=== PATIENT | male | born 1950 | race Caucasian/White ===

== ENCOUNTER → 2016-02-15 | Day surgery (SDC) | payer OTHER ==
[2016-02-03 08:20] VITALS: Ht 170.2 cm; Wt 76.8 kg
[~2016-02-15] VITALS: Ht 170.2 cm; Wt 76.8 kg
[~2016-02-15] MED LIST: ALBINS/ INH; ASPI81TA28 PO; ATV/1 PO; AZAT50TA17 PO; CAPS0.022 TOP; FAMO20TA11 PO; HYDR-3714 PO; ITRA100C PO; LIDOCAINE HCL 2% 2 ML VIAL (20MG/ML) ONE; MAGN400T5 PO; MAGN400T6 PO; MIDAZOLAM HCL 1 MG/ML 2ML VIAL ONE; MIRT1TAB27 PO; MYCO1TAB7 PO; ONDA4TAB46 PO; ONDANSETRON INJ 2 MG/ML 2 ML VIAL ONE; PRAV20TA PO; PRED-301 PO; PRED50TA PO; PRLSR20 PO; PROGRAF PO; PROPOFOL IV EMULSION 10 MG/ML 20 ML VIAL IV ONE; PRVC40 PO; SODIUM CHLORIDE 0.9% 500ML 500 ML IV ONE; SULF800T23 PO; TACR1CAP PO; TEMA15CA4 PO; VALA1TAB2 PO
--- NOTE | 2016-02-15 10:52 | Endo History and Physical ---
History & Physical Date of Service: Feb 15, 2016. Chief Complaint: SCREENING FOR COLON C.A. Referring Physician: DR. ESTEBAN DUNHAM History of Present Illness 65 yo CM who presents for screening colonoscopy. Past Medical History Reflux, Other Past Surgical History Hx Cardiac Surgery: Yes (HEART CATH-NO STENTS) Hx Internal Defibrillator: No Hx Pacemaker: No Hx Abdominal Surgery: Yes (APPY) Hx Post-Op Nausea and Vomiting: No Hx Cancer Surgery: No Hx Thoracic Surgery: Yes (BILATERAL LUNG TRANSPLANT 2015) Hx Orthopedic: Yes (LUMBAR DISCECTOMY X 3, CERVICAL DISCECTOMY, RT KNEE ARTHRSCOPY) Hx Urinary Tract Surgery: No Family History None Social History Smoking Status: Former Smoker Hx Substance Use: Yes (SEE MED REC) Hx Alcohol Use: No (QUIT OVER 20 YEARS AGO) Allergies Coded Allergies: Levofloxacin (Verified Allergy, Intermediate, REDNESS/RASH, 02/15/16) Current Medications Reported Home Medications Medications Dose Route/Sig Max Daily Dose Days Date Category Dose Instructions Mirtazapine 7.5 Mg Tab 1 Tab PO HS 02/03/16 Reported [Prograf Liquid] Unknown Strength 0.25 Ml PO QPM 01/20/16 Reported [Prograf Liquid] Unknown Strength 0.5 Ml PO QAM 01/20/16 Reported Pravastatin Sodium (Pravastatin Sod) 40 Mg Tab 40 Mg PO HS 01/18/[address] (Mycophenolate Sodium) 360 Mg Tab 2 Tab PO BID 01/18/16 Reported Sporanox (Itraconazole) 100 Mg Cap 100 Mg PO UNKNOWN PRN 01/18/16 Reported Zofran (Ondansetron HCl) 4 Mg Tab 4 Mg PO Q8 PRN 01/17/16 Reported Restoril (Temazepam) 15 Mg Cap 15 Mg PO HS 12/31/15 Reported Mag-Ox (Magnesium Oxide) 400 Mg Tab 400 Mg PO TID 12/31/15 Reported Prednisone 5 Mg Tab 5 Mg PO QAM 12/31/15 Reported Aspirin Ec (Aspirin) 81 Mg Tab 81 Mg PO QAM 12/31/15 Reported PATIENT CURRENTLY NOT TAKING DUE TO UPCOMING BRONCHOSCOPY Ativan (Lorazepam) 1 Mg Tab 1 Mg PO BID 10/26/14 Reported Prilosec (Omeprazole) 20 Mg Capcr 20 Mg PO BID 03/24/13 Reported Proventil 0.083% 2.5MG/3ML (Albuterol Sulf) 2.5 Mg/3 Ml Nebu 2.5 Mg INH 5XD PRN 03/16/11 Reported Vital Signs Weight (Kilograms): 76.82 Height (Feet): 5 Height (Inches): 7 Date Time Temp Pulse Resp B/P Pulse Ox O2 Delivery O2 Flow Rate FiO2 02/15/16 10:38 36.7 77 16 128/73 99 Room Air Physical Exam General Appearance: WD/WN, no apparent distress Respiratory/Chest: Auscultation: breath sounds normal Cardiovascular: Heart Auscultation: RRR Abdomen: Bowel Sounds: normal Inspection & Palpation: soft, non-distended, no tenderness, guarding & rebound Assessment and Plan Assessment: 65 yo CM who presents for screening colonoscopy. Plan: Proceed with colonoscopy.
--- NOTE | 2016-02-15 11:20 | Discharge Instructions ---
Endoscopy Patient Instructions Date / Procedure(s) Performed Feb 15, 2016. Colonoscopy Allergy Information Coded Allergies: Levofloxacin (Verified Allergy, Intermediate, REDNESS/RASH, 02/15/16) Discharge Date / Findings Feb 15, 2016. Colon polyp Diverticulosis Internal hemorrhoids Medication Instructions Stopped Medication(s): ASPRIN LAST DOSE 2 WEEKS AGO 02/01/16 OK to resume all medications today as prescribed Reported Home Medications Medications Dose Route/Sig Max Daily Dose Days Date Category Dose Instructions Mirtazapine 7.5 Mg Tab 1 Tab PO HS 02/03/16 Reported [Prograf Liquid] Unknown Strength 0.25 Ml PO QPM 01/20/16 Reported [Prograf Liquid] Unknown Strength 0.5 Ml PO QAM 01/20/16 Reported Pravastatin Sodium (Pravastatin Sod) 40 Mg Tab 40 Mg PO HS 01/18/[address] (Mycophenolate Sodium) 360 Mg Tab 2 Tab PO BID 01/18/16 Reported Sporanox (Itraconazole) 100 Mg Cap 100 Mg PO UNKNOWN PRN 01/18/16 Reported Zofran (Ondansetron HCl) 4 Mg Tab 4 Mg PO Q8 PRN 01/17/16 Reported Restoril (Temazepam) 15 Mg Cap 15 Mg PO HS 12/31/15 Reported Mag-Ox (Magnesium Oxide) 400 Mg Tab 400 Mg PO TID 12/31/15 Reported Prednisone 5 Mg Tab 5 Mg PO QAM 12/31/15 Reported Aspirin Ec (Aspirin) 81 Mg Tab 81 Mg PO QAM 12/31/15 Reported PATIENT CURRENTLY NOT TAKING DUE TO UPCOMING BRONCHOSCOPY Ativan (Lorazepam) 1 Mg Tab 1 Mg PO BID 10/26/14 Reported Prilosec (Omeprazole) 20 Mg Capcr 20 Mg PO BID 03/24/13 Reported Proventil 0.083% 2.5MG/3ML (Albuterol Sulf) 2.5 Mg/3 Ml Nebu 2.5 Mg INH 5XD PRN 03/16/11 Reported Provider Instructions Activity Restrictions - No exercising or heavy lifting for 24 hours. - Do not drink alcohol the day of the procedure. - Do not drive a car or operate machinery until the day after the procedure. - Do not make any important decisions or sign important papers in 24 hours after the procedure. Following Day: - Return to full activity which may include returning to work/school. Diet Start your diet with liquids and light foods (jello, soup, juice, toast). Then eat your usual diet if not nauseated. Treatment For Common After Affects For mild abdominal pain, bloating, or excessive gas: - Rest - Eat lightly - Lie on right side Follow-Up Information Follow-up with DR. ESTEBAN DUNHAM as scheduled Anesthesia Information What You Should Know You have had a procedure that required some medicine to reduce anxiety and discomfort. This treatment is called moderate sedation. After receiving the treatment, you may be sleepy, but you will be able to breathe on your own. The effects of the treatment may last for several hours. Follow these instructions along with Activity/Diet recommendations noted above: * Do NOT do anything where dizziness or clumsiness would be dangerous. * Rest quietly at home today, then you can be up and about tomorrow. * Have a responsible person stay with you the rest of today. * You may have had an I.V. today. If so, you may take the dressing off later today. Recommendations Call your doctor if: * Trouble breathing * Continuous vomiting for more than 24 hours * Temperature above 101 degrees * Severe abdominal pain or bloating * Pain not relieved by pain medicine ordered * There is increased drainage or redness from any incision * A large amount of rectal bleeding greater than 2-3 tablespoons. (If you had a polyp/s removed or have hemorrhoids, a small amount of blood - from the rectum is to be expected.) * You have any unanswered questions or concerns. IN THE EVENT OF A SERIOUS EMERGENCY, GO TO THE NEAREST EMERGENCY ROOM Your discharge instructions were prepared by provider Paolo Hernandez. Patient Instructions Signature Page Milan Valiente Patient (or Guardian) Signature/Date: I have read and understand the instructions given to me by my caregivers. Caregiver/RN/Doctor Signature/Date: The above-named patient and/or guardian has received patient instructions on this date. + Original Patient Signature Page (only) stays with chart. Please make copy for patient.
--- NOTE | 2016-02-15 11:22 | GI REPORT ---
Procedure Date: 02/15/2016 10:59 AM Procedure: Colonoscopy Indications: Screening for colorectal malignant neoplasm Medicines: Monitored Anesthesia Care Complications: No immediate complications. Estimated Blood Loss: Estimated blood loss: none. Procedure: Pre-Anesthesia Assessment: - Prior to the procedure, a History and Physical was performed, and patient medications and allergies were reviewed. The patient's tolerance of previous anesthesia was also reviewed. The risks and benefits of the procedure and the sedation options and risks were discussed with the patient. All questions were answered, and informed consent was obtained. Prior Anticoagulants: The patient has taken aspirin, last dose was 14 days prior to procedure. ASA Grade Assessment: III - A patient with severe systemic disease. After reviewing the risks and benefits, the patient was deemed in satisfactory condition to undergo the procedure. After I obtained informed consent, the scope was passed under direct vision. Throughout the procedure, the patient's blood pressure, pulse, and oxygen saturations were monitored continuously. The scope was introduced through the anus and advanced to the terminal ileum. The colonoscopy was performed without difficulty. The patient tolerated the procedure well. The quality of the bowel preparation was good. The terminal ileum, ileocecal valve, appendiceal orifice, and rectum were photographed. Findings: A 5 mm polyp was found in the cecum. The polyp was sessile. The polyp was removed with a hot snare. Resection and retrieval were complete. Scattered small-mouthed diverticula were found in the entire colon. Non-bleeding internal hemorrhoids were found during retroflexion. The hemorrhoids were small. Impression: - One 5 mm polyp in the cecum, removed with a hot snare. Resected and retrieved. - Diverticulosis in the entire examined colon. - Non-bleeding internal hemorrhoids. Recommendation: - Resume previous diet. - Continue present medications. - Repeat colonoscopy for surveillance based on pathology results. - Return to primary care physician as previously scheduled. Paolo Hernandez DO 02/15/2016 11:21:13 AM This report has been signed electronically. Note Initiated On: 02/15/2016 10:59 AM
[2016-02-15 11:55] VITALS: BP 120/66; PULSE 66; O2SAT 99
--- NOTE | 2016-02-15 13:04 | Anesthesiology Progress Note ---
Anesthesia Post Op Note Date & Time Feb 15, 2016 at 13:04 Vital Signs Pain Intensity: 0 Vital Signs Past 12 Hours Date Time Temp Pulse Resp B/P Pulse Ox O2 Delivery O2 Flow Rate FiO2 02/15/16 11:55 66 18 120/66 99 Room Air 02/15/16 11:40 68 16 124/65 99 Room Air 02/15/16 11:23 36.7 69 16 117/62 99 Room Air 02/15/16 10:38 36.7 77 16 128/73 99 Room Air Notes Mental Status: alert / awake / arousable, participated in evaluation Pt Amnestic to Procedure: Yes Nausea / Vomiting: adequately controlled Pain: adequately controlled Airway Patency, RR, SpO2: stable & adequate BP & HR: stable & adequate Hydration State: stable & adequate Anesthetic Complications: no major complications apparent
== END | disposition home or self-care (01) ==
LOC: C.GI 10:21
PROVIDERS: ATTEND Internal Medicine
DX: Z12.11 Encounter for screening for malignant neoplasm of colon (principal); D12.0 Benign neoplasm of cecum; K57.90 Diverticulosis of intestine, part unspecified, without perforation or abscess without bleeding; K64.8 Other hemorrhoids; Z87.891 Personal history of nicotine dependence; Z79.899 Other long term (current) drug therapy; Z94.2 Lung transplant status

== ENCOUNTER → 2016-03-13 | Outpatient (CLI) | payer OTHER ==
[~2016-03-13] MED LIST changes: -HYDR-3714 PO; -LIDOCAINE HCL 2% 2 ML VIAL (20MG/ML) ONE; -MIDAZOLAM HCL 1 MG/ML 2ML VIAL ONE; -ONDANSETRON INJ 2 MG/ML 2 ML VIAL ONE; -PROPOFOL IV EMULSION 10 MG/ML 20 ML VIAL IV ONE; -SODIUM CHLORIDE 0.9% 500ML 500 ML IV ONE
--- NOTE | 2016-03-13 10:31 | DIAGNOSTIC IMAGING REPORT ---
CHEST 2 VIEWS ROUTINE CLINICAL HISTORY: R68.89 Flu-like symptoms3 days cough E X0D E [id number] dyspnea COMPARISON STUDY: 01/17/2016 FINDINGS: Stable unchanging postoperative changes mid mediastinum as well as central pericardiac region. Findings appear to relate to the anterior sternum as well as mediastinal regions. These again are chronic. Slight chronic blunting left base laterally. Lungs otherwise appear clear. IMPRESSION: Chronic and postoperative change. No acute process. Electronically signed by: Emeterio Hall M.D. 03/13/2016 10:30 AM Dictated Date/Time: 03/13/2016 10:29 AM
[2016-03-13 12:36] LABS: INFLUENZA A PCR Neg for Influ A (NEG); INFLUENZA B PCR Neg for Influ B (NEG)
== END | disposition home or self-care (01) ==
LOC: C.RAD1850 10:16
PROVIDERS: ATTEND Family Medicine
DX: R68.89 Other general symptoms and signs (principal); B34.8 Other viral infections of unspecified site; T86.812 Lung transplant infection; X58.XXXA Exposure to other specified factors, initial encounter; Z94.2 Lung transplant status; Z79.899 Other long term (current) drug therapy; E83.42 Hypomagnesemia

== ENCOUNTER → 2016-04-10 | Outpatient (CLI) | payer OTHER ==
[~2016-04-10] MED LIST changes: +ACYC-57 PO; +ATV1 PO; +AZAT50TA22 PO; +CRFL PO; +FAMO1TAB47 PO; +FLUD0.1T10 PO; +GABA1CAP4 PO; +LYR/50 PO; +OMEP20CA9 PO; +ONDA4TAB9 PO; +PRAV40TA2 PO; +PRG5 PO; +TEMA-79 PO
[2016-04-10 09:49] LABS: ALT/SGPT 11 U/L (12-78); BLOOD UREA NITROGEN 22 mg/dl (7-18); BUN/CREATININE RATIO 20.3 (10-20); CALCIUM 8.9 mg/dl (8.5-10.1); CARBON DIOXIDE 26 mmol/L (21-32); CHLORIDE 106 mmol/L (98-107); GLUCOSE 97 mg/dl (70-99); POTASSIUM 4.7 mmol/L (3.5-5.1); SODIUM 142 mmol/L (136-145)
[2016-04-10 09:55] LABS: ALB/GLOB RATIO 1.3 (0.9-2); ALKALINE PHOSPHATASE 52 U/L (45-117); AST/SGOT 14 U/L (15-37); CHOLESTEROL 144 mg/dl (0-200); CHOLESTEROL/HDL RATIO 1.7; HDL CHOLESTEROL 85 mg/dl; LDL CHOLESTEROL CALCULATED 34 mg/dl; PROSTATE SPECIFIC ANTIGEN 0.508 ng/ml (0.000-4.000); TRIGLYCERIDES 124 mg/dl (0-150); VERY LOW DENSITY LIPOPROT CALC 25 mg/dl
== END | disposition home or self-care (01) ==
LOC: C.LAB 07:52
PROVIDERS: ATTEND Internal Medicine
DX: Z12.5 Encounter for screening for malignant neoplasm of prostate (principal); E78.5 Hyperlipidemia, unspecified

== ENCOUNTER 2016-09-23 11:33 | Emergency (ER) | payer OTHER ==
[~2016-09-23] VITALS: Ht 170.2 cm; Wt 78.4 kg
[~2016-09-23 11:33] MED LIST changes: -ACYC-57 PO; -ATV1 PO; -AZAT50TA17 PO; -AZAT50TA22 PO; -CAPS0.022 TOP; -CRFL PO; -FAMO1TAB47 PO; -FAMO20TA11 PO; -FLUD0.1T10 PO; -GABA1CAP4 PO; -LYR/50 PO; -MAGN400T5 PO; -OMEP20CA9 PO; -ONDA4TAB9 PO; -PRAV20TA PO; -PRAV40TA2 PO; -PRED50TA PO; -PRG5 PO; -SULF800T23 PO; -TACR1CAP PO; -TEMA-79 PO; -VALA1TAB2 PO
[2016-09-23 11:36] VITALS: TEMP 36.8; Ht 170.2 cm; Wt 78.4 kg
[2016-09-23] MEDS ORDERED: SODIUM CHLORIDE 0.9% 1000ML 1,000 ML IV STA ×2 (12:01→16:09)
[2016-09-23] MEDS ORDERED: ONDANSETRON INJ 2 MG/ML 2 ML VIAL IV STA ×2 (12:01→15:52)
--- NOTE | 2016-09-23 12:14 | EMERGENCY ROOM VISIT NOTE ---
History Report prepared by Raghav: Jorge Galvin Under the Supervision of: Dr. Carlos Alberto Allen D.O. First contact with patient: 11:58 Chief Complaint: ILLNESS Stated Complaint: CHEST/BACK PAIN HX: DOUBLE LUNG TRANSPLANT History of Present Illness The patient is a 65 year old male who presents to the Emergency Room with complaints of constant right sided chest pain that began 5 days ago. He rates his pain a 9/10 in severity. At this time, he began experiencing this pain. It then began to radiate into his right upper back. Deep breaths exacerbate his chest pain. Two days ago, he went to a doctor in [place] and was given [place]. His pain then began to radiate down his right side. He notes that he had a bilateral lung transplant 2 years ago, and he recently fell half a month ago onto his chest. He is also experiencing a cough. He denies any fevers, chills, abdominal pain, pain/swelling in his legs, or weight loss/gain. He states that he has a broke bone in his neck currently. He has a past medical history of back surgery, neck surgery, knee surgery, and an appendectomy. He still has his gallbladder, never has had a kidney stone, and never had a blood clot. Source of History: patient Onset: 5 days ago Position: chest (right) Symptom Intensity: 9/10 Quality: ache Timing: constant Modifying Factors (Worsening): breathing Associated Symptoms: + cough, + back pain, No fevers, No chills, No abdominal pain Review of Systems See HPI for pertinent positives & negatives. A total of 10 systems reviewed and were otherwise negative. Past Medical & Surgical Medical Problems: (1) COPD (chronic obstructive pulmonary disease) (2) Diffuse interstitial pulmonary fibrosis (3) Dyslipidemia (4) Gastroesophageal reflux disease (5) Tobacco dependence in remission Surgical Problems: (1) H/O arthroscopy of right knee (2) H/O cardiac catheterization (3) History of lumbar surgery (4) Hx of appendectomy (5) S/P cervical spinal fusion Family History FH: diabetes mellitus FH: heart disease Lung disease Social History Smoking Status: Former Smoker Smokeless Tobacco Use: No Alcohol Use: none Drug Use: none Marital Status: Occupation Status: disabled Current/Historical Medications Scheduled Aspirin (Aspirin Ec), 81 MG PO DAILY Azathioprine (Imuran), 50 MG PO DAILY Famotidine (Pepcid), 20 MG PO BID Lorazepam (Ativan), 1 MG PO BID Magnesium Oxide (Mag-Ox), 400 MG PO TID Omeprazole (Prilosec), 20 MG PO BID Pravastatin (Pravachol ), 40 MG PO HS Prednisone (Prednisone), 50 MG PO DAILY Sulfa/Trimethoprim (Bactrim Ds 800MG/160MG), 1 TAB PO 3XWK Tacrolimus (Prograf), 4 MG PO QAM Tacrolimus (Prograf), 3 MG PO QPM Temazepam (Restoril), 15 MG PO HS Valacyclovir Hcl (Valtrex), 1,000 MG PO DAILY Scheduled PRN Ondansetron Hcl (Zofran), 4 MG PO Q8 PRN for Nausea Allergies Coded Allergies: Levofloxacin (Verified Allergy, Intermediate, REDNESS/RASH, 09/23/16) Physical Exam Vital Signs Date Time Temp Pulse Resp B/P (MAP) Pulse Ox O2 Delivery O2 Flow Rate FiO2 09/23/16 17:27 67 18 131/83 100 09/23/16 16:14 65 20 128/82 100 Room Air 09/23/16 14:30 70 10 131/72 95 Room Air 09/23/16 13:57 67 19 122/75 94 Room Air 09/23/16 12:45 71 26 112/73 100 Room Air 09/23/16 12:24 76 09/23/16 11:36 36.8 93 18 151/78 99 Room Air Physical Exam GENERAL: Patient is awake, alert, and in no acute distress. Patient is resting comfortably and showing no signs of anxiety EYES: The conjunctivae are clear. The pupils are round and reactive. EARS, NOSE, MOUTH AND THROAT: The nose is without any evidence of any deformity. Mucous membranes are moist tongue is midline NECK: The neck is nontender and supple. RESPIRATORY: Normal respiratory effort is noted there is no evidence of wheezing rhonchi or rales CARDIOVASCULAR: Regular rate and rhythm noted there no murmurs rubs or gallops normal S1 normal S2 GASTROINTESTINAL: The abdomen is soft. Bowel sounds are present in all quadrants. Abdomen is nontender BACK: No midline tenderness or or step-off noted range of motion in flexion extension as well as rotation no signs of muscle spasm noted MUSCULOSKELETAL/EXTREMITIES: There is no evidence of gross deformity full range of motion is noted in the hips and shoulders SKIN: There are no petechiae, pallor or cyanosis noted. Erythematous vesicular rash under the right lower rib cage consistent with shingles. NEUROLOGIC: Patient is awake alert and oriented x3. Medical Decision & Procedures ER Provider Diagnostic Interpretation: Radiology results as stated below per my review and radiologist interpretation: CHEST ONE VIEW PORTABLE CLINICAL HISTORY: Abdominal pain. COMPARISON STUDY: Chest radiograph March 13, 2016. FINDINGS: Lung volumes are normal. No pneumothorax or pleural effusion is present. Mild elevation of the right hemidiaphragm is unchanged. There are are postoperative findings within the sternum as well as mediastinal surgical clips consistent with bilateral lung transplant. Mild cardiomegaly is unchanged. There is no evidence of pulmonary edema. Linear left lower lung opacity suggests atelectasis or scarring. The appearance of the chest is unchanged. IMPRESSION: No acute cardiopulmonary findings. No change in appearance of the chest. Electronically signed by: Adonis Gudino M.D. 09/23/2016 12:54 PM Dictated Date/Time: 09/23/2016 12:52 PM BILATERAL LOWER EXTREMITY VENOUS DOPPLER CLINICAL HISTORY: Chest pain. Possible pulmonary embolus. COMPARISON STUDY: No previous studies for comparison. TECHNIQUE: Sonography of the deep venous system of the bilateral lower extremities was performed. Compression and augmentation were evaluated. FINDINGS: The bilateral common femoral, superficial femoral and popliteal veins were compressible. Augmentation was normal. Flow was shown within the deep calf vessels. IMPRESSION: No evidence of deep venous thrombus within the bilateral lower extremities. Electronically signed by: Adonis Gudino M.D. 09/23/2016 3:31 PM Dictated Date/Time: 09/23/2016 3:30 PM Laboratory Results 09/23/16 12:10 Red Blood Count 3.93, Mean Corpuscular Volume 85.5, Mean Corpuscular Hemoglobin 27.5, Mean Corpuscular Hemoglobin Concent 32.1, Mean Platelet Volume 9.7, Neutrophils (%) (Auto) 79.2, Lymphocytes (%) (Auto) 11.7, Monocytes (%) (Auto) 7.5, Eosinophils (%) (Auto) 1.0, Basophils (%) (Auto) 0.3, Neutrophils # (Auto) 4.85, Lymphocytes # (Auto) 0.72, Monocytes # (Auto) 0.46, Eosinophils # (Auto) 0.06, Basophils # (Auto) 0.02 09/23/16 12:10 Test 09/23/16 12:10 09/23/16 12:19 09/23/16 14:00 White Blood Count 6.13 K/uL (4.8-10.8) Red Blood Count 3.93 M/uL (4.7-6.1) Hemoglobin 10.8 g/dL (14.0-18.0) Hematocrit 33.6 % (42-52) Mean Corpuscular Volume 85.5 fL (80-100) Mean Corpuscular Hemoglobin 27.5 pg (25-34) Mean Corpuscular Hemoglobin Concent 32.1 g/dl (32-36) Platelet Count 331 K/uL (130-400) Mean Platelet Volume 9.7 fL (7.4-10.4) Neutrophils (%) (Auto) 79.2 % Lymphocytes (%) (Auto) 11.7 % Monocytes (%) (Auto) 7.5 % Eosinophils (%) (Auto) 1.0 % Basophils (%) (Auto) 0.3 % Neutrophils # (Auto) 4.85 K/uL (1.4-6.5) Lymphocytes # (Auto) 0.72 K/uL (1.2-3.4) Monocytes # (Auto) 0.46 K/uL (0.11-0.59) Eosinophils # (Auto) 0.06 K/uL (0-0.5) Basophils # (Auto) 0.02 K/uL (0-0.2) RDW Standard Deviation 51.0 fL (36.4-46.3) RDW Coefficient of Variation 16.1 % (11.5-14.5) Immature Granulocyte % (Auto) 0.3 % Immature Granulocyte # (Auto) 0.02 K/uL (0.00-0.02) Prothrombin Time 10.9 SECONDS (9.0-12.0) Prothromb Time International Ratio 1.0 (0.9-1.1) Activated Partial Thromboplast Time 27.5 SECONDS (21.0-31.0) Partial Thromboplastin Ratio 1.1 Anion Gap 7.0 mmol/L (3-11) Est Creatinine Clear Calc Drug Dose 27.2 ml/min Estimated GFR () 29.1 Estimated GFR (Non- 25.1 BUN/Creatinine Ratio 17.8 (10-20) Calcium Level 8.3 mg/dl (8.5-10.1) Total Bilirubin 0.5 mg/dl (0.2-1) Direct Bilirubin 0.1 mg/dl (0-0.2) Aspartate Amino Transf (AST/SGOT) 11 U/L (15-37) Alanine Aminotransferase (ALT/SGPT) 13 U/L (12-78) Alkaline Phosphatase 59 U/L (45-117) Total Creatine Kinase 101 U/L (39-308) Creatine Kinase MB 2.5 ng/ml (0.5-3.6) Creatine Kinase MB Ratio 2.5 (0-3.0) Troponin I < 0.015 ng/ml (0-0.045) Total Protein 6.9 gm/dl (6.4-8.2) Albumin 3.9 gm/dl (3.4-5.0) Lipase 53 U/L (73-393) Bedside D-Dimer > 450 ng/mlFEU (0-450) Urine Color YELLOW Urine Appearance CLEAR (CLEAR) Urine pH 5.5 (4.5-7.5) Urine Specific [place] 1.016 (1.000-1.030) Urine Protein NEG (NEG) Urine Glucose (UA) NEG (NEG) Urine Ketones NEG (NEG) Urine Occult Blood NEG (NEG) Urine Nitrite NEG (NEG) Urine Bilirubin NEG (NEG) Urine Urobilinogen NEG (NEG) Urine Leukocyte Esterase NEG (NEG) Laboratory results per my review. Medications Administered Medications (Trade) Dose Ordered Sig/Chrystal Route Start Time Stop Time Status Last Admin Dose Admin Sodium Chloride 1,000 ml @ 999 mls/hr Q1H1M STAT IV 09/23/16 12:01 09/23/16 13:01 DC 09/23/16 12:34 999 MLS/HR Ondansetron HCl (Zofran Inj) 4 mg NOW STAT IV 09/23/16 12:01 09/23/16 12:02 DC 09/23/16 12:34 4 MG Morphine Sulfate (MoRPHine SULFATE INJ) 4 mg Q15M PRN IV 09/23/16 12:15 10/07/16 12:14 09/23/16 14:45 4 MG Valacyclovir HCl (Valtrex Tab) 1,000 mg NOW ONCE PO 09/23/16 14:45 09/23/16 14:46 DC 09/23/16 14:44 1,000 MG Ondansetron HCl (Zofran Inj) 4 mg NOW STAT IV 09/23/16 15:52 09/23/16 15:54 DC 09/23/16 16:07 4 MG Sodium Chloride 1,000 ml @ 999 mls/hr Q1H1M STAT IV 09/23/16 16:09 09/23/16 17:09 DC 09/23/16 16:16 999 MLS/HR ECG Indication: chest pain Rate (beats per minute): 78 Rhythm: normal sinus Findings: no ectopy, other (no acute STS) Comparison ECG Date: 17 Jan 2016 Change: no significant change ED Course 1158: The patient was evaluated in room B10. A complete history and physical examination were performed. 1201: Ordered Zofran Inj 4 mg IV, NSS 1,000 ml @ 999 mls/hr IV 1215: Ordered Morphine Sulfate 4 mg IV 1435: The patient just noticed he has a rash. 1445: Ordered Valtrex Tab 1000 mg PO 1552: Ordered Zofran Inj 4 mg IV 1609: Ordered NSS 1,000 ml @ 999 mls/hr IV 1655: I spoke with the recruitment coordinator, Felicia, of [facility] at this time. We discussed the patient's case. They will follow up with the patient this coming week. 1705: Upon reevaluation, the patient is resting. I discussed the results and treatment plan with him. He verbalized agreement of the treatment plan. He was discharged home. Medical Decision Differential diagnosis: Etiologies such as cardiac ischemia, aortic dissection, pulmonary embolism, pneumonia, pneumothorax, musculoskeletal, infections, pericarditis, myocarditis , esophageal rupture, gastrointestinal, as well as others were entertained. The patient is a 65-year-old male who presented to the emergency department for an evaluation of chest pain. The patient states pain was over the right chest wall but also worsened with deep breathing. He did have a mildly elevated d- dimer but his creatinine has slowly been elevating over the last few months. Dopplers lower extremities did not show any DVT. He is not hypoxic or tachycardic. His physical exam appears to be consistent with shingles. I discussed the patient's laboratory radiographic studies with him. He was treated with IV fluids as well as Valtrax in emergency department. I discussed the patient's laboratory and radiographic studies with the transplant team in [facility]. Because of his elevated creatinine they have recommended that he follow- up for a repeat electrolytes and creatinine check this week. He was encouraged to continue all medications as prescribed and drink plenty clear liquids. He was also encouraged to return to the emergency department immediately if symptoms change worsen or the need arises. The patient was given a renal dose adjustment for his Valtrax. Medication Reconcilliation Current Medication List: was personally reviewed by me Blood Pressure Screening Patient's blood pressure: Normal blood pressure Blood pressure disposition: Did not require urgent referral Consults Time Called: 1650 Consulting Physician: Felicia - Retail Experience Specialist of [facility] Returned Call: [phone] We discussed the patient's case. She recommends the patient follow up with them this coming week. Impression Primary Impression: Right-sided chest pain Additional Impression: Shingles Scribe Attestation The scribe's documentation has been prepared under my direction and personally reviewed by me in its entirety. I confirm that the note above accurately reflects all work, treatment, procedures, and medical decision making performed by me. Departure Information Dispostion Home / Self-Care Prescriptions Valacyclovir Hcl (VALTREX) 1 Gm Tab 1000 MG PO DAILY, #7 TAB Prov: Carlos Alberto Allen, DO 09/23/16 Referrals Hima Weldon M.D. (PCP) Forms HOME CARE DOCUMENTATION FORM, IMPORTANT VISIT INFORMATION, WORK / SCHOOL INSTRUCTIONS Patient Instructions My [facility], Shingles Herpes Zoster Additional Instructions Call your family to schedule a follow-up appointment. Continue all medications as prescribed. Drink plenty clear liquids. I would recommend repeat laboratory studies including electrolyte to recheck your creatinine because it was elevated today in the emergency department. Call your translate coordinator to schedule a follow-up appointment as soon as possible. Problem Qualifiers Additional Impression: Shingles Herpes zoster complications: without complications Qualified Codes: B02.9 - Zoster without complications
[2016-09-23] MEDS: MoRPHine SULFATE 4 MG/ML 1 ML CARP\\VIAL IV PRN ×2 (12:34→14:45)
[2016-09-23 12:46] LABS: BASO % 0.3 %; BASO ABS # 0.02 K/uL (0-0.2); COMPLETE YES; HEMATOCRIT 33.6 % (42-52); IG% 0.3 %; LYMPH % 11.7 %; LYMPH ABS # 0.72 K/uL (1.2-3.4); MEAN CELL VOLUME 85.5 fL (80-100); MEAN CORPUSCULAR HEMOGLOBIN 27.5 pg (25-34); MEAN CORPUSCULAR HGB CONC 32.1 g/dl (32-36); MEAN PLATELET VOLUME 9.7 fL (7.4-10.4); MONO % 7.5 %; NEUT % 79.2 %; PLATELET COUNT 331 K/uL (130-400); RED BLOOD COUNT 3.93 M/uL (4.7-6.1); WHITE BLOOD COUNT 6.13 K/uL (4.8-10.8)
[2016-09-23 12:54] LABS: PARTIAL THROMBOPLASTIN RATIO 1.1; PROTHROMBIN TIME (PATIENT) 10.9 SECONDS (9.0-12.0)
--- NOTE | 2016-09-23 12:56 | DIAGNOSTIC IMAGING REPORT ---
CHEST ONE VIEW PORTABLE CLINICAL HISTORY: Abdominal pain. COMPARISON STUDY: Chest radiograph March 13, 2016. FINDINGS: Lung volumes are normal. No pneumothorax or pleural effusion is present. Mild elevation of the right hemidiaphragm is unchanged. There are are postoperative findings within the sternum as well as mediastinal surgical clips consistent with bilateral lung transplant. Mild cardiomegaly is unchanged. There is no evidence of pulmonary edema. Linear left lower lung opacity suggests atelectasis or scarring. The appearance of the chest is unchanged. IMPRESSION: No acute cardiopulmonary findings. No change in appearance of the chest. Electronically signed by: Adonis Gudino M.D. 09/23/2016 12:54 PM Dictated Date/Time: 09/23/2016 12:52 PM
[2016-09-23 13:01] LABS: ALT/SGPT 13 U/L (12-78); BLOOD UREA NITROGEN 46 mg/dl (7-18); BUN/CREATININE RATIO 17.8 (10-20); CALCIUM 8.3 mg/dl (8.5-10.1); CARBON DIOXIDE 23 mmol/L (21-32); CHLORIDE 107 mmol/L (98-107); GLUCOSE 145 mg/dl (70-99); SODIUM 137 mmol/L (136-145)
[2016-09-23 13:08] LABS: ALKALINE PHOSPHATASE 59 U/L (45-117); AST/SGOT 11 U/L (15-37); CKMB/CK RATIO 2.5 (0-3.0)
[2016-09-23] MEDS ORDERED: TEMA15CA4 PO (13:39)
[2016-09-23] MEDS ORDERED: PRLSR20 PO (13:39)
[2016-09-23] MEDS ORDERED: ONDA4TAB46 PO (13:39)
[2016-09-23] MEDS ORDERED: PRAV20TA PO (13:39)
[2016-09-23] MEDS ORDERED: AZAT50TA17 PO (13:39)
[2016-09-23] MEDS ORDERED: TACR1CAP PO ×2 (13:39)
[2016-09-23] MEDS ORDERED: ASPI81TA28 PO (13:39)
[2016-09-23] MEDS ORDERED: PRED50TA PO (13:39)
[2016-09-23] MEDS ORDERED: ATV/1 PO (13:39)
[2016-09-23] MEDS ORDERED: MAGN400T5 PO (13:39)
[2016-09-23] MEDS ORDERED: SULF800T23 PO (13:39)
[2016-09-23] MEDS ORDERED: FAMO20TA11 PO (13:39)
[2016-09-23 14:31] LABS: URINE APPEARANCE CLEAR (CLEAR); URINE BILIRUBIN NEG (NEG); URINE COLOR YELLOW; URINE NITRITE NEG (NEG); URINE PH 5.5 (4.5-7.5); URINE SPECIFIC GRAVITY 1.016 (1.000-1.030); UROBILINOGEN NEG (NEG)
[2016-09-23 14:37] LABS: MANUAL MICROSCOPIC REQUIRED? NO; REVIEW REQ? NO
--- NOTE | 2016-09-23 15:33 | DIAGNOSTIC IMAGING REPORT ---
BILATERAL LOWER EXTREMITY VENOUS DOPPLER CLINICAL HISTORY: Chest pain. Possible pulmonary embolus. COMPARISON STUDY: No previous studies for comparison. TECHNIQUE: Sonography of the deep venous system of the bilateral lower extremities was performed. Compression and augmentation were evaluated. FINDINGS: The bilateral common femoral, superficial femoral and popliteal veins were compressible. Augmentation was normal. Flow was shown within the deep calf vessels. IMPRESSION: No evidence of deep venous thrombus within the bilateral lower extremities. Electronically signed by: Adonis Gudino M.D. 09/23/2016 3:31 PM Dictated Date/Time: 09/23/2016 3:30 PM
[2016-09-23] MEDS ORDERED: VALA1TAB2 PO (17:03)
[2016-09-23 17:27] VITALS: BP 131/83; PULSE 67; O2SAT 100
[2016-10-28] MEDS ORDERED: CAPS0.022 TOP (19:40)
== END 2016-09-23 17:20 | disposition home or self-care (01) ==
LOC: C.EDB 11:36
DX: R07.9 Chest pain, unspecified (principal); B02.9 Zoster without complications; Z94.2 Lung transplant status; J44.9 Chronic obstructive pulmonary disease, unspecified; E78.5 Hyperlipidemia, unspecified; K21.9 Gastro-esophageal reflux disease without esophagitis; Z87.891 Personal history of nicotine dependence; Z83.3 Family history of diabetes mellitus; Z82.49 Family history of ischemic heart disease and other diseases of the circulatory system; Z83.6 Family history of other diseases of the respiratory system; Z79.82 Long term (current) use of aspirin; Z79.52 Long term (current) use of systemic steroids; Z79.899 Other long term (current) drug therapy

== ENCOUNTER 2016-10-10 12:39 | Emergency (ER) | payer OTHER ==
[~2016-10-10] VITALS: Ht 172.7 cm; Wt 80.0 kg
[~2016-10-10 12:39] MED LIST changes: -ALBINS/ INH; +AZAT50TA17 PO; +FAMO20TA11 PO; -ITRA100C PO; +MAGN400T5 PO; -MAGN400T6 PO; -MIRT1TAB27 PO; -MYCO1TAB7 PO; +PRAV20TA PO; -PRED-301 PO; +PRED50TA PO; -PROGRAF PO; -PRVC40 PO; +SULF800T23 PO; +TACR1CAP PO
[2016-10-10 13:12] VITALS: TEMP 37.2; Ht 172.7 cm; Wt 80.0 kg
--- NOTE | 2016-10-10 14:21 | EMERGENCY ROOM VISIT NOTE ---
ED Visit Note First contact with patient: 12:50 Staff note: I have reviewed the Patients chart and have discussed this case with my PA. I generally agree with the ED note and findings.
[2016-10-10 15:00] VITALS: BP 130/80; PULSE 78; O2SAT 99
--- NOTE | 2016-10-10 15:18 | EMERGENCY ROOM VISIT NOTE ---
History First contact with patient: 12:50 Chief Complaint: SKIN PROBLEM Stated Complaint: SHINGLES ON STOMACH AND BACK History of Present Illness The patient is a 65 year old male who presents to the Emergency Room with complaints of a persistent painful rash on his right trunk. The patient reports that he was diagnosed with shingles approximately 2 weeks ago. He has received multiple prescriptions with persistent pain. The patient reports that he has called his family doctor's office without any success, and presents to the emergency department for treatment. He is requesting a topical cream or patch for the pain. The patient rates his discomfort a 9 out of 10. Review of Systems 10 system review was performed and was negative except for pertinent positives and negatives as indicated in history of present illness Past Medical/Surgical History Medical Problems: (1) COPD (chronic obstructive pulmonary disease) (2) Diffuse interstitial pulmonary fibrosis (3) Dyslipidemia (4) Gastroesophageal reflux disease (5) Tobacco dependence in remission Surgical Problems: (1) H/O arthroscopy of right knee (2) H/O cardiac catheterization (3) History of lumbar surgery (4) Hx of appendectomy (5) S/P cervical spinal fusion Family History FH: diabetes mellitus FH: heart disease Lung disease Social History Smoking Status: Former Smoker Alcohol Use: none Drug Use: none Marital Status: Occupation Status: disabled Current/Historical Medications Scheduled Azathioprine (Imuran), 50 MG PO DAILY Famotidine (Pepcid), 20 MG PO BID Lorazepam (Ativan), 1 MG PO BID Magnesium Oxide (Mag-Ox), 400 MG PO TID Omeprazole (Prilosec), 20 MG PO BID Pravastatin (Pravachol ), 40 MG PO HS Prednisone (Prednisone), 50 MG PO DAILY Tacrolimus (Prograf), 4 MG PO QAM Tacrolimus (Prograf), 3 MG PO QPM Temazepam (Restoril), 15 MG PO HS Scheduled PRN Ondansetron Hcl (Zofran), 4 MG PO Q8 PRN for Nausea Allergies Coded Allergies: Levofloxacin (Verified Allergy, Intermediate, REDNESS/RASH, 10/10/16) Physical Exam Vital Signs Date Time Temp Pulse Resp B/P (MAP) Pulse Ox O2 Delivery O2 Flow Rate FiO2 10/10/16 13:12 37.2 87 20 127/92 97 Room Air Physical Exam CONSTITUTIONAL: Healthy and well nourished. Alert and oriented X 3 with positive affect. Patient does not appear in any acute distress on exam. HEENT: Normocephalic, atraumatic. Pupils equal, round and reactive. NECK: Full active range of motion without discomfort. RESPIRATORY: Clear to auscultation bilaterally with no wheezing, crackles, rhonchi or stridor. CARDIOVASCULAR: Regular rate and rhythm with no murmurs, rubs or gallops. GASTROINTESTINAL: Bowel sounds present in all quadrants. Soft and nontender to palpation. MUSCULOSKELETAL: Full range of motion of all joints without discomfort. INTEGUMENTARY: Examination shows evidence for a healed zoster rash on the right midthoracic dermatome. There are no open lesions, crusting or drainage. NEUROLOGIC: No focal neurologic deficits noted. Medical Decision & Procedures ED Course Patient history and physical exam were performed. Nurse's notes were reviewed. Vital signs were reviewed and were normal. The patient is a poor historian, and does not know what medication he is taking. Review of the patient's prescription history shows that he is currently on gabapentin. He has received multiple prescriptions from his PCP over the past 2 weeks, with his wrist recent prescription for oxycodone 5 mg, dispensed #40 with no refills, just filled from the pharmacy 3 days ago. This information was collected from review of the [place] Prescription Drug Monitoring Program. At this point, I elected to contact Dr. Weldon's office. A nurse did review his medical file and does not see were the patient was provided a prescription for OxyIR 5 mg on 10/07/16 since that was actually on a Sunday. She recommends that the patient call the office for an appointment to discuss other treatment options. She also reports that the patient has a prior history of opioid and benzodiazepine misuse. This information was relayed back to the patient. He was encouraged to continue with his current medications until his family doctor can arrange a different pain management regimen. The patient was advised that the emergency department does not provide ongoing pain management, especially when he is currently receiving prescription narcotics from his PCP. The patient voiced understanding of all discharge instructions, was happy with plan of care, and rated his discomfort a 5 out of 10 at the conclusion of my exam. Medical Decision [place] Drug Monitoring Program Search Results: patient reviewed within database, see additional documentation Impression Primary Impression: Herpes zoster Departure Information Dispostion Home / Self-Care Forms HOME CARE DOCUMENTATION FORM, IMPORTANT VISIT INFORMATION Patient Instructions Shingles Herpes Zoster, My [facility] Additional Instructions Follow-up with Dr. Weldon to discuss further treatment options. Continue with your current prescription pain medication and gabapentin. Call Dr. Weldon's office for an appointment. Problem Qualifiers Primary Impression: Herpes zoster Herpes zoster complications: with other complications Qualified Codes: B02.8 - Zoster with other complications
[2016-10-28] MEDS ORDERED: CAPS0.022 TOP (19:40)
== END 2016-10-10 15:18 | disposition home or self-care (01) ==
LOC: C.EDB 12:39
DX: B02.8 Zoster with other complications (principal); J44.9 Chronic obstructive pulmonary disease, unspecified; E78.5 Hyperlipidemia, unspecified; K21.9 Gastro-esophageal reflux disease without esophagitis; Z87.891 Personal history of nicotine dependence; Z98.1 Arthrodesis status; Z83.3 Family history of diabetes mellitus; Z79.899 Other long term (current) drug therapy

== ENCOUNTER → 2016-10-28 | Emergency (ER) | payer OTHER ==
[~2016-10-28] MED LIST changes: -ASPI81TA28 PO; +CAPS0.022 TOP; -SULF800T23 PO
== END ==
LOC: C.EDB 18:18
DX: Z53.29 Procedure and treatment not carried out because of patient's decision for other reasons (principal); R21 Rash and other nonspecific skin eruption

== ENCOUNTER → 2016-10-28 | Emergency (ER) | payer OTHER ==
[2016-10-10 13:12] VITALS: TEMP 37.2; BMI 26.0
[2016-10-10 15:00] VITALS: BP 130/80; PULSE 78; O2SAT 99
[~2016-10-28] MED LIST changes: +CAPSAICIN CR 0.075% 60 GM TUBE EXT STA
--- NOTE | 2016-10-28 16:41 | EMERGENCY ROOM VISIT NOTE ---
History Report prepared by Raghav: Bon Stanley Under the Supervision of: Dr. Bev Hammond D.O. First contact with patient: 16:18 Chief Complaint: RASH Stated Complaint: SHINGLES,SEVERE PAIN History of Present Illness The patient is a 65 year old male who presents to the Emergency Room with complaints of a worsening rash since last night. The patient states that he has shingles, and it started a couple weeks ago, and it has been healing, but has had persistent pain even though last night it got significantly worse. The rash is on his chest and wraps around his right side and back in the area of shingles. The patient states that this is the first time that he has had shingles, and he has been on gabapentin 300 mg 4 times per day. He states that he had chicken pox when he was a child. The patient additionally states that he had a lung transplant almost two years ago, and he is taking transplant medication very regularly. States he has not any issues with rejection and has been doing well since his transplant. Additionally, he states that he has recently taken some pain medication, though it only helped a little bit. He states that he got his flu shot two days ago. Pt denies headache, change in vision, fevers, chest pain, shortness of breath, nausea, vomiting, diarrhea, pain with urination, and melena. Source of History: patient Onset: last night Position: chest, other (right side) Quality: other (rash) Timing: worsening Review of Systems See HPI for pertinent positives & negatives. A total of 10 systems reviewed and were otherwise negative. Past Medical & Surgical Medical Problems: (1) Chest pain (2) TIA (transient ischemic attack) (3) Vertigo Social History Smoking Status: Former Smoker Marital Status: Housing Status: lives with family Occupation Status: retired Current/Historical Medications Scheduled Aspirin (Aspirin Ec), 81 MG PO DAILY Azathioprine (Imuran), 50 MG PO DAILY Capsaicin (Capsaicin), 1 APPLN TOP Q6 Famotidine (Pepcid), 20 MG PO BID Lorazepam (Ativan), 1 MG PO BID Magnesium Oxide (Mg Supplement (Magnesium Oxide), 400 MG PO TID Omeprazole (Prilosec), 20 MG PO BID Pravastatin Sod (Pravastatin Sodium), 40 MG PO HS Prednisone (Prednisone), 5 MG PO DAILY Tacrolimus (Prograf), 3 MG PO QPM Tacrolimus (Prograf), 4 MG PO QAM Temazepam (Restoril), 15 MG PO HS Scheduled PRN Ondansetron Hcl (Zofran), 4 MG PO Q8 PRN for Nausea Allergies Coded Allergies: No Known Allergies (Unverified , 06/29/16) Physical Exam Vital Signs Date Time Temp Pulse Resp B/P (MAP) Pulse Ox O2 Delivery O2 Flow Rate FiO2 10/28/16 19:40 77 15 138/80 96 10/28/16 18:58 76 16 139/83 Room Air 10/28/16 16:13 36.9 87 16 138/81 98 Room Air Physical Exam GENERAL: alert, well appearing, well nourished, no distress, non-toxic EYE EXAM: normal conjunctiva, PERRL and EOM's grossly intact OROPHARYNX: no exudate, no erythema, lips, buccal mucosa, and tongue normal and mucous membranes are moist NECK: supple, no nuchal rigidity, no adenopathy, non-tender LUNGS: Clear to auscultation. Normal chest wall mechanics HEART: no murmurs, S1 normal and S2 normal CHEST: Well healed horizontal scar across the entire chest wall. ABDOMEN: abdomen soft, non-tender, normo-active bowel sounds, no masses, no rebound or guarding. BACK: Back is symmetrical on inspection and there is no deformity, no midline tenderness, no CVA tenderness. SKIN: No active zoster rash. No vesicles. No crusting and no bruising UPPER EXTREMITIES: upper extremities are grossly normal. LOWER EXTREMITIES: No pitting edema. NEURO EXAM: Normal sensorium, cranial nerves II-XII grossly intact, normal speech, no gross weakness of arms, no gross weakness of legs. Gross sensation intact. Medical Decision & Procedures ER Provider Diagnostic Interpretation: Radiology results have been interpreted by the radiologist and reviewed by me. CHEST ONE VIEW PORTABLE HISTORY: right lower chest pain COMPARISON: Chest 06/28/2016. FINDINGS: The heart remains borderline enlarged. No pneumothorax. Interval postoperative changes with sternotomy wires and surgical clips at the hilum. Hazy patchy densities at the left lung base. The right lung is clear. There is blunting of the right lateral costophrenic sulcus. IMPRESSION: 1. Interval postoperative changes. 2. Blunting of the right lateral costophrenic sulcus could be due to the recent postoperative change or a small pleural effusion. 3. Small patchy density left lung base which may represent atelectasis or pneumonia. Electronically signed by: Pierre Dubose M.D. 10/28/2016 6:45 PM Dictated Date/Time: 10/28/2016 6:42 PM Laboratory Results 10/28/16 19:00 Red Blood Count 3.71, Mean Corpuscular Volume 90.6, Mean Corpuscular Hemoglobin 27.2, Mean Corpuscular Hemoglobin Concent 30.1, Mean Platelet Volume 9.6, Neutrophils (%) (Auto) 81.6, Lymphocytes (%) (Auto) 11.9, Monocytes (%) (Auto) 4.9, Eosinophils (%) (Auto) 0.3, Basophils (%) (Auto) 0.3, Neutrophils # (Auto) 4.87, Lymphocytes # (Auto) 0.71, Monocytes # (Auto) 0.29, Eosinophils # (Auto) 0.02, Basophils # (Auto) 0.02 10/28/16 19:00 Test 10/28/16 19:00 10/28/16 19:13 White Blood Count 5.97 K/uL (4.8-10.8) Red Blood Count 3.71 M/uL (4.7-6.1) Hemoglobin 10.1 g/dL (14.0-18.0) Hematocrit 33.6 % (42-52) Mean Corpuscular Volume 90.6 fL (80-100) Mean Corpuscular Hemoglobin 27.2 pg (25-34) Mean Corpuscular Hemoglobin Concent 30.1 g/dl (32-36) Platelet Count 336 K/uL (130-400) Mean Platelet Volume 9.6 fL (7.4-10.4) Neutrophils (%) (Auto) 81.6 % Lymphocytes (%) (Auto) 11.9 % Monocytes (%) (Auto) 4.9 % Eosinophils (%) (Auto) 0.3 % Basophils (%) (Auto) 0.3 % Neutrophils # (Auto) 4.87 K/uL (1.4-6.5) Lymphocytes # (Auto) 0.71 K/uL (1.2-3.4) Monocytes # (Auto) 0.29 K/uL (0.11-0.59) Eosinophils # (Auto) 0.02 K/uL (0-0.5) Basophils # (Auto) 0.02 K/uL (0-0.2) RDW Standard Deviation 57.9 fL (36.4-46.3) RDW Coefficient of Variation 17.4 % (11.5-14.5) Immature Granulocyte % (Auto) 1.0 % Immature Granulocyte # (Auto) 0.06 K/uL (0.00-0.02) Anion Gap 5.0 mmol/L (3-11) Est Creatinine Clear Calc Drug Dose 24.0 ml/min Estimated GFR () 22.7 Estimated GFR (Non- 19.5 BUN/Creatinine Ratio 13.5 (10-20) Calcium Level 8.6 mg/dl (8.5-10.1) Troponin I < 0.015 ng/ml (0-0.045) Bedside Troponin I < 0.030 ng/ml (0-0.045) Laboratory results per my review. Medications Administered Medications (Trade) Dose Ordered Sig/Chrystal Route Start Time Stop Time Status Last Admin Dose Admin Capsaicin (Zostrix Crm) 1 appln NOW STAT EXT 10/28/16 16:35 10/28/16 16:36 DC 10/28/16 17:01 1 APPLN ECG Indication: other (rash) Rate (beats per minute): 70 Rhythm: normal sinus Findings: no acute ischemic change, no ectopy, other (Normal intervals and normal axis) ED Course 8: The patient was evaluated in room B5. A complete history and physical exam was performed. 1635: Capsaicin 1appln EXT 1748: I reevaluated the patient, and he is feeling better 0: Upon reevaluation, the patient is feeling better. I discussed the findings and the treatment plan with the patient. He verbalizes agreement and understanding. He was discharged home. Medical Decision Differential diagnosis: Etiologies such as shingles, contact dermatitis, viral exanthem, urticaria, allergic reaction, Perez-Jhonatan syndrome, toxic epidermal necrolysis, erythema multiforme, cellulitis, scabies, HSV, varicella, zoster, eczema, staph scalded skin syndrome, fungal infection, as well as others were entertained. Patient with residual pain in the area of his prior herpes zoster rash. Rash crusted over and now well-healing, patient along her contagious. Patient had been started on gabapentin by his regular doctor due to persistence of his postherpetic neuralgia. Patient was marked improved here with topical capsaicin cream. Given patient's significant history EKG and chest are performed as a precaution. However given story and patient's description, doubt ACS, chest and failure, PE, dissection, AAA, tamponade, effusion, infiltrate, bacteremia/sepsis. Patient well-appearing here, with stable vital signs. Encouraged close follow-up with family doctor as well as transpired corner as precaution. Discussed symptoms to watch and return for, he verbalized understanding was agreeable with plan. Medication Reconcilliation Current Medication List: was personally reviewed by me Blood Pressure Screening Patient's blood pressure: Elevated blood pressure Blood pressure disposition: Elevated BP felt to be situational Impression Primary Impression: Chest pain Additional Impression: Herpes zoster Scribe Attestation The scribe's documentation has been prepared under my direction and personally reviewed by me in its entirety. I confirm that the note above accurately reflects all work, treatment, procedures, and medical decision making performed by me. Departure Information Dispostion Home / Self-Care Prescriptions Capsaicin (CAPSAICIN) 0.025 % Cre 1 APPLN TOP Q6 for Pain, #1 UNIT Prov: Bev Hammond, DO 10/28/16 Referrals Hakeem Nesbitt M.D. (PCP) Forms HOME CARE DOCUMENTATION FORM, IMPORTANT VISIT INFORMATION, WORK / SCHOOL INSTRUCTIONS Patient Instructions My [facility] Additional Instructions Please continue regular medications as prescribed. Please follow up with your family doctor as well as your marketing production coordinator. You may use the cream as prescribed to the affected area or you have pain from her shingles. If you have any worsening pain, develop fevers, trouble breathing, worsening or abnormal chest pain, vomiting, or you've any other new concerns, please return the emergency room. Problem Qualifiers Primary Impression: Chest pain Chest pain type: unspecified Qualified Codes: R07.9 - Chest pain, unspecified Additional Impression: Herpes zoster Herpes zoster complications: without complications Qualified Codes: B02.9 - Zoster without complications
--- NOTE | 2016-10-28 18:46 | DIAGNOSTIC IMAGING REPORT ---
CHEST ONE VIEW PORTABLE HISTORY: right lower chest pain COMPARISON: Chest 06/28/2016. FINDINGS: The heart remains borderline enlarged. No pneumothorax. Interval postoperative changes with sternotomy wires and surgical clips at the hilum. Hazy patchy densities at the left lung base. The right lung is clear. There is blunting of the right lateral costophrenic sulcus. IMPRESSION: 1. Interval postoperative changes. 2. Blunting of the right lateral costophrenic sulcus could be due to the recent postoperative change or a small pleural effusion. 3. Small patchy density left lung base which may represent atelectasis or pneumonia. Electronically signed by: Pierre Dubose M.D. 10/28/2016 6:45 PM Dictated Date/Time: 10/28/2016 6:42 PM
[2016-10-28 19:17] LABS: BASO % 0.3 %; BASO ABS # 0.02 K/uL (0-0.2); COMPLETE YES; EOS % 0.3 %; HEMATOCRIT 33.6 % (42-52); LYMPH % 11.9 %; LYMPH ABS # 0.71 K/uL (1.2-3.4); MEAN CELL VOLUME 90.6 fL (80-100); MEAN CORPUSCULAR HEMOGLOBIN 27.2 pg (25-34); MEAN CORPUSCULAR HGB CONC 30.1 g/dl (32-36); MEAN PLATELET VOLUME 9.6 fL (7.4-10.4); MONO % 4.9 %; NEUT % 81.6 %; PLATELET COUNT 336 K/uL (130-400); RED BLOOD COUNT 3.71 M/uL (4.7-6.1); WHITE BLOOD COUNT 5.97 K/uL (4.8-10.8)
[2016-10-28 19:45] LABS: BLOOD UREA NITROGEN 43 mg/dl (7-18); BUN/CREATININE RATIO 13.5 (10-20); CALCIUM 8.6 mg/dl (8.5-10.1); CARBON DIOXIDE 26 mmol/L (21-32); CHLORIDE 108 mmol/L (98-107); GLUCOSE 125 mg/dl (70-99); SODIUM 139 mmol/L (136-145)
== END ==
LOC: C.EDB 16:12 → EDUNIT# 16:12 → C.EDB 19:53
DX: R07.9 Chest pain, unspecified (principal); B02.9 Zoster without complications; Z86.73 Personal history of transient ischemic attack (TIA), and cerebral infarction without residual deficits; Z79.82 Long term (current) use of aspirin; Z79.899 Other long term (current) drug therapy; Z87.891 Personal history of nicotine dependence

== ENCOUNTER → 2016-11-01 | Outpatient (CLI) | payer OTHER ==
[~2016-11-01] MED LIST changes: -CAPSAICIN CR 0.075% 60 GM TUBE EXT STA
[2016-11-01 12:25] LABS: BLOOD UREA NITROGEN 37 mg/dl (7-18)
== END | disposition home or self-care (01) ==
LOC: C.LABBFT 09:38
PROVIDERS: ATTEND Nurse Practitioner
DX: B02.29 Other postherpetic nervous system involvement (principal)

== ENCOUNTER 2017-01-07 14:55 | Emergency (ER) | payer OTHER ==
[~2017-01-07] VITALS: Ht 170.2 cm; Wt 83.2 kg
[2017-01-07 15:05] VITALS: TEMP 36.9; Ht 170.2 cm; Wt 83.2 kg
[2017-01-07] MEDS ORDERED: GI COCKTAIL PO STA (15:25)
[2017-01-07] MEDS ORDERED: FAMOTIDINE 20MG/5ML IV PUSH IV STA (15:25)
[2017-01-07] MEDS ORDERED: MoRPHine SULFATE 4 MG/ML 1 ML CARP\\VIAL IV STA (15:25)
[2017-01-07] MEDS ORDERED: LIDOCAINE HCL 2% VISC SOLN 20 ML UDC ONE (15:38)
[2017-01-07] MEDS ORDERED: ALUMINUM/MAGNESIUM SUSP 30 ML UDC ONE (15:39)
[2017-01-07 16:01] LABS: BASO % 0.3 %; BASO ABS # 0.02 K/uL (0-0.2); EOS % 0.5 %; HEMATOCRIT 26.4 % (42-52); IG% 0.5 %; LYMPH ABS # 0.24 K/uL (1.2-3.4); MEAN CELL VOLUME 95.3 fL (80-100); MEAN CORPUSCULAR HEMOGLOBIN 29.6 pg (25-34); MEAN CORPUSCULAR HGB CONC 31.1 g/dl (32-36); MONO % 9.9 %; NEUT % 84.8 %; PLATELET COUNT 340 K/uL (130-400); RED BLOOD COUNT 2.77 M/uL (4.7-6.1); WHITE BLOOD COUNT 6.07 K/uL (4.8-10.8)
[2017-01-07] MEDS ORDERED: MYCO1TAB7 PO (16:06)
[2017-01-07] MEDS ORDERED: FLUD0.1T10 PO (16:06)
[2017-01-07] MEDS ORDERED: AZAT50TA22 PO (16:06)
[2017-01-07] MEDS ORDERED: GABA1CAP4 PO (16:06)
[2017-01-07] MEDS ORDERED: PRG5 PO (16:06)
[2017-01-07] MEDS ORDERED: FAMO1TAB47 PO (16:06)
[2017-01-07] MEDS ORDERED: ATV1 PO (16:06)
[2017-01-07] MEDS ORDERED: PRAV40TA2 PO (16:06)
[2017-01-07] MEDS ORDERED: TEMA-79 PO (16:06)
[2017-01-07] MEDS ORDERED: ACYC-57 PO (16:06)
[2017-01-07] MEDS ORDERED: LYR/50 PO (16:06)
[2017-01-07] MEDS ORDERED: PRED-301 PO (16:11)
[2017-01-07] MEDS ORDERED: SULF800T23 PO (16:11)
[2017-01-07] MEDS ORDERED: ONDA4TAB9 PO (16:11)
[2017-01-07] MEDS ORDERED: OMEP20CA9 PO (16:11)
[2017-01-07 16:15] LABS: ALT/SGPT 12 U/L (12-78); BLOOD UREA NITROGEN 37 mg/dl (7-18); BUN/CREATININE RATIO 18.5 (10-20); CALCIUM 8.3 mg/dl (8.5-10.1); CARBON DIOXIDE 24 mmol/L (21-32); CHLORIDE 107 mmol/L (98-107); CREATININE 1.98 mg/dl (0.60-1.40); GLUCOSE 121 mg/dl (70-99); POTASSIUM 5.2 mmol/L (3.5-5.1); SODIUM 140 mmol/L (136-145)
[2017-01-07 16:20] LABS: ALKALINE PHOSPHATASE 64 U/L (45-117); AST/SGOT 17 U/L (15-37)
[2017-01-07 16:29] LABS: URINE APPEARANCE CLEAR (CLEAR); URINE BILIRUBIN NEG (NEG); URINE COLOR YELLOW; URINE NITRITE NEG (NEG); URINE SPECIFIC GRAVITY 1.021 (1.000-1.030); UROBILINOGEN NEG (NEG)
[2017-01-07 16:30] LABS: COMPLETE YES; OVALOCYTES 1+; SCHISTOCYTES 1+
[2017-01-07 16:46] LABS: MANUAL MICROSCOPIC REQUIRED? NO; REVIEW REQ? NO
--- NOTE | 2017-01-07 16:52 | DIAGNOSTIC IMAGING REPORT ---
TWO VIEW CHEST CLINICAL HISTORY: Generalized abdominal pain. FINDINGS: PA and lateral chest radiographs are compared to study dated 10/28/2016 and correlated with chest CT dated 05/05/2016. The patient is status post midline sternotomy. Numerous surgical clips project on the mediastinum. The heart is enlarged and there is atherosclerotic calcification of the thoracic aorta. The pulmonary vasculature is noncongested. Enlargement of the central pulmonary arteries is unchanged and suggests pulmonary artery hypertension. Chronic interstitial thickening is unchanged. Trace pleural effusions are identified. Trace fluid is seen along the major fissures on the lateral view. There is no pneumothorax. The skeletal structures are osteopenic. Degenerative change is seen throughout the thoracic spine. IMPRESSION: 1. Cardiomegaly without radiographic evidence of congestive failure. 2. Trace pleural effusions are identified. Electronically signed by: Nelson Hsu M.D. 01/07/2017 4:50 PM Dictated Date/Time: 01/07/2017 4:48 PM
--- NOTE | 2017-01-07 17:05 | DIAGNOSTIC IMAGING REPORT ---
ULTRASOUND RIGHT UPPER QUADRANT ABDOMEN CLINICAL HISTORY: Generalized abdominal pain. COMPARISON STUDY: Abdominal CT dated 09/15/2010. Abdominal ultrasound dated 12/31/2015. TECHNIQUE: Real-time, grayscale, and color flow sonography of the right upper quadrant of the abdomen was performed. Images are reviewed in the transverse and longitudinal planes. FINDINGS: Liver: The liver is normal in size and echotexture. There is no intrahepatic biliary ductal dilatation. The main portal vein is patent. Gallbladder: The gallbladder is normal in appearance. No gallstones are identified. There is no gallbladder wall thickening or pericholecystic fluid. A sonographic Myles's sign is reportedly absent. The common bile duct measures up to 0.4 cm in diameter. Pancreas: Visualized portions of the pancreatic head and body are normal in appearance. The splenic vein is patent. Right kidney: Survey images of the right kidney demonstrate normal size and echotexture. There is no hydronephrosis. Ascites: None. IMPRESSION: Unremarkable sonographic assessment of the right upper quadrant. No gallstones are identified. Electronically signed by: Nelson Hsu M.D. 01/07/2017 5:04 PM Dictated Date/Time: 01/07/2017 5:03 PM
--- NOTE | 2017-01-07 17:30 | EMERGENCY ROOM VISIT NOTE ---
History First contact with patient: 15:12 Chief Complaint: ABDOMINAL PAIN Stated Complaint: PAIN UNDER CHEST Nursing Triage Summary: Pt states he's had burning epigastric since he had shingles a month ago. States when he drinks something hot he get pain where the shingles were on right upper abd/lower chest to side. Attempted to do EKG in triage twice. Pt states "it's not heart related, it's related to my shingles. I know it is" History of Present Illness The patient is a 66 year old male who presents to the Emergency Room with complaints of epigastric and right upper quadrant pain for the past month. He reports that he was treated for shingles a month ago and had right-sided flank pain related to this. He states that he had a nerve block done which helped significantly with his shingles pain, however his epigastric burning did not get any better. He states the pain is constant, burning, worse with eating and drinking, especially hot coffee, radiates to his right side, 8/10. He reports associated nausea and occasional vomiting. He does report a history of a stomach ulcer in the past, he takes Pepcid regularly. Patient states he came in today because he wanted to get this pain checked out, he states he had talked to his PCP about it and his PCP felt that this was all related to his shingles, but the patient states "I don't think this is from my shingles, I think it is something else." PMH of bilateral lung transplant two years ago, on Tacrolimus therapy, and reports he has been doing well since his surgery. He denies any headaches, vision changes, chest pain, shortness of breath, back pain , fevers or chills, diarrhea, constipation, blood in his stool, urinary symptoms. Review of Systems A complete 10 point review of systems was reviewed with the patient with pertinent positives and negatives as per history of present illness. All else were negative. Past Medical/Surgical History Medical Problems: (1) COPD (chronic obstructive pulmonary disease) (2) Diffuse interstitial pulmonary fibrosis (3) Dyslipidemia (4) Gastroesophageal reflux disease (5) Tobacco dependence in remission Surgical Problems: (1) Bilateral lung tansplant (2) H/O arthroscopy of right knee (3) H/O cardiac catheterization (4) History of lumbar surgery (5) Hx of appendectomy (6) S/P cervical spinal fusion Family History FH: diabetes mellitus FH: heart disease Lung disease Social History Smoking Status: Former Smoker Alcohol Use: none Drug Use: none Marital Status: Occupation Status: disabled Current/Historical Medications Scheduled Acyclovir (Zovirax), 400 MG PO BID Azathioprine (Azathioprine), 75 MG PO DAILY Famotidine (Famotidine), 20 MG PO BID Fludrocortisone Acetate (Florinef), 0.1 MG PO DAILY Gabapentin (Gabapentin), 300 MG PO BID Lorazepam (Lorazepam), 1 MG PO BID Magnesium Oxide (Mag-Ox), 400 MG PO TID Mycophenolate Sodium (Mycophenolic Acid Dr), 750 MG PO BID Omeprazole (Prilosec), 20 MG PO BID Pravastatin Sodium (Pravastatin Sodium), 40 MG PO HS Prednisone (Prednisone), 5 MG PO DAILY Pregabalin (Lyrica), 50 MG PO TID Sucralfate (Carafate), 10 ML PO QID Sulfa/Trimethoprim (Bactrim Ds 800MG/160MG), 1 TAB PO 3XWK Tacrolimus (Prograf), 2 MG PO Q12 Temazepam (Restoril), 15 MG PO HS Scheduled PRN Ondansetron (Ondansetron HCl), 4 MG PO Q8 PRN for Nausea Allergies Coded Allergies: Levofloxacin (Verified Allergy, Intermediate, REDNESS/RASH, 10/10/16) Physical Exam Vital Signs Date Time Temp Pulse Resp B/P (MAP) Pulse Ox O2 Delivery O2 Flow Rate FiO2 01/07/17 19:17 66 18 153/89 98 01/07/17 16:00 63 01/07/17 15:05 36.9 68 18 144/66 100 Room Air Physical Exam CONSTITUTIONAL: No acute distress. Well appearing and well nourished. Alert and oriented X 4 with normal affect. HEENT: Normocephalic, atraumatic. Pupils equal, round and reactive to light, EOMI. TMs normal. Pharynx normal. NECK: Supple, full active range of motion without discomfort. RESPIRATORY: Clear to auscultation bilaterally with no wheezing, crackles, rhonchi or stridor. Equal expansion bilaterally. CARDIOVASCULAR: Regular rate and rhythm with no murmurs, rubs or gallops. Normal peripheral perfusion. No edema. CHEST WALL: Healing dermatomal rash noted to the right flank, slightly tender to palpation. No erythema or active blistering. GASTROINTESTINAL: Tenderness in the epigastric and right upper quadrant of the abdomen to palpation. No rebound tenderness, no guarding. No palpable masses or hepatosplenomegaly. Soft, nondistended. Bowel sounds present in all quadrants. MUSCULOSKELETAL: Full range of motion of all joints without discomfort. INTEGUMENTARY: No rash or other significant dermatologic conditions noted. NEUROLOGIC: Cranial nerves II-XII grossly intact. No focal neurologic deficits noted. Medical Decision & Procedures ER Provider Diagnostic Interpretation: TWO VIEW CHEST CLINICAL HISTORY: Generalized abdominal pain. FINDINGS: PA and lateral chest radiographs are compared to study dated 10/28/2016 and correlated with chest CT dated 05/05/2016. The patient is status post midline sternotomy. Numerous surgical clips project on the mediastinum. The heart is enlarged and there is atherosclerotic calcification of the thoracic aorta. The pulmonary vasculature is noncongested. Enlargement of the central pulmonary arteries is unchanged and suggests pulmonary artery hypertension. Chronic interstitial thickening is unchanged. Trace pleural effusions are identified. Trace fluid is seen along the major fissures on the lateral view. There is no pneumothorax. The skeletal structures are osteopenic. Degenerative change is seen throughout the thoracic spine. IMPRESSION: 1. Cardiomegaly without radiographic evidence of congestive failure. 2. Trace pleural effusions are identified. ----- ULTRASOUND RIGHT UPPER QUADRANT ABDOMEN CLINICAL HISTORY: Generalized abdominal pain. COMPARISON STUDY: Abdominal CT dated 09/15/2010. Abdominal ultrasound dated 12/31/2015. TECHNIQUE: Real-time, grayscale, and color flow sonography of the right upper quadrant of the abdomen was performed. Images are reviewed in the transverse and longitudinal planes. FINDINGS: Liver: The liver is normal in size and echotexture. There is no intrahepatic biliary ductal dilatation. The main portal vein is patent. Gallbladder: The gallbladder is normal in appearance. No gallstones are identified. There is no gallbladder wall thickening or pericholecystic fluid. A sonographic Myles's sign is reportedly absent. The common bile duct measures up to 0.4 cm in diameter. Pancreas: Visualized portions of the pancreatic head and body are normal in appearance. The splenic vein is patent. Right kidney: Survey images of the right kidney demonstrate normal size and echotexture. There is no hydronephrosis. Ascites: None. IMPRESSION: Unremarkable sonographic assessment of the right upper quadrant. No gallstones are identified. Laboratory Results 01/07/17 15:40 Red Blood Count 2.77, Mean Corpuscular Volume 95.3, Mean Corpuscular Hemoglobin 29.6, Mean Corpuscular Hemoglobin Concent 31.1, Mean Platelet Volume 10.0, Neutrophils (%) (Auto) 84.8, Lymphocytes (%) (Auto) 4.0, Monocytes (%) (Auto) 9.9, Eosinophils (%) (Auto) 0.5, Basophils (%) (Auto) 0.3, Neutrophils # (Auto) 5.15, Lymphocytes # (Auto) 0.24, Monocytes # (Auto) 0.60, Eosinophils # (Auto) 0.03, Basophils # (Auto) 0.02 01/07/17 15:40 Test 01/07/17 15:40 01/07/17 15:55 White Blood Count 6.07 K/uL (4.8-10.8) Red Blood Count 2.77 M/uL (4.7-6.1) Hemoglobin 8.2 g/dL (14.0-18.0) Hematocrit 26.4 % (42-52) Mean Corpuscular Volume 95.3 fL (80-100) Mean Corpuscular Hemoglobin 29.6 pg (25-34) Mean Corpuscular Hemoglobin Concent 31.1 g/dl (32-36) Platelet Count 340 K/uL (130-400) Mean Platelet Volume 10.0 fL (7.4-10.4) Neutrophils (%) (Auto) 84.8 % Lymphocytes (%) (Auto) 4.0 % Monocytes (%) (Auto) 9.9 % Eosinophils (%) (Auto) 0.5 % Basophils (%) (Auto) 0.3 % Neutrophils # (Auto) 5.15 K/uL (1.4-6.5) Lymphocytes # (Auto) 0.24 K/uL (1.2-3.4) Monocytes # (Auto) 0.60 K/uL (0.11-0.59) Eosinophils # (Auto) 0.03 K/uL (0-0.5) Basophils # (Auto) 0.02 K/uL (0-0.2) RDW Standard Deviation 55.2 fL (36.4-46.3) RDW Coefficient of Variation 15.9 % (11.5-14.5) Immature Granulocyte % (Auto) 0.5 % Immature Granulocyte # (Auto) 0.03 K/uL (0.00-0.02) Ovalocytes 1+ Schistocytes 1+ Anion Gap 9.0 mmol/L (3-11) Est Creatinine Clear Calc Drug Dose 38.9 ml/min Estimated GFR () 40.2 Estimated GFR (Non- 34.7 BUN/Creatinine Ratio 18.5 (10-20) Calcium Level 8.3 mg/dl (8.5-10.1) Total Bilirubin 0.3 mg/dl (0.2-1) Direct Bilirubin < 0.1 mg/dl (0-0.2) Aspartate Amino Transf (AST/SGOT) 17 U/L (15-37) Alanine Aminotransferase (ALT/SGPT) 12 U/L (12-78) Alkaline Phosphatase 64 U/L (45-117) Troponin I < 0.015 ng/ml (0-0.045) Total Protein 6.5 gm/dl (6.4-8.2) Albumin 3.4 gm/dl (3.4-5.0) Lipase 43 U/L (73-393) Urine Color YELLOW Urine Appearance CLEAR (CLEAR) Urine pH 5.0 (4.5-7.5) Urine Specific [place] 1.021 (1.000-1.030) Urine Protein NEG (NEG) Urine Glucose (UA) NEG (NEG) Urine Ketones NEG (NEG) Urine Occult Blood NEG (NEG) Urine Nitrite NEG (NEG) Urine Bilirubin NEG (NEG) Urine Urobilinogen NEG (NEG) Urine Leukocyte Esterase NEG (NEG) Medications Administered Medications (Trade) Dose Ordered Sig/Chrystal Route Start Time Stop Time Status Last Admin Dose Admin Morphine Sulfate (MoRPHine SULFATE INJ) 4 mg NOW STAT IV 01/07/17 15:25 01/07/17 15:31 DC 01/07/17 15:48 4 MG Famotidine (Pepcid 20mg Iv Push) 20 mg NOW STAT IV 01/07/17 15:25 01/07/17 15:31 DC 01/07/17 15:48 20 MG Miscellaneous Medication (Gi Cocktail) 24 ml NOW STAT PO 01/07/17 15:25 01/07/17 15:31 DC 01/07/17 15:48 24 ML Lidocaine HCl (Viscous Lidocaine 2% Soln) 20 ml STK-MED ONCE .ROUTE 01/07/17 15:38 01/07/17 15:39 DC 01/07/17 15:48 10 ML Al Hydroxide/Mg Hydroxide (Maalox Susp) 30 ml STK-MED ONCE .ROUTE 01/07/17 15:39 01/07/17 15:40 DC 01/07/17 15:49 30 ML Sucralfate (Carafate Susp) 1 gm NOW STAT PO 01/07/17 18:43 01/07/17 18:44 DC 01/07/17 19:15 1 GM ECG Indication: abdominal pain Rate (beats per minute): 62 Rhythm: normal sinus Findings: no acute ischemic change, no ectopy Change: no significant change (when compared to EKG from 10/28/2016) Medical Decision CC: Patient presenting with complaint of epigastric and right upper quadrant pain Interpretation of Labs: No leukocytosis, anemia which appears to be slightly downtrending on review of previous labs, mild hyperkalemia, no other significant electrolyte abnormalities, chronic renal insufficiency appears unchanged from baseline, normal liver enzymes and lipase. Negative troponin. UA negative. Tacrolimus level pending. Differential Diagnosis: Includes, but not limited to cholecystitis, cholelithiasis, pancreatitis, peptic ulcer disease, gastritis, gastroenteritis, residual neuropathic pain, ACS, among others. Medication Reconciliation: I attest that I have personally reviewed the patient' s current medication list. Vital signs review: I reviewed the patient's vital signs and interpret them as follows: T: Afebrile; BP: Hypertensive; HR: Within normal limits; RR: Within normal limits; Pulse Ox: Within normal limits on room air. Blood pressure screening: The patient was found to have an elevated blood pressure and was referred to their primary doctor for recheck and further treatment. Summary: Patient was evaluated at bedside, history and physical exam performed. Patient is alert and oriented, in no acute distress, resting calmly in the stretcher. He does have some tenderness to palpation of the epigastric and RUQ region. He has a well-healed area on his right flank where his shingles infection was, is shaker tender to palpation along the dermatome. Orders were placed at bedside for labs, UA, chest x-ray, IV morphine for pain, abdominal ultrasound to evaluate for gallbladder disease. Patient's symptoms seem most consistent with gastritis or peptic ulcer disease. IV Pepcid and GI cocktail were also ordered to treat his symptoms. Patient discussed with Dr. Smith, who agrees with my assessment and plan. Labs reviewed as above, anemia noted to be slightly less from previous labs and appears to be downtrending in general over the past several months, though he does appear to be chronically anemic. Digital rectal exam performed, stool is guaiac negative. Chest x-ray is negative for any acute abnormalities. EKG shows normal sinus rhythm with no acute changes. Right upper quadrant ultrasound shows a normal gallbladder. Patient reassessed multiple times throughout ED stay, he reports improved pain, especially after the GI cocktail. He was given a dose of Carafate with additional improvement and provided with Rx for this. He was updated on all results and plan for discharge. He was encouraged to follow closely with his PCP, and also provided with referral information to follow-up with GI for an upper endoscopy. Patient was even strict return precautions should his symptoms worsen come he verbalized understanding. The patient was discharged home in stable condition and ambulatory. Impression Primary Impression: Epigastric pain Departure Information Dispostion Home / Self-Care Condition GOOD Prescriptions Sucralfate (CARAFATE) 1 Gm/10 Ml Jeana 10 ML PO QID for 14 Days, #560 ML Prov: Lydia Fernandez CRNP 01/07/17 Referrals Hima Weldon M.D. (PCP) Isacc Alejandro M.D. Patient Instructions ED Diet [place], ED Epigastric Pain UKO, ED PUD Vs Gastritis, My [facility] Additional Instructions You have been treated in the Emergency Department for your stomach pain. Laboratory results and imaging studies have ruled out any emergent causes for your stomach pain which would warrant admission or surgery. You have been prescribed Carafate to be used before meals and at bedtime to help with your stomach pain. Take as prescribed. Start taking your Pepcid twice a day instead of once a day. For additional pain control, you can use the following [id number] medicines (if >12 yo): - Regular strength (325mg/tab) Tylenol (acetaminophen) 2 tabs every 4-6 hours as needed. Do not exceed 10 tablets in a 24 hour period. Avoid taking more than 3000 mg of Tylenol per day. This includes any other sources of acetaminophen you may take on a regular basis. Avoid all NSAIDs such as ibuprofen, Advil, Aleve, as these may make your stomach pain worse. Avoid acidic foods and drinks, such as citrus, coffee and tea, soda, etc. Drink plenty of water and stay well hydrated. Follow-up with your primary care provider in the next few days for continued management of your pain. You will need to see a tube machine operator to have an upper endoscopy procedure done to evaluate for irritation or ulcers of your stomach lining. Call for an appointment. Return to the emergency department if your abdominal pain becomes worse or changes, if you have fevers or chills, severe nausea or vomiting, vomiting blood or bile, chest pain, shortness of breath, blood in your stool or urine, or any other concerns. Work Instructions Return To Work: 1 day
[2017-01-07] MEDS ORDERED: SUCRALFATE 1 GM/10 ML UDC PO STA (18:43)
[2017-01-07] MEDS ORDERED: CRFL PO (18:46)
[2017-01-07 19:17] VITALS: BP 153/89; PULSE 66; O2SAT 98
[2017-01-10 11:27] LABS: FK506 TACROLIMUS HIGHLY SENS 13.8 MCG/L (5-20)
== END 2017-01-07 19:19 | disposition home or self-care (01) ==
LOC: C.EDB 14:56 → C.EDC 19:19
DX: R10.13 Epigastric pain (principal); J44.9 Chronic obstructive pulmonary disease, unspecified; J84.10 Pulmonary fibrosis, unspecified; E78.5 Hyperlipidemia, unspecified; K21.9 Gastro-esophageal reflux disease without esophagitis; Z94.2 Lung transplant status; Z83.3 Family history of diabetes mellitus; Z82.49 Family history of ischemic heart disease and other diseases of the circulatory system; Z83.6 Family history of other diseases of the respiratory system; Z87.891 Personal history of nicotine dependence; Z79.899 Other long term (current) drug therapy

== ENCOUNTER → 2017-01-26 | Outpatient (CLI) | payer OTHER ==
[~2017-01-26] MED LIST changes: +ACYC-57 PO; -ATV/1 PO; +ATV1 PO; -AZAT50TA17 PO; +AZAT50TA22 PO; -CAPS0.022 TOP; +FAMO1TAB47 PO; -FAMO20TA11 PO; +FLUD0.1T10 PO; +GABA1CAP4 PO; +LYR/50 PO; +MYCO1TAB7 PO; +OMEP20CA9 PO; -ONDA4TAB46 PO; +ONDA4TAB9 PO; -PRAV20TA PO; +PRAV40TA2 PO; +PRED-301 PO; -PRED50TA PO; +PRG5 PO; -PRLSR20 PO; +SINCALIDE INJ 1.7 MCG in SODIUM CHLORIDE 0.9% 100ML 100 ML IV ONE; +SULF800T23 PO; -TACR1CAP PO; +TEMA-79 PO; -TEMA15CA4 PO
--- NOTE | 2017-01-26 12:21 | DIAGNOSTIC IMAGING REPORT ---
NUCLEAR MEDICINE HEPATOBILIARY SCAN WITH GALLBLADDER EJECTION FRACTION CLINICAL HISTORY: Epigastric pain. COMPARISON: Hepatobiliary scan June 08, 2010 and right upper quadrant ultrasound January 07, 2017. TECHNIQUE: 5.6 mCi of technetium 99m Choletec IV was injected at 10:15 AM on January 26, 2017. Immediately following injection, imaging of the abdomen was carried out for 60 minutes in the anterior projection. At this time, 1.7 mcg of Sincalide was injected IV as per protocol. Imaging was performed for an additional 45 minutes to estimate a gallbladder ejection fraction. FINDINGS: Hepatic uptake of radiotracer is prompt and homogeneous. Common bile duct activity is first noted at 15 minutes. Gallbladder activity is first noted at 20 minutes. Small bowel activity is first noted at 25 minutes. Following injection of sincalide, normal gallbladder emptying was noted within ejection fraction estimated at 93%. Normal is greater than 30-35%. IMPRESSION: 1. Normal hepatobiliary scan. No evidence of acute or chronic cholecystitis. 2. Normal gallbladder ejection fraction of 93%. Electronically signed by: Adonis Gudino M.D. 01/26/2017 12:19 PM Dictated Date/Time: 01/26/2017 12:18 PM
== END | disposition home or self-care (01) ==
LOC: C.NUCL 09:37
PROVIDERS: ATTEND Internal Medicine Gastroenterology
DX: R10.13 Epigastric pain (principal)

== ENCOUNTER → 2017-02-12 | Outpatient (CLI) | payer OTHER ==
[~2017-02-12] MED LIST changes: +ALBINS/ INH; +ASPI81TA28 PO; +DOCU-94 PO; +DOXY-300 PO; +GABA-1219 PO; -GABA1CAP4 PO; +ONDA4TAB46 PO; +OSEL75CA12 PO; +OXYC1TAB3 PO; +PANT40TA PO; +POLY335019 PO; +PREG1CAP70 PO; -SINCALIDE INJ 1.7 MCG in SODIUM CHLORIDE 0.9% 100ML 100 ML IV ONE; +TACR1CAP PO; +VGR50 PO
== END | disposition home or self-care (01) ==
LOC: C.LAB 07:44
PROVIDERS: ATTEND Internal Medicine
DX: R63.5 Abnormal weight gain (principal)

== ENCOUNTER → 2017-02-28 | Day surgery (SDC) | payer OTHER ==
[2017-02-19 10:39] VITALS: BMI 29.0
[~2017-02-28] VITALS: Ht 170.2 cm; Wt 86.4 kg
[~2017-02-28] MED LIST changes: -ALBINS/ INH; -DOCU-94 PO; -GABA-1219 PO; +GABA1CAP4 PO; -LYR/50 PO; -MYCO1TAB7 PO; -ONDA4TAB9 PO; -OSEL75CA12 PO; -OXYC1TAB3 PO; -POLY335019 PO; -VGR50 PO
[2017-02-28 14:29] VITALS: Ht 170.2 cm; Wt 86.4 kg
--- NOTE | 2017-02-28 14:35 | Endo History and Physical ---
History & Physical Date of Service: Feb 28, 2017. Chief Complaint: epigastric pain Referring Physician: Dr Weldon History of Present Illness For EGD Past Medical History Reflux, Other Past Surgical History Hx Cardiac Surgery: Yes (HEART CATH, NO STENTS) Hx Internal Defibrillator: No Hx Pacemaker: No Hx Abdominal Surgery: Yes (APPY) Hx of Implantable Prosthesis: No Hx Post-Op Nausea and Vomiting: No Hx Cancer Surgery: No Hx Thoracic Surgery: Yes (LT/RT LUNG TRANSPLANT, MULTIPLE BRONCHOSCOPIES) Hx Orthopedic: Yes (LOWER BACK X2-3; CERVICAL SURGERY (FULL ROM), RT KNEE SCOPE ) Hx Urinary Tract Surgery: No Family History None Social History Smoking Status: Former Smoker Hx Substance Use: No Hx Alcohol Use: Yes (OCCASIONAL/SOCIAL) Allergies Coded Allergies: Levofloxacin (Verified Allergy, Intermediate, REDNESS/RASH, 02/19/17) Adhesives (Verified Allergy, Unknown, SKIN IRRITATION/RASH, 02/19/17) Current Medications Reported Home Medications Medications Dose Route/Sig Max Daily Dose Days Date Category Dose Instructions Zofran (Ondansetron HCl) 4 Mg Tab 4 Mg PO Q6H PRN 02/19/17 Reported Protonix (Pantoprazole Sodium) 40 Mg Tab 40 Mg PO QAM 02/19/17 Reported Lyrica (Pregabalin) 150 Mg Cap 150 Mg PO BID 02/19/17 Reported Aspirin Ec (Aspirin) 81 Mg Tab 81 Mg PO QAM 02/19/17 Reported Prograf (Tacrolimus) 1 Mg Cap 4 Tab PO BID 02/19/17 Reported Prednisone 5 Mg Tab 5 Mg PO QAM 01/07/17 Reported Prilosec (Omeprazole) 20 Mg Cap 20 Mg PO BID 01/07/17 Reported Bactrim Ds 800MG/160MG (Trimethoprim/Sulfamethoxazole) Tab 1 Tab PO 3XWK 01/07/17 Reported TAKE THIS MEDICATION EVERY SUNDAY,SUNDAY AND SUNDAY Famotidine 20 Mg Tab 20 Mg PO BID 01/07/17 Reported Zovirax (Acyclovir) 200 Mg Cap 400 Mg PO BID 01/07/17 Reported Restoril (Temazepam) 15 Mg Cap 15 Mg PO HS 01/07/17 Reported Lorazepam 1 Mg Tab 1 Mg PO BID 01/07/17 Reported Florinef (Fludrocortisone Acetate) 0.1 Mg Tab 0.1 Mg PO QAM 01/07/17 Reported Azathioprine 50 Mg Tab 75 Mg PO QAM 01/07/17 Reported Gabapentin 300 Mg Cap 300 Mg PO QAM 01/07/17 Reported Pravastatin Sodium 40 Mg Tab 40 Mg PO HS 01/07/17 Reported Mag-Ox (Magnesium Oxide) 400 Mg Tab 400 Mg PO TID 09/23/16 Reported Vital Signs Weight (Kilograms): 86.36 Height (Feet): 5 Height (Inches): 7 Date Time Temp Pulse Resp B/P (MAP) Pulse Ox O2 Delivery O2 Flow Rate FiO2 02/28/17 14:27 36.9 81 16 152/86 (108) 98 Room Air Physical Exam General Appearance: WD/WN Respiratory/Chest: Respiratory effort: pertinent finding (S/P bilat lung transplant) Cardiovascular: Heart Auscultation: RRR Abdomen: Inspection & Palpation: soft Assessment and Plan Epigastric pain for EGD
--- NOTE | 2017-02-28 14:53 | Discharge Instructions ---
Endoscopy Patient Instructions Date / Procedure(s) Performed Feb 28, 2017. EGD Allergy Information Coded Allergies: Levofloxacin (Verified Allergy, Intermediate, REDNESS/RASH, 02/19/17) Adhesives (Verified Allergy, Unknown, SKIN IRRITATION/RASH, 02/19/17) Discharge Date / Findings Feb 28, 2017. Antral erosions Medication Instructions Restart Stopped Medication(s): resume meds Reported Home Medications Medications Dose Route/Sig Max Daily Dose Days Date Category Dose Instructions Zofran (Ondansetron HCl) 4 Mg Tab 4 Mg PO Q6H PRN 02/19/17 Reported Protonix (Pantoprazole Sodium) 40 Mg Tab 40 Mg PO QAM 02/19/17 Reported Lyrica (Pregabalin) 150 Mg Cap 150 Mg PO BID 02/19/17 Reported Aspirin Ec (Aspirin) 81 Mg Tab 81 Mg PO QAM 02/19/17 Reported Prograf (Tacrolimus) 1 Mg Cap 4 Tab PO BID 02/19/17 Reported Prednisone 5 Mg Tab 5 Mg PO QAM 01/07/17 Reported Prilosec (Omeprazole) 20 Mg Cap 20 Mg PO BID 01/07/17 Reported Bactrim Ds 800MG/160MG (Trimethoprim/Sulfamethoxazole) Tab 1 Tab PO 3XWK 01/07/17 Reported TAKE THIS MEDICATION EVERY SUNDAY,SUNDAY AND SUNDAY Famotidine 20 Mg Tab 20 Mg PO BID 01/07/17 Reported Zovirax (Acyclovir) 200 Mg Cap 400 Mg PO BID 01/07/17 Reported Restoril (Temazepam) 15 Mg Cap 15 Mg PO HS 01/07/17 Reported Lorazepam 1 Mg Tab 1 Mg PO BID 01/07/17 Reported Florinef (Fludrocortisone Acetate) 0.1 Mg Tab 0.1 Mg PO QAM 01/07/17 Reported Azathioprine 50 Mg Tab 75 Mg PO QAM 01/07/17 Reported Gabapentin 300 Mg Cap 300 Mg PO QAM 01/07/17 Reported Pravastatin Sodium 40 Mg Tab 40 Mg PO HS 01/07/17 Reported Mag-Ox (Magnesium Oxide) 400 Mg Tab 400 Mg PO TID 09/23/16 Reported Provider Instructions Activity Restrictions - No exercising or heavy lifting for 24 hours. - Do not drink alcohol the day of the procedure. - Do not drive a car or operate machinery until the day after the procedure. - Do not make any important decisions or sign important papers in 24 hours after the procedure. Following Day: - Return to full activity which may include returning to work/school. Diet Start your diet with liquids and light foods (jello, soup, juice, toast). Then eat your usual diet if not nauseated. Treatment For Common After Affects For mild abdominal pain, bloating, or excessive gas: - Rest - Eat lightly - Lie on right side Follow-Up Information Follow-up with as scheduled Anesthesia Information What You Should Know You have had a procedure that required some medicine to reduce anxiety and discomfort. This treatment is called moderate sedation. After receiving the treatment, you may be sleepy, but you will be able to breathe on your own. The effects of the treatment may last for several hours. Follow these instructions along with Activity/Diet recommendations noted above: * Do NOT do anything where dizziness or clumsiness would be dangerous. * Rest quietly at home today, then you can be up and about tomorrow. * Have a responsible person stay with you the rest of today. * You may have had an I.V. today. If so, you may take the dressing off later today. Recommendations Call your doctor if: * Trouble breathing * Continuous vomiting for more than 24 hours * Temperature above 101 degrees * Severe abdominal pain or bloating * Pain not relieved by pain medicine ordered * There is increased drainage or redness from any incision * A large amount of rectal bleeding greater than 2-3 tablespoons. (If you had a polyp/s removed or have hemorrhoids, a small amount of blood - from the rectum is to be expected.) * You have any unanswered questions or concerns. IN THE EVENT OF A SERIOUS EMERGENCY, GO TO THE NEAREST EMERGENCY ROOM Your discharge instructions were prepared by provider Thomas Cano. Patient Instructions Signature Page Milan Valiente Patient (or Guardian) Signature/Date: I have read and understand the instructions given to me by my caregivers. Caregiver/RN/Doctor Signature/Date: The above-named patient and/or guardian has received patient instructions on this date. + Original Patient Signature Page (only) stays with chart. Please make copy for patient.
--- NOTE | 2017-02-28 14:56 | GI REPORT ---
Procedure Date: 02/28/2017 2:46 PM Procedure: Upper GI endoscopy Indications: Epigastric abdominal pain Medicines: Propofol total dose 180 mg IV, Lidocaine 40 mg IV Complications: No immediate complications. Estimated Blood Loss: Estimated blood loss: none. Procedure: Pre-Anesthesia Assessment: - Prior to the procedure, a History and Physical was performed, and patient medications, allergies and sensitivities were reviewed. The patient's tolerance of previous anesthesia was reviewed. - The risks and benefits of the procedure and the sedation options and risks were discussed with the patient. All questions were answered and informed consent was obtained. After obtaining informed consent, the endoscope was passed under direct vision. Throughout the procedure, the patient's blood pressure, pulse, and oxygen saturations were monitored continuously. The scope was introduced through the mouth, and advanced to the second part of duodenum. The upper GI endoscopy was accomplished without difficulty. The patient tolerated the procedure well. Findings: The examined esophagus was normal. A few non-bleeding localized erosions were found in the gastric antrum. There were no stigmata of recent bleeding. The examined duodenum was normal. Impression: - Normal esophagus. - Gastric erosions without bleeding. - Normal examined duodenum. - No specimens collected. Recommendation: - Discharge patient to home (ambulatory). - Continue present medications. - Return to primary care physician PRN. Thomas Cano M.D. Thomas Cano MD 02/28/2017 2:55:51 PM This report has been signed electronically. Note Initiated On: 02/28/2017 2:46 PM I attest to the content of the Intraoperative Record and orders documented therein, exceptions below
--- NOTE | 2017-02-28 15:19 | Anesthesiology Progress Note ---
Anesthesia Post Op Note Date & Time Feb 28, 2017 at 15:19 Vital Signs Pain Intensity: 1 Vital Signs Past 12 Hours Date Time Temp Pulse Resp B/P (MAP) Pulse Ox O2 Delivery O2 Flow Rate FiO2 02/28/17 15:15 70 18 125/76 (92) 98 Room Air 02/28/17 14:57 73 16 120/72 (88) 98 Room Air 02/28/17 14:27 36.9 81 16 152/86 (108) 98 Room Air Notes Mental Status: alert / awake / arousable, participated in evaluation Pt Amnestic to Procedure: Yes Nausea / Vomiting: adequately controlled Pain: adequately controlled Airway Patency, RR, SpO2: stable & adequate BP & HR: stable & adequate Hydration State: stable & adequate Anesthetic Complications: no major complications apparent
[2017-02-28 15:29] VITALS: BP 136/84; PULSE 74; O2SAT 98
== END | disposition home or self-care (01) ==
LOC: C.GI 14:04
PROVIDERS: ATTEND Internal Medicine Gastroenterology
DX: R10.13 Epigastric pain (principal); K25.9 Gastric ulcer, unspecified as acute or chronic, without hemorrhage or perforation; Z94.2 Lung transplant status; Z90.89 Acquired absence of other organs; Z87.891 Personal history of nicotine dependence; Z98.890 Other specified postprocedural states; Z79.52 Long term (current) use of systemic steroids; Z79.82 Long term (current) use of aspirin

== ENCOUNTER 2017-03-03 11:42 | Emergency (ER) | payer OTHER ==
[~2017-03-03] VITALS: Ht 170.2 cm; Wt 85.2 kg
[~2017-03-03 11:42] MED LIST changes: -DOXY-300 PO; -PRG5 PO
[2017-03-03 11:50] VITALS: Ht 170.2 cm; Wt 85.2 kg
--- NOTE | 2017-03-03 12:33 | DIAGNOSTIC IMAGING REPORT ---
CHEST ONE VIEW PORTABLE CLINICAL HISTORY: Cough and fever. COMPARISON STUDY: Chest radiograph January 07, 2017. FINDINGS: Note is made of postoperative findings suggestive of bilateral lung transplant are noted. There is no pneumothorax or pleural effusion. The postoperative appearance is unchanged. Cardiomediastinal silhouette is stable. There is no evidence for pulmonary edema. IMPRESSION: Status post bilateral lung transplant. No significant change in appearance of the chest Electronically signed by: Adonis Gudino M.D. 03/03/2017 12:32 PM Dictated Date/Time: 03/03/2017 12:29 PM
[2017-03-03 13:11] LABS: INFLUENZA B ANTIGEN Neg for Influ B (NEG)
[2017-03-03] MEDS ORDERED: OSELTAMIVIR PHOSPHATE 75 MG CAP PO STA (14:03)
[2017-03-03 14:04] VITALS: BP 149/83; PULSE 82; TEMP 37.1; O2SAT 97
[2017-03-03] MEDS ORDERED: OSEL75CA12 PO (14:08)
--- NOTE | 2017-03-03 20:05 | EMERGENCY ROOM VISIT NOTE ---
History Report prepared by Raghav: Jorge Galvin Under the Supervision of: Dr. Aurelio Guo M.D. First contact with patient: 12:05 Chief Complaint: FEVER Stated Complaint: FEVER History of Present Illness The patient is a 66 year old male who presents to the Emergency Room with complaints of a possible fever that began recently. His temperature in triage was 36.7 C. He has a past medical history of a bilateral lung transplant secondary to pulmonary fibrosis. The patient states that he has had a possible flu contact and is concerned because of his past medical history. He denies any recorded fevers, but has felt feverish lately. This morning, the patient had an episode of diarrhea with nausea and has felt mildly wheezy. He has a mild cough. Pt denies LOC, headache, chills, diaphoresis, visual changes, neck pain , chest pain, breathing difficulties, vomiting, abdominal pain, back pain, melena, hematochezia, urinary symptoms, numbness, weakness, lymphadenopathy, rash, or other complaints. He has inhalers at home and has not used them recently. He notes that he was diagnosed with shingles two months ago and is still having associated pains. However, he is being treated at pain management for it. Source of History: patient Onset: recently Position: other (global) Symptom Intensity: 36.7 C Quality: other (Possible fever) Timing: constant Associated Symptoms: + nausea, + diarrhea Note: He has felt wheezy without any considerate breathing difficulty. Review of Systems See HPI for pertinent positives and negatives. A total of ten systems were reviewed and were otherwise negative. Past Medical & Surgical Medical Problems: (1) COPD (chronic obstructive pulmonary disease) (2) Diffuse interstitial pulmonary fibrosis (3) Dyslipidemia (4) Gastroesophageal reflux disease (5) Tobacco dependence in remission Surgical Problems: (1) Bilateral lung tansplant (2) H/O arthroscopy of right knee (3) H/O cardiac catheterization (4) History of lumbar surgery (5) Hx of appendectomy (6) S/P cervical spinal fusion Family History FH: diabetes mellitus FH: heart disease Lung disease Social History Smoking Status: Former Smoker Alcohol Use: none Drug Use: none Marital Status: Occupation Status: disabled Current/Historical Medications Scheduled Acyclovir (Zovirax), 400 MG PO BID Aspirin (Aspirin Ec), 81 MG PO QAM Azathioprine (Azathioprine), 75 MG PO QAM Famotidine (Famotidine), 20 MG PO BID Fludrocortisone Acetate (Florinef), 0.1 MG PO QAM Gabapentin (Gabapentin), 300 MG PO QAM Lorazepam (Lorazepam), 1 MG PO BID Magnesium Oxide (Mag-Ox), 400 MG PO TID Omeprazole (Prilosec), 20 MG PO BID Oseltamivir (Tamiflu), 75 MG PO BID Pantoprazole Sodium (Protonix), 40 MG PO QAM Pravastatin Sodium (Pravastatin Sodium), 40 MG PO HS Prednisone (Prednisone), 5 MG PO QAM Pregabalin (Lyrica), 150 MG PO BID Sulfa/Trimethoprim (Bactrim Ds 800MG/160MG), 1 TAB PO 3XWK Temazepam (Restoril), 15 MG PO HS Scheduled PRN Ondansetron Hcl (Zofran), 4 MG PO Q6H PRN for Nausea Allergies Coded Allergies: Levofloxacin (Verified Allergy, Intermediate, REDNESS/RASH, 03/03/17) Adhesives (Verified Allergy, Unknown, SKIN IRRITATION/RASH, 03/03/17) Physical Exam Vital Signs Date Time Temp Pulse Resp B/P (MAP) Pulse Ox O2 Delivery O2 Flow Rate FiO2 03/03/17 14:04 37.1 82 18 149/83 97 Room Air 03/03/17 11:50 36.7 82 18 159/84 97 Room Air Physical Exam GENERAL: Awake, alert, well-appearing, in no distress HENT: Normocephalic, atraumatic. Oropharynx unremarkable. EYES: Normal conjunctiva. Sclera non-icteric. NECK: Supple. No nuchal rigidity. FROM. No JVD. RESPIRATORY: Coarse breath sounds bilaterally. CARDIAC: Regular rate, normal rhythm. Extremities warm and well perfused. Pulses equal. ABDOMEN: Soft, non-distended. No tenderness to palpation. No rebound or guarding. No masses. RECTAL: Deferred. MUSCULOSKELETAL: Chest examination reveals no tenderness. The back is symmetrical on inspection without obvious abnormality. There is no CVA tenderness to palpation. No joint edema. LOWER EXTREMITIES: Calves are equal size bilaterally and non-tender. No edema. No discoloration. NEURO: Normal sensorium. No sensory or motor deficits noted. SKIN: No rash or jaundice noted. Medical Decision & Procedures ER Provider Diagnostic Interpretation: Radiology results as stated below per my review and radiologist interpretation: CHEST ONE VIEW PORTABLE CLINICAL HISTORY: Cough and fever. COMPARISON STUDY: Chest radiograph January 07, 2017. FINDINGS: Note is made of postoperative findings suggestive of bilateral lung transplant are noted. There is no pneumothorax or pleural effusion. The postoperative appearance is unchanged. Cardiomediastinal silhouette is stable. There is no evidence for pulmonary edema. IMPRESSION: Status post bilateral lung transplant. No significant change in appearance of the chest Electronically signed by: Adonis Gudino M.D. 03/03/2017 12:32 PM Dictated Date/Time: 03/03/2017 12:29 PM Laboratory Results Test 03/03/17 12:20 Influenza Type A Antigen Neg for Influ A (NEG) Influenza Type B Antigen Neg for Influ B (NEG) Laboratory results reviewed by me Medications Administered Medications (Trade) Dose Ordered Sig/Chrystal Route Start Time Stop Time Status Last Admin Dose Admin Oseltamivir Phosphate (Tamiflu Cap) 75 mg NOW STAT PO 03/03/17 14:03 03/03/17 14:04 DC 03/03/17 14:17 75 MG ED Course 1205: The patient was evaluated in room C11B. A complete history and physical exam was performed. 1403: Ordered Tamiflu Cap 75 mg PO 1413: I reevaluated the patient. Discussed results and discharge instructions: He verbalized understanding and agreement. The patient is ready for discharge. Medical Decision Prior records/ancillary studies reviewed. Triage Nursing notes reviewed and agree them. The patient's history was concerning for flulike symptoms and history lung transplant. Differential diagnosis: Etiologies such as viral syndrome, otitis, pharyngitis, pneumonia, influenza, cardiac sources, as well as others were entertained. Physical examination: As above. Clinically the patient looked well. ER treatment provided: Oral Tamiflu On reassessment the patient felt well. Diagnostics interpreted by me: The labs revealed negative rapid flu test. Imaging studies: Chest x-ray as above The patient's rapid flu test was negative however he notes contact with potential influenza. Given his lung transplant status I discussed initiation of Tamiflu. The patient felt comfortable with this. First dose given. He does not have any evidence of pneumonia. I discussed close outpatient follow- up. The patient felt comfortable with this. If he worsens in any way he will be back. By the evaluation outlined above emergent etiologies such as otitis, pharyngitis, pneumonia, meningitis, urinary tract infection, sepsis, bacteremia , cardiac sources, as well as others were deemed relatively unlikely. The the patient was informed about the findings as listed above. All questions were answered and he was pleased with the treatment. Return instructions were outlined and the patient was discharged in stable condition. Outpatient prescription management: Tamiflu Referral: The patient was referred back to his primary care physician for follow-up in 2 to 3 days for a recheck of the current condition. Medication Reconcilliation Current Medication List: was personally reviewed by me Blood Pressure Screening Patient's blood pressure: Elevated blood pressure Blood pressure disposition: Referred to PCP Impression Primary Impression: Influenza-like symptoms Scribe Attestation The scribe's documentation has been prepared under my direction and personally reviewed by me in its entirety. I confirm that the note above accurately reflects all work, treatment, procedures, and medical decision making performed by me. Departure Information Dispostion Home / Self-Care Prescriptions Oseltamivir (Tamiflu) 75 Mg Cap 75 MG PO BID, #9 CAP Prov: Aurelio Guo MD 03/03/17 Referrals Hima Weldon M.D. Forms HOME CARE DOCUMENTATION FORM, IMPORTANT VISIT INFORMATION Patient Instructions My [facility] Additional Instructions Tamiflu 75 mg twice daily for 5 days for the flulike symptoms. Tylenol: Take 1000 mg every 6 hours as needed for pain. Do not take more than 3000 mg in a 24 hour period. Continue current medications. Contact your primary office on Sunday for follow-up. Return to the emergency department for worsening chest congestion, difficulty breathing, chest pain, fever, vomiting, abdominal pain, or as needed.
== END 2017-03-03 14:22 | disposition home or self-care (01) ==
LOC: C.EDB 11:44 → C.EDC 14:22
DX: R50.9 Fever, unspecified (principal); R09.89 Other specified symptoms and signs involving the circulatory and respiratory systems; R11.0 Nausea; R19.7 Diarrhea, unspecified; Z94.2 Lung transplant status; B02.9 Zoster without complications; J44.9 Chronic obstructive pulmonary disease, unspecified; E78.5 Hyperlipidemia, unspecified; K21.9 Gastro-esophageal reflux disease without esophagitis; Z79.82 Long term (current) use of aspirin; Z87.891 Personal history of nicotine dependence; Z83.3 Family history of diabetes mellitus

== ENCOUNTER 2017-03-11 19:19 | Inpatient (IN) | payer OTHER ==
[~2017-03-11] VITALS: Ht 170.2 cm; Wt 81.8 kg
[~2017-03-11 19:19] MED LIST changes: +GABA-1219 PO; -GABA1CAP4 PO; +OSEL75CA12 PO; -TACR1CAP PO
[2017-03-11] MEDS ORDERED: PIPERACILLIN/TAZOBACTAM 4.5 GM/100ML D5W IV STA (19:41)
[2017-03-11] MEDS ORDERED: ALBUT/IPRATROP 3MG/0.5MG NEB 3 ML VIAL INH STA (19:41)
[2017-03-11] MEDS ORDERED: SODIUM CHLORIDE 0.9% 1000ML 500 ML IV ONE (19:41)
[2017-03-11] MEDS ORDERED: ONDANSETRON INJ 2 MG/ML 2 ML VIAL IV STA (19:41)
[2017-03-11] MEDS ORDERED: ACETAMINOPHEN 500 MG TAB PO STA (19:41)
--- NOTE | 2017-03-11 19:56 | EMERGENCY ROOM VISIT NOTE ---
History Report prepared by Raghav: Rosas Landeros Under the Supervision of: Dr. Nelson Servin M.D. First contact with patient: 19:33 Chief Complaint: FLU LIKE SX Stated Complaint: ILLNESS History of Present Illness The patient is a 66 year old male who presents to the Emergency Room with complaints of flu like symptoms that began two days [employer]. He reports that he did have his flu shot this year. The patient spent the last two days in bed as he felt general weakness and dizziness. He has been experiencing spinning sensations, vomiting, and diarrhea. He reports that his illness began with a cough and sore throat. He has a productive cough and reports that he had a double lung transplant in the past; he is on immunosuppressive therapy following his transplant. The patient felt warm a few nights ago, but did not take his temperature. The patient denies any stuffy nose or abdominal pain. He does not have oxygen at home, but he has a nebulizer which he uses everyday. The patient notes that he is currently on antibiotics as a preventative measure. He has a history of Pneumonia, but has never been diagnosed with vertigo. The patient has not experienced any recent trauma. He also reports that he was in the E.R. on March 03 for flu like symptoms as he had been exposed to his sick granddaughter. He notes that he feels worse now than he did during his previous visit. The patient made mention that he has a history of "Mini-Strokes" Source of History: patient Onset: two days ago. Position: other (global) Quality: other (flu-like) Timing: worsening Associated Symptoms: + fevers, + sorethroat, + cough, + vomiting, + diarrhea , + fatigue, + weakness Note: Associated Symptoms: Dizziness, Spinning sensations. Denies: Stuffy nose, Abdominal pain. Review of Systems See HPI for pertinent positives & negatives. A total of 10 systems reviewed and were otherwise negative. Past Medical & Surgical Medical Problems: (1) COPD (chronic obstructive pulmonary disease) (2) Diffuse interstitial pulmonary fibrosis (3) Dyslipidemia (4) Gastroesophageal reflux disease (5) Tobacco dependence in remission Surgical Problems: (1) Bilateral lung tansplant (2) H/O arthroscopy of right knee (3) H/O cardiac catheterization (4) History of lumbar surgery (5) Hx of appendectomy (6) S/P cervical spinal fusion Family History FH: diabetes mellitus FH: heart disease Lung disease Social History Smoking Status: Former Smoker Alcohol Use: none Drug Use: none Marital Status: Occupation Status: disabled Current/Historical Medications Scheduled Aspirin (Aspirin Ec), 81 MG PO QAM Azathioprine (Azathioprine), 75 MG PO QAM Famotidine (Famotidine), 20 MG PO BID Fludrocortisone Acetate (Florinef), 0.1 MG PO QAM Gabapentin (Gabapentin), 300 MG PO QAM Lorazepam (Lorazepam), 1 MG PO BID Magnesium Oxide (Mag-Ox), 400 MG PO TID Oseltamivir (Tamiflu), 75 MG PO BID Pantoprazole Sodium (Protonix), 40 MG PO QAM Pravastatin Sodium (Pravastatin Sodium), 40 MG PO HS Prednisone (Prednisone), 5 MG PO QAM Pregabalin (Lyrica), 150 MG PO BID Sildenafil Citrate (Viagra), 50 MG PO PRN Sulfa/Trimethoprim (Bactrim Ds 800MG/160MG), 1 TAB PO 3XWK Tacrolimus (Prograf), 4 CAP PO QAM Tacrolimus (Prograf), 3 CAP PO QPM Temazepam (Restoril), 15 MG PO HS Scheduled PRN Albuterol Sulf (Proventil 0.083% 2.5MG/3ML), 2.5 MG INH BID PRN for Wheezing Docusate Sodium (Colace), 1 CAP PO BID PRN for Constipation Ondansetron Hcl (Zofran), 4 MG PO Q6H PRN for Nausea Oxycodone Immediate Rel Tab (Roxicodone Ir), 1-2 TAB PO Q6 PRN for Severe Pain Polyethylene Glycol 3350 (Miralax), 17 GM PO DAILY PRN for Constipation Allergies Coded Allergies: Levofloxacin (Verified Allergy, Intermediate, REDNESS/RASH, 03/03/17) Adhesives (Verified Allergy, Unknown, SKIN IRRITATION/RASH, 03/03/17) Physical Exam Vital Signs Date Time Temp Pulse Resp B/P (MAP) Pulse Ox O2 Delivery O2 Flow Rate FiO2 03/11/17 20:35 Room Air 03/11/17 19:31 96 03/11/17 19:28 36.9 96 16 125/83 95 Room Air Physical Exam GENERAL: Patient is in no acute distress. HEENT: No acute trauma, normocephalic atraumatic, mucous membranes moist, no nasal congestion, no scleral icterus. NECK: No stridor, no adenopathy, no meningismus, trachea is midline. LUNGS: Occasional wheezes bilaterally, crackles at the left lower lung, equal breath sounds, moist cough noted, no respiratory distress HEART: Without murmurs gallops or rubs, regular rate and rhythm. ABDOMEN: Soft, nontender, bowel sounds positive, no hernias, no peritonitis. EXTREMITIES: No cyanosis or edema, full range of motion of all the joints without pain or difficulty, no signs for acute trauma. NEUROLOGIC: Oriented x 3, no acute motor or sensory deficits, no focal weakness.No nystagmus, no pronator drift or cerebellar disfunction. SKIN: No rash, no jaundice, no diaphoresis. Medical Decision & Procedures ER Provider Diagnostic Interpretation: Radiology results as stated below per my review and radiologist interpretation: CHEST ONE VIEW PORTABLE CLINICAL HISTORY: 66 years-old Male presenting with Sepsis. TECHNIQUE: Portable upright AP view of the chest was obtained. COMPARISON: 03/03/2017. FINDINGS: Postsurgical changes of clamshell sternotomy and numerous mediastinal surgical clips indicative of prior bilateral lung transplant. Atherosclerosis of aortic arch. Cardiac silhouette top normal in size, unchanged. Left mid to basilar patchy hazy opacities new from prior. No large pleural effusion or pneumothorax. Osseous structures normal. Upper abdomen normal. IMPRESSION: 1. Interval development of left mid and lower lung consolidation consistent with pneumonia. 2. Post surgical changes of bilateral lung transplant. Electronically signed by: Raul Rice M.D. 03/11/2017 7:57 PM Dictated Date/Time: 03/11/2017 7:55 PM HEAD WITHOUT CONTRAST (CT) CLINICAL HISTORY: 66 years-old Male presenting with dizzy, off balance. TECHNIQUE: Multidetector CT imaging of the head was performed without the use of intravenous contrast. IV contrast: None. A dose lowering technique was used consistent with the principles of ALARA (as low as reasonably achievable). COMPARISON: 06/28/2016. CT DOSE (mGy.cm): The estimated cumulative dose is 537.48 mGy.cm. FINDINGS: Assignment Editor topogram: Unremarkable. Ventricles and sulci normal in size. Periventricular and subcortical white matter hypoattenuation, nonspecific but likely indicative of chronic small vessel ischemic change. Bilateral basal ganglia old lacunar infarcts. No mass effect or midline shift. No hemorrhage or acute territorial infarct. No extra-axial fluid collection. Mild mucosal thickening in the ethmoid air cells. Calvarium intact. IMPRESSION: 1. Chronic small vessel ischemic change. No acute intracranial abnormality. Electronically signed by: Raul Rice M.D. 03/11/2017 9:06 PM Dictated Date/Time: 03/11/2017 9:04 PM Laboratory Results 03/11/17 20:00 Red Blood Count 3.47, Mean Corpuscular Volume 91.1, Mean Corpuscular Hemoglobin 28.2, Mean Corpuscular Hemoglobin Concent 31.0, Mean Platelet Volume 10.6 03/11/17 20:00 Test 03/11/17 20:00 03/11/17 20:30 03/11/17 20:39 White Blood Count 8.96 K/uL (4.8-10.8) Red Blood Count 3.47 M/uL (4.7-6.1) Hemoglobin 9.8 g/dL (14.0-18.0) Hematocrit 31.6 % (42-52) Mean Corpuscular Volume 91.1 fL (80-100) Mean Corpuscular Hemoglobin 28.2 pg (25-34) Mean Corpuscular Hemoglobin Concent 31.0 g/dl (32-36) Platelet Count 172 K/uL (130-400) Mean Platelet Volume 10.6 fL (7.4-10.4) RDW Standard Deviation 54.4 fL (36.4-46.3) RDW Coefficient of Variation 16.5 % (11.5-14.5) Prothrombin Time 12.3 SECONDS (9.0-12.0) Prothromb Time International Ratio 1.2 (0.9-1.1) Activated Partial Thromboplast Time 38.8 SECONDS (21.0-31.0) Partial Thromboplastin Ratio 1.5 Anion Gap 10.0 mmol/L (3-11) Est Creatinine Clear Calc Drug Dose 30.2 ml/min Estimated GFR () 29.9 Estimated GFR (Non- 25.8 BUN/Creatinine Ratio 12.8 (10-20) Calcium Level 8.5 mg/dl (8.5-10.1) Magnesium Level 1.9 mg/dl (1.8-2.4) Total Bilirubin 1.2 mg/dl (0.2-1) Aspartate Amino Transf (AST/SGOT) 13 U/L (15-37) Alanine Aminotransferase (ALT/SGPT) 10 U/L (12-78) Alkaline Phosphatase 54 U/L (45-117) Total Protein 6.8 gm/dl (6.4-8.2) Albumin 3.4 gm/dl (3.4-5.0) Globulin 3.4 gm/dl (2.5-4.0) Albumin/Globulin Ratio 1.0 (0.9-2) Bedside Lactic Acid Venous 0.89 mmol/L (0.90-1.70) His lactic acid result was 0.89 Laboratory results reviewed by me. Medications Administered Medications (Trade) Dose Ordered Sig/Chrystal Route Start Time Stop Time Status Last Admin Dose Admin Sodium Chloride 500 ml @ 999 mls/hr Q31M ONCE IV 03/11/17 19:41 03/11/17 20:11 DC 03/11/17 20:36 999 MLS/HR Piperacillin Sod/ Tazobactam Sod (Zosyn Iv) 4.5 gm ONE STAT IV 03/11/17 19:41 03/11/17 19:45 DC 03/11/17 20:36 4.5 GM Albuterol/ Ipratropium (Duoneb) 3 ml NOW STAT INH 03/11/17 19:41 03/11/17 19:45 DC 03/11/17 20:35 3 ML Ondansetron HCl (Zofran Inj) 4 mg NOW STAT IV 03/11/17 19:41 03/11/17 19:45 DC 03/11/17 20:35 4 MG Ibuprofen (Motrin Tab) 600 mg NOW STAT PO 03/11/17 20:47 03/11/17 20:48 DC 03/11/17 20:56 600 MG ECG Indication: SOB/dyspnea Rate (beats per minute): 90 Rhythm: normal sinus Findings: no acute ischemic change, no ectopy ED Course 1933: The patient was evaluated in room C8. A complete history and physical exam was performed 1940: Ordered Zofran Inj 4mg IV, Duoneb 3ml INH, Zosyn IV 4.5 gm IV, and Sodium Chloride 500 ml @ 999 mls/hr IV 2046: Ordered Ibuprofen 600mg PO 2107: I reevaluated the patient. His lactic acid result was 0.89. 2113: I discussed the patient case [facility] will continue evaluating the patient for further treatment. Medical Decision Differential Diagnoses Include: Influenza or flu-like illness, Pneumonia, Immunocompromised, Dehydration, Anemia, Electrolyte Imbalance, Stroke, and Vertigo. There is no leukocytosis. The patient is anemic but this is baseline looking back at previous testing. There is evidence today for some acute renal failure/ dehydration. No hepatitis. Lactic acid level is not elevated making sepsis less likely. No concerning coagulopathy. Blood cultures are pending. Chest x- ray does show a fairly large left-sided pneumonia. No pneumothorax or CHF. Influenza testing by PCR is pending. Brain CT shows no acute bleed or mass effect. On exam, I found no focal neurologic deficits to suggest stroke. The patient received IV saline, IV Zosyn, IV Zofran, a DuoNeb. He was given oral Motrin for a headache. The patient is currently resting comfortably. He does not appear in respiratory distress. Patient requires a hospital stay. He is immunocompromised with a pneumonia. He has acute renal failure/dehydration. I did speak to the patient and case management. The on-call hospitalist was consulted. Medication Reconcilliation Current Medication List: was personally reviewed by me Blood Pressure Screening Patient's blood pressure: Normal blood pressure Consults Time Called: 2110 Consulting Physician[facility] Returned Call: [phone] I discussed the patient case with [facility] will continue evaluating the patient for further treatment. Impression Primary Impression: Pneumonia Additional Impressions: Immunocompromised Acute renal failure Dehydration Scribe Attestation The scribe's documentation has been prepared under my direction and personally reviewed by me in its entirety. I confirm that the note above accurately reflects all work, treatment, procedures, and medical decision making performed by me. Departure Information Dispostion Being Evaluated By Hospitalist Referrals Hima Weldon M.D. (PCP) Patient Instructions My [facility] Problem Qualifiers
[2017-03-11] MEDS ORDERED: DOCU-94 PO (20:28)
[2017-03-11] MEDS ORDERED: VGR50 PO (20:28)
[2017-03-11] MEDS ORDERED: OXYC1TAB3 PO (20:28)
[2017-03-11] MEDS ORDERED: POLY335019 PO (20:28)
[2017-03-11] MEDS ORDERED: ALBINS/ INH (20:28)
[2017-03-11] MEDS ORDERED: TACR1CAP PO ×2 (20:28)
[2017-03-11] MEDS ORDERED: IBUPROFEN 600 MG TAB PO STA (20:47)
[2017-03-11 20:50] LABS: HEMATOCRIT 31.6 % (42-52); HEMOGLOBIN 9.8 g/dL (14.0-18.0); MEAN CELL VOLUME 91.1 fL (80-100); MEAN CORPUSCULAR HEMOGLOBIN 28.2 pg (25-34); MEAN PLATELET VOLUME 10.6 fL (7.4-10.4); PLATELET COUNT 172 K/uL (130-400); RED CELL DISTRIBUTION WIDTH CV 16.5 % (11.5-14.5); RED CELL DISTRIBUTION WIDTH SD 54.4 fL (36.4-46.3); WHITE BLOOD COUNT 8.96 K/uL (4.8-10.8)
[2017-03-11 21:00] LABS: INR 1.2 (0.9-1.1); PTT PATIENT 38.8 SECONDS (21.0-31.0)
[2017-03-11 21:07] LABS: ALBUMIN 3.4 gm/dl (3.4-5.0); CALCIUM 8.5 mg/dl (8.5-10.1); CREATININE 2.53 mg/dl (0.60-1.40); POTASSIUM 4.6 mmol/L (3.5-5.1)
--- NOTE | 2017-03-11 21:07 | DIAGNOSTIC IMAGING REPORT ---
HEAD WITHOUT CONTRAST (CT) CLINICAL HISTORY: 66 years-old Male presenting with dizzy, off balance. TECHNIQUE: Multidetector CT imaging of the head was performed without the use of intravenous contrast. IV contrast: None. A dose lowering technique was used consistent with the principles of ALARA (as low as reasonably achievable). COMPARISON: 06/28/2016. CT DOSE (mGy.cm): The estimated cumulative dose is 537.48 mGy.cm. 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 Ventricles and sulci normal in size. Periventricular and subcortical white matter hypoattenuation, nonspecific but likely indicative of chronic small vessel ischemic change. Bilateral basal ganglia old lacunar infarcts. No mass effect or midline shift. No hemorrhage or acute territorial infarct. No extra-axial fluid collection. Mild mucosal thickening in the ethmoid air cells. Calvarium intact. IMPRESSION: 1. Chronic small vessel ischemic change. No acute intracranial abnormality. Electronically signed by: Raul Rice M.D. 03/11/2017 9:06 PM Dictated Date/Time: 03/11/2017 9:04 PM
[2017-03-11 21:09] LABS: TOTAL PROTEIN 6.8 gm/dl (6.4-8.2)
[2017-03-11 21:28] LABS: INFLUENZA A PCR Neg for Influ A (NEG); INFLUENZA B PCR Neg for Influ B (NEG)
[2017-03-11 21:31] LABS: EOS % 0.1 %; EOS ABS # 0.01 K/uL (0-0.5); IG# 0.13 K/uL (0.00-0.02); LYMPH ABS # 0.45 K/uL (1.2-3.4); MONO % 8.9 %; NEUT % 84.5 %; NEUT ABS # 7.57 K/uL (1.4-6.5)
--- NOTE | 2017-03-11 22:03 | History and Physical ---
History & Physical Date & Time of Service: Mar 11, 2017 at 21:37 Chief Complaint: Illness Primary Care Physician: Hima Weldon M.D. History of Present Illness Source: patient 66 year old male with PMHx of pulmonary fibrosis s/p double lung transplant in 2016, post-herpetic neuralgia, h/o multiple TIAs and HLD presents with a 2 day history of feeling unwell, including frontal headache, dizziness, sore throat, productive cough with brown sputum (but without dyspnea or any new chest pain), nausea, vomiting with secondary abdominal pain, weakness, myalgia, fevers and chills (but temperature not measured at home). Patient has also been having diarrhea for last 2 days - 10-15s episode daily, without blood. He is unable to eat or drink due to vomiting, and ambulation causes lightheadedness. He denies any rash or urinary symptoms. ROS is unremarkable except as noted above. Of note, he was recently see in the ER ~1 week ago, with milder, but similar symptoms. He was sent home on Tamiflu but only completed 6/10 doses. Patient had double lung transplant in 03/23. He is being managed by specialists from [facility]. He is on immunosuppressive therapy for this. He no longer uses O2 at baseline. Patient had shingles 5 months ago for which he is on both gabapentin and pregabalin and oxycodone, and is s/p nerve block Mini strokes x 7, several years ago, but not any anticoagulants. Past Medical/Surgical History Medical Problems: (1) COPD (chronic obstructive pulmonary disease) Status: Chronic (2) Diffuse interstitial pulmonary fibrosis Status: Chronic (3) Dyslipidemia Status: Chronic (4) Gastroesophageal reflux disease Status: Chronic (5) Tobacco dependence in remission Status: Chronic Surgical Problems: (1) H/O arthroscopy of right knee Status: Resolved (2) H/O cardiac catheterization Status: Resolved (3) History of lumbar surgery Status: Resolved (4) Hx of appendectomy Status: Resolved (5) S/P cervical spinal fusion Status: Resolved Family History FH: diabetes mellitus FH: heart disease Lung disease Pulmonary fibrosis - sister and bother x 2, and dad. Mom - DM Social History Smoking Status: Former Smoker (Has not smoked since transplant) Smokeless Tobacco Use: Yes (Chews "smo[place]" daily) Drug Use: none Marital Status: Housing status: lives alone, other Occupational Status: disabled Immunizations History of Influenza Vaccine: Unknown Influenza Vaccine Date: Dec 02, 2009 History of Tetanus Vaccine?: Unknown History of Pneumococcal: Unknown Pneumococcal Date: Aug 02, 2009 History of Hepatitis B Vaccine: Unknown Multi-Drug Resistant Organisms History of MDRO: No Allergies Coded Allergies: Levofloxacin (Verified Allergy, Intermediate, REDNESS/RASH, 03/03/17) Adhesives (Verified Allergy, Unknown, SKIN IRRITATION/RASH, 03/03/17) Home Medications Scheduled Aspirin (Aspirin Ec), 81 MG PO QAM Azathioprine (Azathioprine), 75 MG PO QAM Famotidine (Famotidine), 20 MG PO BID Fludrocortisone Acetate (Florinef), 0.1 MG PO QAM Gabapentin (Gabapentin), 300 MG PO QAM Lorazepam (Lorazepam), 1 MG PO BID Magnesium Oxide (Mag-Ox), 400 MG PO TID Oseltamivir (Tamiflu), 75 MG PO BID Pantoprazole Sodium (Protonix), 40 MG PO QAM Pravastatin Sodium (Pravastatin Sodium), 40 MG PO HS Prednisone (Prednisone), 5 MG PO QAM Pregabalin (Lyrica), 150 MG PO BID Sildenafil Citrate (Viagra), 50 MG PO PRN Sulfa/Trimethoprim (Bactrim Ds 800MG/160MG), 1 TAB PO 3XWK Tacrolimus (Prograf), 4 CAP PO QAM Tacrolimus (Prograf), 3 CAP PO QPM Temazepam (Restoril), 15 MG PO HS Scheduled PRN Albuterol Sulf (Proventil 0.083% 2.5MG/3ML), 2.5 MG INH BID PRN for Wheezing Docusate Sodium (Colace), 1 CAP PO BID PRN for Constipation Ondansetron Hcl (Zofran), 4 MG PO Q6H PRN for Nausea Oxycodone Immediate Rel Tab (Roxicodone Ir), 1-2 TAB PO Q6 PRN for Severe Pain Polyethylene Glycol 3350 (Miralax), 17 GM PO DAILY PRN for Constipation Physical Exam Vital Signs Date Time Temp Pulse Resp B/P (MAP) Pulse Ox O2 Delivery O2 Flow Rate FiO2 03/11/17 20:35 Room Air 03/11/17 19:31 96 03/11/17 19:28 36.9 96 16 125/83 95 Room Air General Appearance: WD/WN, + mild distress (subjective fevers and chills), + pertinent finding (ill-, but not toxic-appearing) Head: normocephalic, atraumatic Eyes: normal inspection ENT: hearing grossly normal, pharynx normal Neck: supple, no adenopathy, no carotid bruits Respiratory/Chest: no respiratory distress, no accessory muscle use, + rales ( diffusely junky sounding, L>R), + rhonchi, + wheezing (scattered), + pertinent finding (Rattling, wet-sounding cough) Cardiovascular: no edema, no murmur, normal peripheral pulses, + tachycardia Abdomen/GI: normal bowel sounds, non tender, soft Back: normal inspection, no CVA tenderness Extremities/Musculoskelatal: no pedal edema, + pertinent finding (Clubbed fingers) Neurologic/Psych: alert, normal mood/affect, oriented x 3 Skin: normal color, warm/dry, no rash Diagnostics Laboratory Results Results Past 24 Hours Test 03/11/17 20:00 03/11/17 20:30 03/11/17 20:39 Range/Units White Blood Count 8.96 4.8-10.8 K/uL Red Blood Count 3.47 4.7-6.1 M/uL Hemoglobin 9.8 14.0-18.0 g/dL Hematocrit 31.6 42-52 % Mean Corpuscular Volume 91.1 80-100 fL Mean Corpuscular Hemoglobin 28.2 25-34 pg Mean Corpuscular Hemoglobin Concent 31.0 32-36 g/dl Platelet Count 172 130-400 K/uL Mean Platelet Volume 10.6 7.4-10.4 fL Neutrophils (%) (Auto) 84.5 % Lymphocytes (%) (Auto) 5.0 % Monocytes (%) (Auto) 8.9 % Eosinophils (%) (Auto) 0.1 % Basophils (%) (Auto) 0.0 % Neutrophils # (Auto) 7.57 1.4-6.5 K/uL Lymphocytes # (Auto) 0.45 1.2-3.4 K/uL Monocytes # (Auto) 0.80 0.11-0.59 K/uL Eosinophils # (Auto) 0.01 0-0.5 K/uL Basophils # (Auto) 0.00 0-0.2 K/uL RDW Standard Deviation 54.4 36.4-46.3 fL RDW Coefficient of Variation 16.5 11.5-14.5 % Immature Granulocyte % (Auto) 1.5 % Immature Granulocyte # (Auto) 0.13 0.00-0.02 K/uL Prothrombin Time 12.3 9.0-12.0 SECONDS Prothromb Time International Ratio 1.2 0.9-1.1 Activated Partial Thromboplast Time 38.8 21.0-31.0 SECONDS Partial Thromboplastin Ratio 1.5 Sodium Level 138 136-145 mmol/L Potassium Level 4.6 3.5-5.1 mmol/L Chloride Level 104 98-107 mmol/L Carbon Dioxide Level 24 21-32 mmol/L Anion Gap 10.0 3-11 mmol/L Blood Urea Nitrogen 33 7-18 mg/dl Creatinine 2.53 0.60-1.40 mg/dl Est Creatinine Clear Calc Drug Dose 30.2 ml/min Estimated GFR () 29.9 Estimated GFR (Non- 25.8 BUN/Creatinine Ratio 12.8 10-20 Random Glucose 114 70-99 mg/dl Calcium Level 8.5 8.5-10.1 mg/dl Magnesium Level 1.9 1.8-2.4 mg/dl Total Bilirubin 1.2 0.2-1 mg/dl Aspartate Amino Transf (AST/SGOT) 13 15-37 U/L Alanine Aminotransferase (ALT/SGPT) 10 12-78 U/L Alkaline Phosphatase 54 45-117 U/L Total Protein 6.8 6.4-8.2 gm/dl Albumin 3.4 3.4-5.0 gm/dl Globulin 3.4 2.5-4.0 gm/dl Albumin/Globulin Ratio 1.0 0.9-2 Influenza Type A (RT-PCR) Neg for Influ A NEG Influenza Type B (RT-PCR) Neg for Influ B NEG Bedside Lactic Acid Venous 0.89 0.90-1.70 mmol/L Microbiology Results 03/11/17 Blood Culture, Received Pending 03/11/17 Blood Culture, Received Pending Diagnostic Radiology HEAD WITHOUT CONTRAST (CT) CLINICAL HISTORY: 66 years-old Male presenting with dizzy, off balance. TECHNIQUE: Multidetector CT imaging of the head was performed without the use of intravenous contrast. IV contrast: None. A dose lowering technique was used consistent with the principles of ALARA (as low as reasonably achievable). COMPARISON: 06/28/2016. CT DOSE (mGy.cm): The estimated cumulative dose is 537.48 mGy.cm. 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 Ventricles and sulci normal in size. Periventricular and subcortical white matter hypoattenuation, nonspecific but likely indicative of chronic small vessel ischemic change. Bilateral basal ganglia old lacunar infarcts. No mass effect or midline shift. No hemorrhage or acute territorial infarct. No extra-axial fluid collection. Mild mucosal thickening in the ethmoid air cells. Calvarium intact. IMPRESSION: 1. Chronic small vessel ischemic change. No acute intracranial abnormality. CHEST ONE VIEW PORTABLE CLINICAL HISTORY: 66 years-old Male presenting with Sepsis. TECHNIQUE: Portable upright AP view of the chest was obtained. COMPARISON: 03/03/2017. FINDINGS: Postsurgical changes of clamshell sternotomy and numerous mediastinal surgical clips indicative of prior bilateral lung transplant. Atherosclerosis of aortic arch. Cardiac silhouette top normal in size, unchanged. Left mid to basilar patchy hazy opacities new from prior. No large pleural effusion or pneumothorax. Osseous structures normal. Upper abdomen normal. IMPRESSION: 1. Interval development of left mid and lower lung consolidation consistent with pneumonia. 2. Post surgical changes of bilateral lung transplant. Impression Assessment and Plan 66 year old male with PMHx of pulmonary fibrosis s/p double lung transplant in 2016, post-herpetic neuralgia, h/o multiple TIAs and HLD admitted for pneumonia and acute kidney injury Pneumonia - CXR: Interval development of left mid and lower lung consolidation consistent with pneumonia. Patient afebrile. Saturating well on RA. Lactic acid negative. - Abx: cefepime and azithromycin. - Held home Bactrim for now. Once creatinine improves, may consider restarting for PCP prophylaxis - MRSA swab ordered, if positive, consider addition of vanc - Tamiflu started, despite negative nasal flu swabs, due to clinical history and examination. Place on droplet precautions. 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 Check CPK, if elevated, consider holding statin. - Renally dose medications. Hold nephrotoxic medications - Attempted to contact [facility] transplant physician/team x 2 without call back re: dose adjustments to tacrolimus/azathioprine Acute gastroenteritis symptoms - vomiting and diarrhea - IVF as above - IV Zofran PRN nausea - Hold Colace and Miralax - C.diff sent given use of chronic abx Chronic immunosuppression post double lung transplant - Continue tacrolimus. Patient unsure if he is still on azathioprine. - Primary team to call and discuss current medication regimen and adjustment of tacrolimus dose with patient's transplant physician (Dr. Ronn Moran) / coordinator (Amaris Zavala) from [facility] - Solu-Medrol 40mg q12h ordered for stress dosing given chronic steroid usage. Florinef continued, prednisone held for now. Anemia - 9.8 on admission. Seems to be baseline - Anemia workup ordered Post-herpetic neuralgia - Continue gabapentin, pregabalin, and oxycodone for pain GERD - Continue pantoprazole and famotidine H/o TIAs - Continue aspirin HLD - Continue pravastatin VTE ppx - SCDs Level of Care Telemetry Advanced Directives Existing Advance Directive: No Existing Living Will: Yes Existing Power of Reconstructive Dentist: No Existing Health Care Proxy: Yes (Brother Monroe) Resuscitation Status FULL RESUSCITATION VTE Prophylaxis VTE Risk Assessment Done? Y/N: Yes Risk Level: Moderate Given or contraindicated: SCD's Note Resident Physician Supervision Note: I was present with PGY2 Dr. Sandra Carerra during the admission history and exam. I discussed the case with the resident and agree with the findings and plan as documented in the note. Any exceptions or clarifications are listed here: none. Complicated 66yo male with prior h/o pulmonary fibrosis s/p b/l lung transplant at [facility] in 2016, on chronic prednisone/prograf/azathioprine - followed by Dr. Moran in [place] - along with chronic pain syndrome due to prior shingles - presenting with 2 days of severe myalgias, arthralgias, fatigue , copious diarrhea (10-15 episodes/day with some mucous), cough, dyspnea, anorexia, subjective fever & chills. He has had a constant headache as well. Couldn't walk well at home due to the extreme fatigue/myalgias. Had a "2 day" illness in February but he made full recovery from such. He reports every day chest discomfort since his lung transplant over the area of his scars. PMH, PSH, allergies, meds, sochx, famhx, ros - reviewed vitals - tachy, BP on low end of normal, RR/o2 sats wnl gen - ill appearing, but nontoxic mouth - MM slightly dry neck - no JVD, no rigidity of meningismus; no tenderness over any sinus w/ palpation heart - tachy, s1, s2, no murmur lungs - diffuse wheezes/rhonchi b/l; focal rales left base abd - soft, NT, no HSM chest - multiple scars present ext - no edema, clubbing of all fingernails Cr 2.5 hb 9.8 lactate wnl EKG - NSR, no ST changes cxr - left sided pneumonia A/P: 1. left-sided pneumonia - at risk for typical pathogens/community-acquired, atypicals, gram-negatives due to immunocompromised state, MRSA 2. acute kidney injury in setting of CKD stage 2-3 3. probable sepsis 2nd to #1 4. s/p b/l lung transplant 2016 - [facility], [place], operated by [facility] - on steroids/azathioprine/ prograf 5. extensive wheezing/bronchitis in setting of #1 6. flu-like symptoms despite flu PCR negative 7. chronic pain syndrome 8. severe diarrhea 9. anemia * agree w/ broad-spectrum antibiotics - cefepime to cover gram negatives; zithromax for atypicals; MRSA swab - if + then add vancomycin cautiously * JENNY likely sepsis-associated/pre-renal - gentle hydration, BMP am * needs some stress dose steroids and this will help #5 -- solumedrol 40mg q12h * despite neg flu testing he has all the signs/symptoms of possible flu - will cover with tamiflu x 5 days; place in droplet isolation * check c. diff toxin - COPIOUS mucous stool at home * contact [facility] transplant team TONIGHT For any other additional recommendations re: his transplant meds and to be sure they are ok with stress dose steroids, etc. Prograf level about 1 month ago was wnl. * u/a with 1+ blood but no RBCs on micro - check CPK, r/o rhabdo from statin or a viral process. Check urine Na and urine Cr due to ARF to be complete. * sputum cx, incentive daron, nebs, mucinex, pulmonary toilet. * iron studies, b12, folate due to #9. Braden Sullivan MD Resident Tracking Resident Involvement: Resident Care Provided Care Provided: Adult Hospital Medicine
[2017-03-11] MEDS ORDERED: ALUMINUM/MAGNESIUM/SIMETH (MAALOX MAX) 30 ML UDC PO PRN (22:15)
[2017-03-11] MEDS ORDERED: ONDANSETRON INJ 2 MG/ML 2 ML VIAL IV PRN (22:15)
[2017-03-11] MEDS ORDERED: ALBUTEROL 0.083% NEBU SOLN 3 ML VIAL INH PRN (22:15)
[2017-03-11] MEDS ORDERED: MAGNESIUM HYDROXIDE SUSP 30 ML UDC PO PRN (22:15)
[2017-03-11] MEDS ORDERED: OXYCODONE HCL IR 5 MG TAB (IMMEDIATE RELEASE) PO PRN (22:15)
[2017-03-11] MEDS ORDERED: NITROGLYCERIN 0.4 MG SL PER TAB CHARGE SL PRN (22:15)
[2017-03-11 23:45] VITALS: BP 118/69; PULSE 104; TEMP 37.3; O2SAT 94; Ht 170.2 cm; Wt 81.8 kg
[2017-03-12] VITALS (11 sets, daily range): BP systolic 122–145; BP diastolic 74–82; PULSE 64–98; TEMP 36.6–36.9; O2SAT 93–97
[2017-03-12] MEDS: SODIUM CHLORIDE 0.9% 1000ML 1,000 ML IV SCH ×3 (00:44→13:14)
[2017-03-12] MEDS ORDERED: CEFEPIME IV 2,000 MG in SYRINGE 7.5 ML IV SCH (02:00)
[2017-03-12] MEDS ORDERED: CEFEPIME CONSULT ACTIVE PRN (02:00)
[2017-03-12] MEDS ORDERED: VANCOMYCIN CONSULT ACTIVE PRN (02:15)
--- NOTE | 2017-03-12 02:19 | Progress Note ---
Progress Note Date of Service Mar 12, 2017. Progress Note Spoke to Dr. Long, transplant physician attending senior information security analyst who made the following recommendations: - Reduce Tacrolimus to 2mg q12h. Check tacrolimus dose this AM - Hold azathioprine (she was not sure if patient is on this medication currently - will need to be confirmed with patient's coordinator tomorrow) - Hold Bactrim for now - Give 1 dose of vanc given immunosuppression and check vanc level tomorrow - Order a respiratory panel, for consideration of need for ribavirin Numbers to call: Coordinator: [phone] or [phone] Med call answering service: [phone] Resident Tracking Resident Involvement: Resident Care Provided Care Provided: Adult Hospital Medicine
[2017-03-12] MEDS: METHYLPREDNISOLONE IV 40 MG in SYRINGE 0 ML IV SCH ×2 (02:22→13:16)
[2017-03-12] MEDS ORDERED: VANCOMYCIN INJ 1,750 MG in SODIUM CHLORIDE 0.9% 500ML 500 ML IV ONE (03:00)
[2017-03-12 07:07] LABS: BASO % 0.2 %; BASO ABS # 0.01 K/uL (0-0.2); EOS % 0.2 %; EOS ABS # 0.01 K/uL (0-0.5); HEMATOCRIT 29.2 % (42-52); HEMOGLOBIN 9.3 g/dL (14.0-18.0); IG# 0.08 K/uL (0.00-0.02); LYMPH % 1.7 %; LYMPH ABS # 0.08 K/uL (1.2-3.4); MEAN CELL VOLUME 90.7 fL (80-100); MEAN CORPUSCULAR HEMOGLOBIN 28.9 pg (25-34); MEAN CORPUSCULAR HGB CONC 31.8 g/dl (32-36); MEAN PLATELET VOLUME 11.1 fL (7.4-10.4); MONO % 3.5 %; MONO ABS # 0.16 K/uL (0.11-0.59); NEUT % 92.7 %; NEUT ABS # 4.25 K/uL (1.4-6.5); PLATELET COUNT 143 K/uL (130-400); RED CELL DISTRIBUTION WIDTH CV 16.7 % (11.5-14.5); RED CELL DISTRIBUTION WIDTH SD 55.5 fL (36.4-46.3); WHITE BLOOD COUNT 4.59 K/uL (4.8-10.8)
[2017-03-12] MEDS: ALBUT/IPRATROP 3MG/0.5MG NEB 3 ML VIAL INH SCH ×4 (07:07→19:42)
[2017-03-12 07:46] LABS: CALCIUM 8.2 mg/dl (8.5-10.1); CREATININE 2.19 mg/dl (0.60-1.40); POTASSIUM 4.4 mmol/L (3.5-5.1)
[2017-03-12 07:53] LABS: PHOSPHORUS 2.5 mg/dl (2.5-4.9)
[2017-03-12] MEDS ORDERED: TACROLIMUS 1 MG CAP PO SCH ×4 (08:00→21:00)
[2017-03-12] MEDS: LORAZEPAM 1 MG TAB PO SCH ×2 (09:00→20:35)
[2017-03-12] MEDS: PREGABALIN 150 MG CAP PO SCH ×2 (09:00→20:34)
[2017-03-12] MEDS: OSELTAMIVIR PHOSPHATE SUSP 30 MG/5 ML UDP PO SCH ×2 (09:00→22:20)
[2017-03-12] MEDS: AZITHROMYCIN 250 MG TAB PO SCH (09:01)
[2017-03-12] MEDS: ACETAMINOPHEN 325 MG TAB PO PRN (09:01)
[2017-03-12] MEDS: MAGNESIUM OXIDE 400 MG TAB PO SCH ×3 (09:01→20:38)
[2017-03-12] MEDS: GABAPENTIN 300 MG CAP PO SCH (09:03)
[2017-03-12] MEDS: FAMOTIDINE 20 MG TAB PO SCH ×2 (09:04→20:34)
[2017-03-12] MEDS: PANTOprazole SOD 40 MG TAB PO SCH (09:05)
[2017-03-12] MEDS: FLUDROCORTISONE ACETATE 0.1 MG TAB PO SCH (09:05)
[2017-03-12] MEDS: GUAIFENESIN 600 MG TABCR PO SCH ×2 (09:05→20:35)
[2017-03-12] MEDS: ASPIRIN 81 MG ECTAB PO SCH (09:05)
--- NOTE | 2017-03-12 09:16 | Pharmacy Progress Note ---
Pharmacy Abx Initial Consult Date of Service Mar 12, 2017. Pharmacy Dosing Scope Date of Consult: 03/12/17 Consultation requested by: Dr. Grady Carrera Pharmacy is consulted to initiate IV Vancomycin + Cefepime therapy, order appropriate labs and adjust drug dose/frequency. Subjective The patient is a 66 year old male admitted on Mar 11, 2017 at 22:29 for generalized weakness, vertigo, nausea, vomiting, diarrhea, as well as productive cough and sore throat. Objective Height (Feet): 5 Height (Inches): 7.00 Weight (Kilograms): 81.800 Vital Signs (Past 12Hrs) Vital Signs Past 12 Hours Date Time Temp Pulse Resp B/P (MAP) Pulse Ox O2 Delivery O2 Flow Rate FiO2 03/12/17 08:16 36.6 82 16 129/80 (96) 96 Room Air 03/12/17 07:07 68 16 97 Room Air 03/12/17 04:00 Room Air 03/12/17 03:37 36.9 73 17 127/75 (92) 97 Room Air 03/11/17 23:45 37.3 104 20 118/69 94 Room Air 03/11/17 22:46 37.3 106 20 109/86 98 03/11/17 22:11 37.3 03/11/17 21:51 37.0 101 22 109/86 98 Room Air Lab Results (24Hrs) Laboratory Tests (24 Hours) Test 03/11/17 20:00 03/12/17 06:34 Total Creatine Kinase 128 U/L (39-308) White Blood Count 4.59 K/uL (4.8-10.8) L Red Blood Count 3.22 M/uL (4.7-6.1) L Hemoglobin 9.3 g/dL (14.0-18.0) L Hematocrit 29.2 % (42-52) L Mean Corpuscular Volume 90.7 fL (80-100) Mean Corpuscular Hemoglobin 28.9 pg (25-34) Mean Corpuscular Hemoglobin Concent 31.8 g/dl (32-36) L Platelet Count 143 K/uL (130-400) Mean Platelet Volume 11.1 fL (7.4-10.4) H Neutrophils (%) (Auto) 92.7 % Lymphocytes (%) (Auto) 1.7 % Monocytes (%) (Auto) 3.5 % Eosinophils (%) (Auto) 0.2 % Basophils (%) (Auto) 0.2 % Neutrophils # (Auto) 4.25 K/uL (1.4-6.5) Lymphocytes # (Auto) 0.08 K/uL (1.2-3.4) L Monocytes # (Auto) 0.16 K/uL (0.11-0.59) Eosinophils # (Auto) 0.01 K/uL (0-0.5) Basophils # (Auto) 0.01 K/uL (0-0.2) Micro Results Date/Time Source Procedure Growth Status 03/11/17 20:30 Blood Blood Culture Pending Received 03/11/17 20:30 Blood Blood Culture Pending Received 03/12/17 05:55 Stool C.difficile Toxin B Gene (PCR) - Final Positive for C. difficile toxin B gene Complete 03/12/17 05:55 Sputum Expectorated Sputum Gram Stain Pending Ordered 03/12/17 05:55 Sputum Expectorated Sputum Sputum Culture Pending Ordered Risk Factors for Resistance * Immunocompromised (chronic steroid therapy, immunomodulators) Assessment & Plan Assessment * 66 year old male admitted with NVD, vertigo, weakness, sore throat and productive cough * Patient has a h/o pulm fibrosis s/p bilateral lung xplant 2015; immunosuppressive tx = tacrolimus, azathioprine + prednisone, chronic SMX-TMP for pneumocystis jirovecci prophylaxis * Patient is C diff toxin B positive * CXR read as "interval development of L mid + lower lung pneumonia" * Blood and sputum cx's ordered; influenza A/B PCR's negative; MRSA nasal swab ordered but not yet collected * Empiric broad spectrum abx therapy ordered: vancomycin + cefepime + azithromycin (PO) + oseltamivir * JENNY on admission, SCr up to 2.53 however appears to be improving w/ hydration , SCr down to 2.19 today (baseline 1.4-1.9?) Plan Vancomycin IV * Loading dose: 1750 mg (21.4 mg/kg) * Maintenance dose: 1250 mg IV (15.3 mg/kg) every 24 hours * Goal trough level for pulmonary infxn : 15 to 20 mcg/mL * Trough level ordered for 03/15/17 w/ 3rd maintenance dose * p'kinetic estimates: Vd 0.7L/kg, half-life ~21 hours, Ernie 0.033 hr-1 Cefepime * max recommended dose for eCrCl 30-60: 2gm IV Q 12 hours Pharmacy will continue to follow and will adjust dose/frequency as necessary. Thank you.
--- NOTE | 2017-03-12 10:03 | Pulmonary Consultation ---
History General Date of Service: Mar 12, 2017. Chief Complaint: flulike symptoms, shortness of breath Stated Complaint: JENNY HPI The patient is a 66 year old male who presents to [facility] with complaints of JENNY. The patient's primary care provider is Hima Weldon M.D.. Mr. Valiente is a pleasant male who had a bilateral lung transplant in 2016 at [facility] in [place]. 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 The patient had a past medical history including tobacco abuse but states he quit smoking in 2016 at the time of his transplant. He is not and lives with his grandson and other immediate family. The other family members do smoke but the patient states that they go outside to smoke. Mr. Valiente was recently treated empirically for influenza due to fevers and body aches. He reports that he took six doses of Tamiflu and stopped. He was holding the additional four doses in case he felt flulike again in the future. He denies any close sick contacts. Chief complaint this admission per the patient was weakness. He said he felt febrile but did not take his temperature at home. He had no rash or lesions. He had loose stool but no diarrhea prior to admission. He had no significant sputum but feels as though he is coughing things up into his throat and swallowing it and states that he cannot expectorated. He denies any hemoptysis. He has no pleuritic pain. He does have a history of herpetic zoster in what appears to be the ninth rib dermatome. There are no open sores or rashes but patient does report postherpetic neuralgia. He is on gabapentin which offers little relief. He also complains of persistent neuralgias along his surgical scar from his lung transplant. The patient denies ethanol abuse, marijuana use, other illicit drug use. He has no history of service. He has no history of incarceration. He has no history of exposure to tuberculosis. He has no history of travel outside the [place] over the last 24 months. The patient reports compliance with prescription medications. He has a pill dispenser which he preloads for morning afternoon and evening doses. He has had no difficulty with obtaining his prescription medications as prescribed Historian: patient Review of Systems A total of 12 systems was reviewed and is negative other than as listed above in the HPI All Other Symptoms All Other Systems: Reviewed and Negative Past Medical History Past Medical History: Medical Problems: (1) JENNY (acute kidney injury) (2) COPD (chronic obstructive pulmonary disease) secondary to prior tobacco abuse (3) Diffuse interstitial pulmonary fibrosis secondary to work in the [employer] (4) Dyslipidemia (5) Gastroesophageal reflux disease (6) Tobacco dependence in remission - quit at the time of his lung transplant (7) herpetic zoster along the right ninth rib dermatome with postherpetic neuralgia (8) chronic immunosuppression from antirejection medications Past Medical History: anxiety, other Past Surgical History: Surgical Problems: (1) Bilateral lung tansplant 2015 [facility] (2) H/O arthroscopy of right knee (3) H/O cardiac catheterization (4) History of lumbar surgery (5) Hx of appendectomy (6) S/P cervical spinal fusion (7) S/P lung transplant Past Surgical History: other Family History FH: diabetes mellitus FH: heart disease Lung disease Parent: COPD, Diabetes, Heart Disease Social History Hx Tobacco Use In Past Year?: No (QUIT 8 YRS AGO, 10 CIGS / DAY - SMOKED FOR 40 YRS) Smoking Status: Former Smoker (Has not smoked since transplant) Alcohol: never, history of alcohol abuse Drug Use: none Marital status: Housing status: lives with family (Lives with grandson who is a smoker), other Occupational Status: disabled, other (previously worked in [employer] at > [address] ft depth) Immunizations History of Influenza Vaccine: Unknown Influenza Vaccine Date: Dec 02, 2009 History of Tetanus Vaccine?: Unknown History of Pneumococcal: Unknown Pneumococcal Date: Aug 02, 2009 History of Hepatitis B Vaccine: Unknown History of MDRO History of MDRO: No Allergies Coded Allergies: Levofloxacin (Verified Allergy, Intermediate, REDNESS/RASH, 03/03/17) Adhesives (Verified Allergy, Unknown, SKIN IRRITATION/RASH, 03/03/17) Current Medications Reported Home Medications Medications Dose Route/Sig Max Daily Dose Days Date Category Dose Instructions Viagra (Sildenafil Citrate) 50 Mg Tab 50 Mg PO PRN 03/11/17 Reported Prograf (Tacrolimus) 1 Mg Cap 3 Cap PO QPM 03/11/17 Reported Prograf (Tacrolimus) 1 Mg Cap 4 Cap PO QAM 03/11/17 Reported Miralax (Polyethylene Glycol 3350) 1 Pow Pow 17 Gm PO DAILY PRN 03/11/17 Reported Roxicodone Ir (Oxycodone HCl) 5 Mg Tab 1-2 Tab PO Q6 PRN 03/11/17 Reported Colace (Docusate Sodium) 100 Mg Cap 1 Cap PO BID PRN 30 03/11/17 Reported Proventil 0.083% 2.5MG/3ML (Albuterol Sulf) 2.5 Mg/3 Ml Nebu 2.5 Mg INH BID PRN 03/11/17 Reported Tamiflu (Oseltamivir Phosphate) 75 Mg Cap 75 Mg PO BID 03/03/17 Rx Zofran (Ondansetron HCl) 4 Mg Tab 4 Mg PO Q6H PRN 02/19/17 Reported Protonix (Pantoprazole Sodium) 40 Mg Tab 40 Mg PO QAM 02/19/17 Reported Lyrica (Pregabalin) 150 Mg Cap 150 Mg PO BID 02/19/17 Reported Aspirin Ec (Aspirin) 81 Mg Tab 81 Mg PO QAM 02/19/17 Reported Prednisone 5 Mg Tab 5 Mg PO QAM 01/07/17 Reported Bactrim Ds 800MG/160MG (Trimethoprim/Sulfamethoxazole) Tab 1 Tab PO 3XWK 01/07/17 Reported TAKE THIS MEDICATION EVERY SUNDAY,SUNDAY AND SUNDAY Famotidine 20 Mg Tab 20 Mg PO BID 01/07/17 Reported Restoril (Temazepam) 15 Mg Cap 15 Mg PO HS 01/07/17 Reported Lorazepam 1 Mg Tab 1 Mg PO BID 01/07/17 Reported Florinef (Fludrocortisone Acetate) 0.1 Mg Tab 0.1 Mg PO QAM 01/07/17 Reported Azathioprine 50 Mg Tab 75 Mg PO QAM 01/07/17 Reported Gabapentin 300 Mg Cap 300 Mg PO QAM 01/07/17 Reported Pravastatin Sodium 40 Mg Tab 40 Mg PO HS 01/07/17 Reported Mag-Ox (Magnesium Oxide) 400 Mg Tab 400 Mg PO TID 09/23/16 Reported Physical Physical Exam Vital Signs: Date Time Temp Pulse Resp B/P (MAP) Pulse Ox O2 Delivery O2 Flow Rate FiO2 03/12/17 08:16 36.6 82 16 129/80 (96) 96 Room Air 03/12/17 07:07 68 16 97 Room Air 03/12/17 04:00 Room Air 03/12/17 03:37 36.9 73 17 127/75 (92) 97 Room Air 03/11/17 23:45 37.3 104 20 118/69 94 Room Air 03/11/17 22:46 37.3 106 20 109/86 98 03/11/17 22:11 37.3 03/11/17 21:51 37.0 101 22 109/86 98 Room Air 03/11/17 20:35 Room Air 03/11/17 19:31 96 03/11/17 19:28 36.9 96 16 125/83 95 Room Air Weight in Kilograms: 81.8 GENERAL : No acute distress. Pleasant EYES: No icterus, gaze conjugate. PERRL NOSE: No evidence of epistaxis. Oxygenating well on room air MOUTH: No lesions or candidiasis. Upper and lower dentures in place NECK: Supple. No stridor LUNGS: No wheezes or rhonchi. Rales at the left base. Slight decrease in breath sounds at the right base HEART: Regular, rate controlled ABDOMEN: Soft, NT, ND, BS Present EXTREMITIES: No LE edema, pedal pulses intact INTEGUMENTARY: Multiple tattoos NEURO: A&OX3 Diagnostics Labs Results Past 24 Hours Test 03/11/17 20:00 03/11/17 20:30 03/11/17 20:39 03/11/17 23:27 Range/Units White Blood Count 8.96 4.8-10.8 K/uL Red Blood Count 3.47 4.7-6.1 M/uL Hemoglobin 9.8 14.0-18.0 g/dL Hematocrit 31.6 42-52 % Mean Corpuscular Volume 91.1 80-100 fL Mean Corpuscular Hemoglobin 28.2 25-34 pg Mean Corpuscular Hemoglobin Concent 31.0 32-36 g/dl Platelet Count 172 130-400 K/uL Mean Platelet Volume 10.6 7.4-10.4 fL Neutrophils (%) (Auto) 84.5 % Lymphocytes (%) (Auto) 5.0 % Monocytes (%) (Auto) 8.9 % Eosinophils (%) (Auto) 0.1 % Basophils (%) (Auto) 0.0 % Neutrophils # (Auto) 7.57 1.4-6.5 K/uL Lymphocytes # (Auto) 0.45 1.2-3.4 K/uL Monocytes # (Auto) 0.80 0.11-0.59 K/uL Eosinophils # (Auto) 0.01 0-0.5 K/uL Basophils # (Auto) 0.00 0-0.2 K/uL RDW Standard Deviation 54.4 36.4-46.3 fL RDW Coefficient of Variation 16.5 11.5-14.5 % Immature Granulocyte % (Auto) 1.5 % Immature Granulocyte # (Auto) 0.13 0.00-0.02 K/uL Prothrombin Time 12.3 9.0-12.0 SECONDS Prothromb Time International Ratio 1.2 0.9-1.1 Activated Partial Thromboplast Time 38.8 21.0-31.0 SECONDS Partial Thromboplastin Ratio 1.5 Sodium Level 138 136-145 mmol/L Potassium Level 4.6 3.5-5.1 mmol/L Chloride Level 104 98-107 mmol/L Carbon Dioxide Level 24 21-32 mmol/L Anion Gap 10.0 3-11 mmol/L Blood Urea Nitrogen 33 7-18 mg/dl Creatinine 2.53 0.60-1.40 mg/dl Est Creatinine Clear Calc Drug Dose 30.2 ml/min Estimated GFR () 29.9 Estimated GFR (Non- 25.8 BUN/Creatinine Ratio 12.8 10-20 Random Glucose 114 70-99 mg/dl Calcium Level 8.5 8.5-10.1 mg/dl Magnesium Level 1.9 1.8-2.4 mg/dl Total Bilirubin 1.2 0.2-1 mg/dl Aspartate Amino Transf (AST/SGOT) 13 15-37 U/L Alanine Aminotransferase (ALT/SGPT) 10 12-78 U/L Alkaline Phosphatase 54 45-117 U/L Total Creatine Kinase 128 39-308 U/L Total Protein 6.8 6.4-8.2 gm/dl Albumin 3.4 3.4-5.0 gm/dl Globulin 3.4 2.5-4.0 gm/dl Albumin/Globulin Ratio 1.0 0.9-2 Influenza Type A (RT-PCR) Neg for Influ A NEG Influenza Type B (RT-PCR) Neg for Influ B NEG Bedside Lactic Acid Venous 0.89 0.90-1.70 mmol/L Urine Color YELLOW Urine Appearance CLEAR CLEAR Urine pH 5.5 4.5-7.5 Urine Specific [place] 1.017 1.000-1.030 Urine Protein TRACE NEG Urine Glucose (UA) NEG NEG Urine Ketones 1+ NEG Urine Occult Blood 1+ NEG Urine Nitrite NEG NEG Urine Bilirubin NEG NEG Urine Urobilinogen NEG NEG Urine Leukocyte Esterase NEG NEG Urine WBC (Auto) 1-5 0-5 /hpf Urine RBC (Auto) 0-4 0-4 /hpf Urine Hyaline Casts (Auto) 1-5 0-5 /lpf Urine Epithelial Cells (Auto) 5-10 0-5 /lpf Urine Bacteria (Auto) NEG NEG Urine Random Creatinine 149.0 mg/dl Urine Random Sodium 36 mEq/L Test 03/12/17 05:55 03/12/17 06:34 03/12/17 09:18 03/12/17 09:30 Range/Units Stool Occult Blood POSITIVE NEGATIVE White Blood Count 4.59 4.8-10.8 K/uL Red Blood Count 3.22 4.7-6.1 M/uL Hemoglobin 9.3 14.0-18.0 g/dL Hematocrit 29.2 42-52 % Mean Corpuscular Volume 90.7 80-100 fL Mean Corpuscular Hemoglobin 28.9 25-34 pg Mean Corpuscular Hemoglobin Concent 31.8 32-36 g/dl Platelet Count 143 130-400 K/uL Mean Platelet Volume 11.1 7.4-10.4 fL Neutrophils (%) (Auto) 92.7 % Lymphocytes (%) (Auto) 1.7 % Monocytes (%) (Auto) 3.5 % Eosinophils (%) (Auto) 0.2 % Basophils (%) (Auto) 0.2 % Neutrophils # (Auto) 4.25 1.4-6.5 K/uL Lymphocytes # (Auto) 0.08 1.2-3.4 K/uL Monocytes # (Auto) 0.16 0.11-0.59 K/uL Eosinophils # (Auto) 0.01 0-0.5 K/uL Basophils # (Auto) 0.01 0-0.2 K/uL RDW Standard Deviation 55.5 36.4-46.3 fL RDW Coefficient of Variation 16.7 11.5-14.5 % Immature Granulocyte % (Auto) 1.7 % Immature Granulocyte # (Auto) 0.08 0.00-0.02 K/uL Sodium Level 139 136-145 mmol/L Potassium Level 4.4 3.5-5.1 mmol/L Chloride Level 109 98-107 mmol/L Carbon Dioxide Level 24 21-32 mmol/L Anion Gap 6.0 3-11 mmol/L Blood Urea Nitrogen 35 7-18 mg/dl Creatinine 2.19 0.60-1.40 mg/dl Est Creatinine Clear Calc Drug Dose 34.9 ml/min Estimated GFR () 35.6 Estimated GFR (Non- 30.7 BUN/Creatinine Ratio 15.9 10-20 Random Glucose 122 70-99 mg/dl Calcium Level 8.2 8.5-10.1 mg/dl Phosphorus Level 2.5 2.5-4.9 mg/dl Magnesium Level 2.2 1.8-2.4 mg/dl Iron Level 8 35-175 mcg/dl Total Iron Binding Capacity 284 250-450 mcg/dl Transferrin 228 200-360 mg/dl Transferrin % Saturation 3 20-50 % Ferritin 133.5 8.0-388.0 ng/ml Vitamin B12 Level 450 211-911 pg/mL Folate 19.79 >5.38 ng/mL Microbiology Results 03/11/17 Blood Culture, Received Pending 03/11/17 Blood Culture, Received Pending 03/12/17 MRSA DNA Surveillance Screen, Received Pending 03/12/17 WBC Smear, Received Pending 03/12/17 Shiga Toxin Test, Received Pending 03/12/17 Stool Culture, Received Pending 03/12/17 C.difficile Toxin B Gene (PCR) - Final, Complete Positive for C. difficile toxin B gene 03/12/17 Gram Stain, Ordered Pending 03/12/17 Sputum Culture, Ordered Pending Diagnostic Radiology CHEST ONE VIEW PORTABLE CLINICAL HISTORY: 66 years-old Male presenting with Sepsis. TECHNIQUE: Portable upright AP view of the chest was obtained. COMPARISON: 03/03/2017. FINDINGS: Postsurgical changes of clamshell sternotomy and numerous mediastinal surgical clips indicative of prior bilateral lung transplant. Atherosclerosis of aortic arch. Cardiac silhouette top normal in size, unchanged. Left mid to basilar patchy hazy opacities new from prior. No large pleural effusion or pneumothorax. Osseous structures normal. Upper abdomen normal. IMPRESSION: 1. Interval development of left mid and lower lung consolidation consistent with pneumonia. 2. Post surgical changes of bilateral lung transplant. Electronically signed by: Raul Rice M.D. 03/11/2017 7:57 PM HEAD WITHOUT CONTRAST (CT) CLINICAL HISTORY: 66 years-old Male presenting with dizzy, off balance. TECHNIQUE: Multidetector CT imaging of the head was performed without the use of intravenous contrast. IV contrast: None. A dose lowering technique was used consistent with the principles of ALARA (as low as reasonably achievable). COMPARISON: 06/28/2016. CT DOSE (mGy.cm): The estimated cumulative dose is 537.48 mGy.cm. FINDINGS: Poke In topogram: Unremarkable. Ventricles and sulci normal in size. Periventricular and subcortical white matter hypoattenuation, nonspecific but likely indicative of chronic small vessel ischemic change. Bilateral basal ganglia old lacunar infarcts. No mass effect or midline shift. No hemorrhage or acute territorial infarct. No extra-axial fluid collection. Mild mucosal thickening in the ethmoid air cells. Calvarium intact. IMPRESSION: 1. Chronic small vessel ischemic change. No acute intracranial abnormality. Electronically signed by: Raul Rice M.D. 03/11/2017 9:06 PM EKG Vent. rate 90 BPM SD interval 144 ms QRS duration 82 ms QT/QTc 354/433 ms P-R-T axes 31 -16 45 Normal sinus rhythm Possible Left atrial enlargement Borderline ECG When compared with ECG of 07-JAN-2017 15:43, No significant change was found Impression Assessment and Plan LEFT-SIDED PNEUMONIA * Chest x-ray with question of infiltrate versus consolidation on the left * Patient afebrile with no leukocytosis but is on antirejection medications for bilateral lung transplant in 2016 * Patient currently on cefepime and azithromycin * Primary team is attempting to contact lung transplant team in [place] for further recommendations * At this time, patient is oxygenating well on room air * He is afebrile and continues to be without respiratory distress * Recent treatment as an outpatient for influenza with no positive antigen or PCR - completed six of 10 doses * Empirically started on Tamiflu this admission * Started on methylprednisolone. 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 * History of tobacco abuse but quit smoking at the time of his transplant * History of COPD * Started empirically on methylprednisolone this admission - we'll discuss utility with lung transplant team * Continue duo nebs scheduled and as needed for shortness of breath or wheezes * Continue tacrolimus, azathioprine * Prophylactic Bactrim held and patient started on cefepime and azithromycin * Await records from [place] CLOSTRIDIUM DIFFICILE COLITIS * Patient immunocompromised secondary to post treatment for lung transplant * Consider vancomycin by mouth as well as metronidazole * Continue isolation protocol * Monitor clinically DVT PROPHYLAXIS * No long-term anticoagulation as an outpatient * Aspirin 81 mg by mouth as an outpatient * No contraindication to chemical prophylaxis - will start heparin 5000 units SQ Q8H Thank you for including us in the care of this patient. We will continue to follow along with you Physician Supervision Note: I was present with Nelson Henriquez PA-C during the history and exam. I discussed the case with him and agree with the findings and plan as documented in the note. Any exceptions or clarifications are listed here: Patient with h/o bilateral lung transplant 2 years ago, presents with diarrhea secondary to C difficile and left sided pneumonia. He is on chronic immunosuppression (tacrolimus, azathioprine and prednisone). He was started on azithromycin, cefepime, vancomycin and oseltamivir for the pneumonia and metronidazole and PO vancomycin for C diff colitis. He reports significant improvement since yesterday. The case was discussed by the primary with the marketing project coordinator at [facility], the decision was to stay the course given his improvement. No need for bronchoscopy or transfer for the time. Documented By: Nikos Szymanski MD Note Total Time (mins): 60 Comments: Time reported is independent of any procedures and includes discussion with other providers from the primary service
--- NOTE | 2017-03-12 10:07 | Clinical Documentation Query ---
YOANA James : CLINICAL DOCUMENTATION QUERIES QUERY 1 OF 2 Documentation includes: probable sepsis secondary to left sided pneumonia. This diagnosis is suspect for third democrat review to assess for claim denial when the clinical indicators in the record do not support the reported diagnose and/or procedures. In the absence of fever/hypothermia, leukocytosis with/without bandemia, tachypnea, hypotension, lactic acidemia, altered mental status, non-diabetic associated hyperglycemia, untested procalcitonin and C-reactive protein, weight based volume resuscitation, oxygen supplementation, etc., this may prompt review. Please provide further clinical support of this diagnosis or consider discontinuation thereof as appropriate. Thank you. QUERY 2 OF 2 Patient noted to be at risk for "typical pathogens/community-acquired, atypicals, gram-negatives due to immunocompromised state". Patient is being treated with Cefepime "to cover for gram-negatives". As appropriate, consider explicitly linking the treatment with Cefepime to the clinical diagnosis of gram-negative pneumonia as this cannot be assumed by the coding professional. In your clinical opinion is this patient being managed for: ( ) Possible gram-negative pneumonia ( ) Not Agree ( ) Other explanation of clinical findings (Please Explain) ( ) Unable to determine (Please Define) ( ) Need to Discuss The medical record reflects the following clinical findings, treatment, and risk factors. Clinical Indicators: As above Treatment: As above Risk Factors: Immunosuppression secondary to lung transplant status Please clarify and document your clinical opinion in the progress notes and discharge summary. Terms such as "probable", "suspected", "likely", "questionable", "possible", or "still to be ruled out" are acceptable. IF IN AGREEMENT, YOU MUST DOCUMENT ABOVE DIAGNOSTIC STATEMENT IN DAILY PROGRESS NOTES AND DISCHARGE SUMMARY. This document is not part of the patient's record. Thank You, Elton Israel, RN [phone]
--- NOTE | 2017-03-12 10:20 | Clinical Documentation Query ---
Dr. CRUZ [facility] : CLINICAL DOCUMENTATION QUERIES QUERY 1 OF 2 Documentation includes: probable sepsis secondary to left sided pneumonia. This diagnosis is suspect for third constitution party review to assess for claim denial when the clinical indicators in the record do not support the reported diagnose and/or procedures. In the absence of fever/hypothermia, leukocytosis with/without bandemia, tachypnea, hypotension, lactic acidemia, altered mental status, non-diabetic associated hyperglycemia, untested procalcitonin and C-reactive protein, weight based volume resuscitation, oxygen supplementation, etc., this may prompt review. Please provide further clinical support of this diagnosis or consider discontinuation thereof as appropriate. Thank you. QUERY 2 OF 2 Patient noted to be at risk for "typical pathogens/community-acquired, atypicals, gram-negatives due to immunocompromised state". Patient is being treated with Cefepime "to cover for gram-negatives". As appropriate, consider explicitly linking the treatment with Cefepime to the clinical diagnosis of gram-negative pneumonia as this cannot be assumed by the coding professional. In your clinical opinion is this patient being managed for: ( x) Possible gram-negative pneumonia ( ) Not Agree ( ) Other explanation of clinical findings (Please Explain) ( ) Unable to determine (Please Define) ( ) Need to Discuss The medical record reflects the following clinical findings, treatment, and risk factors. Clinical Indicators: As above Treatment: As above Risk Factors: Immunosuppression secondary to lung transplant status Please clarify and document your clinical opinion in the progress notes and discharge summary. Terms such as "probable", "suspected", "likely", "questionable", "possible", or "still to be ruled out" are acceptable. IF IN AGREEMENT, YOU MUST DOCUMENT ABOVE DIAGNOSTIC STATEMENT IN DAILY PROGRESS NOTES AND DISCHARGE SUMMARY. This document is not part of the patient's record. Thank You, Elton Israel, RN [phone]
--- NOTE | 2017-03-12 10:52 | Clinical Documentation Query ---
PANKAJ Oliver : CLINICAL DOCUMENTATION QUERY QUERY 1 OF 2 Documentation includes: probable sepsis secondary to left sided pneumonia. This diagnosis is suspect for third constitution party review to assess for claim denial when the clinical indicators in the record do not support the reported diagnose and/or procedures. In the absence of fever/hypothermia, leukocytosis with/without bandemia, tachypnea, hypotension, lactic acidemia, altered mental status, non-diabetic associated hyperglycemia, untested procalcitonin and C-reactive protein, weight based volume resuscitation, oxygen supplementation. Please provide further clinical support of this diagnosis or consider discontinuation thereof as appropriate. Thank you. QUERY 2 OF 2 Patient noted to be at risk for "typical pathogens/community-acquired, atypicals, gram-negatives due to immunocompromised state". Patient is being treated with Cefepime "to cover for gram-negatives". As appropriate, consider explicitly linking the treatment with Cefepime to the clinical diagnosis of gram-negative pneumonia as this cannot be assumed by the coding professional. In your clinical opinion is this patient being managed for: ( ) Possible gram-negative pneumonia ( ) Not Agree ( ) Other explanation of clinical findings (Please Explain) ( ) Unable to determine (Please Define) ( ) Need to Discuss The medical record reflects the following clinical findings, treatment, and risk factors. Clinical Indicators: As above Treatment: As above Risk Factors: Immunosuppression secondary to lung transplant status IF IN AGREEMENT, YOU MUST DOCUMENT ABOVE DIAGNOSTIC STATEMENT IN DAILY PROGRESS NOTES AND DISCHARGE SUMMARY. This document is not part of the patient's record. Thank You, Elton Israel, WILLIS [phone]
[2017-03-12] MEDS: VANCOMYCIN HCL 125 MG/2.5ML SOLN PO SCH ×3 (11:40→23:50)
[2017-03-12] MEDS: RASPBERRY SYRUP 5 ML UDP PO SCH ×3 (11:40→23:50)
[2017-03-12] MEDS: CEFEPIME IV 2,000 MG in SYRINGE 7.5 ML IV SCH (13:15)
[2017-03-12] MEDS: METRONIDAZOLE 500 MG TAB PO SCH ×2 (13:17→20:36)
[2017-03-12] MEDS: HEPARIN SOD 5000 UNIT/0.5 ML CARP SQ SCH ×2 (13:26→22:22)
[2017-03-12] MEDS ORDERED: AZATHIOPRINE 50 MG TAB PO ONE (14:15)
[2017-03-12 15:06] LABS: CREATININE 2.4 mg/dl (0.60-1.40)
[2017-03-12 15:07] LABS: CALCIUM 8.2 mg/dl (8.5-10.1); POTASSIUM 4.2 mmol/L (3.5-5.1)
--- NOTE | 2017-03-12 18:28 | Progress Note ---
Progress Note Date of Service Mar 12, 2017. Progress Note Case discussed with primary transplant physician at [facility] Dr Duncan, States that at this time he feels comfortable for the patient to stay as there has been some subjective improvement per patient Recommends 48 h of IV abx vanco, cefepime and azithro and d/c on Cefuroxime 500 mg bid He is to restart his home regimen of prednisone 5 mg PO daily and NO stress dose of steroids He confirmed his doses of Tacrolimus ( 4 mg bid) and Azathioprine which is 75 mg daily - No ribavirin for RSV without consulting him, he would have to be transferred to receive this Any worsening or even a low grade fever he is to be contacted for consult potential transfer - Dr Duncan number: [phone] - If continued improvement and d/c home with abx he is to follow up with them in [place] and repeat CXR will be done to evaluate for worsening consolidation will need imaging copied on d/c
[2017-03-12] MEDS: PRAVASTATIN SOD 40 MG TAB PO SCH (20:35)
--- NOTE | 2017-03-12 22:13 | Family Medicine Progress Note ---
Progress Note Date of Service Mar 12, 2017. Subjective Pt evaluation today including: conversation w/ patient, physical exam, chart review, lab review Patient describes viral sx; fatigue, productive cough and subjective fevers. Patient also reports recent loose stools. Medications Current Inpatient Medications Medications (Trade) Dose Ordered Sig/Chrystal Route Start Time Stop Time Status Last Admin Dose Admin Acetaminophen (Tylenol Tab) 650 mg Q4H PRN PO 03/11/17 22:15 04/10/17 22:14 03/12/17 09:01 650 MG Al Hydrox/Mg Hydrox/Simethicone (Maalox Max Susp) 15 ml Q4H PRN PO 03/11/17 22:15 04/10/17 22:14 Magnesium Hydroxide (Milk Of Magnesia Susp) 30 ml Q12H PRN PO 03/11/17 22:15 04/10/17 22:14 Ondansetron HCl (Zofran Inj) 4 mg Q6H PRN IV 03/11/17 22:15 04/10/17 22:14 Nitroglycerin (Nitrostat Tab) 0.4 mg UD PRN SL 03/11/17 22:15 04/10/17 22:14 Albuterol Sulfate (Ventolin 0.083% 2.5MG/3ML Neb) 2.5 mg BID PRN INH 03/11/17 22:15 04/10/17 22:14 Aspirin (Ecotrin Tab) 81 mg QAM PO 03/12/17 09:00 04/11/17 08:59 03/12/17 09:05 81 MG Famotidine (Pepcid Tab) 20 mg BID PO 03/12/17 09:00 04/11/17 08:59 03/12/17 20:34 20 MG Fludrocortisone Acetate (Florinef Tab) 0.1 mg QAM PO 03/12/17 09:00 04/11/17 08:59 03/12/17 09:05 0.1 MG Gabapentin (Neurontin Cap) 300 mg QAM PO 03/12/17 09:00 04/11/17 08:59 03/12/17 09:03 300 MG Lorazepam (Ativan Tab) 1 mg BID PO 03/12/17 09:00 04/11/17 08:59 03/12/17 20:35 1 MG Magnesium Oxide (Mag-Ox Tab) 400 mg TID PO 03/12/17 09:00 04/11/17 08:59 03/12/17 13:17 400 MG Oxycodone HCl (Roxicodone Immediate Rel Tab) 10 mg Q6 PRN PO 03/11/17 22:15 03/25/17 22:14 Pantoprazole Sodium (Protonix Tab) 40 mg QAM PO 03/12/17 09:00 04/11/17 08:59 03/12/17 09:05 40 MG Pravastatin Sodium (Pravachol Tab) 40 mg HS PO 03/12/17 21:00 04/11/17 20:59 03/12/17 20:35 40 MG Pregabalin (Lyrica Cap) 150 mg BID PO 03/12/17 09:00 04/11/17 08:59 03/12/17 20:34 150 MG Temazepam (Restoril Cap) 15 mg HS PO 03/12/17 21:00 04/11/17 20:59 Azithromycin (Zithromax Tab) 500 mg DAILY PO 03/12/17 09:00 03/19/17 08:59 03/12/17 09:01 500 MG Albuterol/ Ipratropium (Duoneb) 3 ml QIDR INH 03/12/17 08:00 04/11/17 07:59 03/12/17 19:42 3 ML Oseltamivir Phosphate (Tamiflu Susp) 30 mg BID PO 03/12/17 09:00 03/16/17 21:01 03/12/17 09:00 30 MG Guaifenesin (Mucinex Contr Rel Tab) 600 mg Q12 PO 03/12/17 09:00 04/11/17 08:59 03/12/17 20:35 600 MG Cefepime HCl (Consult) 1 ea UD PRN N/A 03/12/17 02:00 03/14/17 03:09 Miscellaneous Information (Consult) 1 ea UD PRN N/A 03/12/17 02:15 04/11/17 03:09 Cefepime HCl 2000 mg/Syringe 20 ml @ 5 mls/min Q12H IV 03/12/17 14:00 03/14/17 03:09 03/12/17 13:15 5 MLS/MIN Vancomycin HCl 1250 mg/Sodium Chloride 275 ml @ 125 mls/hr Q24H IV 03/13/17 00:00 03/14/17 03:09 Vancomycin HCl (Vancomycin Oral Soln) 125 mg Q6 PO 03/12/17 12:00 03/26/17 11:59 03/12/17 17:04 125 MG Metronidazole (Flagyl Tab) 500 mg TID PO 03/12/17 14:00 03/26/17 13:59 03/12/17 20:36 500 MG Raspberry (Raspberry Syrup 5ml Cup) 5 ml Q6 PO 03/12/17 12:00 03/26/17 11:59 03/12/17 17:02 5 ML Heparin Sodium (Porcine) (Heparin Sq 5000 Unit/0.5ml) 5,000 unit Q8 SQ 03/12/17 14:00 04/11/17 13:59 03/12/17 13:26 5,000 UNIT Tacrolimus (Prograf Cap) 4 mg Q12H PO 03/12/17 20:00 04/11/17 08:59 03/12/17 19:36 4 MG Azathioprine (Imuran Tab) 75 mg QAM PO 03/13/17 09:00 04/12/17 08:59 Prednisone (PredniSONE TAB) 5 mg QAM PO 03/13/17 09:00 04/12/17 08:59 Objective Vital Signs Date Time Temp Pulse Resp B/P (MAP) Pulse Ox O2 Delivery O2 Flow Rate FiO2 03/12/17 19:58 36.7 91 22 130/74 (92) 93 Room Air 03/12/17 19:42 64 16 97 Room Air 03/12/17 16:25 68 16 96 Room Air 03/12/17 16:00 Room Air 03/12/17 15:56 36.6 83 22 128/78 (95) 95 Room Air 03/12/17 12:00 Room Air 03/12/17 11:56 98 16 145/82 (103) 97 03/12/17 11:12 64 16 95 Room Air 03/12/17 08:16 36.6 82 16 129/80 (96) 96 Room Air 03/12/17 08:00 Room Air 03/12/17 07:07 68 16 97 Room Air 03/12/17 04:00 Room Air 03/12/17 03:37 36.9 73 17 127/75 (92) 97 Room Air 03/11/17 23:45 37.3 104 20 118/69 94 Room Air 03/11/17 22:46 37.3 106 20 109/86 98 03/11/17 22:11 37.3 Laboratory Results 03/12/17 06:34 Red Blood Count 3.22, Mean Corpuscular Volume 90.7, Mean Corpuscular Hemoglobin 28.9, Mean Corpuscular Hemoglobin Concent 31.8, Mean Platelet Volume 11.1, Neutrophils (%) (Auto) 92.7, Lymphocytes (%) (Auto) 1.7, Monocytes (%) (Auto) 3.5, Eosinophils (%) (Auto) 0.2, Basophils (%) (Auto) 0.2, Neutrophils # (Auto) 4.25, Lymphocytes # (Auto) 0.08, Monocytes # (Auto) 0.16, Eosinophils # (Auto) 0.01, Basophils # (Auto) 0.01 03/12/17 14:07 Test 03/11/17 23:27 03/12/17 05:55 03/12/17 06:34 03/12/17 09:30 Urine Random Creatinine 149.0 mg/dl Urine Random Sodium 36 mEq/L Stool Occult Blood POSITIVE (NEGATIVE) White Blood Count 4.59 K/uL (4.8-10.8) Red Blood Count 3.22 M/uL (4.7-6.1) Hemoglobin 9.3 g/dL (14.0-18.0) Hematocrit 29.2 % (42-52) Mean Corpuscular Volume 90.7 fL (80-100) Mean Corpuscular Hemoglobin 28.9 pg (25-34) Mean Corpuscular Hemoglobin Concent 31.8 g/dl (32-36) Platelet Count 143 K/uL (130-400) Mean Platelet Volume 11.1 fL (7.4-10.4) Neutrophils (%) (Auto) 92.7 % Lymphocytes (%) (Auto) 1.7 % Monocytes (%) (Auto) 3.5 % Eosinophils (%) (Auto) 0.2 % Basophils (%) (Auto) 0.2 % Neutrophils # (Auto) 4.25 K/uL (1.4-6.5) Lymphocytes # (Auto) 0.08 K/uL (1.2-3.4) Monocytes # (Auto) 0.16 K/uL (0.11-0.59) Eosinophils # (Auto) 0.01 K/uL (0-0.5) Basophils # (Auto) 0.01 K/uL (0-0.2) RDW Standard Deviation 55.5 fL (36.4-46.3) RDW Coefficient of Variation 16.7 % (11.5-14.5) Immature Granulocyte % (Auto) 1.7 % Immature Granulocyte # (Auto) 0.08 K/uL (0.00-0.02) Reference Lab Test Result Phosphorus Level 2.5 mg/dl (2.5-4.9) Magnesium Level 2.2 mg/dl (1.8-2.4) Iron Level 8 mcg/dl (35-175) Total Iron Binding Capacity 284 mcg/dl (250-450) Transferrin 228 mg/dl (200-360) Transferrin % Saturation 3 % (20-50) Ferritin 133.5 ng/ml (8.0-388.0) Vitamin B12 Level 450 pg/mL (211-911) Folate 19.79 ng/mL (>5.38) Urine Color YELLOW Urine Appearance CLEAR (CLEAR) Urine pH 5.0 (4.5-7.5) Urine Specific [place] 1.019 (1.000-1.030) Urine Protein TRACE (NEG) Urine Glucose (UA) 1+ (NEG) Urine Ketones 1+ (NEG) Urine Occult Blood TRACE (NEG) Urine Nitrite NEG (NEG) Urine Bilirubin NEG (NEG) Urine Urobilinogen NEG (NEG) Urine Leukocyte Esterase NEG (NEG) Urine WBC (Auto) 0 /hpf (0-5) Urine RBC (Auto) 5-10 /hpf (0-4) Urine Hyaline Casts (Auto) 1-5 /lpf (0-5) Urine Epithelial Cells (Auto) 10-20 /lpf (0-5) Urine Bacteria (Auto) NEG (NEG) Test 03/12/17 11:40 03/12/17 14:07 Anion Gap 9.0 mmol/L (3-11) Est Creatinine Clear Calc Drug Dose 31.8 ml/min Estimated GFR () 31.8 Estimated GFR (Non- 27.5 BUN/Creatinine Ratio 16.6 (10-20) Calcium Level 8.2 mg/dl (8.5-10.1) Date/Time Source Procedure Growth Status 03/12/17 09:30 Nasal MRSA DNA Surveillance Screen - Final Specimen Negative for MRSA by DNA Probe Complete Assessment and Plan 66 year old male with PMHx of pulmonary fibrosis s/p double lung transplant in 2016, post-herpetic neuralgia, h/o multiple TIAs and HLD admitted for pneumonia and acute kidney injury 03/12--Treating patient broadly for PNA; cefepime, azithromycin, vanco. Treating patient for Cdiff; flaygl, oral vanco. Dr. Garcia discussed case with [facility], Dr Duncan ( ). Recommends continuing course of treatment, including home immunosuppressants. Recommends follow with [facility] and repeat CXR. Customer Resource Specialist was consulted. Possible Gram Negative Pneumonia - -CXR: Interval development of left mid and lower lung consolidation consistent with pneumonia. Patient afebrile. Saturating well on RA. Lactic acid negative. - Abx: cefepime and azithromycin, Vancomycin - Held home Bactrim for now. Once creatinine improves, may consider restarting for PCP prophylaxis - Tamiflu started, despite negative nasal flu swabs, due to clinical history and examination. Place on droplet precautions. 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 Check CPK, if elevated, consider holding statin. - Renally dose medications. Hold nephrotoxic medications - PMH of smoking and immunosuppressed---puts patient at risk for bladder neoplasm Cdiff colitis -Abx; oral Vanc 125mg , PO Flagyl 500mg TID Vomiting and diarrhea - ? sec to C diff, viral gastroenteritis - IVF as above - IV Zofran PRN nausea - Hold Colace and Miralax - C.diff positive Chronic immunosuppression post double lung transplant -Continue Tacrolimus 4 mg, Azathioprine 75mg -Continue Florinef .1mg , Prednisone 5mg Fe def. Anemia - 9.8 on admission. Seems to be baseline - Stool occult positive - Repeat stool occult - If positive will consider GI consult, patient at risk for colon cancer Post-herpetic neuralgia - Continue gabapentin, pregabalin, and oxycodone for pain GERD - Continue pantoprazole and famotidine H/o TIAs - Continue aspirin HLD - Continue pravastatin VTE ppx - SCDs Reviewed: Pt Seen/Exam by Me History has had loose stools. Constitutional: denies: fever Respiratory: negative: short of breath Cardiovascular: denies chest pain General Appearance: no apparent distress Respiratory: lungs clear, no respiratory distress Cardiovascular: regular rate, rhythm Gastrointestinal: soft Neurologic/Psychiatric: alert, oriented x 3 Skin Characteristics: warm/dry Assessment/Plan Resident Physician Supervision Note: I independently interviewed and examined the patient and verified the najera history and physical, reviewed labs and image studies, discussed the case with the resident Dr. Ba and agree with the findings and care plan.
[2017-03-12] MEDS ORDERED: NURSING VERBAL MED ORDER ONE (22:15)
[2017-03-12] MEDS: TEMAZEPAM 15 MG CAP PO SCH (22:20)
[2017-03-12] MEDS: VANCOMYCIN INJ 1,250 MG in SODIUM CHLORIDE 0.9% 250ML 250 ML IV SCH (23:53)
[2017-03-13] VITALS (10 sets, daily range): BP systolic 104–125; BP diastolic 58–69; PULSE 70–86; TEMP 36.7–36.8; O2SAT 94–97
[2017-03-13] MEDS: CEFEPIME IV 2,000 MG in SYRINGE 7.5 ML IV SCH ×2 (02:16→15:17)
[2017-03-13] MEDS: RASPBERRY SYRUP 5 ML UDP PO SCH ×4 (05:44→23:41)
[2017-03-13] MEDS: VANCOMYCIN HCL 125 MG/2.5ML SOLN PO SCH ×4 (05:44→23:41)
[2017-03-13] MEDS: HEPARIN SOD 5000 UNIT/0.5 ML CARP SQ SCH ×3 (05:47→20:59)
--- NOTE | 2017-03-13 06:47 | Pulmonology Progress Note ---
Pulmonary Progress Note Date of Service Mar 13, 2017. Attending Dr. Szymanski Subjective Some STOKES but no dyspnea at rest. No fever or sweats. Denies chills or rigors. No production of sputum. No chest pain or tightness, No pleuritic pain. 1 episode of diarrhea over night. No abdominal pain or distention Objective Vital Signs - as noted below Laboratory Data - as noted below Physical Exam: General - NAD Eyes - No icterus, gaze conjugate ENT - Mucosa moist, no lesions or candidiasis Neck - Supple, No JVD Lungs - No bronchospasm, rales, or rhonchi. Heart - Regular, rate controlled Abdomen - Soft, NT, ND, BS present. No tenderness to palpation. No rebound tenderness Extremities - No edema, pedal pulses intact Neuro - A&OX3 Assessment & Plan LEFT-SIDED PNEUMONIA * Bilateral lung transplant 2015 * Primary team placed call to Dr. 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 Moran from [facility] - continue current treatment * Continue duo nebs scheduled and as needed for shortness of breath or wheezes * Continue tacrolimus, azathioprine * Prophylactic Bactrim held and patient started on cefepime and azithromycin * Await records from [facility] CLOSTRIDIUM DIFFICILE COLITIS * Patient immunocompromised secondary to lung transplant antirejection medications * Vancomycin by mouth as well as Metronidazole IV * Continue isolation protocol * Monitor clinically DVT PROPHYLAXIS * No long-term anticoagulation as an outpatient * Aspirin 81 mg by mouth as an outpatient * No contraindication to chemical prophylaxis - will start heparin 5000 units SQ Q8H Thank you for including us in the care of this patient. We will sign off at this time as pulmonary status appears to be stable. Please feel free to reconsult as needed. Data Medications: Current Inpatient Medications Medications (Trade) Dose Ordered Sig/Chrystal Route Start Time Stop Time Status Last Admin Dose Admin Acetaminophen (Tylenol Tab) 650 mg Q4H PRN PO 03/11/17 22:15 04/10/17 22:14 03/12/17 09:01 650 MG Al Hydrox/Mg Hydrox/Simethicone (Maalox Max Susp) 15 ml Q4H PRN PO 03/11/17 22:15 04/10/17 22:14 Magnesium Hydroxide (Milk Of Magnesia Susp) 30 ml Q12H PRN PO 03/11/17 22:15 04/10/17 22:14 Ondansetron HCl (Zofran Inj) 4 mg Q6H PRN IV 03/11/17 22:15 04/10/17 22:14 Nitroglycerin (Nitrostat Tab) 0.4 mg UD PRN SL 03/11/17 22:15 04/10/17 22:14 Albuterol Sulfate (Ventolin 0.083% 2.5MG/3ML Neb) 2.5 mg BID PRN INH 03/11/17 22:15 04/10/17 22:14 Aspirin (Ecotrin Tab) 81 mg QAM PO 03/12/17 09:00 04/11/17 08:59 03/12/17 09:05 81 MG Famotidine (Pepcid Tab) 20 mg BID PO 03/12/17 09:00 04/11/17 08:59 03/12/17 20:34 20 MG Fludrocortisone Acetate (Florinef Tab) 0.1 mg QAM PO 03/12/17 09:00 04/11/17 08:59 03/12/17 09:05 0.1 MG Gabapentin (Neurontin Cap) 300 mg QAM PO 03/12/17 09:00 04/11/17 08:59 03/12/17 09:03 300 MG Lorazepam (Ativan Tab) 1 mg BID PO 03/12/17 09:00 04/11/17 08:59 03/12/17 20:35 1 MG Magnesium Oxide (Mag-Ox Tab) 400 mg TID PO 03/12/17 09:00 04/11/17 08:59 03/12/17 13:17 400 MG Oxycodone HCl (Roxicodone Immediate Rel Tab) 10 mg Q6 PRN PO 03/11/17 22:15 03/25/17 22:14 Pantoprazole Sodium (Protonix Tab) 40 mg QAM PO 03/12/17 09:00 04/11/17 08:59 03/12/17 09:05 40 MG Pravastatin Sodium (Pravachol Tab) 40 mg HS PO 03/12/17 21:00 04/11/17 20:59 03/12/17 20:35 40 MG Pregabalin (Lyrica Cap) 150 mg BID PO 03/12/17 09:00 04/11/17 08:59 03/12/17 20:34 150 MG Temazepam (Restoril Cap) 15 mg HS PO 03/12/17 21:00 04/11/17 20:59 03/12/17 22:20 15 MG Azithromycin (Zithromax Tab) 500 mg DAILY PO 03/12/17 09:00 03/19/17 08:59 03/12/17 09:01 500 MG Albuterol/ Ipratropium (Duoneb) 3 ml QIDR INH 03/12/17 08:00 04/11/17 07:59 03/12/17 19:42 3 ML Oseltamivir Phosphate (Tamiflu Susp) 30 mg BID PO 03/12/17 09:00 03/16/17 21:01 03/12/17 22:20 30 MG Guaifenesin (Mucinex Contr Rel Tab) 600 mg Q12 PO 03/12/17 09:00 04/11/17 08:59 03/12/17 20:35 600 MG Cefepime HCl (Consult) 1 ea UD PRN N/A 03/12/17 02:00 03/14/17 03:09 Miscellaneous Information (Consult) 1 ea UD PRN N/A 03/12/17 02:15 04/11/17 03:09 Cefepime HCl 2000 mg/Syringe 20 ml @ 5 mls/min Q12H IV 03/12/17 14:00 03/14/17 03:09 03/13/17 02:16 5 MLS/MIN Vancomycin HCl 1250 mg/Sodium Chloride 275 ml @ 125 mls/hr Q24H IV 03/13/17 00:00 03/14/17 03:09 03/12/17 23:53 125 MLS/HR Vancomycin HCl (Vancomycin Oral Soln) 125 mg Q6 PO 03/12/17 12:00 03/26/17 11:59 03/13/17 05:44 125 MG Metronidazole (Flagyl Tab) 500 mg TID PO 03/12/17 14:00 03/26/17 13:59 03/12/17 20:36 500 MG Raspberry (Raspberry Syrup 5ml Cup) 5 ml Q6 PO 03/12/17 12:00 03/26/17 11:59 03/13/17 05:44 5 ML Heparin Sodium (Porcine) (Heparin Sq 5000 Unit/0.5ml) 5,000 unit Q8 SQ 03/12/17 14:00 04/11/17 13:59 03/13/17 05:47 5,000 UNIT Tacrolimus (Prograf Cap) 4 mg Q12H PO 03/12/17 20:00 04/11/17 08:59 Future Hold 03/12/17 19:36 4 MG Azathioprine (Imuran Tab) 75 mg QAM PO 03/13/17 09:00 04/12/17 08:59 Prednisone (PredniSONE TAB) 5 mg QAM PO 03/13/17 09:00 04/12/17 08:59 Vital Signs: Date Time Temp Pulse Resp B/P (MAP) Pulse Ox O2 Delivery O2 Flow Rate FiO2 03/13/17 04:00 96 Room Air 03/13/17 03:59 36.8 72 17 104/58 (73) 96 03/13/17 00:00 94 Room Air 03/12/17 23:36 36.7 83 16 122/75 (91) 94 Room Air 03/12/17 20:00 93 Room Air 03/12/17 19:58 36.7 91 22 130/74 (92) 93 Room Air 03/12/17 19:42 64 16 97 Room Air 03/12/17 16:25 68 16 96 Room Air 03/12/17 16:00 Room Air 03/12/17 15:56 36.6 83 22 128/78 (95) 95 Room Air 03/12/17 12:00 Room Air 03/12/17 11:56 98 16 145/82 (103) 97 03/12/17 11:12 64 16 95 Room Air 03/12/17 08:16 36.6 82 16 129/80 (96) 96 Room Air 03/12/17 08:00 Room Air 03/12/17 07:07 68 16 97 Room Air Laboratory Results: Last 24 Hours Test 03/12/17 09:30 2/5/18 11:40 03/12/17 14:07 03/13/17 04:44 Urine Color YELLOW Urine Appearance CLEAR Urine pH 5.0 Urine Specific [place] 1.019 Urine Protein TRACE Urine Glucose (UA) 1+ Urine Ketones 1+ Urine Occult Blood TRACE Urine Nitrite NEG Urine Bilirubin NEG Urine Urobilinogen NEG Urine Leukocyte Esterase NEG Urine WBC (Auto) 0 /hpf Urine RBC (Auto) 5-10 /hpf Urine Hyaline Casts (Auto) 1-5 /lpf Urine Epithelial Cells (Auto) 10-20 /lpf Urine Bacteria (Auto) NEG Sodium Level 137 mmol/L Potassium Level 4.2 mmol/L Chloride Level 109 mmol/L Carbon Dioxide Level 19 mmol/L Anion Gap 9.0 mmol/L Blood Urea Nitrogen 40 mg/dl Creatinine 2.40 mg/dl Est Creatinine Clear Calc Drug Dose 31.8 ml/min Estimated GFR () 31.8 Estimated GFR (Non- 27.5 BUN/Creatinine Ratio 16.6 Random Glucose 254 mg/dl Calcium Level 8.2 mg/dl
[2017-03-13 07:10] LABS: HEMATOCRIT 27.4 % (42-52); HEMOGLOBIN 8.8 g/dL (14.0-18.0); MEAN CELL VOLUME 89.3 fL (80-100); MEAN CORPUSCULAR HEMOGLOBIN 28.7 pg (25-34); MEAN CORPUSCULAR HGB CONC 32.1 g/dl (32-36); MEAN PLATELET VOLUME 10.3 fL (7.4-10.4); PLATELET COUNT 153 K/uL (130-400); RED CELL DISTRIBUTION WIDTH CV 16.3 % (11.5-14.5); RED CELL DISTRIBUTION WIDTH SD 53.2 fL (36.4-46.3); WHITE BLOOD COUNT 6.69 K/uL (4.8-10.8)
[2017-03-13] MEDS: ALBUT/IPRATROP 3MG/0.5MG NEB 3 ML VIAL INH SCH ×4 (07:10→20:00)
[2017-03-13 07:19] LABS: PTT PATIENT 36.8 SECONDS (21.0-31.0)
[2017-03-13 07:33] LABS: IG# 0.08 K/uL (0.00-0.02); LYMPH % 2.2 %; LYMPH ABS # 0.15 K/uL (1.2-3.4); MONO % 6.3 %; MONO ABS # 0.42 K/uL (0.11-0.59); NEUT % 90.3 %; NEUT ABS # 6.04 K/uL (1.4-6.5)
[2017-03-13 07:40] LABS: CALCIUM 8.3 mg/dl (8.5-10.1); CREATININE 2.28 mg/dl (0.60-1.40); POTASSIUM 3.7 mmol/L (3.5-5.1)
[2017-03-13] MEDS: SODIUM CHLORIDE 0.9% 1000ML 1,000 ML IV SCH ×2 (07:57→17:35)
[2017-03-13] MEDS: PANTOprazole SOD 40 MG TAB PO SCH (07:58)
[2017-03-13] MEDS: MAGNESIUM OXIDE 400 MG TAB PO SCH ×3 (07:58→20:57)
[2017-03-13] MEDS: GABAPENTIN 300 MG CAP PO SCH (07:58)
[2017-03-13] MEDS: LORAZEPAM 1 MG TAB PO SCH ×2 (07:58→20:57)
[2017-03-13] MEDS: PREGABALIN 150 MG CAP PO SCH ×2 (07:58→20:57)
[2017-03-13] MEDS: FLUDROCORTISONE ACETATE 0.1 MG TAB PO SCH (07:59)
[2017-03-13] MEDS: AZATHIOPRINE 50 MG TAB PO SCH (08:00)
[2017-03-13] MEDS: FAMOTIDINE 20 MG TAB PO SCH ×2 (08:00→20:57)
[2017-03-13] MEDS: METRONIDAZOLE 500 MG TAB PO SCH ×3 (08:00→20:56)
[2017-03-13] MEDS: ASPIRIN 81 MG ECTAB PO SCH (08:01)
[2017-03-13] MEDS: AZITHROMYCIN 250 MG TAB PO SCH (08:01)
[2017-03-13] MEDS: GUAIFENESIN 600 MG TABCR PO SCH ×2 (08:01→20:56)
--- NOTE | 2017-03-13 08:06 | Family Medicine Progress Note ---
Progress Note Date of Service Mar 13, 2017. Subjective Pt evaluation today including: conversation w/ patient, physical exam, chart review, lab review Patient reports continued loose stools and fatigue. Says that his breathing is better; less SOB, less cough. Denies fevers. Constitutional: No fever, No chills, No sweats Respiratory: + cough, + sputum, + shortness of breath, No wheezing Cardiovascular: No chest pain, No palpitations Abdomen: + diarrhea, No pain, No nausea, No vomiting Male : No dysuria Medications Current Inpatient Medications Medications (Trade) Dose Ordered Sig/Chrystal Route Start Time Stop Time Status Last Admin Dose Admin Acetaminophen (Tylenol Tab) 650 mg Q4H PRN PO 03/11/17 22:15 04/10/17 22:14 03/12/17 09:01 650 MG Al Hydrox/Mg Hydrox/Simethicone (Maalox Max Susp) 15 ml Q4H PRN PO 03/11/17 22:15 04/10/17 22:14 Magnesium Hydroxide (Milk Of Magnesia Susp) 30 ml Q12H PRN PO 03/11/17 22:15 04/10/17 22:14 Ondansetron HCl (Zofran Inj) 4 mg Q6H PRN IV 03/11/17 22:15 04/10/17 22:14 Nitroglycerin (Nitrostat Tab) 0.4 mg UD PRN SL 03/11/17 22:15 04/10/17 22:14 Albuterol Sulfate (Ventolin 0.083% 2.5MG/3ML Neb) 2.5 mg BID PRN INH 03/11/17 22:15 04/10/17 22:14 Aspirin (Ecotrin Tab) 81 mg QAM PO 03/12/17 09:00 04/11/17 08:59 03/12/17 09:05 81 MG Famotidine (Pepcid Tab) 20 mg BID PO 03/12/17 09:00 04/11/17 08:59 03/12/17 20:34 20 MG Fludrocortisone Acetate (Florinef Tab) 0.1 mg QAM PO 03/12/17 09:00 04/11/17 08:59 03/12/17 09:05 0.1 MG Gabapentin (Neurontin Cap) 300 mg QAM PO 03/12/17 09:00 04/11/17 08:59 03/12/17 09:03 300 MG Lorazepam (Ativan Tab) 1 mg BID PO 03/12/17 09:00 04/11/17 08:59 03/12/17 20:35 1 MG Magnesium Oxide (Mag-Ox Tab) 400 mg TID PO 03/12/17 09:00 04/11/17 08:59 03/12/17 13:17 400 MG Oxycodone HCl (Roxicodone Immediate Rel Tab) 10 mg Q6 PRN PO 03/11/17 22:15 03/25/17 22:14 Pantoprazole Sodium (Protonix Tab) 40 mg QAM PO 03/12/17 09:00 04/11/17 08:59 03/12/17 09:05 40 MG Pravastatin Sodium (Pravachol Tab) 40 mg HS PO 03/12/17 21:00 04/11/17 20:59 03/12/17 20:35 40 MG Pregabalin (Lyrica Cap) 150 mg BID PO 03/12/17 09:00 04/11/17 08:59 03/12/17 20:34 150 MG Temazepam (Restoril Cap) 15 mg HS PO 03/12/17 21:00 04/11/17 20:59 03/12/17 22:20 15 MG Azithromycin (Zithromax Tab) 500 mg DAILY PO 03/12/17 09:00 03/19/17 08:59 03/12/17 09:01 500 MG Albuterol/ Ipratropium (Duoneb) 3 ml QIDR INH 03/12/17 08:00 04/11/17 07:59 03/13/17 07:10 3 ML Oseltamivir Phosphate (Tamiflu Susp) 30 mg BID PO 03/12/17 09:00 03/16/17 21:01 03/12/17 22:20 30 MG Guaifenesin (Mucinex Contr Rel Tab) 600 mg Q12 PO 03/12/17 09:00 04/11/17 08:59 03/12/17 20:35 600 MG Cefepime HCl (Consult) 1 ea UD PRN N/A 03/12/17 02:00 03/14/17 03:09 Miscellaneous Information (Consult) 1 ea UD PRN N/A 03/12/17 02:15 04/11/17 03:09 Cefepime HCl 2000 mg/Syringe 20 ml @ 5 mls/min Q12H IV 03/12/17 14:00 03/14/17 03:09 03/13/17 02:16 5 MLS/MIN Vancomycin HCl 1250 mg/Sodium Chloride 275 ml @ 125 mls/hr Q24H IV 03/13/17 00:00 03/14/17 03:09 03/12/17 23:53 125 MLS/HR Vancomycin HCl (Vancomycin Oral Soln) 125 mg Q6 PO 03/12/17 12:00 03/26/17 11:59 03/13/17 05:44 125 MG Metronidazole (Flagyl Tab) 500 mg TID PO 03/12/17 14:00 03/26/17 13:59 03/12/17 20:36 500 MG Raspberry (Raspberry Syrup 5ml Cup) 5 ml Q6 PO 03/12/17 12:00 03/26/17 11:59 03/13/17 05:44 5 ML Heparin Sodium (Porcine) (Heparin Sq 5000 Unit/0.5ml) 5,000 unit Q8 SQ 03/12/17 14:00 04/11/17 13:59 03/13/17 05:47 5,000 UNIT Tacrolimus (Prograf Cap) 4 mg Q12H PO 03/12/17 20:00 04/11/17 08:59 Future Hold 03/12/17 19:36 4 MG Azathioprine (Imuran Tab) 75 mg QAM PO 03/13/17 09:00 04/12/17 08:59 Prednisone (PredniSONE TAB) 5 mg QAM PO 03/13/17 09:00 04/12/17 08:59 Sodium Chloride 1,000 ml @ 100 mls/hr Q10H IV 03/13/17 07:00 04/12/17 06:59 Objective Vital Signs Date Time Temp Pulse Resp B/P (MAP) Pulse Ox O2 Delivery O2 Flow Rate FiO2 03/13/17 07:46 36.7 86 16 118/64 (82) 95 Room Air 03/13/17 07:10 76 16 95 Room Air 03/13/17 04:00 96 Room Air 03/13/17 03:59 36.8 72 17 104/58 (73) 96 03/13/17 00:00 94 Room Air 03/12/17 23:36 36.7 83 16 122/75 (91) 94 Room Air 03/12/17 20:00 93 Room Air 03/12/17 19:58 36.7 91 22 130/74 (92) 93 Room Air 03/12/17 19:42 64 16 97 Room Air 03/12/17 16:25 68 16 96 Room Air 03/12/17 16:00 Room Air 03/12/17 15:56 36.6 83 22 128/78 (95) 95 Room Air 03/12/17 12:00 Room Air 03/12/17 11:56 98 16 145/82 (103) 97 03/12/17 11:12 64 16 95 Room Air 03/12/17 08:16 36.6 82 16 129/80 (96) 96 Room Air Physical Exam General Appearance: WD/WN, no apparent distress Respiratory/Chest: chest non-tender, normal breath sounds, no respiratory distress, + crackles (left, improved from yesterday ), + wheezing (on the left ) Cardiovascular: regular rate, rhythm, no edema, no murmur Abdomen: normal bowel sounds, non tender, + distended Neurologic/Psychiatric: alert, normal mood/affect, oriented x 3 Skin: normal color, warm/dry, no rash Laboratory Results 03/13/17 06:46 Red Blood Count 3.07, Mean Corpuscular Volume 89.3, Mean Corpuscular Hemoglobin 28.7, Mean Corpuscular Hemoglobin Concent 32.1, Mean Platelet Volume 10.3, Neutrophils (%) (Auto) 90.3, Lymphocytes (%) (Auto) 2.2, Monocytes (%) (Auto) 6.3, Eosinophils (%) (Auto) 0.0, Basophils (%) (Auto) 0.0, Neutrophils # (Auto) 6.04, Lymphocytes # (Auto) 0.15, Monocytes # (Auto) 0.42, Eosinophils # (Auto) 0.00, Basophils # (Auto) 0.00 03/13/17 06:46 Test 03/12/17 09:30 03/12/17 11:40 03/13/17 06:46 Urine Color YELLOW Urine Appearance CLEAR (CLEAR) Urine pH 5.0 (4.5-7.5) Urine Specific [place] 1.019 (1.000-1.030) Urine Protein TRACE (NEG) Urine Glucose (UA) 1+ (NEG) Urine Ketones 1+ (NEG) Urine Occult Blood TRACE (NEG) Urine Nitrite NEG (NEG) Urine Bilirubin NEG (NEG) Urine Urobilinogen NEG (NEG) Urine Leukocyte Esterase NEG (NEG) Urine WBC (Auto) 0 /hpf (0-5) Urine RBC (Auto) 5-10 /hpf (0-4) Urine Hyaline Casts (Auto) 1-5 /lpf (0-5) Urine Epithelial Cells (Auto) 10-20 /lpf (0-5) Urine Bacteria (Auto) NEG (NEG) White Blood Count 6.69 K/uL (4.8-10.8) Red Blood Count 3.07 M/uL (4.7-6.1) Hemoglobin 8.8 g/dL (14.0-18.0) Hematocrit 27.4 % (42-52) Mean Corpuscular Volume 89.3 fL (80-100) Mean Corpuscular Hemoglobin 28.7 pg (25-34) Mean Corpuscular Hemoglobin Concent 32.1 g/dl (32-36) Platelet Count 153 K/uL (130-400) Mean Platelet Volume 10.3 fL (7.4-10.4) Neutrophils (%) (Auto) 90.3 % Lymphocytes (%) (Auto) 2.2 % Monocytes (%) (Auto) 6.3 % Eosinophils (%) (Auto) 0.0 % Basophils (%) (Auto) 0.0 % Neutrophils # (Auto) 6.04 K/uL (1.4-6.5) Lymphocytes # (Auto) 0.15 K/uL (1.2-3.4) Monocytes # (Auto) 0.42 K/uL (0.11-0.59) Eosinophils # (Auto) 0.00 K/uL (0-0.5) Basophils # (Auto) 0.00 K/uL (0-0.2) RDW Standard Deviation 53.2 fL (36.4-46.3) RDW Coefficient of Variation 16.3 % (11.5-14.5) Immature Granulocyte % (Auto) 1.2 % Immature Granulocyte # (Auto) 0.08 K/uL (0.00-0.02) Large Platelets 1+ Ovalocytes 1+ Acanthocytes 1+ Prothrombin Time 10.7 SECONDS (9.0-12.0) Prothromb Time International Ratio 1.0 (0.9-1.1) Activated Partial Thromboplast Time 36.8 SECONDS (21.0-31.0) Partial Thromboplastin Ratio 1.4 Anion Gap 9.0 mmol/L (3-11) Est Creatinine Clear Calc Drug Dose 33.5 ml/min Estimated GFR () 33.9 Estimated GFR (Non- 29.2 BUN/Creatinine Ratio 18.8 (10-20) Calcium Level 8.3 mg/dl (8.5-10.1) Procalcitonin 21.34 ng/ml (0-0.5) Date/Time Source Procedure Growth Status 03/12/17 09:30 Nasal MRSA DNA Surveillance Screen - Final Specimen Negative for MRSA by DNA Probe Complete 03/12/17 09:30 Stool WBC Smear - Final Complete Assessment and Plan 66 year old male with PMHx of pulmonary fibrosis s/p double lung transplant in 2016, post-herpetic neuralgia, h/o multiple TIAs and HLD admitted for pneumonia and acute kidney injury 03/12--Treating patient broadly for PNA; cefepime, azithromycin, vanco. Treating patient for Cdiff; flaygl, oral vanco. Dr. Garcia discussed case with [facility], Dr Duncan ( ). Recommends continuing course of treatment, including home immunosuppressants. Recommends follow with [facility] and repeat CXR. Pigskin Trimmer was consulted. 03/13--Patient Tacrolimus trough was >30. Spoke with Dr. Moran--recommends holding am dose, giving 2mg this evening and checking a level tomorrow morning. Adding IVF this am. Patient Cr is slightly down from yesterday. Continues to have loose stools, being treated for Cdiff colitis. Possible Gram Negative Pneumonia - -CXR: Interval development of left mid and lower lung consolidation consistent with pneumonia. Patient afebrile. Saturating well on RA. Lactic acid negative. - Abx: cefepime and azithromycin, Vancomycin - Held home Bactrim for now. Once creatinine improves, may consider restarting for PCP prophylaxis - Tamiflu started, despite negative nasal flu swabs, due to clinical history and examination. Place on droplet precautions. 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 Check CPK, if elevated, consider holding statin. - Renally dose medications. Hold nephrotoxic medications Cdiff colitis -Abx; oral Vanc 125mg , PO Flagyl 500mg TID Acute gastroenteritis symptoms - vomiting and diarrhea - IVF as above - IV Zofran PRN nausea - Hold Colace and Miralax - C.diff positive Chronic immunosuppression post double lung transplant -Continue Tacrolimus 4 mg, Azathioprine 75mg -Continue Florinef .1mg , Prednisone 5mg Fe def. Anemia - 9.8 on admission. Seems to be baseline - Stool occult positive - Repeat stool occult - If positive will consider GI consult, patient at risk for colon cancer Post-herpetic neuralgia - Continue gabapentin, pregabalin, and oxycodone for pain GERD - Continue pantoprazole and famotidine H/o TIAs - Continue aspirin HLD - Continue pravastatin VTE ppx - SCDs Reviewed: Pt Seen/Exam by Me History diarrhea still present. no other concerns Constitutional: denies: fever Respiratory: negative: short of breath Cardiovascular: denies chest pain Gastrointestinal/Abdominal: negative: abdominal pain General Appearance: no apparent distress Respiratory: lungs clear, no respiratory distress Cardiovascular: regular rate, rhythm Neurologic/Psychiatric: alert, oriented x 3 Skin Characteristics: warm/dry Assessment/Plan Resident Physician Supervision Note: I independently interviewed and examined the patient and verified the najera history and physical, reviewed labs and image studies, discussed the case with the resident Dr. Ba and agree with the findings and care plan.
[2017-03-13] MEDS: OSELTAMIVIR PHOSPHATE SUSP 30 MG/5 ML UDP PO SCH ×2 (08:07→20:59)
[2017-03-13] MEDS: PRAVASTATIN SOD 40 MG TAB PO SCH (20:56)
[2017-03-13] MEDS: TEMAZEPAM 15 MG CAP PO SCH (20:57)
[2017-03-13] MEDS: TACROLIMUS 1 MG CAP PO SCH (20:57)
[2017-03-13] MEDS: VANCOMYCIN INJ 1,250 MG in SODIUM CHLORIDE 0.9% 250ML 250 ML IV SCH (23:36)
[2017-03-14] VITALS (11 sets, daily range): BP systolic 125–149; BP diastolic 71–79; PULSE 65–92; TEMP 36.6–37.1; O2SAT 94–96
[2017-03-14] MEDS: CEFEPIME IV 2,000 MG in SYRINGE 7.5 ML IV SCH ×2 (01:40→14:00)
[2017-03-14] MEDS: SODIUM CHLORIDE 0.9% 1000ML 1,000 ML IV SCH (01:41)
[2017-03-14] MEDS: ALBUT/IPRATROP 3MG/0.5MG NEB 3 ML VIAL INH SCH ×5 (04:32→19:18)
[2017-03-14] MEDS: VANCOMYCIN HCL 125 MG/2.5ML SOLN PO SCH ×4 (05:55→23:40)
[2017-03-14] MEDS: RASPBERRY SYRUP 5 ML UDP PO SCH ×4 (05:55→23:40)
[2017-03-14] MEDS: HEPARIN SOD 5000 UNIT/0.5 ML CARP SQ SCH ×3 (06:01→19:34)
[2017-03-14 07:31] LABS: HEMATOCRIT 24.8 % (42-52); HEMOGLOBIN 7.9 g/dL (14.0-18.0); IG# 0.07 K/uL (0.00-0.02); LYMPH % 2.5 %; LYMPH ABS # 0.13 K/uL (1.2-3.4); MEAN CELL VOLUME 90.2 fL (80-100); MEAN CORPUSCULAR HEMOGLOBIN 28.7 pg (25-34); MEAN CORPUSCULAR HGB CONC 31.9 g/dl (32-36); MEAN PLATELET VOLUME 10.7 fL (7.4-10.4); MONO % 7.8 %; NEUT % 88.3 %; PLATELET COUNT 157 K/uL (130-400); RED CELL DISTRIBUTION WIDTH CV 16.5 % (11.5-14.5); RED CELL DISTRIBUTION WIDTH SD 54.3 fL (36.4-46.3)
[2017-03-14 08:02] LABS: CALCIUM 8.2 mg/dl (8.5-10.1); CREATININE 1.52 mg/dl (0.60-1.40); POTASSIUM 3.7 mmol/L (3.5-5.1)
[2017-03-14] MEDS: OSELTAMIVIR PHOSPHATE SUSP 30 MG/5 ML UDP PO SCH ×2 (08:12→19:31)
[2017-03-14] MEDS: PREGABALIN 150 MG CAP PO SCH ×2 (08:12→19:32)
[2017-03-14] MEDS: AZATHIOPRINE 50 MG TAB PO SCH (08:12)
[2017-03-14] MEDS: LORAZEPAM 1 MG TAB PO SCH ×2 (08:12→19:32)
[2017-03-14] MEDS: hydrOXYzine HCL 25 MG TAB PO PRN ×2 (08:13→14:00)
[2017-03-14] MEDS: GUAIFENESIN 600 MG TABCR PO SCH ×2 (08:13→19:19)
[2017-03-14] MEDS: AZITHROMYCIN 250 MG TAB PO SCH (08:13)
[2017-03-14] MEDS: PANTOprazole SOD 40 MG TAB PO SCH (08:13)
[2017-03-14] MEDS: FAMOTIDINE 20 MG TAB PO SCH ×2 (08:14→19:20)
[2017-03-14] MEDS: FLUDROCORTISONE ACETATE 0.1 MG TAB PO SCH (08:14)
[2017-03-14] MEDS: GABAPENTIN 300 MG CAP PO SCH (08:14)
[2017-03-14] MEDS: ASPIRIN 81 MG ECTAB PO SCH (08:14)
[2017-03-14] MEDS: METRONIDAZOLE 500 MG TAB PO SCH ×3 (08:15→19:17)
[2017-03-14] MEDS: TACROLIMUS 1 MG CAP PO SCH ×2 (08:15→19:17)
[2017-03-14] MEDS: MAGNESIUM OXIDE 400 MG TAB PO SCH ×3 (08:15→19:18)
--- NOTE | 2017-03-14 08:45 | DIAGNOSTIC IMAGING REPORT ---
CHEST ONE VIEW PORTABLE CLINICAL HISTORY: cough HISTORY OF LUNG TRANSPLANT COMPARISON STUDY: 03/11/2017 FINDINGS: Postsurgical changes are evident. Left mid and lower lung zone airspace opacities remain stable. There is a suspected left pleural effusion. There is chronic blunting of the right lateral costophrenic angle. The heart is mildly enlarged.[ IMPRESSION: No significant change from the preceding study. Persistent left mid and lower lung zone airspace opacities suspicious for pneumonia. Electronically signed by: Wally Fitzpatrick M.D. 03/14/2017 8:43 AM Dictated Date/Time: 03/14/2017 8:41 AM
[2017-03-14] MEDS ORDERED: FUROSEMIDE INJ 20 MG in SYRINGE 0 ML IV ONE (09:30)
--- NOTE | 2017-03-14 12:10 | Discharge Summary ---
Discharge Summary Date of Service Mar 14, 2017. Discharge Summary Admission Date: Mar 11, 2017 at 22:29 Discharge Disposition: Acute care facility Principal Diagnosis: Pneumonia Immunizations: Have You Had Influenza Vaccine: Unknown Influenza Vaccine Date: Dec 02, 2009 History of Tetanus Vaccine?: Unknown History of Pneumococcal: Unknown Pneumococcal Date: Aug 02, 2009 History of Hepatitis B Vaccine: Unknown Discharge Exam Review of Systems: Constitutional: No fever, No chills, No sweats Respiratory: + cough, + sputum, + wheezing, + shortness of breath, + dyspnea on exertion Cardiovascular: No chest pain, No palpitations Abdomen: + nausea, + diarrhea, No pain, No vomiting Genitourinary - Male: No hematuria, No dysuria Physical Exam: General Appearance: WD/WN, no apparent distress Respiratory/Chest: chest non-tender, + crackles, + wheezing Cardiovascular: regular rate, rhythm, no edema, no murmur Abdomen / GI: normal bowel sounds, non tender, + distended, + fecal occult blood Neurologic/Psychiatric: alert, normal mood/affect, oriented x 3 Skin: normal color, warm/dry, no rash Hospital Course 66 year old male with PMHx of pulmonary fibrosis s/p double lung transplant in 2016 and currently on immunosuppressive therapy presented to [facility] ([facility]) with two days of flu-like sx. After 3 days of empiric treatment of suspected PNA, the patient was transferred to [facility] after developing worsening SOB and cough. In addition, the patient was found to be Cdiff positive and is currently being treated with oral vancomycin and Flagyl. On arrival to [facility], symptoms included; productive cough with brown sputum, fevers, myalgias and diarrhea. Hospital course began with empiric treatment and identifying potential causes of infection. The following work up was initiated; CXR, UA, blood culture, stool culture, CDiff, Procalcitonin, Influenza, CMV, parainfluenza, adenovirus and RSV. The patient was afebrile with a normal white count, but was found to have procalcitonin of 21.3 and consolidation in the left lower lobe on CXR. Crackles were heard over the left lung boo. The patient was started empirically on Vanc, Zosyn and Cefepime. In addition, the patient was started on a stress dose of IV Solu-Medrol, but was shortly after withdrawn back to his home dose of Prednisone. On admission, patient's Cr was 2.4 and was dry on exam. Patient was given fluids and Tacrolimus levels were found to >30. In the setting of JENNY (and after consultation from Dr. Duncan), Tacrolimus was decreased to 2 mg per day. On 03/14, the patient was found to have increased SOB at rest/exertion and exam showed new onset of bilateral wheezes. Decision to transfer was made following discussion with Dr. Duncan. At the time of discharge the patient is getting empiric IV abx for suspected PNA and abx for Cdiff colitis. He is in stable condition, but transfer was seen prudent considering history and worsening symptoms. Patient was found to be Flu negative on PCR. Other viral studies are pending. Other test; blood cultures--no growth to date, stool occult positive in the setting of anemia. He did get a dose of 20mg IV lasix before transfer for concern of fluid overload. Total Time Spent: Greater than 30 minutes This includes examination of the patient, discharge planning, medication reconciliation, and communication with other providers. Discharge Instructions Please refer to the electronic Patient Visit Report (Discharge Instructions) for additional information. Additional Copies To Hima Weldon M.D. Reviewed: Pt Seen/Exam by Me History has been needing oxygen this morning. complaining of shortness of breath and cough. Constitutional: denies: fever General Appearance: no apparent distress Respiratory: no respiratory distress, decreased breath sounds, crackles Cardiovascular: regular rate, rhythm Neurologic/Psychiatric: alert, oriented x 3 Skin Characteristics: warm/dry Assessment/Plan Resident Physician Supervision Note: I independently interviewed and examined the patient and verified the najera history and physical, reviewed labs and image studies, discussed the case with the resident Dr. Ba and agree with the findings and care plan. Time spent in discharge 40 min
--- NOTE | 2017-03-14 12:14 | Discharge Instructions ---
Discharge Instructions Date of Service Mar 14, 2017. Admission Reason for Admission: JENNY Discharge Discharge Diagnosis / Problem: Pneumonia Discharge Goals Goal(s): Decrease discomfort, Improve function, Increase independence Activity Recommendations Activity Limitations: per Instructions/Follow-up section . Instructions / Follow-Up Instructions / Follow-Up 66 year old male with PMHx of pulmonary fibrosis s/p double lung transplant in 2016 and currently on immunosuppressive therapy presented to [facility] ([facility]) with two days of flu-like sx. After 3 days of empiric treatment of suspected PNA, the patient was transferred to [facility] after developing worsening SOB and cough. In addition, the patient was found to be Cdiff positive and is currently being treated with oral vancomycin and Flagyl. On arrival to [facility], symptoms included; productive cough with brown sputum, fevers, myalgias and diarrhea. Hospital course began with empiric treatment and identifying potential causes of infection. The following work up was initiated; CXR, UA, blood culture, stool culture, CDiff, Procalcitonin, Influenza, CMV, parainfluenza, adenovirus and RSV. The patient was afebrile with a normal white count, but was found to have procalcitonin of 21.3 and consolidation in the left lower lobe on CXR. Crackles were heard over the left lung boo. The patient was started empirically on Vanc, Zosyn and Cefepime. In addition, the patient was started on a stress dose of IV Solu-Medrol, but was shortly after withdrawn back to his home dose of Prednisone. On admission, patient's Cr was 2.4 and was dry on exam. Patient was given fluids and Tacrolimus levels were found to >30. In the setting of JENNY (and after consultation from Dr. Duncan), Tacrolimus was decreased to 2 mg per day. On 03/14, the patient was found to have increased SOB at rest/exertion and exam showed new onset of bilateral wheezes. Decision to transfer was made following discussion with Dr. Duncan. At the time of discharge the patient is getting empiric IV abx for suspected PNA and abx for Cdiff colitis. He is in stable condition, but transfer was seen prudent considering history and worsening symptoms. Patient was found to be Flu negative on PCR. Other viral studies are pending. Other test; blood cultures--no growth to date, stool occult positive in the setting of anemia. Current Hospital Diet Patient's current hospital diet: AHA Diet (Heart Healthy) Discharge Diet Recommended Diet: Regular Diet Pending Studies Studies pending at discharge: yes List of pending studies: viral panel Medical Emergencies . Who to Call and When: Medical Emergencies: If at any time you feel your situation is an emergency, please call 911 immediately. . Non-Emergent Contact Non-Emergency issues call your: Primary Care Provider, Raw Stock Machine Loader, Surgeon . . "Provider Documentation" section prepared by Alberto Ba. . VTE Core Measure Inpt VTE Proph given/why not?: SCD's
--- NOTE | 2017-03-14 12:58 | Pharmacy Progress Note ---
Pharmacy Abx Dose Short Note Date of Service Mar 14, 2017. Assessment & Plan Assessment * 66 year old male receiving VANCOMYCIN 1250mg IV Q 24 hrs and CEFEPIME 2000mg IV Q 12 hr for treatment of pneumonia in the setting of immunocompromise / bilateral lung transplant. * Pt is also receiving AZITHROMYCIN PO 500mg daily as well * Today is Day # 3 of antibiotic therapy * Renal fxn appears to be improving, SCr 2.28 --> 1.52; U.O. 1275 yesterday * Nasal MRSA swab negative; C diff toxin positive; no growth in other cx's thus far * Repeat CXR today read as "no significant change, persistent L mid and lower lung opacities suspicious of pneumonia" * Patient remains afebrile, no leukocytosis noted on labs, however pt reportedly clinically worsen yesterday and plans are to transfer to [facility] Plan Vancomycin * Given improved renal fxn and worsening clinical status will adjust vancomycin maintenance dose as clearance has likely increased * Change to 1250 mg (~15.3mg/kg) IV every 18 hours * Goal trough level for pulm infxn : 15 to 20 mcg/mL * Trough level ordered for: 03/15/17 w/ 2nd dose of this new regimen (in case the pt not transferred today as planned) - level will not reflect steady-state but should give us a clue as to the direction we are headed Cefepime: * eCrCl ~45-55cc/min; continue 2000mg IV Q 12 hrs as this is max dose recommended for this level of renal fxn Pharmacy will continue to follow and will adjust dose/frequency as necessary. Thank you.
[2017-03-14] MEDS ORDERED: VORICONAZOLE IV STA ×2 (17:19→17:26)
[2017-03-14] MEDS ORDERED: SODIUM CHLORIDE 0.9% IV STA ×2 (17:19→17:26)
--- NOTE | 2017-03-14 17:52 | Family Medicine Progress Note ---
Progress Note Date of Service Mar 14, 2017. Subjective Pt evaluation today including: conversation w/ patient, physical exam, chart review, lab review Constitutional: No fever, No chills, No sweats Respiratory: + cough, + sputum, + wheezing, + shortness of breath Cardiovascular: No chest pain, No palpitations Abdomen: No pain, No nausea, No vomiting, No diarrhea Male : No dysuria Medications Current Inpatient Medications Medications (Trade) Dose Ordered Sig/Chrystal Route Start Time Stop Time Status Last Admin Dose Admin Acetaminophen (Tylenol Tab) 650 mg Q4H PRN PO 03/11/17 22:15 04/10/17 22:14 03/12/17 09:01 650 MG Al Hydrox/Mg Hydrox/Simethicone (Maalox Max Susp) 15 ml Q4H PRN PO 03/11/17 22:15 04/10/17 22:14 Magnesium Hydroxide (Milk Of Magnesia Susp) 30 ml Q12H PRN PO 03/11/17 22:15 04/10/17 22:14 Ondansetron HCl (Zofran Inj) 4 mg Q6H PRN IV 03/11/17 22:15 04/10/17 22:14 Nitroglycerin (Nitrostat Tab) 0.4 mg UD PRN SL 03/11/17 22:15 04/10/17 22:14 Albuterol Sulfate (Ventolin 0.083% 2.5MG/3ML Neb) 2.5 mg BID PRN INH 03/11/17 22:15 04/10/17 22:14 Aspirin (Ecotrin Tab) 81 mg QAM PO 03/12/17 09:00 04/11/17 08:59 03/14/17 08:14 81 MG Famotidine (Pepcid Tab) 20 mg BID PO 03/12/17 09:00 04/11/17 08:59 03/14/17 08:14 20 MG Fludrocortisone Acetate (Florinef Tab) 0.1 mg QAM PO 03/12/17 09:00 04/11/17 08:59 03/14/17 08:14 0.1 MG Gabapentin (Neurontin Cap) 300 mg QAM PO 03/12/17 09:00 04/11/17 08:59 03/14/17 08:14 300 MG Lorazepam (Ativan Tab) 1 mg BID PO 03/12/17 09:00 04/11/17 08:59 03/14/17 08:12 1 MG Magnesium Oxide (Mag-Ox Tab) 400 mg TID PO 03/12/17 09:00 04/11/17 08:59 03/14/17 14:00 400 MG Oxycodone HCl (Roxicodone Immediate Rel Tab) 10 mg Q6 PRN PO 03/11/17 22:15 03/25/17 22:14 Pantoprazole Sodium (Protonix Tab) 40 mg QAM PO 03/12/17 09:00 04/11/17 08:59 03/14/17 08:13 40 MG Pravastatin Sodium (Pravachol Tab) 40 mg HS PO 03/12/17 21:00 04/11/17 20:59 03/13/17 20:56 40 MG Pregabalin (Lyrica Cap) 150 mg BID PO 03/12/17 09:00 04/11/17 08:59 03/14/17 08:12 150 MG Temazepam (Restoril Cap) 15 mg HS PO 03/12/17 21:00 04/11/17 20:59 03/13/17 20:57 15 MG Azithromycin (Zithromax Tab) 500 mg DAILY PO 03/12/17 09:00 03/19/17 08:59 03/14/17 08:13 500 MG Albuterol/ Ipratropium (Duoneb) 3 ml QIDR INH 03/12/17 08:00 04/11/17 07:59 03/14/17 15:49 3 ML Oseltamivir Phosphate (Tamiflu Susp) 30 mg BID PO 03/12/17 09:00 03/16/17 21:01 03/14/17 08:12 30 MG Guaifenesin (Mucinex Contr Rel Tab) 600 mg Q12 PO 03/12/17 09:00 04/11/17 08:59 03/14/17 08:13 600 MG Cefepime HCl (Consult) 1 ea UD PRN N/A 03/12/17 02:00 03/19/17 13:59 Miscellaneous Information (Consult) 1 ea UD PRN N/A 03/12/17 02:15 03/19/17 03:09 Cefepime HCl 2000 mg/Syringe 20 ml @ 5 mls/min Q12H IV 03/12/17 14:00 03/19/17 13:59 03/14/17 14:00 5 MLS/MIN Vancomycin HCl (Vancomycin Oral Soln) 125 mg Q6 PO 03/12/17 12:00 03/26/17 11:59 03/14/17 12:13 125 MG Metronidazole (Flagyl Tab) 500 mg TID PO 03/12/17 14:00 03/26/17 13:59 03/14/17 14:00 500 MG Raspberry (Raspberry Syrup 5ml Cup) 5 ml Q6 PO 03/12/17 12:00 03/26/17 11:59 03/14/17 12:13 5 ML Heparin Sodium (Porcine) (Heparin Sq 5000 Unit/0.5ml) 5,000 unit Q8 SQ 03/12/17 14:00 04/11/17 13:59 03/14/17 13:59 5,000 UNIT Azathioprine (Imuran Tab) 75 mg QAM PO 03/13/17 09:00 04/12/17 08:59 03/14/17 08:12 75 MG Prednisone (PredniSONE TAB) 5 mg QAM PO 03/13/17 09:00 04/12/17 08:59 03/14/17 08:14 5 MG Hydroxyzine HCl (Vistaril Tab) 25 mg Q6 PRN PO 03/13/17 12:30 04/12/17 12:29 03/14/17 14:00 25 MG Tacrolimus (Prograf Cap) 2 mg Q12@0800,2000 PO 03/13/17 20:00 04/12/17 19:59 03/14/17 08:15 2 MG Vancomycin HCl 1250 mg/Sodium Chloride 275 ml @ 125 mls/hr Q18H IV 03/14/17 18:00 03/19/17 03:09 Objective Vital Signs Date Time Temp Pulse Resp B/P (MAP) Pulse Ox O2 Delivery O2 Flow Rate FiO2 03/14/17 15:53 Nasal Cannula 2.0 03/14/17 15:49 80 18 94 Nasal Cannula 2.0 03/14/17 15:20 36.6 87 20 143/79 (100) 94 Nasal Cannula 1.0 03/14/17 12:07 36.8 90 22 149/71 (97) 95 Nasal Cannula 2.0 03/14/17 12:00 Nasal Cannula 2.0 03/14/17 11:10 77 20 95 Nasal Cannula 2.0 03/14/17 08:00 Nasal Cannula 2.0 03/14/17 07:48 37.0 74 24 139/75 (96) 94 Nasal Cannula 2.0 03/14/17 07:15 77 20 94 Nasal Cannula 2.0 03/14/17 04:32 65 16 96 Room Air 03/14/17 04:18 36.8 68 18 125/75 (92) 96 Room Air 03/14/17 04:00 Room Air 03/14/17 00:18 36.8 68 18 130/75 (93) 94 Room Air 03/13/17 23:55 Room Air 03/13/17 20:00 Room Air 03/13/17 19:24 36.8 77 20 112/67 (82) 96 Room Air Physical Exam General Appearance: WD/WN, no apparent distress Respiratory/Chest: chest non-tender, no respiratory distress, + wheezing ( bilateral ) Cardiovascular: regular rate, rhythm, no edema, no JVD, no murmur Abdomen: normal bowel sounds, non tender, + distended Neurologic/Psychiatric: alert, normal mood/affect, oriented x 3 Skin: normal color, warm/dry, no rash Laboratory Results 03/14/17 07:09 Red Blood Count 2.75, Mean Corpuscular Volume 90.2, Mean Corpuscular Hemoglobin 28.7, Mean Corpuscular Hemoglobin Concent 31.9, Mean Platelet Volume 10.7, Neutrophils (%) (Auto) 88.3, Lymphocytes (%) (Auto) 2.5, Monocytes (%) (Auto) 7.8, Eosinophils (%) (Auto) 0.0, Basophils (%) (Auto) 0.0, Neutrophils # (Auto) 4.50, Lymphocytes # (Auto) 0.13, Monocytes # (Auto) 0.40, Eosinophils # (Auto) 0.00, Basophils # (Auto) 0.00 03/14/17 07:09 Test 03/14/17 07:09 White Blood Count 5.10 K/uL (4.8-10.8) Red Blood Count 2.75 M/uL (4.7-6.1) Hemoglobin 7.9 g/dL (14.0-18.0) Hematocrit 24.8 % (42-52) Mean Corpuscular Volume 90.2 fL (80-100) Mean Corpuscular Hemoglobin 28.7 pg (25-34) Mean Corpuscular Hemoglobin Concent 31.9 g/dl (32-36) Platelet Count 157 K/uL (130-400) Mean Platelet Volume 10.7 fL (7.4-10.4) Neutrophils (%) (Auto) 88.3 % Lymphocytes (%) (Auto) 2.5 % Monocytes (%) (Auto) 7.8 % Eosinophils (%) (Auto) 0.0 % Basophils (%) (Auto) 0.0 % Neutrophils # (Auto) 4.50 K/uL (1.4-6.5) Lymphocytes # (Auto) 0.13 K/uL (1.2-3.4) Monocytes # (Auto) 0.40 K/uL (0.11-0.59) Eosinophils # (Auto) 0.00 K/uL (0-0.5) Basophils # (Auto) 0.00 K/uL (0-0.2) RDW Standard Deviation 54.3 fL (36.4-46.3) RDW Coefficient of Variation 16.5 % (11.5-14.5) Immature Granulocyte % (Auto) 1.4 % Immature Granulocyte # (Auto) 0.07 K/uL (0.00-0.02) Polychromasia 1+ Anisocytosis PRESENT Ovalocytes 1+ Anion Gap 9.0 mmol/L (3-11) Est Creatinine Clear Calc Drug Dose 50.3 ml/min Estimated GFR () 55.3 Estimated GFR (Non- 47.7 BUN/Creatinine Ratio 28.2 (10-20) Calcium Level 8.2 mg/dl (8.5-10.1) Assessment and Plan 66 year old male with PMHx of pulmonary fibrosis s/p double lung transplant in 2016, post-herpetic neuralgia, h/o multiple TIAs and HLD admitted for pneumonia and acute kidney injury 03/12--Treating patient broadly for PNA; cefepime, azithromycin, vanco. Treating patient for Cdiff; flaygl, oral vanco. Dr. Garcia discussed case with [facility], Dr Duncan ( ). Recommends continuing course of treatment, including home immunosuppressants. Recommends follow with [facility] and repeat CXR. Junior Linux Administrator was consulted. 03/13--Patient Tacrolimus trough was >30. Sp[address] Moran--recommends holding am dose, giving 2mg this evening and checking a level tomorrow morning. Adding IVF this am. Patient Cr is slightly down from yesterday. Continues to have loose stools, being treated for Cdiff colitis. 03/14--Patient has increased SOB and cough today. CXR did not show any evolution of consolidation and the patient has remained afebrile. Patient had increased wheezing bilaterally. Discussed the case with Dr. Duncan who recommends transfer to [facility]. Discussed the case with transfer services who say that the patient may not be transferred until tomorrow due to inclement weather. We are working as a team to expedite the patient transfer to [facility] despite inclement weather and limited transport options.Updated Dr. Moran; patient will be transferred tomorrow. Hypoxia - ? sec to worsening pneumonia/ ? fluid overload from overhydration. Spoke to [facility] provider for transfer - accepted. - In the meantime - give 20mgs IV lasix - continue NC O2. Possible Gram Negative Pneumonia - -CXR: left mid and lower lung consolidation consistent with pneumonia. Patient afebrile. Saturating well on RA. Lactic acid negative. - Abx: cefepime and azithromycin, Vancomycin - Tamiflu started, despite negative nasal flu swabs, due to clinical history and examination. Place on droplet precautions. 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 - Renally dose medications. Hold nephrotoxic medications Cdiff colitis -Abx; oral Vanc 125mg , PO Flagyl 500mg TID Acute gastroenteritis symptoms - vomiting and diarrhea - IVF as above - IV Zofran PRN nausea - Hold Colace and Miralax - C.diff positive Chronic immunosuppression post double lung transplant -Continue Tacrolimus 4 mg, Azathioprine 75mg -Continue Florinef .1mg , Prednisone 5mg Fe def. Anemia - 9.8 on admission. Seems to be baseline - Stool occult positive Post-herpetic neuralgia - Continue gabapentin, pregabalin, and oxycodone for pain GERD - Continue pantoprazole and famotidine H/o TIAs - Continue aspirin HLD - Continue pravastatin VTE ppx - SCDs Reviewed: Pt Seen/Exam by Me History feeling tired. still with loose stools. cough +. breathing worse this am Constitutional: denies: fever Respiratory: positive: short of breath Cardiovascular: denies chest pain General Appearance: no apparent distress Respiratory: no respiratory distress, decreased breath sounds, rhonchi Cardiovascular: regular rate, rhythm Neurologic/Psychiatric: alert, oriented x 3 Skin Characteristics: warm/dry Assessment/Plan Resident Physician Supervision Note: I independently interviewed and examined the patient and verified the najera history and physical, reviewed labs and image studies, discussed the case with the resident Dr. Ba and agree with the findings and care plan.
[2017-03-14] MEDS ORDERED: VORICONAZOLE IV ONE (18:00)
[2017-03-14] MEDS ORDERED: SODIUM CHLORIDE 0.9% IV ONE (18:00)
[2017-03-14] MEDS: VANCOMYCIN INJ 1,250 MG in SODIUM CHLORIDE 0.9% 250ML 250 ML IV SCH (19:12)
[2017-03-14] MEDS: PRAVASTATIN SOD 40 MG TAB PO SCH (19:21)
[2017-03-14] MEDS: TEMAZEPAM 15 MG CAP PO SCH (19:32)
[2017-03-14] MEDS: ACETAMINOPHEN 325 MG TAB PO PRN (19:32)
[2017-03-14] MEDS ORDERED: VANCOMYCIN TROUGH ONE ×2 (23:30)
[2017-03-15] VITALS (10 sets, daily range): BP systolic 130–138; BP diastolic 77–90; PULSE 76–98; TEMP 36.7–37.7; O2SAT 91–98
[2017-03-15] MEDS: CEFEPIME IV 2,000 MG in SYRINGE 7.5 ML IV SCH ×2 (02:19→13:51)
[2017-03-15] MEDS: VANCOMYCIN HCL 125 MG/2.5ML SOLN PO SCH ×3 (06:00→16:22)
[2017-03-15] MEDS: RASPBERRY SYRUP 5 ML UDP PO SCH ×3 (06:00→16:23)
[2017-03-15] MEDS: HEPARIN SOD 5000 UNIT/0.5 ML CARP SQ SCH ×2 (06:03→13:53)
[2017-03-15 06:43] LABS: EOS % 2.8 %; EOS ABS # 0.08 K/uL (0-0.5); HEMATOCRIT 28.4 % (42-52); HEMOGLOBIN 9.1 g/dL (14.0-18.0); IG# 0.11 K/uL (0.00-0.02); LYMPH % 9.1 %; LYMPH ABS # 0.26 K/uL (1.2-3.4); MEAN CORPUSCULAR HEMOGLOBIN 29.2 pg (25-34); MEAN PLATELET VOLUME 10.5 fL (7.4-10.4); MONO % 9.8 %; MONO ABS # 0.28 K/uL (0.11-0.59); NEUT % 74.4 %; NEUT ABS # 2.12 K/uL (1.4-6.5); PLATELET COUNT 185 K/uL (130-400); RED CELL DISTRIBUTION WIDTH CV 16.2 % (11.5-14.5); RED CELL DISTRIBUTION WIDTH SD 53.7 fL (36.4-46.3); WHITE BLOOD COUNT 2.85 K/uL (4.8-10.8)
[2017-03-15 07:19] LABS: CALCIUM 8.4 mg/dl (8.5-10.1); CREATININE 1.39 mg/dl (0.60-1.40); POTASSIUM 3.6 mmol/L (3.5-5.1)
[2017-03-15] MEDS: ALBUT/IPRATROP 3MG/0.5MG NEB 3 ML VIAL INH SCH ×4 (07:35→18:59)
[2017-03-15] MEDS: PREGABALIN 150 MG CAP PO SCH (08:16)
[2017-03-15] MEDS: hydrOXYzine HCL 25 MG TAB PO PRN ×2 (08:16→14:18)
[2017-03-15] MEDS: LORAZEPAM 1 MG TAB PO SCH (08:16)
[2017-03-15] MEDS: ASPIRIN 81 MG ECTAB PO SCH (08:17)
[2017-03-15] MEDS: METRONIDAZOLE 500 MG TAB PO SCH ×2 (08:17→13:51)
[2017-03-15] MEDS: GUAIFENESIN 600 MG TABCR PO SCH (08:18)
[2017-03-15] MEDS: TACROLIMUS 1 MG CAP PO SCH (08:18)
[2017-03-15] MEDS: MAGNESIUM OXIDE 400 MG TAB PO SCH ×2 (08:18→13:51)
[2017-03-15] MEDS: AZATHIOPRINE 50 MG TAB PO SCH (08:18)
[2017-03-15] MEDS: FLUDROCORTISONE ACETATE 0.1 MG TAB PO SCH (08:18)
[2017-03-15] MEDS: GABAPENTIN 300 MG CAP PO SCH (08:19)
[2017-03-15] MEDS: PANTOprazole SOD 40 MG TAB PO SCH (08:19)
[2017-03-15] MEDS: FAMOTIDINE 20 MG TAB PO SCH (08:19)
[2017-03-15] MEDS: AZITHROMYCIN 250 MG TAB PO SCH (08:19)
[2017-03-15] MEDS: OSELTAMIVIR PHOSPHATE SUSP 30 MG/5 ML UDP PO SCH (08:20)
[2017-03-15] MEDS ORDERED: VANCOMYCIN TROUGH ONE (11:30)
[2017-03-15] MEDS: VANCOMYCIN INJ 1,250 MG in SODIUM CHLORIDE 0.9% 250ML 250 ML IV SCH (12:26)
--- NOTE | 2017-03-15 12:41 | Pharmacy Progress Note ---
Pharmacy Abx Dose Short Note Date of Service Mar 15, 2017. Assessment & Plan Assessment * 66 year old male receiving VANCOMYCIN 1250mg IV Q 18 hrs and CEFEPIME 2000mg IV Q 12 hr for treatment of pneumonia in the setting of immunocompromise / bilateral lung transplant. * Pt is also receiving AZITHROMYCIN PO 500mg daily as well; Also receiving VANCOMYCIN PO + METRONIDAZOLE PO for C diff * Today is Day # 4 of antibiotic therapy * Renal fxn appears to be improving, SCr 2.28 --> 1.52--->1.39; U.O. has increased, likely due to resolution of JENNY. SCr now back to baseline * Nasal MRSA swab negative; C diff toxin positive; no growth in other cx's thus far * Repeat CXR today read as "no significant change, persistent L mid and lower lung opacities suspicious of pneumonia" * Tmax 37.7 over last 24 hrs, Sats 91 on RA this AM, RR 16-20 Plan Vancomycin * Maintenance dose change to 1250 mg (~15.3mg/kg) IV every 18 hours yesterday due to improving renal fxn * Trough level drawn today with 2nd dose of new regimen, after receiving 2 doses of the Q 24 hr regimen * Trough = 17.6, level was drawn at the appropriate time, prior doses hung at appropriate times * Goal trough level for pulm infxn : 15 to 20 mcg/mL * Would recommend checking trough level w/ 4th dose of the current regimen. Patient is to be transferred today, however if not I will add an order for a level. Cefepime: * eCrCl ~40-55cc/min; continue 2000mg IV Q 12 hrs as this is max dose recommended for this level of renal fxn Pharmacy will continue to follow and will adjust dose/frequency as necessary. Thank you.
--- NOTE | 2017-03-19 12:15 | EDITING REQUIRED CODING QUERY ---
SEPSIS To promote full compliance with coding requirements relating to patient care, physician participation is requested in all cases of icd 9 coder uncertainty. Please assist us with the question(s) below: In responding to this query, please exercise your independent professional judgment. The fact that a question is asked does not imply that any particular answer is desired or expected. We appreciate your clarification on this issue. Coding Question: Possible sepsis was documented in H&P, please clarify below to the best of your knowledge. Thank you so much for your help! () Sepsis, present on admission (x) Sepsis, not present on admission () Sepsis, ruled-out () Other, patient has:
== END 2017-03-15 20:05 | disposition short-term general hospital (02) | DRG 177 ==
LOC: EDBD 19:19 → C.EDC 19:23 → C.2E 22:29 → ENRESERV 22:35
PROVIDERS: ADMIT Internal Medicine; ATTEND Family Medicine
DX: J15.6 Pneumonia due to other Gram-negative bacteria (principal); A41.9 Sepsis, unspecified organism; Z94.2 Lung transplant status; N17.9 Acute kidney failure, unspecified; B02.29 Other postherpetic nervous system involvement; A04.72 Enterocolitis due to Clostridium difficile, not specified as recurrent; E78.5 Hyperlipidemia, unspecified; K21.9 Gastro-esophageal reflux disease without esophagitis; N18.3 Chronic kidney disease, stage 3 (moderate); D50.9 Iron deficiency anemia, unspecified; F17.220 Nicotine dependence, chewing tobacco, uncomplicated; Z79.52 Long term (current) use of systemic steroids; Z79.82 Long term (current) use of aspirin; Z79.899 Other long term (current) drug therapy; Z92.25 Personal history of immunosuppression therapy; Z88.1 Allergy status to other antibiotic agents; Z86.73 Personal history of transient ischemic attack (TIA), and cerebral infarction without residual deficits

== ENCOUNTER → 2017-03-26 | Outpatient (CLI) | payer OTHER ==
[~2017-03-26] MED LIST changes: -ACYC-57 PO; +ALBINS/ INH; +DOCU-94 PO; -OMEP20CA9 PO; +OXYC1TAB3 PO; +POLY335019 PO; +TACR1CAP PO; +VGR50 PO
[2017-03-26 12:14] LABS: EOS % 1.3 %; EOS ABS # 0.07 K/uL (0-0.5); HEMATOCRIT 28.7 % (42-52); HEMOGLOBIN 9.1 g/dL (14.0-18.0); LYMPH % 9.2 %; MEAN CELL VOLUME 92.3 fL (80-100); MEAN CORPUSCULAR HEMOGLOBIN 29.3 pg (25-34); MEAN CORPUSCULAR HGB CONC 31.7 g/dl (32-36); MEAN PLATELET VOLUME 10.5 fL (7.4-10.4); MONO % 7.7 %; MONO ABS # 0.42 K/uL (0.11-0.59); NEUT ABS # 4.36 K/uL (1.4-6.5); PLATELET COUNT 275 K/uL (130-400); RED CELL DISTRIBUTION WIDTH CV 17.2 % (11.5-14.5); RED CELL DISTRIBUTION WIDTH SD 57.3 fL (36.4-46.3); WHITE BLOOD COUNT 5.45 K/uL (4.8-10.8)
[2017-03-26 12:24] LABS: ALBUMIN 3.2 gm/dl (3.4-5.0); ALT/SGPT 14 U/L (12-78); AST/SGOT 14 U/L (15-37); BLOOD UREA NITROGEN 26 mg/dl (7-18); CALCIUM 8.5 mg/dl (8.5-10.1); CARBON DIOXIDE 24 mmol/L (21-32); GLUCOSE 85 mg/dl (70-99); POTASSIUM 4.2 mmol/L (3.5-5.1); SODIUM 138 mmol/L (136-145); URIC ACID 5.1 mg/dl (2.6-7.2)
[2017-03-26 12:28] LABS: ALKALINE PHOSPHATASE 39 U/L (45-117); TOTAL PROTEIN 5.9 gm/dl (6.4-8.2)
[2017-03-28 10:26] LABS: FK506 TACROLIMUS HIGHLY SENS 9.1 MCG/L (5-20); HAPTOGLOBIN TC 45427W 173 MG/DL (43-212)
== END | disposition home or self-care (01) ==
LOC: C.LABSPEC 11:45
PROVIDERS: ATTEND Internal Medicine Pulmonary Disease
DX: Z79.899 Other long term (current) drug therapy (principal); T86.819 Unspecified complication of lung transplant; E83.42 Hypomagnesemia; Z94.2 Lung transplant status

== ENCOUNTER → 2017-03-29 | Outpatient (CLI) | payer OTHER ==
[2017-03-29 10:21] LABS: EOS % 0.7 %; EOS ABS # 0.05 K/uL (0-0.5); HEMATOCRIT 26.9 % (42-52); HEMOGLOBIN 8.4 g/dL (14.0-18.0); IG# 0.06 K/uL (0.00-0.02); LYMPH % 4.2 %; LYMPH ABS # 0.29 K/uL (1.2-3.4); MEAN CELL VOLUME 93.7 fL (80-100); MEAN CORPUSCULAR HEMOGLOBIN 29.3 pg (25-34); MEAN CORPUSCULAR HGB CONC 31.2 g/dl (32-36); MEAN PLATELET VOLUME 9.9 fL (7.4-10.4); MONO % 5.1 %; MONO ABS # 0.35 K/uL (0.11-0.59); NEUT % 89.1 %; NEUT ABS # 6.09 K/uL (1.4-6.5); PLATELET COUNT 196 K/uL (130-400); RED CELL DISTRIBUTION WIDTH CV 18.4 % (11.5-14.5); RED CELL DISTRIBUTION WIDTH SD 61.9 fL (36.4-46.3); WHITE BLOOD COUNT 6.84 K/uL (4.8-10.8)
[2017-03-29 10:28] LABS: ALBUMIN 3.2 gm/dl (3.4-5.0); ALT/SGPT 12 U/L (12-78); BLOOD UREA NITROGEN 21 mg/dl (7-18); CALCIUM 8.1 mg/dl (8.5-10.1); CARBON DIOXIDE 26 mmol/L (21-32); CREATININE 1.47 mg/dl (0.60-1.40); GLUCOSE 98 mg/dl (70-99); POTASSIUM 4.4 mmol/L (3.5-5.1); SODIUM 138 mmol/L (136-145); URIC ACID 4.6 mg/dl (2.6-7.2)
[2017-03-29 10:31] LABS: ALKALINE PHOSPHATASE 44 U/L (45-117); AST/SGOT 11 U/L (15-37); TOTAL PROTEIN 5.8 gm/dl (6.4-8.2)
[2017-03-31 15:36] LABS: FK506 TACROLIMUS HIGHLY SENS 10.6 MCG/L (5-20); HAPTOGLOBIN TC 45427W 163 MG/DL (43-212)
== END | disposition home or self-care (01) ==
LOC: C.LABSPEC 10:03
PROVIDERS: ATTEND Internal Medicine Pulmonary Disease
DX: T86.819 Unspecified complication of lung transplant (principal); Y84.9 Medical procedure, unspecified as the cause of abnormal reaction of the patient, or of later complication, without mention of misadventure at the time of the procedure; E83.42 Hypomagnesemia; Z94.2 Lung transplant status; Z79.899 Other long term (current) drug therapy

== ENCOUNTER → 2017-04-02 | Outpatient (CLI) | payer OTHER ==
[2017-04-02 10:17] LABS: ALBUMIN 3.3 gm/dl (3.4-5.0); ALT/SGPT 13 U/L (12-78); AST/SGOT 19 U/L (15-37); BLOOD UREA NITROGEN 16 mg/dl (7-18); CALCIUM 8.3 mg/dl (8.5-10.1); CARBON DIOXIDE 28 mmol/L (21-32); GLUCOSE 99 mg/dl (70-99); POTASSIUM 4.4 mmol/L (3.5-5.1); SODIUM 140 mmol/L (136-145); URIC ACID 4.5 mg/dl (2.6-7.2)
[2017-04-02 10:18] LABS: ALKALINE PHOSPHATASE 59 U/L (45-117); TOTAL PROTEIN 6.3 gm/dl (6.4-8.2)
[2017-04-02 10:24] LABS: HEMATOCRIT 30.1 % (42-52); MEAN CELL VOLUME 96.5 fL (80-100); MEAN CORPUSCULAR HEMOGLOBIN 28.8 pg (25-34); MEAN CORPUSCULAR HGB CONC 29.9 g/dl (32-36); MEAN PLATELET VOLUME 10.1 fL (7.4-10.4); PLATELET COUNT 140 K/uL (130-400); RED CELL DISTRIBUTION WIDTH CV 18.6 % (11.5-14.5); RED CELL DISTRIBUTION WIDTH SD 65.4 fL (36.4-46.3); WHITE BLOOD COUNT 4.06 K/uL (4.8-10.8)
[2017-04-02 11:25] LABS: BASO % 0.2 %; BASO ABS # 0.01 K/uL (0-0.2); EOS % 1.2 %; EOS ABS # 0.05 K/uL (0-0.5); IG# 0.02 K/uL (0.00-0.02); LYMPH % 4.2 %; LYMPH ABS # 0.17 K/uL (1.2-3.4); MONO % 10.1 %; MONO ABS # 0.41 K/uL (0.11-0.59); NEUT % 83.8 %
[2017-04-05 01:36] LABS: FK506 TACROLIMUS HIGHLY SENS 11.7 MCG/L (5-20)
== END | disposition home or self-care (01) ==
LOC: C.LABSPEC 09:35
PROVIDERS: ATTEND Internal Medicine Pulmonary Disease
DX: Z79.899 Other long term (current) drug therapy (principal); T86.819 Unspecified complication of lung transplant; Y84.9 Medical procedure, unspecified as the cause of abnormal reaction of the patient, or of later complication, without mention of misadventure at the time of the procedure; E83.42 Hypomagnesemia; Z94.2 Lung transplant status

== ENCOUNTER → 2017-04-09 | Outpatient (CLI) | payer OTHER ==
[~2017-04-09] MED LIST changes: +ALBUAER INH; +FURO40TA3 PO; +ISAV1CAP2 PO; +LIDO5CRE13 EX; +NRT25 PO; +OMEP-331 PO; +SIRO1TAB7 PO; +VLC450 PO
[2017-04-09 09:57] LABS: BASO % 0.4 %; BASO ABS # 0.01 K/uL (0-0.2); EOS ABS # 0.08 K/uL (0-0.5); HEMATOCRIT 28.7 % (42-52); HEMOGLOBIN 8.9 g/dL (14.0-18.0); IG# 0.04 K/uL (0.00-0.02); LYMPH % 4.2 %; LYMPH ABS # 0.11 K/uL (1.2-3.4); MEAN CELL VOLUME 94.1 fL (80-100); MEAN CORPUSCULAR HEMOGLOBIN 29.2 pg (25-34); MEAN PLATELET VOLUME 10.1 fL (7.4-10.4); MONO % 21.6 %; MONO ABS # 0.57 K/uL (0.11-0.59); NEUT % 69.3 %; NEUT ABS # 1.83 K/uL (1.4-6.5); PLATELET COUNT 215 K/uL (130-400); RED CELL DISTRIBUTION WIDTH CV 18.4 % (11.5-14.5); RED CELL DISTRIBUTION WIDTH SD 63.8 fL (36.4-46.3); WHITE BLOOD COUNT 2.64 K/uL (4.8-10.8)
[2017-04-09 10:05] LABS: ALBUMIN 3.1 gm/dl (3.4-5.0); ALT/SGPT 14 U/L (12-78); AST/SGOT 17 U/L (15-37); BLOOD UREA NITROGEN 22 mg/dl (7-18); CALCIUM 8.2 mg/dl (8.5-10.1); CARBON DIOXIDE 30 mmol/L (21-32); CREATININE 1.53 mg/dl (0.60-1.40); GLUCOSE 86 mg/dl (70-99); POTASSIUM 4.2 mmol/L (3.5-5.1); SODIUM 142 mmol/L (136-145); URIC ACID 4.5 mg/dl (2.6-7.2)
[2017-04-09 10:08] LABS: ALKALINE PHOSPHATASE 62 U/L (45-117); TOTAL PROTEIN 6.2 gm/dl (6.4-8.2)
[2017-04-13 08:39] LABS: FK506 TACROLIMUS HIGHLY SENS 11.1 MCG/L (5-20); HAPTOGLOBIN TC 45427W 145 MG/DL (43-212)
--- NOTE | 2017-05-25 08:13 | CODING QUERY NO DIAGNOSIS ---
TREATMENT RENDERED WITHOUT A DIAGNOSIS To promote full compliance with coding requirements relating to patient care, physician participation is requested in all cases of remote medical coder uncertainty. Please assist us with providing a diagnosis/symptom for the test(s) below: A diagnosis/symptom was not documented on your Order. A valid diagnosis/symptom is required to bill all insurances. Please remember that we are unable to code a diagnosis of rule out, probable, possible, questionable, or suspected. Tests that require a diagnosis: DOS: 04/09/17 * CBC W/ AUTO DIFF DIAGNOSIS: * BILIRUBIN, DIRECT DIAGNOSIS: * CMP DIAGNOSIS: * MAGNESIUM DIAGNOSIS: * URIC ACID DIAGNOSIS: * CYTOMEGALOVIRUS DNA PCR QUANTI DIAGNOSIS: * TACROLIMUS FK506 DIAGNOSIS: * GAMMA GLUTAMLY TRANSPEPTIDASE DIAGNOSIS: * HAPTOGLOBIN DIAGNOSIS: * LDH DIAGNOSIS: Provider Signature: Date: Thank you Tierney Ashton [employer] Information Management Once completed, please kindly fax back to [phone] For questions please call [phone]
== END | disposition home or self-care (01) ==
LOC: C.LABSPEC 09:38
PROVIDERS: ATTEND Internal Medicine Pulmonary Disease
DX: E83.42 Hypomagnesemia (principal); Z94.2 Lung transplant status; Z79.899 Other long term (current) drug therapy; T86.819 Unspecified complication of lung transplant; N28.9 Disorder of kidney and ureter, unspecified; B34.9 Viral infection, unspecified; D64.9 Anemia, unspecified; Y83.0 Surgical operation with transplant of whole organ as the cause of abnormal reaction of the patient, or of later complication, without mention of misadventure at the time of the procedure

== ENCOUNTER → 2017-04-17 | Outpatient (CLI) | payer OTHER ==
[~2017-04-17] MED LIST changes: -ALBUAER INH; -FURO40TA3 PO; -ISAV1CAP2 PO; -LIDO5CRE13 EX; -NRT25 PO; -OMEP-331 PO; -SIRO1TAB7 PO; -VLC450 PO
[2017-04-17 10:41] LABS: HEMOGLOBIN 9.6 g/dL (14.0-18.0); MEAN CELL VOLUME 92.3 fL (80-100); MEAN CORPUSCULAR HEMOGLOBIN 28.6 pg (25-34); PLATELET COUNT 431 K/uL (130-400); RED CELL DISTRIBUTION WIDTH CV 17.8 % (11.5-14.5); RED CELL DISTRIBUTION WIDTH SD 59.7 fL (36.4-46.3); WHITE BLOOD COUNT 6.45 K/uL (4.8-10.8)
[2017-04-17 10:53] LABS: ALBUMIN 3.5 gm/dl (3.4-5.0); BLOOD UREA NITROGEN 24 mg/dl (7-18); CALCIUM 8.6 mg/dl (8.5-10.1); CARBON DIOXIDE 24 mmol/L (21-32); GLUCOSE 96 mg/dl (70-99); POTASSIUM 5.7 mmol/L (3.5-5.1); SODIUM 137 mmol/L (136-145); URIC ACID 4.4 mg/dl (2.6-7.2)
[2017-04-17 10:56] LABS: ALKALINE PHOSPHATASE 65 U/L (45-117); ALT/SGPT 11 U/L (12-78); AST/SGOT 13 U/L (15-37); TOTAL PROTEIN 6.7 gm/dl (6.4-8.2)
[2017-04-17 11:07] LABS: BASO % 0.3 %; BASO ABS # 0.02 K/uL (0-0.2); EOS % 0.8 %; EOS ABS # 0.05 K/uL (0-0.5); IG# 0.34 K/uL (0.00-0.02); LYMPH % 11.9 %; LYMPH ABS # 0.77 K/uL (1.2-3.4); MONO ABS # 0.97 K/uL (0.11-0.59); NEUT % 66.7 %
[2017-04-19 16:38] LABS: HAPTOGLOBIN TC 45427W 159 MG/DL (43-212)
== END | disposition home or self-care (01) ==
LOC: C.LABSPEC 10:30
PROVIDERS: ATTEND Internal Medicine Pulmonary Disease
DX: Z79.899 Other long term (current) drug therapy (principal); E11.42 Type 2 diabetes mellitus with diabetic polyneuropathy; Z94.2 Lung transplant status

== ENCOUNTER → 2017-04-23 | Outpatient (CLI) | payer OTHER ==
[2017-04-23 11:01] LABS: HEMOGLOBIN 9.2 g/dL (14.0-18.0); MEAN CELL VOLUME 92.6 fL (80-100); MEAN CORPUSCULAR HEMOGLOBIN 28.4 pg (25-34); MEAN CORPUSCULAR HGB CONC 30.7 g/dl (32-36); MEAN PLATELET VOLUME 10.3 fL (7.4-10.4); PLATELET COUNT 322 K/uL (130-400); RED CELL DISTRIBUTION WIDTH CV 17.6 % (11.5-14.5); RED CELL DISTRIBUTION WIDTH SD 60.2 fL (36.4-46.3); WHITE BLOOD COUNT 6.08 K/uL (4.8-10.8)
[2017-04-23 16:35] LABS: URIC ACID 4.8 mg/dl (2.6-7.2)
[2017-04-25 10:43] LABS: FK506 TACROLIMUS HIGHLY SENS 11.1 MCG/L (5-20); HAPTOGLOBIN TC 45427W 178 MG/DL (43-212)
== END | disposition home or self-care (01) ==
LOC: C.LABSPEC 10:30
PROVIDERS: ATTEND Internal Medicine Pulmonary Disease
DX: Z79.899 Other long term (current) drug therapy (principal); E11.42 Type 2 diabetes mellitus with diabetic polyneuropathy

== ENCOUNTER → 2017-05-10 | Outpatient (CLI) | payer OTHER ==
[~2017-05-10] MED LIST changes: +ALBUAER INH; +FURO40TA3 PO; +ISAV1CAP2 PO; +LIDO5CRE13 EX; +NRT25 PO; +OMEP-331 PO; +SIRO1TAB7 PO; +VLC450 PO
[2017-05-10 11:14] LABS: EOS % 1.6 %; EOS ABS # 0.07 K/uL (0-0.5); HEMATOCRIT 29.9 % (42-52); HEMOGLOBIN 9.2 g/dL (14.0-18.0); IG# 0.19 K/uL (0.00-0.02); LYMPH % 3.7 %; LYMPH ABS # 0.16 K/uL (1.2-3.4); MEAN CELL VOLUME 90.9 fL (80-100); MEAN CORPUSCULAR HGB CONC 30.8 g/dl (32-36); MEAN PLATELET VOLUME 10.9 fL (7.4-10.4); MONO % 6.8 %; MONO ABS # 0.29 K/uL (0.11-0.59); NEUT % 83.5 %; NEUT ABS # 3.56 K/uL (1.4-6.5); PLATELET COUNT 103 K/uL (130-400); RED CELL DISTRIBUTION WIDTH SD 64.1 fL (36.4-46.3); WHITE BLOOD COUNT 4.27 K/uL (4.8-10.8)
[2017-05-10 11:37] LABS: ALBUMIN 3.2 gm/dl (3.4-5.0); ALT/SGPT 18 U/L (12-78); AST/SGOT 24 U/L (15-37); BLOOD UREA NITROGEN 40 mg/dl (7-18); CALCIUM 8.2 mg/dl (8.5-10.1); CARBON DIOXIDE 23 mmol/L (21-32); CREATININE 2.63 mg/dl (0.60-1.40); GLUCOSE 147 mg/dl (70-99); POTASSIUM 5.2 mmol/L (3.5-5.1); SODIUM 135 mmol/L (136-145)
[2017-05-10 11:40] LABS: ALKALINE PHOSPHATASE 49 U/L (45-117); PHOSPHORUS 2.3 mg/dl (2.5-4.9); TOTAL PROTEIN 6.4 gm/dl (6.4-8.2)
[2017-05-12 05:28] LABS: FK506 TACROLIMUS HIGHLY SENS 20.9 MCG/L (5-20)
--- NOTE | 2017-05-25 08:11 | CODING QUERY NO DIAGNOSIS ---
TREATMENT RENDERED WITHOUT A DIAGNOSIS : 52 To promote full compliance with coding requirements relating to patient care, physician participation is requested in all cases of natural resource specialist uncertainty. Please assist us with providing a diagnosis/symptom for the test(s) below: A diagnosis/symptom was not documented on your Order. A valid diagnosis/symptom is required to bill all insurances. Please remember that we are unable to code a diagnosis of rule out, probable, possible, questionable, or suspected. Tests that require a diagnosis: DOS: 05/10/17 * CBC WITH AUTO DIFFER DIAGNOSIS: * LIVER PROFILE DIAGNOSIS: * MAGNESIUM DIAGNOSIS: * PHOSPHORUS DIAGNOSIS: * PARTIAL RENAL PROFILE DIAGNOSIS: * TACROLIMUS FK506 DIAGNOSIS: * CALCIUM, IONIZED DIAGNOSIS: Provider Signature: Date: Thank you [facility] Information Management Once completed, please kindly fax back to [phone] For questions please call [phone]
== END | disposition home or self-care (01) ==
LOC: C.LABSPEC 10:24
PROVIDERS: ATTEND Internal Medicine Pulmonary Disease
DX: D64.9 Anemia, unspecified (principal); D70.9 Neutropenia, unspecified; N28.9 Disorder of kidney and ureter, unspecified; Z79.899 Other long term (current) drug therapy; T86.819 Unspecified complication of lung transplant; X58.XXXA Exposure to other specified factors, initial encounter; E83.42 Hypomagnesemia; Z94.2 Lung transplant status

== ENCOUNTER 2017-05-14 11:50 | Inpatient (IN) | payer OTHER ==
[~2017-05-14] VITALS: Ht 170.2 cm; Wt 84.5 kg
[~2017-05-14 11:50] MED LIST changes: -ALBUAER INH; -FURO40TA3 PO; -ISAV1CAP2 PO; -LIDO5CRE13 EX; -NRT25 PO; -OMEP-331 PO; -SIRO1TAB7 PO; -VLC450 PO
[2017-05-14] MEDS ORDERED: SODIUM CHLORIDE 0.9% 500ML 500 ML IV STA (14:22)
[2017-05-14] MEDS ORDERED: LIDO5CRE13 EX (14:46)
[2017-05-14] MEDS ORDERED: VLC450 PO (14:46)
[2017-05-14] MEDS ORDERED: NRT25 PO (14:46)
[2017-05-14] MEDS ORDERED: OMEP-331 PO (14:46)
[2017-05-14] MEDS ORDERED: ALBUAER INH (14:46)
[2017-05-14] MEDS ORDERED: ISAV1CAP2 PO (14:46)
[2017-05-14] MEDS ORDERED: SIRO1TAB7 PO (14:46)
[2017-05-14] MEDS ORDERED: FURO40TA3 PO (14:46)
[2017-05-14 14:48] LABS: HEMATOCRIT 27.9 % (42-52); HEMOGLOBIN 8.9 g/dL (14.0-18.0); MEAN CELL VOLUME 90.3 fL (80-100); MEAN CORPUSCULAR HEMOGLOBIN 28.8 pg (25-34); MEAN CORPUSCULAR HGB CONC 31.9 g/dl (32-36); RED CELL DISTRIBUTION WIDTH CV 18.6 % (11.5-14.5); RED CELL DISTRIBUTION WIDTH SD 61.9 fL (36.4-46.3); WHITE BLOOD COUNT 1.78 K/uL (4.8-10.8)
[2017-05-14 14:53] LABS: MEAN PLATELET VOLUME 10.3 fL (7.4-10.4); PLATELET COUNT 66 K/uL (130-400)
[2017-05-14 15:05] LABS: CALCIUM 8.4 mg/dl (8.5-10.1); CREATININE 2.29 mg/dl (0.60-1.40); POTASSIUM 6.2 mmol/L (3.5-5.1)
[2017-05-14] MEDS ORDERED: ALBUT/IPRATROP 3MG/0.5MG NEB 3 ML VIAL INH STA (15:07)
[2017-05-14] MEDS ORDERED: OXYCODONE HCL IR 5 MG TAB (IMMEDIATE RELEASE) PO STA (15:23)
[2017-05-14] MEDS ORDERED: OXYCODONE HCL IR 5 MG TAB (IMMEDIATE RELEASE) PO PRN (16:00)
[2017-05-14] MEDS ORDERED: POLYETHYLENE (MIRALAX) 17 GM PACK PO PRN ×2 (16:00)
[2017-05-14] MEDS ORDERED: DOCUSATE SODIUM 100 MG CAP PO PRN (16:00)
[2017-05-14] MEDS ORDERED: NITROGLYCERIN 0.4 MG SL PER TAB CHARGE SL PRN (16:00)
[2017-05-14] MEDS ORDERED: ALBUTEROL HFA 8 GM INHALER INH PRN (16:00)
[2017-05-14] MEDS ORDERED: MAGNESIUM HYDROXIDE SUSP 30 ML UDC PO PRN (16:00)
[2017-05-14] MEDS ORDERED: ALUMINUM/MAGNESIUM/SIMETH (MAALOX MAX) 30 ML UDC PO PRN (16:00)
[2017-05-14] MEDS ORDERED: SODIUM POLYST. SULF SUSP 15G/60ML PO STA (16:22)
[2017-05-14] MEDS ORDERED: DEXTROSE 50% 50 ML SYR IV SCH (16:29)
[2017-05-14] MEDS ORDERED: INSULIN HUMAN REGULAR PER UNIT 10 UNITS in SYRINGE 9.9 ML IV ONE (16:30)
--- NOTE | 2017-05-14 16:30 | History and Physical ---
History & Physical Date & Time of Service: May 14, 2017 at 16:13 Chief Complaint: High Potassium Primary Care Physician: Hima Weldon M.D. History of Present Illness Source: patient, clinic records, hospital records Patient is a pleasant 66 y/o male, with PMHx of pulmonary fibrosis s/p bilateral lung transplant on chronic immunosuppressants, h/o TIA, CAD, HLD, postherpetic neuralgia, anxiety, insomnia, and GERD, who presented to the ED for abnormal labs. Patient was having routine blood work and found to have JENNY/ hyperkalemia. He notes a h/o of this and was placed on Lasix and Florinef. He follows w/ all specalities in [place] where he received his transplant. He is otherwise feeling well. He does note significant h/o diarrhea x1 week. He does have a h/o c.diff. Patient denies any fever, chills, sweats, lightheadedness, dizziness, vision changes, CP, palpitations, edema, SOB, wheezing, cough, abdominal pain, nausea, vomiting, urinary symptoms, melena, numbness/tingling, weakness, muscle/joint pain, anxiety/depression, active bleeding, or new skin discoloration/changes. Past Medical/Surgical History Medical Problems: pulmonary fibrosis s/p bilateral lung transplant on chronic immunosuppressants h/o TIA CAD HLD postherpetic neuralgia anxiety insomnia GERD Surgical Problems: (1) Bilateral lung tansplant (2) H/O arthroscopy of right knee (3) H/O cardiac catheterization (4) History of lumbar surgery (5) Hx of appendectomy (6) S/P cervical spinal fusion (7) S/P lung transplant Family History FH: diabetes mellitus FH: heart disease Lung disease Social History Smoking Status: Never Smoker Drug Use: none Marital Status: Housing status: lives with family, other Occupational Status: disabled, other Immunizations History of Influenza Vaccine: Unknown Influenza Vaccine Date: Dec 02, 2009 History of Tetanus Vaccine?: Unknown History of Pneumococcal: Unknown Pneumococcal Date: Aug 02, 2009 History of Hepatitis B Vaccine: Unknown Allergies Coded Allergies: Levofloxacin (Verified Allergy, Intermediate, REDNESS/RASH, 05/14/17) Adhesives (Verified Allergy, Unknown, SKIN IRRITATION/RASH, 05/14/17) Home Medications Scheduled Aspirin (Aspirin Ec), 81 MG PO QAM Azathioprine (Azathioprine), 75 MG PO QAM Famotidine (Famotidine), 20 MG PO BID Fludrocortisone Acetate (Florinef), 0.1 MG PO QAM Furosemide (Lasix), 40 MG PO DAILY Isavuconazonium Sulfate (Cresemba), 186 MG PO BID Lorazepam (Lorazepam), 1 MG PO BID Magnesium Oxide (Mag-Ox), 400 MG PO TID Nortriptyline HCl (Nortriptyline HCl), 25 MG PO BID Omeprazole (Omeprazole Dr), 20 MG PO BID Pravastatin Sodium (Pravastatin Sodium), 40 MG PO HS Prednisone (Prednisone), 5 MG PO QAM Pregabalin (Lyrica), 150 MG PO BID Sildenafil Citrate (Viagra), 50 MG PO PRN Sirolimus (Sirolimus), 1 MG PO BID Sulfa/Trimethoprim (Bactrim Ds 800MG/160MG), 1 TAB PO 3XWK Tacrolimus (Prograf), 3 CAP PO QAM Tacrolimus (Prograf), 2 CAP PO QPM Temazepam (Restoril), 15 MG PO HS Valganciclovir (Valcyte), 450 MG PO DAILY Scheduled PRN Albuterol Sulfate (Proventil Hfa), 2 PUFFS INH QID PRN for SOB/Wheezing Docusate Sodium (Colace), 1 CAP PO BID PRN for Constipation Ondansetron Hcl (Zofran), 4 MG PO Q6H PRN for Nausea Oxycodone Immediate Rel Tab (Roxicodone Ir), 1-2 TAB PO Q6 PRN for Severe Pain Polyethylene Glycol 3350 (Miralax), 17 GM PO DAILY PRN for Constipation Miscellaneous Medications Lidocaine (Anorectal) (Lidocaine 5%), 1 PATCH EX Physical Exam Vital Signs Date Time Temp Pulse Resp B/P (MAP) Pulse Ox O2 Delivery O2 Flow Rate FiO2 05/14/17 15:20 80 18 146/86 99 Room Air 05/14/17 14:01 84 05/14/17 13:50 100 Room Air 05/14/17 13:47 98 18 155/83 100 05/14/17 12:00 36.9 95 18 160/85 98 Room Air General Appearance: no apparent distress Head: normocephalic, atraumatic Eyes: normal inspection, PERRL ENT: hearing grossly normal Neck: supple Respiratory/Chest: lungs clear, no respiratory distress, no accessory muscle use Cardiovascular: regular rate, rhythm Abdomen/GI: normal bowel sounds, non tender, soft Back: normal inspection Extremities/Musculoskelatal: no calf tenderness, no pedal edema Neurologic/Psych: alert, normal mood/affect, oriented x 3 Skin: normal color, warm/dry, no rash Diagnostics Laboratory Results Results Past 24 Hours Test 05/14/17 14:15 05/14/17 14:30 Range/Units White Blood Count 1.78 4.8-10.8 K/uL Red Blood Count 3.09 4.7-6.1 M/uL Hemoglobin 8.9 14.0-18.0 g/dL Hematocrit 27.9 42-52 % Mean Corpuscular Volume 90.3 80-100 fL Mean Corpuscular Hemoglobin 28.8 25-34 pg Mean Corpuscular Hemoglobin Concent 31.9 32-36 g/dl RDW Standard Deviation 61.9 36.4-46.3 fL RDW Coefficient of Variation 18.6 11.5-14.5 % Platelet Count 66 130-400 K/uL Mean Platelet Volume 10.3 7.4-10.4 fL Sodium Level 137 136-145 mmol/L Potassium Level 6.2 3.5-5.1 mmol/L Chloride Level 108 98-107 mmol/L Carbon Dioxide Level 20 21-32 mmol/L Anion Gap 9.0 3-11 mmol/L Blood Urea Nitrogen 35 7-18 mg/dl Creatinine 2.29 0.60-1.40 mg/dl Est Creatinine Clear Calc Drug Dose 33.8 ml/min Estimated GFR () 33.7 Estimated GFR (Non- 29.1 BUN/Creatinine Ratio 15.2 10-20 Random Glucose 112 70-99 mg/dl Calcium Level 8.4 8.5-10.1 mg/dl Magnesium Level 2.5 1.8-2.4 mg/dl Urine Color YELLOW Urine Appearance CLEAR CLEAR Urine pH 6.5 4.5-7.5 Urine Specific [place] 1.013 1.000-1.030 Urine Protein NEG NEG Urine Glucose (UA) NEG NEG Urine Ketones NEG NEG Urine Occult Blood NEG NEG Urine Nitrite NEG NEG Urine Bilirubin NEG NEG Urine Urobilinogen NEG NEG Urine Leukocyte Esterase NEG NEG EKG HARVEY KING ID:[id number] 14-MAY-2017 13:53:58 [facility] Normal sinus rhythm Normal ECG When compared with ECG of 11-MAR-2017 20:35, No significant change was found 25mm/s 10mm/mV 150Hz 8.0 SP2 12SL 241 HD EDUARDO: 12 Referred by: Unconfirmed Vent. rate 84 BPM OK interval 154 ms QRS duration 88 ms QT/QTc 338/399 ms P-R-T axes 56 -24 58 1950 (66 yr) Male 68in 1lb Room:C4 Loc:15 Tool Specialist:BRANDON HOPPER Test ind: Impression Assessment and Plan Patient is a pleasant 66 y/o male, with PMHx of pulmonary fibrosis s/p bilateral lung transplant on chronic immunosuppressants, postherpetic neuralgia , h/o TIA, CAD, HLD, postherpetic neuralgia, anxiety, insomnia, and GERD, who presented to the ED for abnormal labs. Patient was having routine blood work and found to have JENNY/hyperkalemia. JENNY, hyperkalemia: - Admit to tele for cardiac monitoring - Follow EKG - Treat w/ Kayexalate, IV Insulin + glucose - Follow PRP q8hrs and treat K level PRN - Consult nephrology for JENNY, appreciate recommendations - Hold Lasix - Continue Florinef Hypermagnesemia: Hold Mag-Ox supplement, follow mag level Pulmonary fibrosis s/p bilateral lung transplant on chronic immunosuppressants: - Pancytopenia- STABLE- follow CBC - Continue home inhalers - Continue Azathioprine, Prednisone, Prograf, Bactrim, Valcyte, Sirolimus, Cresemba Diarrhea, h/o c.diff: - Check c.diff Postherpetic neuralgia: Continue Oxycodone PRN, Lyrica Anxiety: Continue Nortriptyline, Ativan h/o TIA, CAD, HLD: Continue ASA, Pravastatin GERD: Continue Pepcid, Protonix in place of Prilosec while inpatient DVT prophylaxis: TEDs/SCDs, ambulation; hold chemical anticoagulation due to pancytopenia Code status: LEVEL I, FULL Dispo: From home- no discharge needs anticipated Resuscitation Status LEVEL I, FULL VTE Prophylaxis Will order VTE Prophylaxis: Yes
[2017-05-14 17:34] VITALS: BP 152/82; PULSE 101; TEMP 36.7; O2SAT 99
[2017-05-14 18:17] VITALS: BP 152/82; PULSE 101; TEMP 36.7; Ht 170.2 cm; Wt 84.5 kg
[2017-05-14 19:17] VITALS: BP 127/85; PULSE 89; TEMP 36.5; O2SAT 99
--- NOTE | 2017-05-14 19:59 | EMERGENCY ROOM VISIT NOTE ---
History Report prepared by Raghav: Maryjane Jordan Under the Supervision of: Dr. Nelson Servin M.D. First contact with patient: 14:20 Chief Complaint: ABNORMAL DIAGNOSTIC TESTING Stated Complaint: HIGH POTASSIUM History of Present Illness The patient is a 66 year old male who presents to the Emergency Room with complaints of an episode of high potassium this morning. The patient had routine blood work today which found that his potassium was 6.1. He was sent to the ED. He has a history of double lung transplant. He has been feeling chills and ringing in his ears recently. He had one day of illness last week where he was vomiting. He has been feeling better since then. He denies any fever, cough , or urinary symptoms. He notes that he was on a pill to reduce his potassium in the past. He was taken off the medication a couple months ago because it was causing him high blood pressure. Source of History: patient Onset: this morning Position: other (abnormal labs) Symptom Intensity: 6.1 Quality: other (high potassium) Timing: other (episodic) Associated Symptoms: + chills, + vomiting (resolved), No fevers, No cough, No urinary symptoms Review of Systems See HPI for pertinent positives & negatives. A total of 10 systems reviewed and were otherwise negative. Past Medical & Surgical Medical Problems: (1) JENNY (acute kidney injury) (2) COPD (chronic obstructive pulmonary disease) (3) Diffuse interstitial pulmonary fibrosis (4) Dyslipidemia (5) Gastroesophageal reflux disease (6) Hyperkalemia (7) Tobacco dependence in remission Surgical Problems: (1) Bilateral lung tansplant (2) H/O arthroscopy of right knee (3) H/O cardiac catheterization (4) History of lumbar surgery (5) Hx of appendectomy (6) S/P cervical spinal fusion (7) S/P lung transplant Family History FH: diabetes mellitus FH: heart disease Lung disease Social History Smoking Status: Never Smoker Alcohol Use: none Drug Use: none Marital Status: Occupation Status: disabled, other Current/Historical Medications Scheduled Aspirin (Aspirin Ec), 81 MG PO QAM Azathioprine (Azathioprine), 75 MG PO QAM Famotidine (Famotidine), 20 MG PO BID Fludrocortisone Acetate (Florinef), 0.1 MG PO QAM Furosemide (Lasix), 40 MG PO DAILY Isavuconazonium Sulfate (Cresemba), 186 MG PO BID Lorazepam (Lorazepam), 1 MG PO BID Magnesium Oxide (Mag-Ox), 400 MG PO TID Nortriptyline HCl (Nortriptyline HCl), 25 MG PO BID Omeprazole (Omeprazole Dr), 20 MG PO BID Pravastatin Sodium (Pravastatin Sodium), 40 MG PO HS Prednisone (Prednisone), 5 MG PO QAM Pregabalin (Lyrica), 150 MG PO BID Sildenafil Citrate (Viagra), 50 MG PO PRN Sirolimus (Sirolimus), 1 MG PO BID Sulfa/Trimethoprim (Bactrim Ds 800MG/160MG), 1 TAB PO 3XWK Tacrolimus (Prograf), 3 CAP PO QAM Tacrolimus (Prograf), 2 CAP PO QPM Temazepam (Restoril), 15 MG PO HS Valganciclovir (Valcyte), 450 MG PO DAILY Scheduled PRN Albuterol Sulfate (Proventil Hfa), 2 PUFFS INH QID PRN for SOB/Wheezing Docusate Sodium (Colace), 1 CAP PO BID PRN for Constipation Ondansetron Hcl (Zofran), 4 MG PO Q6H PRN for Nausea Oxycodone Immediate Rel Tab (Roxicodone Ir), 1-2 TAB PO Q6 PRN for Severe Pain Polyethylene Glycol 3350 (Miralax), 17 GM PO DAILY PRN for Constipation Miscellaneous Medications Lidocaine (Anorectal) (Lidocaine 5%), 1 PATCH EX Allergies Coded Allergies: Levofloxacin (Verified Allergy, Intermediate, REDNESS/RASH, 05/14/17) Adhesives (Verified Allergy, Unknown, SKIN IRRITATION/RASH, 05/14/17) Physical Exam Vital Signs Date Time Temp Pulse Resp B/P (MAP) Pulse Ox O2 Delivery O2 Flow Rate FiO2 05/14/17 15:20 80 18 146/86 99 Room Air 05/14/17 14:01 84 05/14/17 13:50 100 Room Air 05/14/17 13:47 98 18 155/83 100 05/14/17 12:00 36.9 95 18 160/85 98 Room Air Physical Exam GENERAL: Patient is in no acute distress. HEENT: No acute trauma, normocephalic atraumatic, mucous membranes moist, no nasal congestion, no scleral icterus. NECK: No stridor, no adenopathy, no meningismus, trachea is midline. LUNGS: Few scattered crackles at the lung bases, otherwise clear. Lung sounds equal. No respiratory distress. HEART: Without murmurs gallops or rubs, regular rate and rhythm. ABDOMEN: Soft, nontender, bowel sounds positive, no hernias, no peritonitis. EXTREMITIES: No cyanosis or edema, full range of motion of all the joints without pain or difficulty, no signs for acute trauma. NEUROLOGIC: Oriented x 3, no acute motor or sensory deficits, no focal weakness. SKIN: No rash, no jaundice, no diaphoresis. Medical Decision & Procedures Laboratory Results 05/14/17 14:15 05/14/17 14:15 Test 05/14/17 14:15 05/14/17 14:30 Red Blood Count 3.09 M/uL (4.7-6.1) Mean Corpuscular Volume 90.3 fL (80-100) Mean Corpuscular Hemoglobin 28.8 pg (25-34) Mean Corpuscular Hemoglobin Concent 31.9 g/dl (32-36) RDW Standard Deviation 61.9 fL (36.4-46.3) RDW Coefficient of Variation 18.6 % (11.5-14.5) Mean Platelet Volume 10.3 fL (7.4-10.4) Anion Gap 9.0 mmol/L (3-11) Est Creatinine Clear Calc Drug Dose 33.8 ml/min Estimated GFR () 33.7 Estimated GFR (Non- 29.1 BUN/Creatinine Ratio 15.2 (10-20) Calcium Level 8.4 mg/dl (8.5-10.1) Magnesium Level 2.5 mg/dl (1.8-2.4) Hepatitis C Antibody PRELIM POS (NEG) Urine Color YELLOW Urine Appearance CLEAR (CLEAR) Urine pH 6.5 (4.5-7.5) Urine Specific [place] 1.013 (1.000-1.030) Urine Protein NEG (NEG) Urine Glucose (UA) NEG (NEG) Urine Ketones NEG (NEG) Urine Occult Blood NEG (NEG) Urine Nitrite NEG (NEG) Urine Bilirubin NEG (NEG) Urine Urobilinogen NEG (NEG) Urine Leukocyte Esterase NEG (NEG) Laboratory results reviewed by me. Medications Administered Medications (Trade) Dose Ordered Sig/Chrystal Route Start Time Stop Time Status Last Admin Dose Admin Sodium Chloride 500 ml @ 999 mls/hr Q31M STAT IV 05/14/17 14:22 05/14/17 14:52 DC 05/14/17 14:35 999 MLS/HR Albuterol/ Ipratropium (Duoneb) 3 ml NOW STAT INH 05/14/17 15:07 05/14/17 15:09 DC 05/14/17 15:21 3 ML Oxycodone HCl (Roxicodone Immediate Rel Tab) 5 mg NOW STAT PO 05/14/17 15:23 05/14/17 15:25 DC 05/14/17 15:48 5 MG ECG Per My Interpretation Indication: other (hyperkalemia) Rate (beats per minute): 84 Rhythm: normal sinus Findings: no ectopy, other (no ST elevation, no PVC) ED Course 1421: The patient was evaluated in room C4. A complete history and physical exam was performed. 1422: Sodium Chloride 500 ml @ 999 mls/hr IV. 1507: Duoneb 3 ml INH. 1508: I discussed the patient's case with Dr. Pacheco, [facility] hospitalist. The patient will be evaluated for further management. 1521: Upon reexamination the patient is stable. He is asking for something for his shingles pain. I discussed results and treatment plan with the patient. He verbalizes agreement and understanding. The patient will be evaluated for further management. 1523: Oxycodone HCl 5 mg PO. Medical Decision Differential diagnoses considered include dehydration, acute renal failure, hyperkalemia, infection, medication reaction, hemolyzed lab specimen. The patient has a lower white count, hemoglobin and platelet count. These lower values have been documented before but today's values were lower than the most recent testing. Renal panel testing does show evidence for some acute renal failure as well as hyperkalemia with a potassium of 6.2. Urinalysis does not show infection. EKG showed a normal sinus rhythm, no acute ischemia. The patient received IV saline, he received a DuoNeb. Both of these measures were ordered to help lower the potassium. The patient was given 5 mg of oral oxycodone for pain. Given the findings, a hospital stay is warranted. I spoke to the patient and case management. The on-call hospitalist was consulted. Medication Reconcilliation Current Medication List: was personally reviewed by me Blood Pressure Screening Patient's blood pressure: Elevated blood pressure Referred to hospitalist. Consults Time Called: 1505 Consulting Physician: RHONDA Villaseñor hospitalist Returned Call: 1507 Discussed the patient's case. The patient will be evaluated for further management. Impression Primary Impression: Hyperkalemia Additional Impression: Acute renal failure Scribe Attestation The scribe's documentation has been prepared under my direction and personally reviewed by me in its entirety. I confirm that the note above accurately reflects all work, treatment, procedures, and medical decision making performed by me. Departure Information Dispostion Being Evaluated By Hospitalist Referrals No Doctor, Assigned (PCP) Patient Instructions My [facility] Problem Qualifiers
[2017-05-14 20:00] VITALS: O2SAT 99
[2017-05-14] MEDS: LORAZEPAM 1 MG TAB PO SCH (21:32)
[2017-05-14] MEDS: PREGABALIN 150 MG CAP PO SCH (21:32)
[2017-05-14] MEDS: TEMAZEPAM 15 MG CAP PO SCH (21:32)
[2017-05-14] MEDS: TACROLIMUS 1 MG CAP PO SCH (21:34)
[2017-05-14] MEDS: FAMOTIDINE 20 MG TAB PO SCH (21:35)
[2017-05-14] MEDS: NORTRIPTYLINE HCL 25 MG CAP PO SCH (21:37)
[2017-05-14] MEDS: PRAVASTATIN SOD 40 MG TAB PO SCH (21:38)
[2017-05-14] MEDS: SIROLIMUS 0.5 MG TAB PO SCH (21:39)
[2017-05-14] MEDS: SODIUM CHLORIDE 0.9% 1000ML 1,000 ML IV SCH (21:43)
[2017-05-15] VITALS (13 sets, daily range): BP systolic 130–145; BP diastolic 78–86; PULSE 76–87; TEMP 36.6–37.3; O2SAT 98–100
[2017-05-15 02:17] LABS: CALCIUM 7.6 mg/dl (8.5-10.1); CREATININE 2.17 mg/dl (0.60-1.40); POTASSIUM 6.1 mmol/L (3.5-5.1)
[2017-05-15] MEDS: SODIUM CHLORIDE 0.9% 1000ML 1,000 ML IV SCH (05:14)
[2017-05-15 06:48] LABS: HEMATOCRIT 27.3 % (42-52); HEMOGLOBIN 8.4 g/dL (14.0-18.0); MEAN CELL VOLUME 90.7 fL (80-100); MEAN CORPUSCULAR HEMOGLOBIN 27.9 pg (25-34); MEAN CORPUSCULAR HGB CONC 30.8 g/dl (32-36); MEAN PLATELET VOLUME 9.9 fL (7.4-10.4); PLATELET COUNT 56 K/uL (130-400); RED CELL DISTRIBUTION WIDTH CV 18.4 % (11.5-14.5); RED CELL DISTRIBUTION WIDTH SD 61.7 fL (36.4-46.3)
[2017-05-15 07:13] LABS: CALCIUM 7.7 mg/dl (8.5-10.1); CREATININE 2.05 mg/dl (0.60-1.40); POTASSIUM 5.9 mmol/L (3.5-5.1)
[2017-05-15] MEDS: ASPIRIN 81 MG ECTAB PO SCH (08:16)
[2017-05-15] MEDS: PANTOprazole SOD 40 MG TAB PO SCH (08:17)
[2017-05-15] MEDS: FLUDROCORTISONE ACETATE 0.1 MG TAB PO SCH (08:17)
[2017-05-15] MEDS: FAMOTIDINE 20 MG TAB PO SCH ×2 (08:17→20:46)
[2017-05-15] MEDS: NORTRIPTYLINE HCL 25 MG CAP PO SCH ×2 (08:17→20:48)
[2017-05-15] MEDS: AZATHIOPRINE 50 MG TAB PO SCH (08:17)
[2017-05-15] MEDS: SIROLIMUS 0.5 MG TAB PO SCH ×2 (08:18→20:48)
[2017-05-15] MEDS: TACROLIMUS 1 MG CAP PO SCH ×2 (08:18→20:45)
[2017-05-15] MEDS: PREGABALIN 150 MG CAP PO SCH ×2 (08:23→20:44)
[2017-05-15] MEDS: LORAZEPAM 1 MG TAB PO SCH ×2 (08:23→20:44)
[2017-05-15] MEDS ORDERED: SODIUM POLYST. SULF SUSP 15G/60ML PO ONE (09:00)
--- NOTE | 2017-05-15 10:59 | Hospitalist Progress Note ---
Hospitalist Progress Note Date of Service May 15, 2017. (Lydia Schneider CRNP) Subjective Pt evaluation today including: conversation w/ patient, physical exam, chart review, lab review, review of studies, review of inpatient medication list Voiding: no voiding problems Mr. Valiente did not have any particular symptoms at the time he was told to go to the hospital due to abnormal labs. He does complain of distended belly which he says has been persistent since he had C.diff. He had been having diarrhea up until his arrival at the hospital yesterday and has not had a bm since then. He is also experiencing quite a lot of pain from his herpetic neuropathy ROS Constitutional: no chills, aches, sweats or fever Respiratory: no sob,cough, sputum, or wheezing Cardiac: no chest pain, palpitations, edema, orthopnea or lightheadedness GI: see HPI : no dysuria or hesitancy Extremities: no joint pain or weakness Skin: no rash All other systems reviewed and negative (Lydia Schneider CRNP) Medications Medications Administered Medications (Trade) Dose Ordered Sig/Chrystal Route Start Time Stop Time Status Last Admin Dose Admin Sodium Chloride 500 ml @ 999 mls/hr Q31M STAT IV 05/14/17 14:22 05/14/17 14:52 DC 05/14/17 14:35 999 MLS/HR Albuterol/ Ipratropium (Duoneb) 3 ml NOW STAT INH 05/14/17 15:07 05/14/17 15:09 DC 05/14/17 15:21 3 ML Oxycodone HCl (Roxicodone Immediate Rel Tab) 5 mg NOW STAT PO 05/14/17 15:23 05/14/17 15:25 DC 05/14/17 15:48 5 MG Aspirin (Ecotrin Tab) 81 mg QAM PO 05/15/17 09:00 06/14/17 08:59 05/15/17 08:16 81 MG Azathioprine (Imuran Tab) 75 mg QAM PO 05/15/17 09:00 06/14/17 08:59 05/15/17 08:17 75 MG Famotidine (Pepcid Tab) 20 mg BID PO 05/14/17 21:00 06/13/17 20:59 4/10/18 08:17 20 MG Fludrocortisone Acetate (Florinef Tab) 0.1 mg QAM PO 05/15/17 09:00 06/14/17 08:59 05/15/17 08:17 0.1 MG Lorazepam (Ativan Tab) 1 mg BID PO 05/14/17 21:00 06/13/17 20:59 05/15/17 08:23 1 MG Nortriptyline HCl (Pamelor Cap) 25 mg BID PO 05/14/17 21:00 06/13/17 20:59 05/15/17 08:17 25 MG Oxycodone HCl (Roxicodone Immediate Rel Tab) 5 mg Q6 PRN PO 05/14/17 16:00 05/28/17 15:59 05/15/17 05:11 5 MG Pravastatin Sodium (Pravachol Tab) 40 mg HS PO 05/14/17 21:00 06/13/17 20:59 05/14/17 21:38 40 MG Prednisone (PredniSONE TAB) 5 mg QAM PO 05/15/17 09:00 06/14/17 08:59 05/15/17 08:18 5 MG Pregabalin (Lyrica Cap) 150 mg BID PO 05/14/17 21:00 06/13/17 20:59 05/15/17 08:23 150 MG Tacrolimus (Prograf Cap) 2 mg QPM PO 05/14/17 21:00 06/13/17 20:59 05/14/17 21:34 2 MG Tacrolimus (Prograf Cap) 2 mg QAM PO 05/15/17 09:00 06/14/17 08:59 05/15/17 08:18 2 MG Temazepam (Restoril Cap) 15 mg HS PO 05/14/17 21:00 06/13/17 20:59 05/14/17 21:32 15 MG Sirolimus (Sirolimus) 1 mg BID PO 05/14/17 21:00 06/13/17 20:59 05/15/17 08:18 1 MG Sodium Polystyrene Sulfonate (Kayexalate Susp) 15 gm NOW STAT PO 05/14/17 16:22 05/14/17 16:23 DC 05/14/17 16:44 15 GM Insulin Human Regular 10 units/ Syringe 10 ml @ 20 mls/min NOW ONCE IV 05/14/17 16:30 05/14/17 16:31 DC 05/14/17 16:47 20 MLS/MIN Dextrose (Dextrose 50% 50ML Syringe) 50 ml TODAY@1629 IV 05/14/17 16:29 05/14/17 23:59 DC 05/14/17 16:46 50 ML Pantoprazole Sodium (Protonix Tab) 40 mg QAM PO 05/15/17 09:00 06/14/17 08:59 05/15/17 08:17 40 MG Sodium Chloride 1,000 ml @ 125 mls/hr Q8H IV 05/14/17 20:30 05/15/17 12:29 05/15/17 05:14 125 MLS/HR Sodium Polystyrene Sulfonate (Kayexalate Susp) 15 gm 0900 ONCE PO 05/15/17 09:00 05/15/17 09:01 DC 05/15/17 10:38 15 GM (Lydia Schneider, JOSE) Objective Vital Signs Date Time Temp Pulse Resp B/P (MAP) Pulse Ox O2 Delivery O2 Flow Rate FiO2 05/15/17 07:31 37.3 81 20 135/78 (97) 99 Room Air 05/15/17 04:00 99 Room Air 05/15/17 03:42 36.7 81 18 136/86 (103) 99 05/15/17 00:10 36.6 76 18 130/83 (99) 98 05/15/17 00:01 99 Room Air 05/14/17 20:00 99 Room Air 05/14/17 19:17 36.5 89 18 127/85 (99) 99 Room Air 05/14/17 18:17 36.7 101 16 152/82 Room Air 05/14/17 17:34 36.7 101 16 152/82 (105) 99 Room Air 05/14/17 15:20 80 18 146/86 99 Room Air 05/14/17 14:01 84 05/14/17 13:50 100 Room Air 05/14/17 13:47 98 18 155/83 100 05/14/17 12:00 36.9 95 18 160/85 98 Room Air (Lydia Schneider ., JOSE) Physical Exam Notes: General: no distress Eyes: normal inspection, PERLL Respiratory: chest non tender, clear to auscultation, normal breath sounds, no respiratory distress, no accessory muscle use Cardiac: regular rate and rhythm, no rub or gallop, no murmur, no edema, no jvd GI/: active bowel sounds, no abd pain or tenderness, soft, distended Extremities: normal range of motion, normal strength, non tender Neuro/Psych: alert and oriented x 3, normal mood and affect Skin: normal color, dry (Lydia Schneider, JOSE) Laboratory Results Last 24 Hours Test 05/14/17 14:15 05/14/17 14:30 05/14/17 20:19 05/15/17 01:21 White Blood Count 1.78 K/uL Red Blood Count 3.09 M/uL Hemoglobin 8.9 g/dL Hematocrit 27.9 % Mean Corpuscular Volume 90.3 fL Mean Corpuscular Hemoglobin 28.8 pg Mean Corpuscular Hemoglobin Concent 31.9 g/dl RDW Standard Deviation 61.9 fL RDW Coefficient of Variation 18.6 % Platelet Count 66 K/uL Mean Platelet Volume 10.3 fL Sodium Level 137 mmol/L 137 mmol/L Potassium Level 6.2 mmol/L 6.1 mmol/L Chloride Level 108 mmol/L 110 mmol/L Carbon Dioxide Level 20 mmol/L 21 mmol/L Anion Gap 9.0 mmol/L 6.0 mmol/L Blood Urea Nitrogen 35 mg/dl 32 mg/dl Creatinine 2.29 mg/dl 2.17 mg/dl Est Creatinine Clear Calc Drug Dose 33.8 ml/min 35.7 ml/min Estimated GFR () 33.7 36.0 Estimated GFR (Non- 29.1 31.0 BUN/Creatinine Ratio 15.2 14.8 Random Glucose 112 mg/dl 123 mg/dl Calcium Level 8.4 mg/dl 7.6 mg/dl Magnesium Level 2.5 mg/dl Hepatitis C Antibody PRELIM POS Urine Color YELLOW Urine Appearance CLEAR Urine pH 6.5 Urine Specific [place] 1.013 Urine Protein NEG Urine Glucose (UA) NEG Urine Ketones NEG Urine Occult Blood NEG Urine Nitrite NEG Urine Bilirubin NEG Urine Urobilinogen NEG Urine Leukocyte Esterase NEG Bedside Glucose 181 mg/dl Test 05/15/17 05:59 White Blood Count 1.00 K/uL Red Blood Count 3.01 M/uL Hemoglobin 8.4 g/dL Hematocrit 27.3 % Mean Corpuscular Volume 90.7 fL Mean Corpuscular Hemoglobin 27.9 pg Mean Corpuscular Hemoglobin Concent 30.8 g/dl Platelet Count 56 K/uL Mean Platelet Volume 9.9 fL Neutrophils (%) (Auto) 67.0 % Lymphocytes (%) (Auto) 8.0 % Monocytes (%) (Auto) 10.0 % Eosinophils (%) (Auto) 6.0 % Basophils (%) (Auto) 1.0 % Neutrophils # (Auto) 0.67 K/uL Lymphocytes # (Auto) 0.08 K/uL Monocytes # (Auto) 0.10 K/uL Eosinophils # (Auto) 0.06 K/uL Basophils # (Auto) 0.01 K/uL RDW Standard Deviation 61.7 fL RDW Coefficient of Variation 18.4 % Immature Granulocyte % (Auto) 8.0 % Immature Granulocyte # (Auto) 0.08 K/uL Hyposegmented Neutrophils 2+ Hypogranular Neutrophils 2+ Large Platelets 2+ Poikilocytosis PRESENT Sodium Level 136 mmol/L Potassium Level 5.9 mmol/L Chloride Level 111 mmol/L Carbon Dioxide Level 20 mmol/L Anion Gap 5.0 mmol/L Blood Urea Nitrogen 29 mg/dl Creatinine 2.05 mg/dl Est Creatinine Clear Calc Drug Dose 37.8 ml/min Estimated GFR () 38.5 Estimated GFR (Non- 33.2 BUN/Creatinine Ratio 14.4 Random Glucose 143 mg/dl Calcium Level 7.7 mg/dl Magnesium Level 2.2 mg/dl (Lydia Schneider ., JOSE) Assessment and Plan Patient is a pleasant 66 y/o male, with PMHx of pulmonary fibrosis s/p bilateral lung transplant on chronic immunosuppressants, postherpetic neuralgia , h/o TIA, CAD, HLD, postherpetic neuralgia, anxiety, insomnia, and GERD, who presented to the ED for abnormal labs. Patient was having routine blood work and found to have JENNY/hyperkalemia. JENNY, hyperkalemia: - Continue cardiac monitoring - Follow EKG - EKG this am showed NSR - Repeat Kayexalate this am for K 5.9 - Follow PRP q8hrs and treat K level PRN - Consult nephrology for JENNY, appreciate recommendations - Hold Lasix - Continue Florinef - Creatinine improving - 2.05 today Hypermagnesemia: continue to hold Mag-Ox supplement, follow mag level Pulmonary fibrosis s/p bilateral lung transplant on chronic immunosuppressants, neutropenia, pancytopenia possibly drug induced: - Neutrophils 0.67 today - Neutropenic precautions - Consult hematology - Continue home inhalers - Continue Azathioprine, Prednisone, Prograf, Bactrim, Valcyte, Sirolimus, Cresemba Diarrhea, h/o c.diff: - Check c.diff - KUB for abdominal distention Postherpetic neuralgia: increase Oxycodone PRN to q4h, continue Lyrica Anxiety: Continue Nortriptyline, Ativan h/o TIA, CAD, HLD: Continue ASA, Pravastatin GERD: Continue Pepcid, Protonix in place of Prilosec while inpatient DVT prophylaxis: TEDs/SCDs, ambulation; hold chemical anticoagulation due to pancytopenia Code status: LEVEL I, FULL Dispo: From home- no discharge needs anticipated (Lydia Schneider CRNP) Supervising Note Dr. Burgess I performed a history and physical examination on the patient. I reviewed above note and agree with it. I discussed plan with APC and patient. During my face to face encounter with the patient, I answered all of the patient's questions. It appears patient has Drug-induced pancytopenia. This is likely chronic. Appreciate hem/onc recommendations. will hold off Neupogen at this time (Gaurav Burgess M.D.)
--- NOTE | 2017-05-15 11:50 | Nephrology Consultation ---
Nephrology Consultation Date & Providers Date of Consultation: May 15, 2017. Primary Care Provider: Hima Weldon M.D. Referring Provider: Reason for Consultation Chronic kidney disease, hyperkalemia History of Present Illness Mr. Valiente is a 66 year old white male who is seen at the request of the [facility] hospitalist service for evaluation of CKD and hyperkalemia. 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 He has been a senior care smoker and has developed COPD and idiopathic pulmonary fibrosis. In 03/23 he received a double lung transplant at [facility] in [place], [place]. His post-operative course was complicated by prolonged respiratory failure requiring tracheostomy and JENNY. His creatinine has since stabilized at 1.7 - 2.0. He has been on Florinef therapy due to adrenal insufficiency and chronic hyperkalemia. This was recently discontinued due to progressive hypertension w / SBP 170's. Mr. Valiente has chronic pain related to herpes zoster. He has been managed at the [facility] pain clinic. He reports a recent episode of C. Difficile colitis as well. Mr. Valiente is seen at [facility] transplant clinic every three months for follow up evaluation (Dr. Ronn Moran). He was recently diagnosed w/ chronic rejection and is being treated. Yesterday Mr. Valiente had blood work drawn for his upcoming transplant evaluation. He was found to have a creatinine of 2.2 w/ serum potassium of 6.2. 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 Since admission Mr. Valiente has received IV hydration, calcium, insulin and Kayexelate. Florinef was restarted. Serum potassium is high normal at 5.9 this am. Creatinine has returned to baseline at 2.0. Mr. Valiente c/o diarrhea this morning. He voices no other medical concerns. His immunosuppressive regimen consists of Prograf 1 mg 4 capsules in am/3 capsules in pm, Azathioprine 50 mg qD and Prednisone 5 mg qD. He remains on Bactrim DS one capsule MWF as PCP prophylaxis. Past Medical/Surgical History Medical: # IPF s/p double lung transplant [facility] 03/14/15 # Chronic pain related to post herpetic neuralgia # GERD # Hypercholesterolemia # Anxiety # h/o C. Difficile colitis Surgical: # Double lung transplant [facility] 03/14/15 Allergies Coded Allergies: Levofloxacin (Verified Allergy, Intermediate, REDNESS/RASH, 05/14/17) Adhesives (Verified Allergy, Unknown, SKIN IRRITATION/RASH, 05/14/17) Inpatient Medications Current Inpatient Medications Medications (Trade) Dose Ordered Sig/Chrystal Route Start Time Stop Time Status Last Admin Dose Admin Acetaminophen (Tylenol Tab) 650 mg Q4H PRN PO 05/14/17 16:00 06/13/17 15:59 Al Hydrox/Mg Hydrox/Simethicone (Maalox Max Susp) 15 ml Q4H PRN PO 05/14/17 16:00 06/13/17 15:59 Magnesium Hydroxide (Milk Of Magnesia Susp) 30 ml Q12H PRN PO 05/14/17 16:00 06/13/17 15:59 Ondansetron HCl (Zofran Inj) 4 mg Q6H PRN IV 05/14/17 16:00 06/13/17 15:59 Nitroglycerin (Nitrostat Tab) 0.4 mg UD PRN SL 05/14/17 16:00 06/13/17 15:59 Polyethylene (Miralax Powder Packet) 17 gm DAILY PRN PO 05/14/17 16:00 06/13/17 15:59 Albuterol (Ventolin Hfa Inhaler) 2 puffs QID PRN INH 05/14/17 16:00 06/13/17 15:59 Aspirin (Ecotrin Tab) 81 mg QAM PO 05/15/17 09:00 06/14/17 08:59 05/15/17 08:16 81 MG Azathioprine (Imuran Tab) 75 mg QAM PO 05/15/17 09:00 06/14/17 08:59 05/15/17 08:17 75 MG Docusate Sodium (coLACE CAP) 100 mg BID PRN PO 05/14/17 16:00 06/13/17 15:59 Famotidine (Pepcid Tab) 20 mg BID PO 05/14/17 21:00 06/13/17 20:59 05/15/17 08:17 20 MG Fludrocortisone Acetate (Florinef Tab) 0.1 mg QAM PO 05/15/17 09:00 06/14/17 08:59 05/15/17 08:17 0.1 MG Lorazepam (Ativan Tab) 1 mg BID PO 05/14/17 21:00 06/13/17 20:59 05/15/17 08:23 1 MG Nortriptyline HCl (Pamelor Cap) 25 mg BID PO 05/14/17 21:00 06/13/17 20:59 05/15/17 08:17 25 MG Pravastatin Sodium (Pravachol Tab) 40 mg HS PO 05/14/17 21:00 06/13/17 20:59 05/14/17 21:38 40 MG Prednisone (PredniSONE TAB) 5 mg QAM PO 05/15/17 09:00 06/14/17 08:59 05/15/17 08:18 5 MG Pregabalin (Lyrica Cap) 150 mg BID PO 05/14/17 21:00 06/13/17 20:59 05/15/17 08:23 150 MG Trimethoprim/ Sulfamethoxazole (Septra Ds 800/ 160MG Tab) 1 tab MoWeFr@0900 PO 05/16/17 09:00 06/15/17 08:59 Tacrolimus (Prograf Cap) 2 mg QPM PO 05/14/17 21:00 06/13/17 20:59 05/14/17 21:34 2 MG Tacrolimus (Prograf Cap) 2 mg QAM PO 05/15/17 09:00 06/14/17 08:59 05/15/17 08:18 2 MG Temazepam (Restoril Cap) 15 mg HS PO 05/14/17 21:00 06/13/17 20:59 05/14/17 21:32 15 MG Miscellaneous Information (Order Awaiting Action) 1 ea QS N/A 05/14/17 18:00 06/13/17 17:59 Polyethylene (Miralax Powder Packet) 17 gm DAILY PRN PO 05/14/17 16:00 06/13/17 15:59 Sirolimus (Sirolimus) 1 mg BID PO 05/14/17 21:00 06/13/17 20:59 05/15/17 08:18 1 MG Miscellaneous Information (Order Awaiting Action) 1 ea QS N/A 05/14/17 18:00 06/13/17 17:59 Pantoprazole Sodium (Protonix Tab) 40 mg QAM PO 05/15/17 09:00 06/14/17 08:59 05/15/17 08:17 40 MG Sodium Chloride 1,000 ml @ 125 mls/hr Q8H IV 05/14/17 20:30 05/15/17 12:29 05/15/17 05:14 125 MLS/HR Oxycodone HCl (Roxicodone Immediate Rel Tab) 5 mg Q4 PRN PO 05/15/17 11:00 05/28/17 15:59 UNV Family History FH: diabetes mellitus FH: heart disease Lung disease Negative for CKD/ESRD Social History Smoking Status: Never Smoker Drug Use: none Marital Status: Housing Status: lives with family, other Occupation: disabled, other . Retired from [employer]. Medically disabled. h/o tobacco use and IPF s/p double lung transplant. Occasional alcohol Review of Systems Constitutional: No fever Respiratory: No cough, No sputum Cardiovascular: No chest pain Abdomen: No pain, No nausea, No vomiting A complete review of systems was performed. Pertinent positives are noted above. All other systems are negative. Physical Exam Date Time Temp Pulse Resp B/P (MAP) Pulse Ox O2 Delivery O2 Flow Rate FiO2 05/15/17 08:01 99 Room Air 05/15/17 07:31 37.3 81 20 135/78 (97) 99 Room Air 05/15/17 04:00 99 Room Air 05/15/17 03:42 36.7 81 18 136/86 (103) 99 05/15/17 00:10 36.6 76 18 130/83 (99) 98 05/15/17 00:01 99 Room Air 05/14/17 20:00 99 Room Air 05/14/17 19:17 36.5 89 18 127/85 (99) 99 Room Air 05/14/17 18:17 36.7 101 16 152/82 Room Air 05/14/17 17:34 36.7 101 16 152/82 (105) 99 Room Air 05/14/17 15:20 80 18 146/86 99 Room Air 05/14/17 14:01 84 05/14/17 13:50 100 Room Air 05/14/17 13:47 98 18 155/83 100 05/14/17 12:00 36.9 95 18 160/85 98 Room Air General Appearance: no apparent distress Head: normocephalic, atraumatic Eyes: PERRL, EOMI ENT: pharynx normal, + pertinent finding Neck: supple, no adenopathy, no JVD, + pertinent finding (tracheostomy scar at base of neck) Respiratory/Chest: lungs clear, + pertinent finding (transverse incision from lung transplant well healed) Cardiovascular: regular rate, rhythm Abdomen/GI: normal bowel sounds, non tender, soft Extremities/Musculoskelatal: no calf tenderness, no pedal edema Neurologic/Psych: alert, oriented x 3 Skin: warm/dry Laboratory Results Last 24 Hours Test 05/14/17 14:15 05/14/17 14:30 05/14/17 20:19 05/15/17 01:21 White Blood Count 1.78 K/uL Red Blood Count 3.09 M/uL Hemoglobin 8.9 g/dL Hematocrit 27.9 % Mean Corpuscular Volume 90.3 fL Mean Corpuscular Hemoglobin 28.8 pg Mean Corpuscular Hemoglobin Concent 31.9 g/dl RDW Standard Deviation 61.9 fL RDW Coefficient of Variation 18.6 % Platelet Count 66 K/uL Mean Platelet Volume 10.3 fL Sodium Level 137 mmol/L 137 mmol/L Potassium Level 6.2 mmol/L 6.1 mmol/L Chloride Level 108 mmol/L 110 mmol/L Carbon Dioxide Level 20 mmol/L 21 mmol/L Anion Gap 9.0 mmol/L 6.0 mmol/L Blood Urea Nitrogen 35 mg/dl 32 mg/dl Creatinine 2.29 mg/dl 2.17 mg/dl Est Creatinine Clear Calc Drug Dose 33.8 ml/min 35.7 ml/min Estimated GFR () 33.7 36.0 Estimated GFR (Non- 29.1 31.0 BUN/Creatinine Ratio 15.2 14.8 Random Glucose 112 mg/dl 123 mg/dl Calcium Level 8.4 mg/dl 7.6 mg/dl Magnesium Level 2.5 mg/dl Hepatitis C Antibody PRELIM POS Urine Color YELLOW Urine Appearance CLEAR Urine pH 6.5 Urine Specific [place] 1.013 Urine Protein NEG Urine Glucose (UA) NEG Urine Ketones NEG Urine Occult Blood NEG Urine Nitrite NEG Urine Bilirubin NEG Urine Urobilinogen NEG Urine Leukocyte Esterase NEG Bedside Glucose 181 mg/dl Test 05/15/17 05:59 White Blood Count 1.00 K/uL Red Blood Count 3.01 M/uL Hemoglobin 8.4 g/dL Hematocrit 27.3 % Mean Corpuscular Volume 90.7 fL Mean Corpuscular Hemoglobin 27.9 pg Mean Corpuscular Hemoglobin Concent 30.8 g/dl Platelet Count 56 K/uL Mean Platelet Volume 9.9 fL Neutrophils (%) (Auto) 67.0 % Lymphocytes (%) (Auto) 8.0 % Monocytes (%) (Auto) 10.0 % Eosinophils (%) (Auto) 6.0 % Basophils (%) (Auto) 1.0 % Neutrophils # (Auto) 0.67 K/uL Lymphocytes # (Auto) 0.08 K/uL Monocytes # (Auto) 0.10 K/uL Eosinophils # (Auto) 0.06 K/uL Basophils # (Auto) 0.01 K/uL RDW Standard Deviation 61.7 fL RDW Coefficient of Variation 18.4 % Immature Granulocyte % (Auto) 8.0 % Immature Granulocyte # (Auto) 0.08 K/uL Hyposegmented Neutrophils 2+ Hypogranular Neutrophils 2+ Large Platelets 2+ Poikilocytosis PRESENT Sodium Level 136 mmol/L Potassium Level 5.9 mmol/L Chloride Level 111 mmol/L Carbon Dioxide Level 20 mmol/L Anion Gap 5.0 mmol/L Blood Urea Nitrogen 29 mg/dl Creatinine 2.05 mg/dl Est Creatinine Clear Calc Drug Dose 37.8 ml/min Estimated GFR () 38.5 Estimated GFR (Non- 33.2 BUN/Creatinine Ratio 14.4 Random Glucose 143 mg/dl Calcium Level 7.7 mg/dl Magnesium Level 2.2 mg/dl Impression (1) JENNY (acute kidney injury) (2) Chronic kidney disease, stage 3 (moderate) (3) Hyperkalemia (4) Bilateral lung tansplant Recommendations ACUTE KIDNEY INJURY: -- Resolved following IV hydration -- Stop IVF -- Will order urinalysis, UPCR, renal US CHRONIC KIDNEY DISEASE: -- Baseline creatinine 1.7 - 2.0 (stable since lung transplant) HYPERKALEMIA: -- [facility] records from GI show patient has been on Florinef since at least 2015 -- Agree with restarting Florinef 0.1 mg daily and monitoring blood pressure. If pressure increases may cut back to 0.05 mg daily -- Low potassium diet -- Patient does currently have a mild non-gap metabolic acidosis. Hold bicarbonate for now and monitor PRP GI: -- Patient reports diarrhea and recent h/o C. Difficile colitis. Primary service has ordered C. Difficile toxin assay. Results are pending
--- NOTE | 2017-05-15 11:52 | DIAGNOSTIC IMAGING REPORT ---
KUB HISTORY: abdominal distention COMPARISON: None. FINDINGS: Poststernotomy changes. The heart appears enlarged. Large amount well-formed stool within the proximal colon. Nondilated gas-filled loops of large and small bowel seen throughout the abdomen. No evidence for bowel obstruction. No renal calculi. No ureteral calculi. Calcifications in the deep pelvis likely represent phleboliths. No pneumoperitoneum or pneumatosis. IMPRESSION: 1. No evidence for bowel obstruction. 2. Large amount of well-formed stool within the proximal colon. Electronically signed by: Pierre Dubose M.D. 05/15/2017 11:51 AM Dictated Date/Time: 05/15/2017 11:49 AM
--- NOTE | 2017-05-15 12:18 | Clinical Documentation Query ---
[facility] : CLINICAL DOCUMENTATION QUERY Patient is a 66 year old male admitted for treatment of JENNY/hyperkalemia. Per EMR review, noted to be leukopenic, anemic, and thrombocytopenic. Notably, on chronic immunosuppressants including Azathioprine, Florinef, Prednisone, Sirolimus, and Tacrolimus. As appropriate, consider documentation as suggested below in order to capture the appropriate severity of illness and associated risk of mortality. Thank you. In your clinical opinion is this patient being managed for: ( x ) (Possible/Likely/Suspected) Drug-induced pancytopenia ( ) Not Agree ( ) Other explanation of clinical findings (Please Explain) ( ) Unable to determine (Please Define) ( ) Need to Discuss The medical record reflects the following clinical findings, treatment, and risk factors. Clinical Indicators: As above Treatment: Serial hematology Risk Factors: As above Please clarify and document your clinical opinion in the progress notes and discharge summary. Terms such as "probable", "suspected", "likely", "questionable", "possible", or "still to be ruled out" are acceptable. IF IN AGREEMENT, YOU MUST DOCUMENT ABOVE DIAGNOSTIC STATEMENT IN DAILY PROGRESS NOTES AND DISCHARGE SUMMARY. This document is not part of the patient's record. Thank You, Elton Israel, WILLIS [phone]
[2017-05-15 13:21] LABS: CALCIUM 7.8 mg/dl (8.5-10.1); CREATININE 1.95 mg/dl (0.60-1.40); POTASSIUM 5.6 mmol/L (3.5-5.1)
--- NOTE | 2017-05-15 13:42 | HEMATOLOGY CONSULTATION ---
DATE OF CONSULTATION: 05/15/2017 REASON FOR CONSULTATION: Pancytopenia. HISTORY OF PRESENT ILLNESS: Mr. Valiente is a pleasant 66-year-old gentleman who was admitted to [facility] on 05/14/2017 with an elevated potassium level. Apparently this was part of his routine surveillance, as he is a bilateral lung transplant patient on chronic immunosuppressants. Apparently, his potassium level was above 6 and recommended to come to the Emergency Room. For the most part, he is actually doing pretty well. Denies any overt symptomatology. He follows with the transplant physicians in [place] about every 3 months. I asked him if any physicians ever mentioned his peripheral blood cell counts and his response was "they don't tell me much." Therefore, it is very difficult to determine what his baseline peripheral counts are at baseline. He is on multiple agents including 2 immunosuppressants both of which can result in cytopenias. My assumption is his transplant physicians are aware and continue to follow his counts along with chemistries and drug levels. PAST MEDICAL HISTORY: Includes, 1. Pulmonary fibrosis, status post bilateral lung transplant. 2. History of TIA. 3. Coronary artery disease, hyperlipidemia, postherpetic neuralgia, anxiety, insomnia, and GERD. PAST SURGICAL HISTORY: Include bilateral lung transplants, arthroscopy of the right knee, cardiac catheterization, history of lumbar surgery, appendectomy, cervical spinal fusion. MEDICATIONS PRIOR TO ADMISSION: Aspirin 81 mg p.o. daily, azathioprine 75 mg q.a.m., famotidine 20 mg p.o. b.i.d., Florinef 0.1 mg p.o. daily, Lasix 40 mg p.o. daily, Cresemba 186 mg p.o. b.i.d., lorazepam 1 mg p.o. b.i.d., mag oxide 400 mg p.o. t.i.d., nortriptyline 25 mg p.o. b.i.d., omeprazole 20 mg p.o. b.i.d., pravastatin 40 mg p.o. daily, prednisone 5 mg p.o. q.a.m., Lyrica 150 mg p.o. b.i.d., Viagra 50 mg p.o. p.r.n., Sirolimus 1 mg p.o. b.i.d., Bactrim 800/160 mg 1 tablet p.o. thrice weekly, Prograf 3 capsules q.a.m. 2 capsules q.p.m., Restoril 15 mg p.o. at bedtime, Valcyte 450 mg p.o. daily. ALLERGIES: LEVOFLOXACIN AND ADHESIVES. SOCIAL HISTORY: The patient is , lives with his family. He is currently disabled. He is a nonsmoker, nondrinker. FAMILY HISTORY: Positive for diabetes mellitus, heart disease and pulmonary disease. REVIEW OF SYSTEMS: Essentially his review of systems are normal for the most part other than elevated potassium for which he was hospitalized. PHYSICAL EXAMINATION: GENERAL: Very pleasant 66-year-old gentleman awake, alert and conversant, in no acute distress. VITAL SIGNS: Temperature 36.6, pulse 87, respiratory rate 22, blood pressure 145/78. SKIN: Warm, dry, noncyanotic with petechia, rash or ecchymosis. HEENT: Head is atraumatic, normocephalic. EYES: PERRLA, EOMI. Sclerae nonicteric. No conjunctival injection. Nares patent without rhinorrhea or discharge. Throat clear. Tongue midline. Mucous membranes are moist. NECK: Supple without JVD or thyromegaly. LYMPH: No cervical, supraclavicular, axillary or inguinal palpable nodes. HEART: Regular rate and rhythm. No clicks, rubs, murmurs or gallops. LUNGS: Clear to auscultation bilaterally. ABDOMEN: Soft, nontender, nondistended, without palpable hepatosplenomegaly. EXTREMITIES: No calf tenderness or swelling. No clubbing, cyanosis or edema. NEUROLOGIC: Grossly intact. LABORATORY DATA: WBC count 1000, hemoglobin 8.4, platelet count 56,000. Chemistries 136, potassium 55.9, chloride 111, carbon dioxide 20, BUN 29, creatinine 2.05. IMPRESSION: 1. Acute renal injury. 2. Hyperkalemia. 3. Pancytopenia. 4. Hypomagnesemia. 5. Status post bilateral lung transplant. PLAN: I have been asked to see Mr. Valiente in consultation to render an opinion on his current pancytopenic state. Unfortunately, I have no prior labs, as he closely follows with the transplant folks in [place]. However, I suspect these counts are most likely chronic for him as many of these agents said that he is presently on particularly the immunosuppressants as well as antiviral and immunomodulating agents like azathioprine all can result in cytopenias. He is without fever at present and therefore, would not intervene or incorporate growth factor. Anemia specifically, believe there is a component of anemia of chronic disease/renal insufficiency and therefore, may gain benefit from supplemental erythropoietin. That could be managed as outpatient. This gentleman looks well otherwise and therefore, would hold off on any further diagnostics. There does not appear to be any evidence of immaturity emerging. Unfortunately, Mr. Valiente himself is not the best historian and therefore not particularly helpful in establishing in his peripheral blood counts were normal. Nonetheless, I would be more than happy to continue following him outpatient if nothing else to incorporate supplemental Procrit to improve the hemoglobin level. Ultimately, I conclude his cytopenias are most likely a medication-induced and chronic. Thank you very much for allowing me to participate in his care. If you have any questions or concerns, contact me at any time. DIOGO
--- NOTE | 2017-05-15 15:11 | DIAGNOSTIC IMAGING REPORT ---
ULTRASOUND KIDNEYS AND BLADDER CLINICAL HISTORY: Chronic kidney disease. COMPARISON STUDY: Abdominal CT dated 09/15/2010. TECHNIQUE: Real-time, grayscale, and color flow sonography of the kidneys and bladder is performed. Images are reviewed in the transverse and longitudinal planes. FINDINGS: Kidneys: The kidneys demonstrate mild cortical atrophy and are normal in echotexture. The right kidney measures 10.1 x 4.3 x 5.0 cm and the left kidney measures 10.8 x 5.2 x 4.8 cm. There is no hydronephrosis. No shadowing renal calculi are identified. A 1.4 cm cyst is noted in the left lower pole. There is no sonographic evidence of contour deforming renal mass lesion. No perinephric fluid is identified. Bladder: The bladder wall appears thickened and trabeculated suggesting chronic outlet obstruction. Ureteral jets were not seen. IMPRESSION: 1. The kidneys demonstrate mild cortical atrophy and are without hydronephrosis. 2. The bladder wall appears thickened and trabeculated suggesting chronic outlet obstruction. Electronically signed by: Nelson Hsu M.D. 05/15/2017 3:10 PM Dictated Date/Time: 05/15/2017 3:08 PM
[2017-05-15] MEDS: ONDANSETRON INJ 2 MG/ML 2 ML VIAL IV PRN (15:34)
[2017-05-15] MEDS: OXYCODONE HCL IR 5 MG TAB (IMMEDIATE RELEASE) PO PRN (17:30)
[2017-05-15] MEDS: TEMAZEPAM 15 MG CAP PO SCH (20:44)
[2017-05-15] MEDS: ACETAMINOPHEN 325 MG TAB PO PRN (20:45)
[2017-05-15] MEDS: PRAVASTATIN SOD 40 MG TAB PO SCH (20:49)
[2017-05-15 21:34] LABS: CALCIUM 7.4 mg/dl (8.5-10.1); CREATININE 1.89 mg/dl (0.60-1.40); POTASSIUM 5.5 mmol/L (3.5-5.1)
[2017-05-16] VITALS (12 sets, daily range): BP systolic 117–156; BP diastolic 76–89; PULSE 78–104; TEMP 36.6–36.9; O2SAT 97–99
[2017-05-16] MEDS: OXYCODONE HCL IR 5 MG TAB (IMMEDIATE RELEASE) PO PRN ×3 (02:04→18:25)
[2017-05-16 07:25] LABS: HEMATOCRIT 27.1 % (42-52); HEMOGLOBIN 8.5 g/dL (14.0-18.0); MEAN CELL VOLUME 90.3 fL (80-100); MEAN CORPUSCULAR HEMOGLOBIN 28.3 pg (25-34); MEAN CORPUSCULAR HGB CONC 31.4 g/dl (32-36); MEAN PLATELET VOLUME 9.2 fL (7.4-10.4); PLATELET COUNT 53 K/uL (130-400); RED CELL DISTRIBUTION WIDTH CV 18.3 % (11.5-14.5); RED CELL DISTRIBUTION WIDTH SD 60.9 fL (36.4-46.3); WHITE BLOOD COUNT 1.04 K/uL (4.8-10.8)
[2017-05-16 07:26] LABS: CALCIUM 7.6 mg/dl (8.5-10.1); CREATININE 1.86 mg/dl (0.60-1.40); POTASSIUM 5.2 mmol/L (3.5-5.1)
[2017-05-16] MEDS: ASPIRIN 81 MG ECTAB PO SCH (08:18)
[2017-05-16] MEDS: FLUDROCORTISONE ACETATE 0.1 MG TAB PO SCH (08:18)
[2017-05-16] MEDS: SULFAMETHOXAZOLE/TRIMETHOPRIM DS 800/160MG TAB PO SCH (08:19)
[2017-05-16] MEDS: PANTOprazole SOD 40 MG TAB PO SCH (08:19)
[2017-05-16] MEDS: SIROLIMUS 0.5 MG TAB PO SCH ×2 (08:19→20:12)
[2017-05-16] MEDS: TACROLIMUS 1 MG CAP PO SCH ×2 (08:19→20:14)
[2017-05-16] MEDS: AZATHIOPRINE 50 MG TAB PO SCH (08:19)
[2017-05-16] MEDS: NORTRIPTYLINE HCL 25 MG CAP PO SCH ×2 (08:19→20:13)
[2017-05-16] MEDS: LORAZEPAM 1 MG TAB PO SCH ×2 (08:23→20:18)
[2017-05-16] MEDS: PREGABALIN 150 MG CAP PO SCH ×2 (08:23→20:18)
[2017-05-16] MEDS ORDERED: FUROSEMIDE 20 MG TAB PO ONE (08:27)
--- NOTE | 2017-05-16 09:07 | HEME/ONC PROGRESS NOTE ---
DATE: 05/16/2017 DIAGNOSES: 1. Pancytopenia. 2. Acute renal injury. 3. Hyperkalemia. 4. Hypomagnesemia. 5. Status post bilateral lung transplant. SUBJECTIVE: I had the pleasure of seeing Milan at bedside again today. He is awake, alert and appropriate, feeling quite well. Review of his most recent peripheral counts reveal relatively stable but low WBCs and platelets. Reviewing his prior labs indicates this is most likely a reactive process. His WBCs and platelets were within normal limits earlier in May and reflected in April 2017 results as well. He has not generated a fever and again is receiving medication to correct elevated potassium level. I see nephrology has been consulted and following Mr. Valiente as well. He offers no complaints and nursing reports no overnight difficulties. PHYSICAL EXAMINATION: GENERAL: He is in no acute distress. VITAL SIGNS: Temperature 36.7, pulse 78, respirations 18, blood pressure 133/79. SKIN: Without rash or lesion. HEENT: Oral mucosa without erythema or ulceration. NECK: Supple. HEART: Regular rate and rhythm. No clicks, rubs or murmurs. LUNGS: Clear to auscultation bilaterally. ABDOMEN: Soft, nontender, nondistended. EXTREMITIES: No clubbing, cyanosis or edema. NEUROLOGIC: Grossly intact. LABORATORY DATA: WBC count 1040, hemoglobin 8.5, platelet count 53,000, absolute neutrophil count 720. Sodium 140, potassium 5.2, chloride 111, BUN 24, creatinine 1.886. IMPRESSION: 1. Pancytopenia. 2. Acute renal injury. 3. Hyperkalemia. 4. Status post bilateral lung transplant. PLAN: From hematologic standpoint, I will continue to observe Mr. Valiente. Upon review of prior labs done within the last several weeks, it is apparent his platelet count and WBCs have been normal and dropped subsequently during this hospitalization. As for his anemia, I believe he does suffer from anemia of chronic disease/renal insufficiency. I would prefer to manage Mr. Valiente as an outpatient. Would like to see him scheduled at [facility] within a couple weeks post-discharge. If WBCs and platelets fail to recover, bone marrow biopsy and aspiration would be indicated to rule out drug-induced aplasia. As long as he does not develop fever, I would like to hold off on giving him granulocyte colony stimulating growth factor. His platelet count is not low enough to warrant transfusional support. We will certainly entertain incorporating erythropoietin but again would prefer to do this as outpatient. Thank you for allowing me to participate in his care. If you have any questions or concerns, contact me at any time.
--- NOTE | 2017-05-16 09:22 | Nephrology Progress Note ---
Nephrology Progress Note Date of Service May 16, 2017. Chief Complaint Chronic kidney disease, hyperkalemia Subjective Mr. Valiente was seen & examined in his hospital room this morning. He denies diarrhea or abdominal pain overnight. He voices no new medical concerns. Review of Systems Constitutional: No fever Cardiovascular: No chest pain Respiratory: No dyspnea at rest Abdomen: No pain Genitourinary - Male: No dysuria, No gross hematuria Extremities: No leg edema A complete review of systems was performed. Pertinent positives are noted above. All other systems are negative. Vital Signs Last 8 Hrs Date Time Temp Pulse Resp B/P (MAP) Pulse Ox O2 Delivery O2 Flow Rate FiO2 05/16/17 09:08 99 Room Air 05/16/17 07:58 36.6 103 20 134/76 (95) 98 Room Air 05/16/17 04:00 98 Room Air 05/16/17 03:30 36.7 78 18 133/79 (97) 99 Last Recorded Weight Weight (Kilograms): 84.100 Physical Exam General Appearance: no apparent distress Head: normocephalic, atraumatic Eyes: PERRL, EOMI Neck: no adenopathy Respiratory/Chest: lungs clear, no respiratory distress Cardiovascular: regular rate, rhythm Abdomen/GI: normal bowel sounds, non tender, soft Extremities/Musculoskelatal: no pedal edema Neurologic/Psych: alert, oriented x 3 Family History FH: diabetes mellitus FH: heart disease Lung disease Negative for CKD/ESRD Social History Smoking Status: Former smoker Drug Use: none Marital Status: Housing Status: lives with family, other Occupation: disabled, other . Retired from [employer]. Medically disabled. h/o tobacco use and IPF s/p double lung transplant. Occasional alcohol Laboratory Results Past 24 Hours 05/16/17 06:36 Red Blood Count 3.00, Mean Corpuscular Volume 90.3, Mean Corpuscular Hemoglobin 28.3, Mean Corpuscular Hemoglobin Concent 31.4, Mean Platelet Volume 9.2, Neutrophils (%) (Auto) 69.2, Lymphocytes (%) (Auto) 7.7, Monocytes (%) (Auto) 5.8, Eosinophils (%) (Auto) 7.7, Basophils (%) (Auto) 0.0, Neutrophils # (Auto) 0.72, Lymphocytes # (Auto) 0.08, Monocytes # (Auto) 0.06, Eosinophils # (Auto) 0.08, Basophils # (Auto) 0.00 05/15/17 12:43 05/15/17 20:46 05/16/17 06:36 Test 05/15/17 12:43 05/15/17 20:46 05/16/17 06:36 05/16/17 06:38 Anion Gap 5.0 mmol/L (3-11) 7.0 mmol/L (3-11) 6.0 mmol/L (3-11) Est Creatinine Clear Calc Drug Dose 39.8 ml/min 41.0 ml/min 41.6 ml/min Estimated GFR () 40.9 42.5 43.3 Estimated GFR (Non- 35.3 36.7 37.4 BUN/Creatinine Ratio 13.7 (10-20) 12.5 (10-20) 12.8 (10-20) Calcium Level 7.8 mg/dl (8.5-10.1) 7.4 mg/dl (8.5-10.1) 7.6 mg/dl (8.5-10.1) White Blood Count 1.04 K/uL (4.8-10.8) Red Blood Count 3.00 M/uL (4.7-6.1) Hemoglobin 8.5 g/dL (14.0-18.0) Hematocrit 27.1 % (42-52) Mean Corpuscular Volume 90.3 fL (80-100) Mean Corpuscular Hemoglobin 28.3 pg (25-34) Mean Corpuscular Hemoglobin Concent 31.4 g/dl (32-36) Platelet Count 53 K/uL (130-400) Mean Platelet Volume 9.2 fL (7.4-10.4) Neutrophils (%) (Auto) 69.2 % Lymphocytes (%) (Auto) 7.7 % Monocytes (%) (Auto) 5.8 % Eosinophils (%) (Auto) 7.7 % Basophils (%) (Auto) 0.0 % Neutrophils # (Auto) 0.72 K/uL (1.4-6.5) Lymphocytes # (Auto) 0.08 K/uL (1.2-3.4) Monocytes # (Auto) 0.06 K/uL (0.11-0.59) Eosinophils # (Auto) 0.08 K/uL (0-0.5) Basophils # (Auto) 0.00 K/uL (0-0.2) RDW Standard Deviation 60.9 fL (36.4-46.3) RDW Coefficient of Variation 18.3 % (11.5-14.5) Immature Granulocyte % (Auto) 9.6 % Immature Granulocyte # (Auto) 0.10 K/uL (0.00-0.02) Dohle Bodies 1+ Platelet Estimate DECREASED Hypochromasia PRESENT Anisocytosis PRESENT Magnesium Level 2.1 mg/dl (1.8-2.4) Bedside Glucose 103 mg/dl (70-99) Allergies Coded Allergies: Levofloxacin (Verified Allergy, Intermediate, REDNESS/RASH, 05/14/17) Adhesives (Verified Allergy, Unknown, SKIN IRRITATION/RASH, 05/14/17) Medications Current Inpatient Medications Medications (Trade) Dose Ordered Sig/Chrystal Route Start Time Stop Time Status Last Admin Dose Admin Acetaminophen (Tylenol Tab) 650 mg Q4H PRN PO 05/14/17 16:00 06/13/17 15:59 05/15/17 20:45 650 MG Al Hydrox/Mg Hydrox/Simethicone (Maalox Max Susp) 15 ml Q4H PRN PO 05/14/17 16:00 06/13/17 15:59 Magnesium Hydroxide (Milk Of Magnesia Susp) 30 ml Q12H PRN PO 05/14/17 16:00 06/13/17 15:59 Ondansetron HCl (Zofran Inj) 4 mg Q6H PRN IV 05/14/17 16:00 06/13/17 15:59 05/15/17 15:34 4 MG Nitroglycerin (Nitrostat Tab) 0.4 mg UD PRN SL 05/14/17 16:00 06/13/17 15:59 Polyethylene (Miralax Powder Packet) 17 gm DAILY PRN PO 05/14/17 16:00 06/13/17 15:59 Albuterol (Ventolin Hfa Inhaler) 2 puffs QID PRN INH 05/14/17 16:00 06/13/17 15:59 Aspirin (Ecotrin Tab) 81 mg QAM PO 05/15/17 09:00 06/14/17 08:59 05/16/17 08:18 81 MG Azathioprine (Imuran Tab) 75 mg QAM PO 05/15/17 09:00 06/14/17 08:59 05/16/17 08:19 75 MG Docusate Sodium (coLACE CAP) 100 mg BID PRN PO 05/14/17 16:00 06/13/17 15:59 Famotidine (Pepcid Tab) 20 mg BID PO 05/14/17 21:00 06/13/17 20:59 05/15/17 20:46 20 MG Fludrocortisone Acetate (Florinef Tab) 0.1 mg QAM PO 05/15/17 09:00 06/14/17 08:59 05/16/17 08:18 0.1 MG Lorazepam (Ativan Tab) 1 mg BID PO 05/14/17 21:00 06/13/17 20:59 05/16/17 08:23 1 MG Nortriptyline HCl (Pamelor Cap) 25 mg BID PO 05/14/17 21:00 06/13/17 20:59 05/16/17 08:19 25 MG Pravastatin Sodium (Pravachol Tab) 40 mg HS PO 05/14/17 21:00 06/13/17 20:59 05/15/17 20:49 40 MG Prednisone (PredniSONE TAB) 5 mg QAM PO 05/15/17 09:00 06/14/17 08:59 05/16/17 08:19 5 MG Pregabalin (Lyrica Cap) 150 mg BID PO 05/14/17 21:00 06/13/17 20:59 05/16/17 08:23 150 MG Trimethoprim/ Sulfamethoxazole (Septra Ds 800/ 160MG Tab) 1 tab MoWeFr@0900 PO 05/16/17 09:00 06/15/17 08:59 05/16/17 08:19 1 TAB Tacrolimus (Prograf Cap) 2 mg QPM PO 05/14/17 21:00 06/13/17 20:59 05/15/17 20:45 2 MG Tacrolimus (Prograf Cap) 2 mg QAM PO 05/15/17 09:00 06/14/17 08:59 05/16/17 08:19 2 MG Temazepam (Restoril Cap) 15 mg HS PO 05/14/17 21:00 06/13/17 20:59 05/15/17 20:44 15 MG Miscellaneous Information (Order Awaiting Action) 1 ea QS N/A 05/14/17 18:00 06/13/17 17:59 Polyethylene (Miralax Powder Packet) 17 gm DAILY PRN PO 05/14/17 16:00 06/13/17 15:59 Sirolimus (Sirolimus) 1 mg BID PO 05/14/17 21:00 06/13/17 20:59 05/16/17 08:19 1 MG Miscellaneous Information (Order Awaiting Action) 1 ea QS N/A 05/14/17 18:00 06/13/17 17:59 Pantoprazole Sodium (Protonix Tab) 40 mg QAM PO 05/15/17 09:00 06/14/17 08:59 05/16/17 08:19 40 MG Oxycodone HCl (Roxicodone Immediate Rel Tab) 5 mg Q4 PRN PO 05/15/17 11:00 05/28/17 15:59 05/16/17 02:04 5 MG Furosemide (Lasix Tab) 20 mg QAM PO 05/16/17 09:00 06/15/17 08:59 Impression (1) JENNY (acute kidney injury) (2) Chronic kidney disease, stage 3 (moderate) (3) Hyperkalemia (4) Bilateral lung tansplant (5) Pancytopenia Recommendations ACUTE KIDNEY INJURY: -- Resolved. -- Urinalysis negative for protein or blood -- UPCR is pending -- Renal US report 05/15: 10.5 cm kidneys without stone, mass, cyst. Bladder is thick and trabeculated. CHRONIC KIDNEY DISEASE: -- Baseline creatinine 1.7 - 2.0 (stable since lung transplant) : -- Thick trabeculated bladder on US. Will need outpatient evaluation w/ [facility] HYPERKALEMIA: -- [facility] records from GI show patient has been on Florinef since at least 2015 -- Continue Florinef 0.1 mg daily. Blood pressure remains acceptable at this time. -- Will start Furosemide 20 mg each morning to help correct hyperkalemia and regulate blood pressure -- Low potassium diet GI: -- Patient reports recent h/o C. Difficile colitis. Primary service has ordered C. Difficile toxin assay. Results are pending
[2017-05-16] MEDS: FUROSEMIDE 20 MG TAB PO SCH (09:38)
[2017-05-16] MEDS: FAMOTIDINE 20 MG TAB PO SCH ×2 (09:39→20:12)
--- NOTE | 2017-05-16 13:42 | Hospitalist Progress Note ---
Hospitalist Progress Note Date of Service May 16, 2017. (Lydia Schneider ., JOSE) Subjective Pt evaluation today including: conversation w/ patient, physical exam, chart review, lab review, review of inpatient medication list Voiding: no voiding problems Mr. Valiente feels well today. His stomach is still a bit distended but otherwise he has no complaints. ROS Constitutional: no chills, aches, sweats or fever Respiratory: no sob,cough, sputum, or wheezing Cardiac: no chest pain, palpitations, edema, orthopnea or lightheadedness GI: no abdominal pain, nausea, vomiting, diarrhea or constipation : no dysuria or hesitancy Extremities: no joint pain or weakness Skin: no rash All other systems reviewed and negative (Lydia Schneider .JOSE) Medications Medications Administered Medications (Trade) Dose Ordered Sig/Chrystal Route Start Time Stop Time Status Last Admin Dose Admin Sodium Chloride 500 ml @ 999 mls/hr Q31M STAT IV 05/14/17 14:22 05/14/17 14:52 DC 05/14/17 14:35 999 MLS/HR Albuterol/ Ipratropium (Duoneb) 3 ml NOW STAT INH 05/14/17 15:07 05/14/17 15:09 DC 05/14/17 15:21 3 ML Oxycodone HCl (Roxicodone Immediate Rel Tab) 5 mg NOW STAT PO 05/14/17 15:23 05/14/17 15:25 DC 05/14/17 15:48 5 MG Acetaminophen (Tylenol Tab) 650 mg Q4H PRN PO 05/14/17 16:00 06/13/17 15:59 05/15/17 20:45 650 MG Ondansetron HCl (Zofran Inj) 4 mg Q6H PRN IV 05/14/17 16:00 06/13/17 15:59 05/15/17 15:34 4 MG Aspirin (Ecotrin Tab) 81 mg QAM PO 05/15/17 09:00 06/14/17 08:59 05/16/17 08:18 81 MG Azathioprine (Imuran Tab) 75 mg QAM PO 05/15/17 09:00 06/14/17 08:59 05/16/17 08:19 75 MG Famotidine (Pepcid Tab) 20 mg BID PO 05/14/17 21:00 06/13/17 20:59 05/16/17 09:39 20 MG Fludrocortisone Acetate (Florinef Tab) 0.1 mg QAM PO 05/15/17 09:00 06/14/17 08:59 05/16/17 08:18 0.1 MG Lorazepam (Ativan Tab) 1 mg BID PO 05/14/17 21:00 06/13/17 20:59 05/16/17 08:23 1 MG Nortriptyline HCl (Pamelor Cap) 25 mg BID PO 05/14/17 21:00 06/13/17 20:59 05/16/17 08:19 25 MG Oxycodone HCl (Roxicodone Immediate Rel Tab) 5 mg Q6 PRN PO 05/14/17 16:00 05/15/17 10:52 DC 05/15/17 05:11 5 MG Pravastatin Sodium (Pravachol Tab) 40 mg HS PO 05/14/17 21:00 06/13/17 20:59 05/15/17 20:49 40 MG Prednisone (PredniSONE TAB) 5 mg QAM PO 05/15/17 09:00 06/14/17 08:59 05/16/17 08:19 5 MG Pregabalin (Lyrica Cap) 150 mg BID PO 05/14/17 21:00 06/13/17 20:59 05/16/17 08:23 150 MG Trimethoprim/ Sulfamethoxazole (Septra Ds 800/ 160MG Tab) 1 tab MoWeFr@0900 PO 05/16/17 09:00 06/15/17 08:59 05/16/17 08:19 1 TAB Tacrolimus (Prograf Cap) 2 mg QPM PO 05/14/17 21:00 06/13/17 20:59 05/15/17 20:45 2 MG Tacrolimus (Prograf Cap) 2 mg QAM PO 05/15/17 09:00 06/14/17 08:59 05/16/17 08:19 2 MG Temazepam (Restoril Cap) 15 mg HS PO 05/14/17 21:00 06/13/17 20:59 05/15/17 20:44 15 MG Sirolimus (Sirolimus) 1 mg BID PO 05/14/17 21:00 06/13/17 20:59 05/16/17 08:19 1 MG Sodium Polystyrene Sulfonate (Kayexalate Susp) 15 gm NOW STAT PO 05/14/17 16:22 05/14/17 16:23 DC 05/14/17 16:44 15 GM Insulin Human Regular 10 units/ Syringe 10 ml @ 20 mls/min NOW ONCE IV 05/14/17 16:30 05/14/17 16:31 DC 05/14/17 16:47 20 MLS/MIN Dextrose (Dextrose 50% 50ML Syringe) 50 ml TODAY@1629 IV 05/14/17 16:29 05/14/17 23:59 DC 05/14/17 16:46 50 ML Pantoprazole Sodium (Protonix Tab) 40 mg QAM PO 05/15/17 09:00 06/14/17 08:59 05/16/17 08:19 40 MG Sodium Chloride 1,000 ml @ 125 mls/hr Q8H IV 05/14/17 20:30 05/15/17 12:29 DC 05/15/17 05:14 125 MLS/HR Sodium Polystyrene Sulfonate (Kayexalate Susp) 15 gm 0900 ONCE PO 05/15/17 09:00 05/15/17 09:01 DC 05/15/17 10:38 15 GM Oxycodone HCl (Roxicodone Immediate Rel Tab) 5 mg Q4 PRN PO 05/15/17 11:00 05/28/17 15:59 05/16/17 02:04 5 MG Furosemide (Lasix Tab) 20 mg QAM PO 05/16/17 09:00 06/15/17 08:59 05/16/17 09:38 20 MG Furosemide (Lasix Tab) 20 mg NOW ONCE PO 05/16/17 08:27 05/16/17 08:28 DC 05/16/17 09:38 20 MG (Lydia Schneider CRNP) Objective Vital Signs Date Time Temp Pulse Resp B/P (MAP) Pulse Ox O2 Delivery O2 Flow Rate FiO2 05/16/17 12:28 36.6 104 20 128/82 (97) 98 Room Air 05/16/17 12:12 99 Room Air 05/16/17 09:08 99 Room Air 05/16/17 07:58 36.6 103 20 134/76 (95) 98 Room Air 05/16/17 04:00 98 Room Air 05/16/17 03:30 36.7 78 18 133/79 (97) 99 05/16/17 00:01 98 Room Air 05/15/17 23:41 36.6 80 16 131/80 (97) 98 Room Air 05/15/17 20:00 99 Room Air 05/15/17 19:08 36.7 86 18 135/83 (100) 99 Room Air 05/15/17 16:00 99 Room Air 05/15/17 15:33 37.0 80 20 142/85 (104) 100 Room Air (Lydia Schneider CRNP) Physical Exam Notes: General: no distress Eyes: normal inspection, PERLL Respiratory: chest non tender, clear to auscultation, normal breath sounds, no respiratory distress, no accessory muscle use Cardiac: regular rate and rhythm, no rub or gallop, no murmur, no edema, no jvd GI/: active bowel sounds, no abd pain or tenderness, soft, non distended Extremities: normal range of motion, normal strength, non tender Neuro/Psych: alert and oriented x 3, normal mood and affect Skin: normal color, dry (Lydia Schneider CRNP) Laboratory Results Last 24 Hours Test 05/15/17 20:46 05/16/17 06:36 05/16/17 06:38 Sodium Level 139 mmol/L 140 mmol/L Potassium Level 5.5 mmol/L 5.2 mmol/L Chloride Level 110 mmol/L 111 mmol/L Carbon Dioxide Level 22 mmol/L 23 mmol/L Anion Gap 7.0 mmol/L 6.0 mmol/L Blood Urea Nitrogen 24 mg/dl 24 mg/dl Creatinine 1.89 mg/dl 1.86 mg/dl Est Creatinine Clear Calc Drug Dose 41.0 ml/min 41.6 ml/min Estimated GFR () 42.5 43.3 Estimated GFR (Non- 36.7 37.4 BUN/Creatinine Ratio 12.5 12.8 Random Glucose 147 mg/dl 96 mg/dl Calcium Level 7.4 mg/dl 7.6 mg/dl White Blood Count 1.04 K/uL Red Blood Count 3.00 M/uL Hemoglobin 8.5 g/dL Hematocrit 27.1 % Mean Corpuscular Volume 90.3 fL Mean Corpuscular Hemoglobin 28.3 pg Mean Corpuscular Hemoglobin Concent 31.4 g/dl Platelet Count 53 K/uL Mean Platelet Volume 9.2 fL Neutrophils (%) (Auto) 69.2 % Lymphocytes (%) (Auto) 7.7 % Monocytes (%) (Auto) 5.8 % Eosinophils (%) (Auto) 7.7 % Basophils (%) (Auto) 0.0 % Neutrophils # (Auto) 0.72 K/uL Lymphocytes # (Auto) 0.08 K/uL Monocytes # (Auto) 0.06 K/uL Eosinophils # (Auto) 0.08 K/uL Basophils # (Auto) 0.00 K/uL RDW Standard Deviation 60.9 fL RDW Coefficient of Variation 18.3 % Immature Granulocyte % (Auto) 9.6 % Immature Granulocyte # (Auto) 0.10 K/uL Dohle Bodies 1+ Platelet Estimate DECREASED Hypochromasia PRESENT Anisocytosis PRESENT Magnesium Level 2.1 mg/dl Bedside Glucose 103 mg/dl (Lydia Schneider ., JOSE) Assessment and Plan Patient is a pleasant 66 y/o male, with PMHx of pulmonary fibrosis s/p bilateral lung transplant on chronic immunosuppressants, postherpetic neuralgia , h/o TIA, CAD, HLD, postherpetic neuralgia, anxiety, insomnia, and GERD, who presented to the ED for abnormal labs. Patient was having routine blood work and found to have JENNY/hyperkalemia. JENNY, hyperkalemia: - Continue cardiac monitoring - Follow EKG - EKG this am showed NSR - K this morning improving - 5.2 - Consult nephrology for JENNY, appreciate recommendations - Continue Florinef - continue to hold lasix - Creatinine improving -1.86, baseline around 1.7 Hypermagnesemia: continue to hold Mag-Ox supplement, follow mag level Pulmonary fibrosis s/p bilateral lung transplant on chronic immunosuppressants, neutropenia, pancytopenia possibly drug induced: - Neutrophils 0.72 today - continue Neutropenic precautions - Consult hematology - Continue home inhalers - Continue Azathioprine, Prednisone, Prograf, Bactrim, Valcyte, Sirolimus, Cresemba Diarrhea, h/o c.diff: - no further diarrhea - KUB for abdominal distention - no sbo Postherpetic neuralgia: continue Oxycodone PRN to q4h, continue Lyrica Anxiety: Continue Nortriptyline, Ativan h/o TIA, CAD, HLD: Continue ASA, Pravastatin GERD: Continue Pepcid, Protonix in place of Prilosec while inpatient DVT prophylaxis: TEDs/SCDs, ambulation; hold chemical anticoagulation due to pancytopenia Code status: LEVEL I, FULL Dispo: From home- no discharge needs anticipated (Lydia Schneider, JOSE) Supervising Note Dr. Burgess I performed a history and physical examination on the patient. I reviewed above note and agree with it. I discussed plan with APC and patient. During my face to face encounter with the patient, I answered all of the patient's questions. It appears patient has Drug-induced pancytopenia. This is likely chronic. Appreciate hem/onc recommendations. Continue Azathioprine, Prednisone, Prograf, Bactrim, Valcyte, Sirolimus, Cresemba. Patient currently does not have signs of sepsis. Due to immunosuppression and organ transplant, will hold off neupogen. (Gaurav Burgess M.D.)
[2017-05-16] MEDS: ACETAMINOPHEN 325 MG TAB PO PRN (14:05)
[2017-05-16 14:24] LABS: CALCIUM 7.7 mg/dl (8.5-10.1); CREATININE 2.12 mg/dl (0.60-1.40); POTASSIUM 5.1 mmol/L (3.5-5.1)
[2017-05-16] MEDS: PRAVASTATIN SOD 40 MG TAB PO SCH (20:13)
[2017-05-16] MEDS: TEMAZEPAM 15 MG CAP PO SCH (20:18)
[2017-05-17] VITALS (7 sets, daily range): BP systolic 120–159; BP diastolic 74–94; PULSE 86–108; TEMP 36.7–37; O2SAT 96–98
[2017-05-17] MEDS: ONDANSETRON INJ 2 MG/ML 2 ML VIAL IV PRN ×2 (07:38→20:17)
[2017-05-17] MEDS: SIROLIMUS 0.5 MG TAB PO SCH ×2 (07:40→20:19)
[2017-05-17] MEDS: TACROLIMUS 1 MG CAP PO SCH ×2 (07:40→20:17)
[2017-05-17] MEDS: FAMOTIDINE 20 MG TAB PO SCH ×2 (07:40→20:18)
[2017-05-17] MEDS: FLUDROCORTISONE ACETATE 0.1 MG TAB PO SCH (07:40)
[2017-05-17] MEDS: NORTRIPTYLINE HCL 25 MG CAP PO SCH ×2 (07:40→20:18)
[2017-05-17] MEDS: AZATHIOPRINE 50 MG TAB PO SCH (07:40)
[2017-05-17] MEDS: PREGABALIN 150 MG CAP PO SCH ×2 (07:40→20:16)
[2017-05-17] MEDS: PANTOprazole SOD 40 MG TAB PO SCH (07:41)
[2017-05-17] MEDS: LORAZEPAM 1 MG TAB PO SCH ×2 (07:41→20:15)
[2017-05-17] MEDS: ASPIRIN 81 MG ECTAB PO SCH (07:41)
[2017-05-17] MEDS: OXYCODONE HCL IR 5 MG TAB (IMMEDIATE RELEASE) PO PRN ×3 (07:46→17:17)
[2017-05-17 07:56] LABS: HEMATOCRIT 30.9 % (42-52); HEMOGLOBIN 9.5 g/dL (14.0-18.0); MEAN CELL VOLUME 90.4 fL (80-100); MEAN CORPUSCULAR HEMOGLOBIN 27.8 pg (25-34); MEAN CORPUSCULAR HGB CONC 30.7 g/dl (32-36); MEAN PLATELET VOLUME 12.2 fL (7.4-10.4); PLATELET COUNT 76 K/uL (130-400); RED CELL DISTRIBUTION WIDTH CV 17.8 % (11.5-14.5); RED CELL DISTRIBUTION WIDTH SD 58.8 fL (36.4-46.3); WHITE BLOOD COUNT 0.82 K/uL (4.8-10.8)
[2017-05-17 08:08] LABS: CALCIUM 8.2 mg/dl (8.5-10.1); CREATININE 2.05 mg/dl (0.60-1.40); POTASSIUM 4.5 mmol/L (3.5-5.1)
[2017-05-17] MEDS ORDERED: NURSING VERBAL MED ORDER ONE ×2 (08:30→12:00)
--- NOTE | 2017-05-17 09:14 | HEME/ONC PROGRESS NOTE ---
DATE: 05/17/2017 DIAGNOSES: 1. Pancytopenia. 2. Acute renal injury. 3. Hyperkalemia. 4. Hypomagnesemia. 5. Status post bilateral lung transplant. SUBJECTIVE: I examined [place] at bedside again this morning. He continues to feel well, awake, alert and appropriate. His peripheral blood counts again reflect a mild decrease in WBCs while improvement with platelet count and stabilization of hemoglobin. Clinically, he continues to feel well, devoid of fever. Review of his medications revealed no significant changes. I am a bit puzzled why his WBCs have not recovered well, platelets seem to be improving. PHYSICAL EXAMINATION: GENERAL: He is in no acute distress. VITAL SIGNS: Temperature 36.7, pulse 86, respiratory rate 18, blood pressure 146/86. SKIN: Without rash or lesion. HEENT: Atraumatic. His oral mucosa without erythema or ulceration. No evidence of thrush. NECK: Supple. HEART: Regular rate and rhythm. No clicks, rubs, murmurs, or gallops. LUNGS: Clear to auscultation bilaterally. ABDOMEN: Soft, nontender, nondistended, without palpable hepatosplenomegaly. EXTREMITIES: No calf tenderness or swelling. No clubbing, cyanosis, or edema. LABORATORY DATA: WBC count 820, hemoglobin 9.5, platelet count 76,000. Sodium 137, potassium 4.5, chloride 108, BUN 25, creatinine 2.05. IMPRESSION: 1. Pancytopenia/neutropenia. 2. Acute renal injury. 3. Hyperkalemia. 4. Status post bilateral lung transplant. PLAN: I am a bit puzzled with Mr. Valiente's clinical picture. I clearly felt his drop in peripheral blood counts was certainly reactive. Review of previous WBCs and platelets suggest this, they were normal within the last couple of weeks and have steadily dropped thereafter. I am equally puzzled by the apparent recovery of his platelet count without evidence of white cell recovery. He has been without fever, however. I am definitely a bit more nervous about allowing him to drop further. We will incorporate Neupogen 480 mcg today and tomorrow. I advised Mr. Valiente a bone marrow biopsy and aspiration may be in his future to rule out again aplasia versus possible myelodysplasia. Otherwise, continue medical management as prescribed. We will continue to observe him. Thank you very much for allowing me to participate in his care.
[2017-05-17] MEDS: FILGRASTIM 480 MCG/1.6 ML VIAL SQ SCH (09:53)
[2017-05-17] MEDS ORDERED: CEFEPIME IV 2,000 MG in DEXTROSE 5% 100ML 100 ML IV SCH (10:30)
[2017-05-17] MEDS ORDERED: VANCOMYCIN CONSULT ACTIVE PRN (10:30)
[2017-05-17] MEDS ORDERED: CEFEPIME CONSULT ACTIVE PRN (10:57)
[2017-05-17] MEDS: SODIUM CHLORIDE 0.9% 1000ML 1,000 ML IV SCH ×2 (11:17→23:07)
--- NOTE | 2017-05-17 11:34 | DIAGNOSTIC IMAGING REPORT ---
CHEST ONE VIEW PORTABLE HISTORY: 66 years-old Male aches, chills, left lower lobe crackles acute fever and chills COMPARISON: Chest radiograph 03/14/2017 TECHNIQUE: Portable AP view of the chest FINDINGS: Cardiac silhouette is mildly enlarged, unchanged. Lower sternotomy wires are present along with multiple central mediastinal surgical clips. There is no pneumothorax or large pleural effusion. Linear subsegmental bibasilar opacities suggest atelectasis. There is mildly improved aeration of the left midlung with persistent left lung base and perihilar mixed interstitial and alveolar opacities. Bones of the chest appear grossly intact. IMPRESSION: 1. Mixed interstitial and alveolar opacities within the left perihilar distribution and left lung base are suspicious for pneumonia. 2. Cardiomegaly without overt pulmonary edema. The above report was generated using voice recognition software. It may contain grammatical, syntax or spelling errors. Electronically signed by: Carlos Manuel Reed M.D. 05/17/2017 11:33 AM Dictated Date/Time: 05/17/2017 11:31 AM
[2017-05-17 11:53] LABS: ALBUMIN 3.3 gm/dl (3.4-5.0); ALKALINE PHOSPHATASE 63 U/L (45-117); ALT/SGPT 12 U/L (12-78); AST/SGOT 16 U/L (15-37); TOTAL PROTEIN 6.8 gm/dl (6.4-8.2)
[2017-05-17] MEDS ORDERED: VANCOMYCIN IV 1,750 MG in SODIUM CHLORIDE 0.9% 500ML 500 ML IV ONE (12:00)
--- NOTE | 2017-05-17 12:06 | Nephrology Progress Note ---
Nephrology Progress Note Date of Service May 17, 2017. Chief Complaint Chronic kidney disease, hyperkalemia Subjective Mr. Valiente was seen & examined in his hospital room this morning. He complains of a sore throat but voices no further medical concerns. He is tolerating Florinef and Furosemide without complication. Review of Systems Constitutional: No fever Cardiovascular: No chest pain Respiratory: No dyspnea at rest Abdomen: No pain, No nausea, No vomiting Extremities: No leg edema A complete review of systems was performed. Pertinent positives are noted above. All other systems are negative. Vital Signs Last 8 Hrs Date Time Temp Pulse Resp B/P (MAP) Pulse Ox O2 Delivery O2 Flow Rate FiO2 05/17/17 10:48 37.0 105 18 159/94 (115) 96 Room Air 05/17/17 08:00 Room Air 05/17/17 07:53 36.7 86 18 146/86 (106) 97 Last Recorded Weight Weight (Kilograms): 84.100 Physical Exam General Appearance: no apparent distress Head: normocephalic, atraumatic Eyes: PERRL, EOMI Neck: no adenopathy Respiratory/Chest: lungs clear, no respiratory distress Cardiovascular: regular rate, rhythm Abdomen/GI: normal bowel sounds, non tender, soft Extremities/Musculoskelatal: no calf tenderness, no pedal edema Neurologic/Psych: alert, oriented x 3 Family History FH: diabetes mellitus FH: heart disease Lung disease Negative for CKD/ESRD Social History Smoking Status: Former smoker Drug Use: none Marital Status: Housing Status: lives with family, other Occupation: disabled, other . Retired from [employer]. Medically disabled. h/o tobacco use and IPF s/p double lung transplant. Occasional alcohol Laboratory Results Past 24 Hours 05/17/17 07:18 Red Blood Count 3.42, Mean Corpuscular Volume 90.4, Mean Corpuscular Hemoglobin 27.8, Mean Corpuscular Hemoglobin Concent 30.7, Mean Platelet Volume 12.2 05/16/17 13:50 05/17/17 07:18 Test 05/16/17 13:50 05/17/17 07:18 05/17/17 11:09 Anion Gap 4.0 mmol/L (3-11) 6.0 mmol/L (3-11) Est Creatinine Clear Calc Drug Dose 36.5 ml/min 37.7 ml/min Estimated GFR () 37.0 38.5 Estimated GFR (Non- 31.9 33.2 BUN/Creatinine Ratio 11.8 (10-20) 12.1 (10-20) Calcium Level 7.7 mg/dl (8.5-10.1) 8.2 mg/dl (8.5-10.1) White Blood Count 0.82 K/uL (4.8-10.8) Red Blood Count 3.42 M/uL (4.7-6.1) Hemoglobin 9.5 g/dL (14.0-18.0) Hematocrit 30.9 % (42-52) Mean Corpuscular Volume 90.4 fL (80-100) Mean Corpuscular Hemoglobin 27.8 pg (25-34) Mean Corpuscular Hemoglobin Concent 30.7 g/dl (32-36) Platelet Count 76 K/uL (130-400) Mean Platelet Volume 12.2 fL (7.4-10.4) RDW Standard Deviation 58.8 fL (36.4-46.3) RDW Coefficient of Variation 17.8 % (11.5-14.5) Neutrophils % (Manual) 75.0 % Lymphocytes % (Manual) 2.0 % Monocytes % (Manual) 7.0 % Eosinophils % (Manual) 11.0 % Metamyelocytes % 5.0 % Neutrophils # (Manual) 0.62 K/uL (1.4-6.5) Total Absolute Neutrophils 0.62 K/uL (1.4-6.5) Lymphocytes # (Manual) 0.02 K/uL (1.2-3.4) Total Absolute Lymphocytes 0.02 K/uL (1.2-3.4) Monocytes # (Manual) 0.06 K/uL (0.11-0.59) Eosinophils # (Manual) 0.09 K/uL (0-0.5) Metamyelocytes # 0.04 K/uL (0-0) Hyposegmented Neutrophils 1+ Magnesium Level 2.1 mg/dl (1.8-2.4) Lactic Acid Level 1.7 mmol/L (0.4-2.0) Total Bilirubin 0.3 mg/dl (0.2-1) Direct Bilirubin < 0.1 mg/dl (0-0.2) Aspartate Amino Transf (AST/SGOT) 16 U/L (15-37) Alanine Aminotransferase (ALT/SGPT) 12 U/L (12-78) Alkaline Phosphatase 63 U/L (45-117) Total Protein 6.8 gm/dl (6.4-8.2) Albumin 3.3 gm/dl (3.4-5.0) Allergies Coded Allergies: Levofloxacin (Verified Allergy, Intermediate, REDNESS/RASH, 05/14/17) Adhesives (Verified Allergy, Unknown, SKIN IRRITATION/RASH, 05/14/17) Medications Current Inpatient Medications Medications (Trade) Dose Ordered Sig/Chrystal Route Start Time Stop Time Status Last Admin Dose Admin Acetaminophen (Tylenol Tab) 650 mg Q4H PRN PO 05/14/17 16:00 06/13/17 15:59 05/16/17 14:05 650 MG Al Hydrox/Mg Hydrox/Simethicone (Maalox Max Susp) 15 ml Q4H PRN PO 05/14/17 16:00 06/13/17 15:59 Magnesium Hydroxide (Milk Of Magnesia Susp) 30 ml Q12H PRN PO 05/14/17 16:00 06/13/17 15:59 Ondansetron HCl (Zofran Inj) 4 mg Q6H PRN IV 05/14/17 16:00 06/13/17 15:59 05/17/17 07:38 4 MG Nitroglycerin (Nitrostat Tab) 0.4 mg UD PRN SL 05/14/17 16:00 06/13/17 15:59 Polyethylene (Miralax Powder Packet) 17 gm DAILY PRN PO 05/14/17 16:00 06/13/17 15:59 Albuterol (Ventolin Hfa Inhaler) 2 puffs QID PRN INH 05/14/17 16:00 06/13/17 15:59 Aspirin (Ecotrin Tab) 81 mg QAM PO 05/15/17 09:00 06/14/17 08:59 05/17/17 07:41 81 MG Azathioprine (Imuran Tab) 75 mg QAM PO 05/15/17 09:00 06/14/17 08:59 05/17/17 07:40 75 MG Docusate Sodium (coLACE CAP) 100 mg BID PRN PO 05/14/17 16:00 06/13/17 15:59 Famotidine (Pepcid Tab) 20 mg BID PO 05/14/17 21:00 06/13/17 20:59 05/17/17 07:40 20 MG Fludrocortisone Acetate (Florinef Tab) 0.1 mg QAM PO 05/15/17 09:00 06/14/17 08:59 05/17/17 07:40 0.1 MG Lorazepam (Ativan Tab) 1 mg BID PO 05/14/17 21:00 06/13/17 20:59 05/17/17 07:41 1 MG Nortriptyline HCl (Pamelor Cap) 25 mg BID PO 05/14/17 21:00 06/13/17 20:59 05/17/17 07:40 25 MG Pravastatin Sodium (Pravachol Tab) 40 mg HS PO 05/14/17 21:00 06/13/17 20:59 05/16/17 20:13 40 MG Prednisone (PredniSONE TAB) 5 mg QAM PO 05/15/17 09:00 06/14/17 08:59 05/17/17 07:40 5 MG Pregabalin (Lyrica Cap) 150 mg BID PO 05/14/17 21:00 06/13/17 20:59 05/17/17 07:40 150 MG Trimethoprim/ Sulfamethoxazole (Septra Ds 800/ 160MG Tab) 1 tab MoWeFr@0900 PO 05/16/17 09:00 06/15/17 08:59 05/16/17 08:19 1 TAB Tacrolimus (Prograf Cap) 2 mg QPM PO 05/14/17 21:00 06/13/17 20:59 05/16/17 20:14 2 MG Tacrolimus (Prograf Cap) 2 mg QAM PO 05/15/17 09:00 06/14/17 08:59 05/17/17 07:40 2 MG Temazepam (Restoril Cap) 15 mg HS PO 05/14/17 21:00 06/13/17 20:59 05/16/17 20:18 15 MG Miscellaneous Information (Order Awaiting Action) 1 ea QS N/A 05/14/17 18:00 06/13/17 17:59 Polyethylene (Miralax Powder Packet) 17 gm DAILY PRN PO 05/14/17 16:00 06/13/17 15:59 Sirolimus (Sirolimus) 1 mg BID PO 05/14/17 21:00 06/13/17 20:59 05/17/17 07:40 1 MG Miscellaneous Information (Order Awaiting Action) 1 ea QS N/A 05/14/17 18:00 06/13/17 17:59 Pantoprazole Sodium (Protonix Tab) 40 mg QAM PO 05/15/17 09:00 06/14/17 08:59 05/17/17 07:41 40 MG Oxycodone HCl (Roxicodone Immediate Rel Tab) 5 mg Q4 PRN PO 05/15/17 11:00 05/28/17 15:59 05/17/17 07:46 5 MG Furosemide (Lasix Tab) 20 mg QAM PO 05/16/17 09:00 06/15/17 08:59 Future hold 05/16/17 09:38 20 MG Filgrastim (Neupogen Sq) 480 mcg DAILY SQ 05/17/17 09:00 05/18/17 09:01 05/17/17 09:53 480 MCG Vancomycin HCl 1750 mg/Sodium Chloride 535 ml @ 200 mls/hr 1200 ONCE IV 05/17/17 12:00 05/17/17 14:40 05/17/17 11:37 200 MLS/HR Miscellaneous Information (Consult) 1 ea UD PRN N/A 05/17/17 10:30 06/16/17 10:29 Cefepime HCl (Consult) 1 ea UD PRN N/A 05/17/17 10:57 06/16/17 10:56 Cefepime HCl 2000 mg/Syringe 20 ml @ 5 mls/min Q12H IV 05/17/17 11:00 05/24/17 10:59 Sodium Chloride 1,000 ml @ 100 mls/hr Q10H IV 05/17/17 11:00 06/16/17 10:59 05/17/17 11:17 100 MLS/HR Miscellaneous Information (Nursing Verbal Med Order) 1 ea ONE ONCE N/A 05/17/17 12:00 05/17/17 12:01 UNV Impression (1) JENNY (acute kidney injury) (2) Chronic kidney disease, stage 3 (moderate) (3) Hyperkalemia (4) Bilateral lung tansplant (5) Pancytopenia Recommendations ACUTE KIDNEY INJURY: -- Resolved. -- Urinalysis negative for protein or blood -- UPCR is pending -- Renal US report 05/15: 10.5 cm kidneys without stone, mass, cyst. Bladder is thick and trabeculated. CHRONIC KIDNEY DISEASE: -- Baseline creatinine 1.7 - 2.0 (stable since lung transplant) : -- Thick trabeculated bladder on US. Will need outpatient evaluation w/ [facility] HYPERKALEMIA: -- [facility] records from GI show patient has been on Florinef since at least 2015 -- Continue Florinef 0.1 mg daily. Blood pressure remains acceptable at this time. -- Continue Furosemide 20 mg each morning to help correct hyperkalemia and regulate blood pressure -- Low potassium diet GI: -- Patient reports recent h/o C. Difficile colitis. Primary service has ordered C. Difficile toxin assay. Results are pending PANCYTOPENIA: -- Hematology is evaluating -- Recommend consulting w/ lung transplant program as well
[2017-05-17] MEDS: CEFEPIME IV 2,000 MG in SYRINGE 7.5 ML IV SCH ×2 (12:07→23:07)
[2017-05-17] MEDS ORDERED: ALBUT/IPRATROP 3MG/0.5MG NEB 3 ML VIAL INH PRN (12:15)
--- NOTE | 2017-05-17 12:26 | Pharmacy Progress Note ---
Pharmacy Abx Initial Consult Date of Service May 17, 2017. Pharmacy Dosing Scope Date of Consult: 05/17/17 Consultation requested by: Lydia GARCIA Pharmacy is consulted to initiate Vancomycin IV dosing therapy, order appropriate labs and adjust drug dose/frequency. Subjective The patient is a 66 year old male admitted on May 14, 2017 at 16:11. Objective Height (Feet): 5 Height (Inches): 7.00 Weight (Kilograms): 84.100 Vital Signs (Past 12Hrs) Vital Signs Past 12 Hours Date Time Temp Pulse Resp B/P (MAP) Pulse Ox O2 Delivery O2 Flow Rate FiO2 05/17/17 10:48 37.0 105 18 159/94 (115) 96 Room Air 05/17/17 08:00 Room Air 05/17/17 07:53 36.7 86 18 146/86 (106) 97 Lab Results (24Hrs) Laboratory Tests (24 Hours) Test 05/17/17 07:18 05/17/17 11:09 White Blood Count 0.82 K/uL (4.8-10.8) *L Red Blood Count 3.42 M/uL (4.7-6.1) L Hemoglobin 9.5 g/dL (14.0-18.0) L Hematocrit 30.9 % (42-52) L Mean Corpuscular Volume 90.4 fL (80-100) Mean Corpuscular Hemoglobin 27.8 pg (25-34) Mean Corpuscular Hemoglobin Concent 30.7 g/dl (32-36) L Platelet Count 76 K/uL (130-400) L Mean Platelet Volume 12.2 fL (7.4-10.4) H Lactic Acid Level 1.7 mmol/L (0.4-2.0) Procalcitonin 0.12 ng/ml (0-0.5) Micro Results Date/Time Source Procedure Growth Status 05/17/17 11:09 Blood Blood Culture Pending Received 05/17/17 10:45 Blood Blood Culture Pending Received Risk Factors for Resistance * Immunocompromised - on chronic immunosuppressants s/p B/L lung transplant. On chronic Bactrim therapy 3 days per week for PCP prophylaxis. Assessment & Plan Assessment 66 year old male with possible pneumonia and neutropenia. Plan Vancomycin for treatment of Pneumonia Vancomycin IV * Estimated PK parameters: Ke = 0.033 /hr, t1/2 = 21 hrs, Vd = 0.7 L/kg * Loading dose: 1750 mg (20 mg/kg) x1 given today at 1137. * Maintenance dose: 1250 mg IV (15 mg/kg) every 24 hours ordered to start tomorrow AM. * Goal trough level for possible Pneumonia: 15 to 20 mcg/mL * Trough Vancomycin level ordered for 05/20/17 before dose at 0800. * A less than traditional dose ahave been selected due to likelihood of drug accumulation in patient with h/o CKD. Pharmacy will continue to follow and will adjust dose/frequency as necessary. Thank you.
[2017-05-17] MEDS: OSELTAMIVIR PHOSPHATE SUSP 30 MG/5 ML UDP PO SCH ×2 (13:20→20:22)
[2017-05-17] MEDS ORDERED: VANCOMYCIN TROUGH ONE (13:30)
--- NOTE | 2017-05-17 14:46 | Hospitalist Progress Note ---
Hospitalist Progress Note Date of Service May 17, 2017. Subjective Pt evaluation today including: conversation w/ patient, physical exam, chart review, lab review, review of inpatient medication list Voiding: no voiding problems Mr. Valiente has a neutrophil count of 0.62 today. He is also reporting aches and chills though he remains afebrile. He has a cough but he is not sure if it is productive, he is not sob. Additionally, he is having an increase in his herpetic neuralgia pain today ROS Constitutional: see HPI Respiratory: see HPI Cardiac: no chest pain, palpitations, edema, orthopnea or lightheadedness GI: no abdominal pain, nausea, vomiting, diarrhea or constipation : no dysuria or hesitancy Extremities: no joint pain or weakness Skin: no rash All other systems reviewed and negative Medications Medications Administered Medications (Trade) Dose Ordered Sig/Chrystal Route Start Time Stop Time Status Last Admin Dose Admin Sodium Chloride 500 ml @ 999 mls/hr Q31M STAT IV 05/14/17 14:22 05/14/17 14:52 DC 05/14/17 14:35 999 MLS/HR Albuterol/ Ipratropium (Duoneb) 3 ml NOW STAT INH 05/14/17 15:07 05/14/17 15:09 DC 05/14/17 15:21 3 ML Oxycodone HCl (Roxicodone Immediate Rel Tab) 5 mg NOW STAT PO 05/14/17 15:23 05/14/17 15:25 DC 05/14/17 15:48 5 MG Acetaminophen (Tylenol Tab) 650 mg Q4H PRN PO 05/14/17 16:00 06/13/17 15:59 05/16/17 14:05 650 MG Ondansetron HCl (Zofran Inj) 4 mg Q6H PRN IV 05/14/17 16:00 06/13/17 15:59 05/17/17 07:38 4 MG Aspirin (Ecotrin Tab) 81 mg QAM PO 05/15/17 09:00 06/14/17 08:59 05/17/17 07:41 81 MG Azathioprine (Imuran Tab) 75 mg QAM PO 05/15/17 09:00 06/14/17 08:59 05/17/17 07:40 75 MG Famotidine (Pepcid Tab) 20 mg BID PO 05/14/17 21:00 06/13/17 20:59 05/17/17 07:40 20 MG Fludrocortisone Acetate (Florinef Tab) 0.1 mg QAM PO 05/15/17 09:00 06/14/17 08:59 05/17/17 07:40 0.1 MG Lorazepam (Ativan Tab) 1 mg BID PO 05/14/17 21:00 06/13/17 20:59 05/17/17 07:41 1 MG Nortriptyline HCl (Pamelor Cap) 25 mg BID PO 05/14/17 21:00 06/13/17 20:59 05/17/17 07:40 25 MG Oxycodone HCl (Roxicodone Immediate Rel Tab) 5 mg Q6 PRN PO 05/14/17 16:00 05/15/17 10:52 DC 05/15/17 05:11 5 MG Pravastatin Sodium (Pravachol Tab) 40 mg HS PO 05/14/17 21:00 06/13/17 20:59 05/16/17 20:13 40 MG Prednisone (PredniSONE TAB) 5 mg QAM PO 05/15/17 09:00 06/14/17 08:59 05/17/17 07:40 5 MG Pregabalin (Lyrica Cap) 150 mg BID PO 05/14/17 21:00 06/13/17 20:59 05/17/17 07:40 150 MG Trimethoprim/ Sulfamethoxazole (Septra Ds 800/ 160MG Tab) 1 tab MoWeFr@0900 PO 05/16/17 09:00 06/15/17 08:59 05/16/17 08:19 1 TAB Tacrolimus (Prograf Cap) 2 mg QPM PO 05/14/17 21:00 06/13/17 20:59 05/16/17 20:14 2 MG Tacrolimus (Prograf Cap) 2 mg QAM PO 05/15/17 09:00 06/14/17 08:59 05/17/17 07:40 2 MG Temazepam (Restoril Cap) 15 mg HS PO 05/14/17 21:00 06/13/17 20:59 05/16/17 20:18 15 MG Sirolimus (Sirolimus) 1 mg BID PO 05/14/17 21:00 06/13/17 20:59 05/17/17 07:40 1 MG Sodium Polystyrene Sulfonate (Kayexalate Susp) 15 gm NOW STAT PO 05/14/17 16:22 05/14/17 16:23 DC 05/14/17 16:44 15 GM Insulin Human Regular 10 units/ Syringe 10 ml @ 20 mls/min NOW ONCE IV 05/14/17 16:30 05/14/17 16:31 DC 05/14/17 16:47 20 MLS/MIN Dextrose (Dextrose 50% 50ML Syringe) 50 ml TODAY@1629 IV 05/14/17 16:29 05/14/17 23:59 DC 05/14/17 16:46 50 ML Pantoprazole Sodium (Protonix Tab) 40 mg QAM PO 05/15/17 09:00 06/14/17 08:59 05/17/17 07:41 40 MG Sodium Chloride 1,000 ml @ 125 mls/hr Q8H IV 05/14/17 20:30 05/15/17 12:29 DC 05/15/17 05:14 125 MLS/HR Sodium Polystyrene Sulfonate (Kayexalate Susp) 15 gm 0900 ONCE PO 05/15/17 09:00 05/15/17 09:01 DC 05/15/17 10:38 15 GM Oxycodone HCl (Roxicodone Immediate Rel Tab) 5 mg Q4 PRN PO 05/15/17 11:00 05/28/17 15:59 05/17/17 12:55 5 MG Furosemide (Lasix Tab) 20 mg QAM PO 05/16/17 09:00 06/15/17 08:59 Future hold 05/16/17 09:38 20 MG Furosemide (Lasix Tab) 20 mg NOW ONCE PO 05/16/17 08:27 05/16/17 08:28 DC 05/16/17 09:38 20 MG Filgrastim (Neupogen Sq) 480 mcg DAILY SQ 05/17/17 09:00 05/18/17 09:01 05/17/17 09:53 480 MCG Vancomycin HCl 1750 mg/Sodium Chloride 535 ml @ 200 mls/hr 1200 ONCE IV 05/17/17 12:00 05/17/17 14:40 05/17/17 11:37 200 MLS/HR Cefepime HCl 2000 mg/Syringe 20 ml @ 5 mls/min Q12H IV 05/17/17 11:00 05/24/17 10:59 05/17/17 12:07 5 MLS/MIN Sodium Chloride 1,000 ml @ 100 mls/hr Q10H IV 05/17/17 11:00 06/16/17 10:59 05/17/17 11:17 100 MLS/HR Oseltamivir Phosphate (Tamiflu Susp) 30 mg BID PO 05/17/17 13:30 05/22/17 13:29 05/17/17 13:20 30 MG Objective Vital Signs Date Time Temp Pulse Resp B/P (MAP) Pulse Ox O2 Delivery O2 Flow Rate FiO2 05/17/17 13:39 37.0 107 20 136/82 (100) 97 Room Air 05/17/17 10:48 37.0 105 18 159/94 (115) 96 Room Air 05/17/17 08:00 Room Air 05/17/17 07:53 36.7 86 18 146/86 (106) 97 05/17/17 00:00 Room Air 05/16/17 23:31 36.6 87 20 151/88 (109) 97 Room Air 05/16/17 18:21 Room Air 05/16/17 18:07 36.9 93 16 156/89 (111) 98 Room Air 05/16/17 17:43 36.7 99 20 97 05/16/17 16:00 97 Room Air 05/16/17 15:38 36.7 99 20 117/79 (92) 97 Room Air Physical Exam Notes: General: unwell appearing Eyes: normal inspection, PERLL Respiratory: chest non tender, fine crackles bilateral bases, no respiratory distress, no accessory muscle use Cardiac: regular rate and rhythm, no rub or gallop, no murmur, no edema, no jvd GI/: active bowel sounds, no abd pain or tenderness, soft, non distended Extremities: normal range of motion, normal strength, non tender Neuro/Psych: alert and oriented x 3, normal mood and affect, Skin: normal color, dry Laboratory Results Last 24 Hours Test 05/17/17 07:18 05/17/17 11:09 White Blood Count 0.82 K/uL Red Blood Count 3.42 M/uL Hemoglobin 9.5 g/dL Hematocrit 30.9 % Mean Corpuscular Volume 90.4 fL Mean Corpuscular Hemoglobin 27.8 pg Mean Corpuscular Hemoglobin Concent 30.7 g/dl Platelet Count 76 K/uL Mean Platelet Volume 12.2 fL RDW Standard Deviation 58.8 fL RDW Coefficient of Variation 17.8 % Neutrophils % (Manual) 75.0 % Lymphocytes % (Manual) 2.0 % Monocytes % (Manual) 7.0 % Eosinophils % (Manual) 11.0 % Metamyelocytes % 5.0 % Neutrophils # (Manual) 0.62 K/uL Total Absolute Neutrophils 0.62 K/uL Lymphocytes # (Manual) 0.02 K/uL Total Absolute Lymphocytes 0.02 K/uL Monocytes # (Manual) 0.06 K/uL Eosinophils # (Manual) 0.09 K/uL Metamyelocytes # 0.04 K/uL Hyposegmented Neutrophils 1+ Sodium Level 137 mmol/L Potassium Level 4.5 mmol/L Chloride Level 108 mmol/L Carbon Dioxide Level 23 mmol/L Anion Gap 6.0 mmol/L Blood Urea Nitrogen 25 mg/dl Creatinine 2.05 mg/dl Est Creatinine Clear Calc Drug Dose 37.7 ml/min Estimated GFR () 38.5 Estimated GFR (Non- 33.2 BUN/Creatinine Ratio 12.1 Random Glucose 92 mg/dl Calcium Level 8.2 mg/dl Magnesium Level 2.1 mg/dl Lactic Acid Level 1.7 mmol/L Total Bilirubin 0.3 mg/dl Direct Bilirubin < 0.1 mg/dl Aspartate Amino Transf (AST/SGOT) 16 U/L Alanine Aminotransferase (ALT/SGPT) 12 U/L Alkaline Phosphatase 63 U/L Total Protein 6.8 gm/dl Albumin 3.3 gm/dl Procalcitonin 0.12 ng/ml Assessment and Plan Patient is a pleasant 66 y/o male, with PMHx of pulmonary fibrosis s/p bilateral lung transplant on chronic immunosuppressants, postherpetic neuralgia , h/o TIA, CAD, HLD, postherpetic neuralgia, anxiety, insomnia, and GERD, who presented to the ED for abnormal labs. Patient was having routine blood work and found to have JENNY/hyperkalemia. Pulmonary fibrosis s/p bilateral lung transplant on chronic immunosuppressants, neutropenia, pancytopenia possibly drug induced, left lobe pneumonia - Neutrophils 0.62 today, patient with aches and chills and malaise - discussed with hematology as well as transplant center at [facility] [address] [place] where patient had his transplant. Agreed that patient should be transferred, however there is no bed until tomorrow morning. - Blood cultures, sputum culture, cefepime, vanco, NSS @ 100 ml/hr, lactic acid wnl, transferred to telemetry - preliminary Hep C antibody screen positive - LFTs wnl - tamiflu per [facility] recommendation - Chest xray showed left lower lobe and perihilar opacities - continue Neutropenic precautions - Consulted hematology - Continue home inhalers - Continue Azathioprine, Prednisone, Prograf, Bactrim, Valcyte, Sirolimus, Cresemba JENNY, hyperkalemia: - resolved - K this morning 4.5 - Consult nephrology for JENNY, appreciate recommendations - Continue Florinef - continue lasix - Creatinine near baseline of 1.7-2.0 Hypermagnesemia: continue to hold Mag-Ox supplement, follow mag level Diarrhea, h/o c.diff: - no further diarrhea - KUB for abdominal distention - no sbo Postherpetic neuralgia: continue Oxycodone PRN to q4h, continue Lyrica Anxiety: Continue Nortriptyline, Ativan h/o TIA, CAD, HLD: Continue ASA, Pravastatin GERD: Continue Pepcid, Protonix in place of Prilosec while inpatient DVT prophylaxis: TEDs/SCDs, ambulation; hold chemical anticoagulation due to pancytopenia Code status: LEVEL I, FULL Dispo: patient will transfer to [facility] tomorrow
[2017-05-17] MEDS: ALBUT/IPRATROP 3MG/0.5MG NEB 3 ML VIAL INH SCH ×2 (16:03→20:05)
[2017-05-17] MEDS: ACETAMINOPHEN 325 MG TAB PO PRN (20:17)
[2017-05-17] MEDS: PRAVASTATIN SOD 40 MG TAB PO SCH (20:18)
[2017-05-17] MEDS: TEMAZEPAM 15 MG CAP PO SCH (20:22)
[2017-05-18] VITALS (8 sets, daily range): BP systolic 125–134; BP diastolic 72–80; PULSE 67–114; TEMP 36.6–37.8; O2SAT 91–98
[2017-05-18] MEDS: ALBUT/IPRATROP 3MG/0.5MG NEB 3 ML VIAL INH SCH ×3 (02:00→14:12)
[2017-05-18] MEDS ORDERED: VANCOMYCIN IV 1,250 MG in SODIUM CHLORIDE 0.9% 250ML 250 ML IV SCH (08:00)
[2017-05-18] MEDS: LORAZEPAM 1 MG TAB PO SCH (08:07)
[2017-05-18] MEDS: SODIUM CHLORIDE 0.9% 1000ML 1,000 ML IV SCH (08:07)
[2017-05-18] MEDS: PREGABALIN 150 MG CAP PO SCH (08:07)
[2017-05-18] MEDS: ONDANSETRON INJ 2 MG/ML 2 ML VIAL IV PRN (08:07)
[2017-05-18] MEDS: FILGRASTIM 480 MCG/1.6 ML VIAL SQ SCH (08:07)
[2017-05-18] MEDS: OXYCODONE HCL IR 5 MG TAB (IMMEDIATE RELEASE) PO PRN (08:07)
[2017-05-18] MEDS: OSELTAMIVIR PHOSPHATE SUSP 30 MG/5 ML UDP PO SCH (08:08)
[2017-05-18] MEDS: SULFAMETHOXAZOLE/TRIMETHOPRIM DS 800/160MG TAB PO SCH (08:08)
[2017-05-18] MEDS: AZATHIOPRINE 50 MG TAB PO SCH (08:08)
[2017-05-18] MEDS: NORTRIPTYLINE HCL 25 MG CAP PO SCH (08:08)
[2017-05-18] MEDS: SIROLIMUS 0.5 MG TAB PO SCH (08:08)
[2017-05-18] MEDS: FLUDROCORTISONE ACETATE 0.1 MG TAB PO SCH (08:08)
[2017-05-18] MEDS: PANTOprazole SOD 40 MG TAB PO SCH (08:09)
[2017-05-18] MEDS: FUROSEMIDE 20 MG TAB PO SCH (08:09)
[2017-05-18] MEDS: TACROLIMUS 1 MG CAP PO SCH (08:09)
[2017-05-18] MEDS: FAMOTIDINE 20 MG TAB PO SCH (08:09)
[2017-05-18] MEDS: ASPIRIN 81 MG ECTAB PO SCH (08:09)
--- NOTE | 2017-05-18 08:15 | HEME/ONC PROGRESS NOTE ---
DATE: 05/18/2017 DIAGNOSES: 1. Questionable hepatitis C antibodies. 2. Pancytopenia. 3. Acute renal injury. 4. Hyperkalemia. 5. Hypomagnesemia. 6. Status post bilateral lung transplant. SUBJECTIVE: Milan was seen at bedside again this morning. He still has a fair amount of stomach distention with epigastric pain. Peripheral blood counts are not available at the time of dictation. He did receive a single dose of Neupogen yesterday. He voices no complaints or concerns regarding the injection. According to hospitalist note, this gentleman will be transferred to [facility] today. I certainly agree with this move. In light of the discovery of possible hepatitis antibodies, this could explain the patient's myelosuppression and precipitous drop of WBCs and platelets. Mr. Valiente offers no complaints otherwise. PHYSICAL EXAMINATION: GENERAL: He is in no acute distress. VITAL SIGNS: Temperature 37.4, pulse 67, respiratory rate 20, blood pressure 133/73. SKIN: Without rash or lesion. HEENT: Oral mucosa without erythema or ulceration. NECK: Supple. HEART: Regular rate and rhythm. LUNGS: Clear to auscultation bilaterally. ABDOMEN: Mildly distended. Bowel sounds hypoactive. Point tenderness in the epigastrium. EXTREMITIES: No clubbing, cyanosis, or edema. NEUROLOGIC: Grossly intact. LABORATORY DATA: Pending. IMPRESSION: 1. Epigastric abdominal pain. 2. Pancytopenia/neutropenia. 3. Acute renal injury. 4. Hyperkalemia. 5. Questionable hepatitis C antibodies. Further testing for confirmation pending. 6. Status post bilateral lung transplant. PLAN: I have been following Mr. Valiente over the past couple of days. I felt his drop in peripheral blood counts was reactive and now with the presence of possible hepatitis C antibodies, this finding could explain his cytopenias. He was administered Neupogen 480 mcg subQ yesterday. Peripheral blood count results are not available at the time of dictation and we will review prior to his transfer today. I have nothing further to add. I would be more than happy to follow up with him in the outpatient arena once he is medically stable.
[2017-05-18 08:52] LABS: HEMOGLOBIN 9.1 g/dL (14.0-18.0); MEAN CELL VOLUME 90.1 fL (80-100); MEAN CORPUSCULAR HEMOGLOBIN 28.3 pg (25-34); MEAN CORPUSCULAR HGB CONC 31.4 g/dl (32-36); MEAN PLATELET VOLUME 11.6 fL (7.4-10.4); PLATELET COUNT 67 K/uL (130-400); RED CELL DISTRIBUTION WIDTH CV 17.8 % (11.5-14.5); RED CELL DISTRIBUTION WIDTH SD 58.6 fL (36.4-46.3); WHITE BLOOD COUNT 0.89 K/uL (4.8-10.8)
[2017-05-18 09:19] LABS: CREATININE 1.81 mg/dl (0.60-1.40); POTASSIUM 4.8 mmol/L (3.5-5.1)
[2017-05-18] MEDS ORDERED: BISACODYL 10 MG SUPP PR PRN (09:45)
[2017-05-18] MEDS ORDERED: BISACODYL 10 MG SUPP PR STA (09:45)
--- NOTE | 2017-05-18 09:53 | Hospitalist Progress Note ---
Hospitalist Progress Note Date of Service May 18, 2017. Subjective Pt evaluation today including: conversation w/ patient, physical exam, chart review, lab review, review of inpatient medication list Voiding: no voiding problems Mr. Valiente continues to have aches and chills and a productive cough though he does not know if there is an color to the sputum. He is not sob but his O2 sats have decreased to low 90s on RA. He also continues to have herpetic neuralgia pain. ROS Constitutional: no chills, aches, sweats or fever Respiratory: see HPI Cardiac: no chest pain, palpitations, edema, orthopnea or lightheadedness GI: no abdominal pain, nausea, vomiting, diarrhea or constipation : no dysuria or hesitancy Extremities: no joint pain or weakness Skin: no rash All other systems reviewed and negative Medications Medications Administered Medications (Trade) Dose Ordered Sig/Chrystal Route Start Time Stop Time Status Last Admin Dose Admin Sodium Chloride 500 ml @ 999 mls/hr Q31M STAT IV 05/14/17 14:22 05/14/17 14:52 DC 05/14/17 14:35 999 MLS/HR Albuterol/ Ipratropium (Duoneb) 3 ml NOW STAT INH 05/14/17 15:07 05/14/17 15:09 DC 05/14/17 15:21 3 ML Oxycodone HCl (Roxicodone Immediate Rel Tab) 5 mg NOW STAT PO 05/14/17 15:23 05/14/17 15:25 DC 05/14/17 15:48 5 MG Acetaminophen (Tylenol Tab) 650 mg Q4H PRN PO 05/14/17 16:00 06/13/17 15:59 05/17/17 20:17 650 MG Ondansetron HCl (Zofran Inj) 4 mg Q6H PRN IV 05/14/17 16:00 06/13/17 15:59 05/18/17 08:07 4 MG Aspirin (Ecotrin Tab) 81 mg QAM PO 05/15/17 09:00 06/14/17 08:59 05/18/17 08:09 81 MG Azathioprine (Imuran Tab) 75 mg QAM PO 05/15/17 09:00 06/14/17 08:59 05/18/17 08:08 75 MG Docusate Sodium (coLACE CAP) 100 mg BID PRN PO 05/14/17 16:00 06/13/17 15:59 05/17/17 20:15 100 MG Famotidine (Pepcid Tab) 20 mg BID PO 05/14/17 21:00 06/13/17 20:59 05/18/17 08:09 20 MG Fludrocortisone Acetate (Florinef Tab) 0.1 mg QAM PO 05/15/17 09:00 06/14/17 08:59 05/18/17 08:08 0.1 MG Lorazepam (Ativan Tab) 1 mg BID PO 05/14/17 21:00 06/13/17 20:59 05/18/17 08:07 1 MG Nortriptyline HCl (Pamelor Cap) 25 mg BID PO 05/14/17 21:00 06/13/17 20:59 05/18/17 08:08 25 MG Oxycodone HCl (Roxicodone Immediate Rel Tab) 5 mg Q6 PRN PO 05/14/17 16:00 05/15/17 10:52 DC 05/15/17 05:11 5 MG Pravastatin Sodium (Pravachol Tab) 40 mg HS PO 05/14/17 21:00 06/13/17 20:59 05/17/17 20:18 40 MG Prednisone (PredniSONE TAB) 5 mg QAM PO 05/15/17 09:00 06/14/17 08:59 05/18/17 08:08 5 MG Pregabalin (Lyrica Cap) 150 mg BID PO 05/14/17 21:00 06/13/17 20:59 05/18/17 08:07 150 MG Trimethoprim/ Sulfamethoxazole (Septra Ds 800/ 160MG Tab) 1 tab MoWeFr@0900 PO 05/16/17 09:00 06/15/17 08:59 05/18/17 08:08 1 TAB Tacrolimus (Prograf Cap) 2 mg QPM PO 05/14/17 21:00 06/13/17 20:59 05/17/17 20:17 2 MG Tacrolimus (Prograf Cap) 2 mg QAM PO 05/15/17 09:00 06/14/17 08:59 05/18/17 08:09 2 MG Temazepam (Restoril Cap) 15 mg HS PO 05/14/17 21:00 06/13/17 20:59 05/17/17 20:22 15 MG Sirolimus (Sirolimus) 1 mg BID PO 05/14/17 21:00 06/13/17 20:59 05/18/17 08:08 1 MG Sodium Polystyrene Sulfonate (Kayexalate Susp) 15 gm NOW STAT PO 05/14/17 16:22 05/14/17 16:23 DC 05/14/17 16:44 15 GM Insulin Human Regular 10 units/ Syringe 10 ml @ 20 mls/min NOW ONCE IV 05/14/17 16:30 05/14/17 16:31 DC 05/14/17 16:47 20 MLS/MIN Dextrose (Dextrose 50% 50ML Syringe) 50 ml TODAY@1629 IV 05/14/17 16:29 05/14/17 23:59 DC 05/14/17 16:46 50 ML Pantoprazole Sodium (Protonix Tab) 40 mg QAM PO 05/15/17 09:00 06/14/17 08:59 05/18/17 08:09 40 MG Sodium Chloride 1,000 ml @ 125 mls/hr Q8H IV 05/14/17 20:30 05/15/17 12:29 DC 05/15/17 05:14 125 MLS/HR Sodium Polystyrene Sulfonate (Kayexalate Susp) 15 gm 0900 ONCE PO 05/15/17 09:00 05/15/17 09:01 DC 05/15/17 10:38 15 GM Oxycodone HCl (Roxicodone Immediate Rel Tab) 5 mg Q4 PRN PO 05/15/17 11:00 05/28/17 15:59 05/18/17 08:07 5 MG Furosemide (Lasix Tab) 20 mg QAM PO 05/16/17 09:00 06/15/17 08:59 Future hold 05/18/17 08:09 20 MG Furosemide (Lasix Tab) 20 mg NOW ONCE PO 05/16/17 08:27 05/16/17 08:28 DC 05/16/17 09:38 20 MG Filgrastim (Neupogen Sq) 480 mcg DAILY SQ 05/17/17 09:00 05/18/17 09:01 DC 05/18/17 08:07 480 MCG Vancomycin HCl 1750 mg/Sodium Chloride 535 ml @ 200 mls/hr 1200 ONCE IV 05/17/17 12:00 05/17/17 14:40 DC 05/17/17 11:37 200 MLS/HR Cefepime HCl 2000 mg/Syringe 20 ml @ 5 mls/min Q12H IV 05/17/17 11:00 05/24/17 10:59 05/17/17 23:07 5 MLS/MIN Sodium Chloride 1,000 ml @ 100 mls/hr Q10H IV 05/17/17 11:00 06/16/17 10:59 05/18/17 08:07 100 MLS/HR Albuterol/ Ipratropium (Duoneb) 3 ml Q6R INH 05/17/17 15:00 06/16/17 14:59 05/18/17 07:11 3 ML Vancomycin HCl 1250 mg/Sodium Chloride 275 ml @ 125 mls/hr Q24H IV 05/18/17 08:00 05/24/17 07:59 05/18/17 08:07 125 MLS/HR Oseltamivir Phosphate (Tamiflu Susp) 30 mg BID PO 05/17/17 13:30 05/22/17 13:29 05/18/17 08:08 30 MG Objective Vital Signs Date Time Temp Pulse Resp B/P (MAP) Pulse Ox O2 Delivery O2 Flow Rate FiO2 05/18/17 08:49 37.1 05/18/17 08:00 Room Air 05/18/17 07:42 37.4 67 20 133/73 (93) 93 05/18/17 07:11 102 16 91 Room Air 05/18/17 04:07 36.6 88 20 125/80 (95) 98 Room Air 05/18/17 04:00 Room Air 05/18/17 00:00 Room Air 05/17/17 23:43 36.9 101 18 120/76 (91) 96 Room Air 05/17/17 20:05 105 16 96 Room Air 05/17/17 20:00 Room Air 05/17/17 19:09 37.0 99 20 143/74 (97) 98 Room Air 05/17/17 16:00 Room Air 05/17/17 15:13 36.7 108 18 154/92 (112) 97 05/17/17 13:39 37.0 107 20 136/82 (100) 97 Room Air 05/17/17 10:48 37.0 105 18 159/94 (115) 96 Room Air Physical Exam Notes: General: no distress Eyes: normal inspection, PERLL Respiratory: chest non tender, crackles left lower lobe, other lobes diminished , no respiratory distress, no accessory muscle use Cardiac: regular rate and rhythm, no rub or gallop, no murmur, no edema, no jvd GI/: active bowel sounds, no abd pain or tenderness, soft, distended Extremities: normal range of motion, normal strength, non tender Neuro/Psych: alert and oriented x 3, normal mood and affect Skin: normal color, dry Laboratory Results Last 24 Hours Test 05/17/17 11:09 05/18/17 08:05 05/18/17 08:08 Lactic Acid Level 1.7 mmol/L Total Bilirubin 0.3 mg/dl Direct Bilirubin < 0.1 mg/dl Aspartate Amino Transf (AST/SGOT) 16 U/L Alanine Aminotransferase (ALT/SGPT) 12 U/L Alkaline Phosphatase 63 U/L Total Protein 6.8 gm/dl Albumin 3.3 gm/dl Procalcitonin 0.12 ng/ml Sodium Level 138 mmol/L Potassium Level 4.8 mmol/L Chloride Level 112 mmol/L Carbon Dioxide Level 22 mmol/L Anion Gap 4.0 mmol/L Blood Urea Nitrogen 22 mg/dl Creatinine 1.81 mg/dl Est Creatinine Clear Calc Drug Dose 42.8 ml/min Estimated GFR () 44.8 Estimated GFR (Non- 38.6 BUN/Creatinine Ratio 12.2 Random Glucose 99 mg/dl Calcium Level 8.0 mg/dl White Blood Count 0.89 K/uL Red Blood Count 3.22 M/uL Hemoglobin 9.1 g/dL Hematocrit 29.0 % Mean Corpuscular Volume 90.1 fL Mean Corpuscular Hemoglobin 28.3 pg Mean Corpuscular Hemoglobin Concent 31.4 g/dl Platelet Count 67 K/uL Mean Platelet Volume 11.6 fL RDW Standard Deviation 58.6 fL RDW Coefficient of Variation 17.8 % Assessment and Plan Patient is a pleasant 66 y/o male, with PMHx of pulmonary fibrosis s/p bilateral lung transplant on chronic immunosuppressants, postherpetic neuralgia , h/o TIA, CAD, HLD, postherpetic neuralgia, anxiety, insomnia, and GERD, who presented to the ED for abnormal labs. Patient was having routine blood work and found to have JENNY/hyperkalemia. Pulmonary fibrosis s/p bilateral lung transplant on chronic immunosuppressants, neutropenia, pancytopenia possibly drug induced, left lobe pneumonia - Neutrophils 0.62 05/17, differential for today not resulted yet though overall WBCs marginally higher today, patient continues to have aches and chills and malaise - plan is still for transfer to [facility] transplant center today with Dr. Israel as accepting physician as soon as a bed becomes available - Blood cultures pending, sputum culture unable to be collected so far, - continuecefepime, vanco, NSS @ 100 ml/hr, - lactic acid wnl - preliminary Hep C antibody screen positive, reflex pending - LFTs wnl - continue tamiflu per [facility] recommendation - Chest xray showed left lower lobe and perihilar opacities - continue Neutropenic precautions - Consulted hematology - Continue home inhalers - Continue Azathioprine, Prednisone, Prograf, Bactrim, Valcyte, Sirolimus, Cresemba JENNY, hyperkalemia: - resolved - K this morning 4.8 - Consult nephrology for JENNY, appreciate recommendations - Continue Florinef and Lasix - Creatinine at baseline of 1.7-2.0 Hypermagnesemia: continue to hold Mag-Ox supplement, follow mag level Diarrhea, h/o c.diff, constipation: - no further diarrhea - KUB for abdominal distention - no sbo - no bm since 05/14 - suppository ordered Postherpetic neuralgia: continue Oxycodone PRN to q4h, continue Lyrica Anxiety: Continue Nortriptyline, Ativan h/o TIA, CAD, HLD: Continue ASA, Pravastatin GERD: Continue Pepcid, Protonix in place of Prilosec while inpatient DVT prophylaxis: TEDs/SCDs, ambulation; hold chemical anticoagulation due to pancytopenia Code status: LEVEL I, FULL Dispo: patient will transfer to [facility] today when bed becomes available
--- NOTE | 2017-05-18 09:53 | Nephrology Progress Note ---
Nephrology Progress Note Date of Service May 18, 2017. Chief Complaint Chronic kidney disease, hyperkalemia Subjective Mr. Valiente was seen & examined in his hospital room this morning. He complains of nausea but voices no other medical concerns. He is tolerating Florinef and Furosemide without side effects. Review of Systems Constitutional: No fever Cardiovascular: No chest pain Respiratory: No dyspnea at rest Abdomen: + nausea, No pain Genitourinary - Male: No dysuria Extremities: No leg edema A complete review of systems was performed. Pertinent positives are noted above. All other systems are negative. Vital Signs Last 8 Hrs Date Time Temp Pulse Resp B/P (MAP) Pulse Ox O2 Delivery O2 Flow Rate FiO2 05/18/17 08:49 37.1 05/18/17 08:00 Room Air 05/18/17 07:42 37.4 67 20 133/73 (93) 93 05/18/17 07:11 102 16 91 Room Air 05/18/17 04:07 36.6 88 20 125/80 (95) 98 Room Air 05/18/17 04:00 Room Air Last Recorded Weight Weight (Kilograms): 84.500 Physical Exam General Appearance: no apparent distress Head: normocephalic, atraumatic Eyes: PERRL, EOMI Neck: no adenopathy Respiratory/Chest: lungs clear, no respiratory distress Cardiovascular: regular rate, rhythm Abdomen/GI: normal bowel sounds, non tender, soft Extremities/Musculoskelatal: no calf tenderness, no pedal edema Neurologic/Psych: alert, oriented x 3 Family History FH: diabetes mellitus FH: heart disease Lung disease Negative for CKD/ESRD Social History Smoking Status: Former smoker Drug Use: none Marital Status: Housing Status: lives with family, other Occupation: disabled, other . Retired from [employer]. Medically disabled. h/o tobacco use and IPF s/p double lung transplant. Occasional alcohol Laboratory Results Past 24 Hours 05/18/17 08:08 Red Blood Count 3.22, Mean Corpuscular Volume 90.1, Mean Corpuscular Hemoglobin 28.3, Mean Corpuscular Hemoglobin Concent 31.4, Mean Platelet Volume 11.6 05/18/17 08:05 Test 05/17/17 11:09 05/18/17 08:05 4/13/18 08:08 Lactic Acid Level 1.7 mmol/L (0.4-2.0) Total Bilirubin 0.3 mg/dl (0.2-1) Direct Bilirubin < 0.1 mg/dl (0-0.2) Aspartate Amino Transf (AST/SGOT) 16 U/L (15-37) Alanine Aminotransferase (ALT/SGPT) 12 U/L (12-78) Alkaline Phosphatase 63 U/L (45-117) Total Protein 6.8 gm/dl (6.4-8.2) Albumin 3.3 gm/dl (3.4-5.0) Procalcitonin 0.12 ng/ml (0-0.5) Anion Gap 4.0 mmol/L (3-11) Est Creatinine Clear Calc Drug Dose 42.8 ml/min Estimated GFR () 44.8 Estimated GFR (Non- 38.6 BUN/Creatinine Ratio 12.2 (10-20) Calcium Level 8.0 mg/dl (8.5-10.1) White Blood Count 0.89 K/uL (4.8-10.8) Red Blood Count 3.22 M/uL (4.7-6.1) Hemoglobin 9.1 g/dL (14.0-18.0) Hematocrit 29.0 % (42-52) Mean Corpuscular Volume 90.1 fL (80-100) Mean Corpuscular Hemoglobin 28.3 pg (25-34) Mean Corpuscular Hemoglobin Concent 31.4 g/dl (32-36) Platelet Count 67 K/uL (130-400) Mean Platelet Volume 11.6 fL (7.4-10.4) RDW Standard Deviation 58.6 fL (36.4-46.3) RDW Coefficient of Variation 17.8 % (11.5-14.5) Allergies Coded Allergies: Levofloxacin (Verified Allergy, Intermediate, REDNESS/RASH, 05/14/17) Adhesives (Verified Allergy, Unknown, SKIN IRRITATION/RASH, 05/14/17) Medications Current Inpatient Medications Medications (Trade) Dose Ordered Sig/Chrystal Route Start Time Stop Time Status Last Admin Dose Admin Acetaminophen (Tylenol Tab) 650 mg Q4H PRN PO 05/14/17 16:00 06/13/17 15:59 05/17/17 20:17 650 MG Al Hydrox/Mg Hydrox/Simethicone (Maalox Max Susp) 15 ml Q4H PRN PO 05/14/17 16:00 06/13/17 15:59 Magnesium Hydroxide (Milk Of Magnesia Susp) 30 ml Q12H PRN PO 05/14/17 16:00 06/13/17 15:59 Ondansetron HCl (Zofran Inj) 4 mg Q6H PRN IV 05/14/17 16:00 06/13/17 15:59 05/18/17 08:07 4 MG Nitroglycerin (Nitrostat Tab) 0.4 mg UD PRN SL 05/14/17 16:00 06/13/17 15:59 Polyethylene (Miralax Powder Packet) 17 gm DAILY PRN PO 05/14/17 16:00 06/13/17 15:59 Albuterol (Ventolin Hfa Inhaler) 2 puffs QID PRN INH 05/14/17 16:00 06/13/17 15:59 Aspirin (Ecotrin Tab) 81 mg QAM PO 05/15/17 09:00 06/14/17 08:59 05/18/17 08:09 81 MG Azathioprine (Imuran Tab) 75 mg QAM PO 05/15/17 09:00 06/14/17 08:59 05/18/17 08:08 75 MG Docusate Sodium (coLACE CAP) 100 mg BID PRN PO 05/14/17 16:00 06/13/17 15:59 05/17/17 20:15 100 MG Famotidine (Pepcid Tab) 20 mg BID PO 05/14/17 21:00 06/13/17 20:59 05/18/17 08:09 20 MG Fludrocortisone Acetate (Florinef Tab) 0.1 mg QAM PO 05/15/17 09:00 06/14/17 08:59 05/18/17 08:08 0.1 MG Lorazepam (Ativan Tab) 1 mg BID PO 05/14/17 21:00 06/13/17 20:59 05/18/17 08:07 1 MG Nortriptyline HCl (Pamelor Cap) 25 mg BID PO 05/14/17 21:00 06/13/17 20:59 05/18/17 08:08 25 MG Pravastatin Sodium (Pravachol Tab) 40 mg HS PO 05/14/17 21:00 06/13/17 20:59 05/17/17 20:18 40 MG Prednisone (PredniSONE TAB) 5 mg QAM PO 05/15/17 09:00 06/14/17 08:59 05/18/17 08:08 5 MG Pregabalin (Lyrica Cap) 150 mg BID PO 05/14/17 21:00 06/13/17 20:59 05/18/17 08:07 150 MG Trimethoprim/ Sulfamethoxazole (Septra Ds 800/ 160MG Tab) 1 tab MoWeFr@0900 PO 05/16/17 09:00 06/15/17 08:59 05/18/17 08:08 1 TAB Tacrolimus (Prograf Cap) 2 mg QPM PO 05/14/17 21:00 06/13/17 20:59 05/17/17 20:17 2 MG Tacrolimus (Prograf Cap) 2 mg QAM PO 05/15/17 09:00 06/14/17 08:59 05/18/17 08:09 2 MG Temazepam (Restoril Cap) 15 mg HS PO 05/14/17 21:00 06/13/17 20:59 05/17/17 20:22 15 MG Miscellaneous Information (Order Awaiting Action) 1 ea QS N/A 05/14/17 18:00 06/13/17 17:59 Polyethylene (Miralax Powder Packet) 17 gm DAILY PRN PO 05/14/17 16:00 06/13/17 15:59 Sirolimus (Sirolimus) 1 mg BID PO 05/14/17 21:00 06/13/17 20:59 05/18/17 08:08 1 MG Miscellaneous Information (Order Awaiting Action) 1 ea QS N/A 05/14/17 18:00 06/13/17 17:59 Pantoprazole Sodium (Protonix Tab) 40 mg QAM PO 05/15/17 09:00 06/14/17 08:59 05/18/17 08:09 40 MG Oxycodone HCl (Roxicodone Immediate Rel Tab) 5 mg Q4 PRN PO 05/15/17 11:00 05/28/17 15:59 05/18/17 08:07 5 MG Furosemide (Lasix Tab) 20 mg QAM PO 05/16/17 09:00 06/15/17 08:59 Future hold 05/18/17 08:09 20 MG Miscellaneous Information (Consult) 1 ea UD PRN N/A 05/17/17 10:30 06/16/17 10:29 Cefepime HCl (Consult) 1 ea UD PRN N/A 05/17/17 10:57 06/16/17 10:56 Cefepime HCl 2000 mg/Syringe 20 ml @ 5 mls/min Q12H IV 05/17/17 11:00 05/24/17 10:59 05/17/17 23:07 5 MLS/MIN Sodium Chloride 1,000 ml @ 100 mls/hr Q10H IV 05/17/17 11:00 06/16/17 10:59 05/18/17 08:07 100 MLS/HR Albuterol/ Ipratropium (Duoneb) 3 ml Q6R INH 05/17/17 15:00 06/16/17 14:59 05/18/17 07:11 3 ML Albuterol/ Ipratropium (Duoneb) 3 ml Q2H PRN INH 05/17/17 12:15 06/16/17 12:14 Vancomycin HCl 1250 mg/Sodium Chloride 275 ml @ 125 mls/hr Q24H IV 05/18/17 08:00 05/24/17 07:59 05/18/17 08:07 125 MLS/HR Oseltamivir Phosphate (Tamiflu Susp) 30 mg BID PO 05/17/17 13:30 05/22/17 13:29 05/18/17 08:08 30 MG Bisacodyl (Dulcolax Supp) 10 mg NOW STAT AL 05/18/17 09:45 05/18/17 09:46 UNV Bisacodyl (Dulcolax Supp) 10 mg DAILY PRN AL 05/18/17 09:45 06/17/17 09:44 UNV Impression (1) JENNY (acute kidney injury) (2) Chronic kidney disease, stage 3 (moderate) (3) Hyperkalemia (4) Bilateral lung tansplant (5) Pancytopenia Recommendations ACUTE KIDNEY INJURY: -- Resolved. -- Urinalysis negative for protein or blood -- Renal US report 05/15: 10.5 cm kidneys without stone, mass, cyst. Bladder is thick and trabeculated. CHRONIC KIDNEY DISEASE: -- Baseline creatinine 1.7 - 2.0 (stable since lung transplant) : -- Thick trabeculated bladder on US. Will need outpatient evaluation w/ [facility] HYPERKALEMIA: -- [facility] records from GI show patient has been on Florinef since at least 2015 -- Continue Florinef 0.1 mg daily. Blood pressure remains acceptable at this time. -- Continue Furosemide 20 mg each morning to help correct hyperkalemia and regulate blood pressure -- Low potassium diet No further Nephrology evaluation indicated at this time. Will sign off. Please call if further assistance is needed.
[2017-05-18] MEDS: CEFEPIME IV 2,000 MG in SYRINGE 7.5 ML IV SCH (10:18)
[2017-05-18] MEDS ORDERED: RASPBERRY SYRUP 5 ML UDP PO SCH (12:00)
[2017-05-18] MEDS ORDERED: VANCOMYCIN HCL 125 MG/2.5ML SOLN PO SCH (12:00)
--- NOTE | 2017-05-18 13:14 | Discharge Instructions ---
Discharge Instructions Date of Service May 18, 2017. Admission Reason for Admission: Juan, Hyperkalemia Discharge Discharge Diagnosis / Problem: Pneumonia, acute neutropenia Discharge Goals Goal(s): Improve disease control Activity Recommendations Activity Limitations: resume your previous activity . Instructions / Follow-Up Instructions / Follow-Up Please resume your home medications and new medications per [facility] discharge instructions Please follow up with your primary care provider within about a week after discharge or per [facility] discharge instructions Current Hospital Diet Patient's current hospital diet: AHA Diet (Heart Healthy), Low Potassium Diet ( 2g K) Discharge Diet Recommended Diet: AHA Diet (Heart Healthy), Low Potassium Diet (2g K) Procedures Procedures Performed: Chest xray Renal US KUB Pending Studies Studies pending at discharge: yes List of pending studies: blood cultures Laboratory Results Lipid Panel Test 03/23/17 06:57 Range/Units Triglycerides Level 221 H 0-150 mg/dl Cholesterol Level 147 0-200 mg/dl HDL Cholesterol 45 mg/dl Cholesterol/HDL Ratio 3.3 LDL Cholesterol, Calculated 58 mg/dl Medical Emergencies . Who to Call and When: Medical Emergencies: If at any time you feel your situation is an emergency, please call 911 immediately. . Non-Emergent Contact Non-Emergency issues call your: Primary Care Provider Call Non-Emergent contact if: you have a fever, you have any medication questions . . "Provider Documentation" section prepared by Lydia Schneider. .
[2017-05-18] MEDS: ACETAMINOPHEN 325 MG TAB PO PRN (13:15)
--- NOTE | 2017-05-18 13:30 | Discharge Summary ---
Discharge Summary Date of Service May 18, 2017. Discharge Summary Admission Date: May 14, 2017 at 16:11 Discharge Date: May 18, 2017 Discharge Disposition: Home Principal Diagnosis: Pneumonia, acute neutropenia Problems/Secondary Diagnoses: Pulmonary fibrosis s/p bilateral lung transplant on chronic immunosuppressants, neutropenia, pancytopenia possibly drug induced, JENNY, hyperkalemia, Hypermagnesemia, Diarrhea, h/o c.diff, Postherpetic neuralgia, Anxiety, h/o TIA , CAD, HLD, GERD Immunizations: Have You Had Influenza Vaccine: Unknown Influenza Vaccine Date: Dec 02, 2009 History of Tetanus Vaccine?: Unknown History of Pneumococcal: Unknown Pneumococcal Date: Aug 02, 2009 History of Hepatitis B Vaccine: Unknown Procedures: Medications Administered Medications (Trade) Dose Ordered Sig/Chrystal Route Start Time Stop Time Status Last Admin Dose Admin Sodium Chloride 500 ml @ 999 mls/hr Q31M STAT IV 05/14/17 14:22 05/14/17 14:52 DC 05/14/17 14:35 999 MLS/HR Albuterol/ Ipratropium (Duoneb) 3 ml NOW STAT INH 05/14/17 15:07 05/14/17 15:09 DC 05/14/17 15:21 3 ML Oxycodone HCl (Roxicodone Immediate Rel Tab) 5 mg NOW STAT PO 05/14/17 15:23 05/14/17 15:25 DC 05/14/17 15:48 5 MG Acetaminophen (Tylenol Tab) 650 mg Q4H PRN PO 05/14/17 16:00 06/13/17 15:59 05/18/17 13:15 650 MG Ondansetron HCl (Zofran Inj) 4 mg Q6H PRN IV 05/14/17 16:00 06/13/17 15:59 05/18/17 08:07 4 MG Aspirin (Ecotrin Tab) 81 mg QAM PO 05/15/17 09:00 06/14/17 08:59 05/18/17 08:09 81 MG Azathioprine (Imuran Tab) 75 mg QAM PO 05/15/17 09:00 06/14/17 08:59 05/18/17 08:08 75 MG Docusate Sodium (coLACE CAP) 100 mg BID PRN PO 05/14/17 16:00 06/13/17 15:59 05/17/17 20:15 100 MG Famotidine (Pepcid Tab) 20 mg BID PO 05/14/17 21:00 06/13/17 20:59 05/18/17 08:09 20 MG Fludrocortisone Acetate (Florinef Tab) 0.1 mg QAM PO 05/15/17 09:00 06/14/17 08:59 05/18/17 08:08 0.1 MG Lorazepam (Ativan Tab) 1 mg BID PO 05/14/17 21:00 06/13/17 20:59 05/18/17 08:07 1 MG Nortriptyline HCl (Pamelor Cap) 25 mg BID PO 05/14/17 21:00 06/13/17 20:59 05/18/17 08:08 25 MG Oxycodone HCl (Roxicodone Immediate Rel Tab) 5 mg Q6 PRN PO 05/14/17 16:00 05/15/17 10:52 DC 05/15/17 05:11 5 MG Pravastatin Sodium (Pravachol Tab) 40 mg HS PO 05/14/17 21:00 06/13/17 20:59 05/17/17 20:18 40 MG Prednisone (PredniSONE TAB) 5 mg QAM PO 05/15/17 09:00 06/14/17 08:59 05/18/17 08:08 5 MG Pregabalin (Lyrica Cap) 150 mg BID PO 05/14/17 21:00 06/13/17 20:59 05/18/17 08:07 150 MG Trimethoprim/ Sulfamethoxazole (Septra Ds 800/ 160MG Tab) 1 tab MoWeFr@0900 PO 05/16/17 09:00 06/15/17 08:59 05/18/17 08:08 1 TAB Tacrolimus (Prograf Cap) 2 mg QPM PO 05/14/17 21:00 06/13/17 20:59 05/17/17 20:17 2 MG Tacrolimus (Prograf Cap) 2 mg QAM PO 05/15/17 09:00 06/14/17 08:59 05/18/17 08:09 2 MG Temazepam (Restoril Cap) 15 mg HS PO 05/14/17 21:00 06/13/17 20:59 05/17/17 20:22 15 MG Sirolimus (Sirolimus) 1 mg BID PO 05/14/17 21:00 06/13/17 20:59 05/18/17 08:08 1 MG Sodium Polystyrene Sulfonate (Kayexalate Susp) 15 gm NOW STAT PO 05/14/17 16:22 05/14/17 16:23 DC 05/14/17 16:44 15 GM Insulin Human Regular 10 units/ Syringe 10 ml @ 20 mls/min NOW ONCE IV 05/14/17 16:30 05/14/17 16:31 DC 05/14/17 16:47 20 MLS/MIN Dextrose (Dextrose 50% 50ML Syringe) 50 ml TODAY@1629 IV 05/14/17 16:29 05/14/17 23:59 DC 05/14/17 16:46 50 ML Pantoprazole Sodium (Protonix Tab) 40 mg QAM PO 05/15/17 09:00 06/14/17 08:59 05/18/17 08:09 40 MG Sodium Chloride 1,000 ml @ 125 mls/hr Q8H IV 05/14/17 20:30 05/15/17 12:29 DC 05/15/17 05:14 125 MLS/HR Sodium Polystyrene Sulfonate (Kayexalate Susp) 15 gm 0900 ONCE PO 05/15/17 09:00 05/15/17 09:01 DC 05/15/17 10:38 15 GM Oxycodone HCl (Roxicodone Immediate Rel Tab) 5 mg Q4 PRN PO 05/15/17 11:00 05/28/17 15:59 05/18/17 08:07 5 MG Furosemide (Lasix Tab) 20 mg QAM PO 05/16/17 09:00 06/15/17 08:59 Future hold 05/18/17 08:09 20 MG Furosemide (Lasix Tab) 20 mg NOW ONCE PO 05/16/17 08:27 05/16/17 08:28 DC 05/16/17 09:38 20 MG Filgrastim (Neupogen Sq) 480 mcg DAILY SQ 05/17/17 09:00 05/18/17 09:01 DC 05/18/17 08:07 480 MCG Vancomycin HCl 1750 mg/Sodium Chloride 535 ml @ 200 mls/hr 1200 ONCE IV 05/17/17 12:00 05/17/17 14:40 DC 05/17/17 11:37 200 MLS/HR Cefepime HCl 2000 mg/Syringe 20 ml @ 5 mls/min Q12H IV 05/17/17 11:00 05/24/17 10:59 05/18/17 10:18 5 MLS/MIN Sodium Chloride 1,000 ml @ 100 mls/hr Q10H IV 05/17/17 11:00 06/16/17 10:59 05/18/17 08:07 100 MLS/HR Albuterol/ Ipratropium (Duoneb) 3 ml Q6R INH 05/17/17 15:00 06/16/17 14:59 05/18/17 07:11 3 ML Vancomycin HCl 1250 mg/Sodium Chloride 275 ml @ 125 mls/hr Q24H IV 05/18/17 08:00 05/24/17 07:59 05/18/17 08:07 125 MLS/HR Oseltamivir Phosphate (Tamiflu Susp) 30 mg BID PO 05/17/17 13:30 05/22/17 13:29 05/18/17 08:08 30 MG Bisacodyl (Dulcolax Supp) 10 mg NOW STAT PA 05/18/17 09:45 05/18/17 09:56 DC 05/18/17 10:18 10 MG Vancomycin HCl (Vancomycin Oral Soln) 125 mg Q6H PO 05/18/17 12:00 06/01/17 11:59 05/18/17 11:18 125 MG Raspberry (Raspberry Syrup 5ml Cup) 5 ml Q6H PO 05/18/17 12:00 06/01/17 11:59 05/18/17 11:18 5 ML Consultations: Dr. Pierson from heme/onc, Dr. Delacruz from from nephrology Medication Reconciliation Continued Medications: Albuterol Sulfate (Proventil Hfa) 108 Mcg/Act Aer 2 PUFFS INH QID PRN for SOB/Wheezing Aspirin (Aspirin Ec) 81 Mg Tab 81 MG PO QAM Azathioprine (Azathioprine) 50 Mg Tab 75 MG PO QAM Docusate Sodium (Colace) 100 Mg Cap 1 CAP PO BID PRN for Constipation for 30 Days, #60 CAP Famotidine (Famotidine) 20 Mg Tab 20 MG PO BID Fludrocortisone Acetate (Florinef) 0.1 Mg Tab 0.1 MG PO QAM Furosemide (Lasix) 40 Mg Tab 40 MG PO DAILY Isavuconazonium Sulfate (Cresemba) 186 Mg Cap 186 MG PO BID Lidocaine (Anorectal) (Lidocaine 5%) 5 % Cre 1 PATCH EX Lorazepam (Lorazepam) 1 Mg Tab 1 MG PO BID Magnesium Oxide (Mag-Ox) 400 Mg Tab 400 MG PO TID, TAB Nortriptyline HCl (Nortriptyline HCl) 25 Mg Cap 25 MG PO BID Omeprazole (Omeprazole Dr) 20 Mg Cap 20 MG PO BID Ondansetron Hcl (Zofran) 4 Mg Tab 4 MG PO Q6H PRN for Nausea Oxycodone Immediate Rel Tab (Roxicodone Ir) 5 Mg Tab 1-2 TAB PO Q6 PRN for Severe Pain, #24 TAB Polyethylene Glycol 3350 (Miralax) 1 Pow Pow 17 GM PO DAILY PRN for Constipation, #255 GM Pravastatin Sodium (Pravastatin Sodium) 40 Mg Tab 40 MG PO HS Prednisone (Prednisone) 5 Mg Tab 5 MG PO QAM Pregabalin (Lyrica) 150 Mg Cap 150 MG PO BID Sildenafil Citrate (Viagra) 50 Mg Tab 50 MG PO PRN, TAB Sirolimus (Sirolimus) 1 Mg Tab 1 MG PO BID Sulfa/Trimethoprim (Bactrim Ds 800MG/160MG) Tab 1 TAB PO 3XWK TAKE THIS MEDICATION EVERY SUNDAY,SUNDAY AND SUNDAY Tacrolimus (Prograf) 1 Mg Cap 3 CAP PO QAM, CAP Tacrolimus (Prograf) 1 Mg Cap 2 CAP PO QPM, CAP Temazepam (Restoril) 15 Mg Cap 15 MG PO HS Valganciclovir (Valcyte) 450 Mg Tab 450 MG PO DAILY Discharge Exam ROS Constitutional: + aches, chills, fever 37.8 Respiratory: no sob,+ productive cough, no wheezing Cardiac: no chest pain, palpitations, edema, orthopnea or lightheadedness GI: no abdominal pain, nausea, vomiting, diarrhea or constipation : no dysuria or hesitancy Extremities: no joint pain or weakness Skin: no rash All other systems reviewed and negative General: no distress Eyes: normal inspection, PERLL Respiratory: chest non tender, crackles left lower lobe, no respiratory distress , no accessory muscle use Cardiac: regular rate and rhythm, no rub or gallop, no murmur, no edema, no jvd GI/: active bowel sounds, no abd pain or tenderness, soft, non distended Extremities: normal range of motion, normal strength, non tender Neuro/Psych: alert and oriented x 3, normal mood and affect Skin: normal color, dry Hospital Course Patient is a pleasant 66 y/o male, with PMHx of pulmonary fibrosis s/p bilateral lung transplant on chronic immunosuppressants, postherpetic neuralgia , h/o TIA, CAD, HLD, postherpetic neuralgia, anxiety, insomnia, and GERD, who presented to the ED for abnormal labs. Patient was having routine blood work and found to have JENNY/hyperkalemia. Pulmonary fibrosis s/p bilateral lung transplant on chronic immunosuppressants, neutropenia, pancytopenia possibly drug induced, left lobe pneumonia - Neutrophils 0.62 05/17, marginally higher today at 0.76, patient continues to have aches and chills and malaise - plan is still for transfer to [facility] transplant center today with Dr. Israel. Patient did receive Neupogen yesterday - Blood cultures pending, sputum culture unable to be collected so far, - continue cefepime, vanco, NSS @ 100 ml/hr, - lactic acid wnl - preliminary Hep C antibody screen positive, reflex pending - LFTs wnl - continue tamiflu per [facility] recommendation - Chest xray showed left lower lobe and perihilar opacities - continue Neutropenic precautions - Consulted hematology - Continue home inhalers - Continue Azathioprine, Prednisone, Prograf, Bactrim, Valcyte, Sirolimus, Cresemba JENNY, hyperkalemia: - resolved - K this morning 4.8 - Consult nephrology for JENNY, appreciate recommendations - Continue Florinef and Lasix - Creatinine at baseline of 1.7-2.0 Hypermagnesemia: continue to hold Mag-Ox supplement, follow mag level Diarrhea, h/o c.diff, constipation: - no further diarrhea - KUB for abdominal distention - no sbo - no bm since 05/14 - suppository ordered - initiated prophylactic po vanco 125 mg qid as patient recently had c.diff infection, is severely immunosuppressed, and has started antibiotic therapy Postherpetic neuralgia: continue Oxycodone PRN to q4h, continue Lyrica Anxiety: Continue Nortriptyline, Ativan h/o TIA, CAD, HLD: Continue ASA, Pravastatin GERD: Continue Pepcid, Protonix in place of Prilosec while inpatient Full code Total Time Spent: Greater than 30 minutes This includes examination of the patient, discharge planning, medication reconciliation, and communication with other providers. Discharge Instructions Please refer to the electronic Patient Visit Report (Discharge Instructions) for additional information. Additional Copies To Ming Israel M.D.
[2017-05-20] MEDS ORDERED: VANCOMYCIN TROUGH ONE ×2 (07:30→13:30)
== END 2017-05-18 15:14 | disposition short-term general hospital (02) | DRG 682 ==
LOC: C.EDB 11:52 → C.2E 16:11 → UNDOADMIN 16:11 → ENRESERV 16:42 → C.MS2W 05-16 18:41
PROVIDERS: ADMIT Internal Medicine; ATTEND Hospitalist
DX: N17.9 Acute kidney failure, unspecified (principal); J18.9 Pneumonia, unspecified organism; Z94.2 Lung transplant status; B02.29 Other postherpetic nervous system involvement; D61.811 Other drug-induced pancytopenia; E87.5 Hyperkalemia; J44.9 Chronic obstructive pulmonary disease, unspecified; Z87.891 Personal history of nicotine dependence; Z88.1 Allergy status to other antibiotic agents; Z79.899 Other long term (current) drug therapy; I25.10 Atherosclerotic heart disease of native coronary artery without angina pectoris; N18.3 Chronic kidney disease, stage 3 (moderate); E78.5 Hyperlipidemia, unspecified; K21.9 Gastro-esophageal reflux disease without esophagitis; Z98.1 Arthrodesis status; E83.42 Hypomagnesemia; F41.9 Anxiety disorder, unspecified; Z86.73 Personal history of transient ischemic attack (TIA), and cerebral infarction without residual deficits

== ENCOUNTER → 2017-05-14 | Outpatient (CLI) | payer OTHER ==
[2017-05-14 10:14] LABS: MEAN CORPUSCULAR HGB CONC 31.1 g/dl (32-36)
[2017-05-14 10:22] LABS: HEMOGLOBIN 8.7 g/dL (14.0-18.0); MEAN CELL VOLUME 90.3 fL (80-100); MEAN CORPUSCULAR HEMOGLOBIN 28.1 pg (25-34); RED CELL DISTRIBUTION WIDTH CV 18.8 % (11.5-14.5); RED CELL DISTRIBUTION WIDTH SD 62.7 fL (36.4-46.3); WHITE BLOOD COUNT 1.53 K/uL (4.8-10.8)
[2017-05-14 10:53] LABS: ALBUMIN 3.2 gm/dl (3.4-5.0); ALKALINE PHOSPHATASE 57 U/L (45-117); ALT/SGPT 12 U/L (12-78); AST/SGOT 13 U/L (15-37); BLOOD UREA NITROGEN 36 mg/dl (7-18); CALCIUM 8.1 mg/dl (8.5-10.1); CARBON DIOXIDE 20 mmol/L (21-32); CREATININE 2.39 mg/dl (0.60-1.40); GLUCOSE 94 mg/dl (70-99); POTASSIUM 6.1 mmol/L (3.5-5.1); SODIUM 139 mmol/L (136-145); TOTAL PROTEIN 6.6 gm/dl (6.4-8.2)
[2017-05-14 11:01] LABS: PLATELET COUNT 64 K/uL (130-400)
[2017-05-17 10:33] LABS: FK506 TACROLIMUS HIGHLY SENS 10.1 MCG/L (5-20)
--- NOTE | 2017-05-23 10:53 | CODING QUERY NO DIAGNOSIS ---
TREATMENT RENDERED WITHOUT A DIAGNOSIS 52 To promote full compliance with coding requirements relating to patient care, physician participation is requested in all cases of commercial manager uncertainty. Please assist us with providing a diagnosis/symptom for the test(s) below: A diagnosis/symptom was not documented on your Order. A valid diagnosis/symptom is required to bill all insurances. Please remember that we are unable to code a diagnosis of rule out, probable, possible, questionable, or suspected. DOS 05/14/17 Tests that require a diagnosis: * CBC w/AUTO DIFF DIAGNOSIS: * LIVER PROFILE DIAGNOSIS: * PARTIAL RENAL PROFILE DIAGNOSIS: * CALCIUM, IONIZED DIAGNOSIS: * CYTOMEGALOVIRUS DNA DIAGNOSIS: * TACROLIMUS [id number] DIAGNOSIS: Provider Signature: Date: Thank you [facility] Information Management Once completed, please kindly fax back to [phone] For questions please call [phone]
== END | disposition home or self-care (01) ==
LOC: C.LABSPEC 10:01
PROVIDERS: ATTEND Internal Medicine Pulmonary Disease
DX: D70.9 Neutropenia, unspecified (principal); N28.9 Disorder of kidney and ureter, unspecified; Z79.899 Other long term (current) drug therapy; T86.819 Unspecified complication of lung transplant; Y83.0 Surgical operation with transplant of whole organ as the cause of abnormal reaction of the patient, or of later complication, without mention of misadventure at the time of the procedure; Z94.2 Lung transplant status; E83.42 Hypomagnesemia